=== PATIENT | female | born 1965 | race Caucasian/White ===

== ENCOUNTER 2019-03-18 17:24 | Emergency (ER) | payer MEDICAID, OTHER ==
[~2019-03-18] VITALS: Ht 165.1 cm; Wt 89.5 kg
[~2019-03-18 17:24] MED LIST: NO HOME MEDS
[2019-03-18] MEDS ORDERED: TRAZ-218 PO (18:26)
[2019-03-18] MEDS ORDERED: FLUO20CA39 PO (18:26)
[2019-03-18] MEDS ORDERED: ARIP10TA15 PO (18:26)
[2019-03-18] MEDS ORDERED: CLON0.5T23 PO (18:27)
[2019-03-18] MEDS: haloperidol 5mg tablet PO PRN (18:31)
[2019-03-18] MEDS: diphenhydrAMINE 25mg capsule PO PRN (18:31)
[2019-03-18] MEDS ORDERED: LORazepam 1 MG tablet PO ONE (18:55)
--- NOTE | 2019-03-18 19:27 | NUR ---
One to one with the patient to assess severity of thought disorder and self harm risk. The patient is cooeprative but clearly agitated by internal stimuli. She denies that she is actively suicidal but makes comments to "blow my brains out" 2nd to frustration. She reports that she is hearing voices telling her "to kill myself and commit crimes and they hate me and I'm a terrible piece of shit of a person" She is very paranoid about her stepgrandmother and her children following her around [place] and making her life miserable. "they always seen to find people connected with me. They follow me" The patient was constantly laughing or talking angrilly to herself" She was requested to give a urine sample which she did. Per Tawnya Blanton at the [facility] office the patient had been out of her klonopin for the past 48 hours.
[2019-03-18 19:29] LABS: CLARITY,URINE CLEAR (Clear); COLOR,URINE YELLOW (Yellow); GLUCOSE, URINE NEGATIVE (Neg); KETONES,URINE NEGATIVE (Neg); LEUKOCYTE ESTERASE ,URINE NEGATIVE (Neg); NITRITES, URINE NEGATIVE (Neg); OCCULT BLOOD,URINE NEGATIVE (Neg); PH,URINE 5.5 (4.8-8.0); PROTEIN,URINE NEGATIVE (Neg); UROBILINOGEN,URINE 0.2 E.U/dL (0.2-1.0)
[2019-03-18 19:32] LABS: BASOPHILS # (AUTO) 0.1 X10'3 (0-0.2); EOSINOPHILS # (AUTO) 0.4 X10'3 (0-0.9); EOSINOPHILS % (AUTO) 4.4 % (0-6); HEMATOCRIT 36.9 % (35.0-45.0); HEMOGLOBIN 12.6 g/dl (12.0-16.0); LYMPHOCYTES % (AUTO) 21.9 % (21-51); MEAN CORPUSCULAR HEMOGLOBIN 28.7 PG (27.0-31.0); MEAN CORPUSCULAR HGB CONC 34.2 g/dL (33.0-36.5); MEAN CORPUSCULAR VOLUME 83.9 FL (78-98); MEAN PLATELET VOLUME 8.5 FL (7.4-10.4); MONOCYTES % (AUTO) 10.5 % (2-12); NEUTROPHILS # (AUTO) 5.7 X10'3 (1.8-7.7); NEUTROPHILS % (AUTO) 62.2 % (42-75); PLATELET COUNT 282 X10'3 (140-440); RED CELL DISTRIBUTION WIDTH 14.1 % (11.5-14.5); WHITE BLOOD COUNT 9.1 X10'3 (4.5-11.0)
[2019-03-18 19:33] LABS: URINE HCG NEGATIVE (NEG)
[2019-03-18 19:34] LABS: UA COLLECTION TYPE CLN CATCH MIDSTREAM
[2019-03-18 19:36] LABS: ALANINE AMINOTRANSFERASE 29 U/L (12-78); ALBUMIN 3.3 G/DL (3.4-5.0); ALBUMIN/GLOBULIN RATIO 0.9 (1.1-1.5); ALKALINE PHOSPHATASE 122 IU/L (46-116); ANION GAP 9 (8-16); ASPARTATE AMINO TRANSFERASE 18 U/L (10-37); BILIRUBIN,TOTAL 0.3 MG/DL (0.1-1.0); BLOOD UREA NITROGEN 13 MG/DL (7-18); BUN/CREATININE RATIO 13.3 (6.6-38.0); CALCIUM 8.5 MG/DL (8.5-10.1); CHLORIDE 106 MMOL/L (99-107); CREATININE 0.98 MG/DL (0.40-0.90); GLUCOSE 104 MG/DL (70-104); POTASSIUM 3.3 MMOL/L (3.5-5.1); SODIUM 141 MMOL/L (135-145); TOTAL CARBON DIOXIDE 26.4 MMOL/L (24-32); TOTAL PROTEIN 7.1 G/DL (6.4-8.2); eGFR 59 ML/MIN
[2019-03-18 19:45] LABS: ETHANOL < 0.010 GM/DL (0.0-0.010)
[2019-03-18] MEDS: clonazePAM 0.5mg tablet PO SCH ×2 (20:08→21:00)
[2019-03-18 20:20] LABS: URINE AMPHETAMINE SCREEN NEGATIVE (Neg); URINE BARBITUATE SCREEN NEGATIVE (Neg); URINE BENZODIAZEPINES SCREEN NEGATIVE (Neg); URINE CANNABINOID SCREEN NEGATIVE (Neg); URINE COCAINE SCREEN NEGATIVE (Neg); URINE METHADONE SCREEN NEGATIVE (Neg); URINE OPIATE SCREEN NEGATIVE (Neg); URINE PHENCYCLIDINE SCREEN NEGATIVE (Neg)
[2019-03-18] MEDS ORDERED: traZODone 50mg tablet PO SCH (21:00)
--- NOTE | 2019-03-18 21:30 | NUR ---
Packet faxed to [facility]. Spoke to Gene @ [facility] office to confirm receipt of packet.
--- NOTE | 2019-03-18 21:54 | NUR ---
The patient appears to be asleep at this time
--- NOTE | 2019-03-18 23:10 | NUR ---
Report given to MIKEY Link at [facility], [place] for possible admisssion
--- NOTE | 2019-03-18 23:55 | NUR ---
The patient appears to be asleep at this time.
[2019-03-19] MEDS ORDERED: clonazePAM 0.5mg tablet PO SCH
--- NOTE | 2019-03-19 01:45 | NUR ---
The patient appears to be asleep
[2019-03-19] MEDS: haloperidol 5mg tablet PO PRN (04:48)
[2019-03-19] MEDS: diphenhydrAMINE 25mg capsule PO PRN (04:49)
[2019-03-19] MEDS ORDERED: LORazepam 1 MG tablet PO PRN (04:50)
--- NOTE | 2019-03-19 05:01 | NUR ---
The patient awakened and had been incontinent of urine which upset her. She was assisted in getting her bed cleaned up and changed. She has been very anxious and actively responding to internal stimuli and talking about "rat demons" and hearing things come out of the vents. She was given haldol and ativan. PRN for ativan ordered.
--- NOTE | 2019-03-19 06:30 | NUR ---
Pt up using the bathroom, asking for clean scrubs and clean sheets.
--- NOTE | 2019-03-19 06:46 | NUR ---
Note aleah in EDM - 03/19/19 at 0651 by ARLEY Assisted pt with changing the sheets on her bed. Pt denies AH this am, did hear voices last night, rates her depression at a 10/10, denies SI/HI/VH, pt is paranoid, states "I think they sent an assassin to kill me." Asked who sent an assassin, pt stated "Therese and her man." Indicated that they were former family members by marriage. Pt stated rk
--- NOTE | 2019-03-19 06:46 | NUR ---
Assisted pt with changing the sheets on her bed. Pt denies AH this am, did hear voices last night, rates her depression at a 10/10, denies SI/HI/VH. Pt is paranoid, states "I think they sent an assassin to kill me." Asked who sent an assassin, pt stated "Therese and her man." Indicated that they were former family members by marriage. Pt stated that they sent a threatening text message to her cell phone. Pt states that she is fearful, states she is tired of living this way. Pt also states that she does not wish to go to [facility], she wants to go upstairs to [facility].
--- NOTE | 2019-03-19 07:30 | NUR ---
Pt's potassium level was 3.3 yesterday, potassium was not replaced, notified Dr Severino who did not wish to replace K.
[2019-03-19] MEDS ORDERED: FLUoxetine 20mg capsule PO SCH (08:00)
[2019-03-19] MEDS ORDERED: aripiprazole 5mg tablet PO SCH (08:00)
[2019-03-19] MEDS: clonazePAM 0.5mg tablet PO SCH (08:20)
--- NOTE | 2019-03-19 08:23 | NUR ---
Katina from [facility] called, pt has been accepted at [facility]. Accepting MD is Dr Ferguson, service parts driver to pick pt up at 1130.
--- NOTE | 2019-03-19 08:45 | NUR ---
Pt is in the bathroom responding to internal stimuli, talking to herself.
--- NOTE | 2019-03-19 10:45 | NUR ---
Pt lying in bed, appears to be sleeping.
--- NOTE | 2019-03-19 11:38 | NUR ---
Pt ambulated to restroom. Stopped at nurses station and asked to speak with EDMD.
--- NOTE | 2019-03-19 11:51 | NUR ---
[employer] here to transport pt to [facility].
--- NOTE | 2019-03-19 11:52 | NUR ---
Pt walked off the unit accompanied by retail delivery driver and security, all belongings sent with her, transferred to [facility].
[2019-03-19 11:54] VITALS: BP 113/74
== END 2019-03-19 11:52 ==
LOC: ER 17:26
DX: F32.9 Major depressive disorder, single episode, unspecified (principal); R45.851 Suicidal ideations; F41.9 Anxiety disorder, unspecified; Z79.899 Other long term (current) drug therapy
CPT/HCPCS: 36415; 80053; 80305; 80320; 81003; 81025; 84443; 85025; 99285; Q0163

== ENCOUNTER 2019-04-11 20:37 | Emergency (ER) | payer MEDICAID ==
[~2019-04-11] VITALS: Ht 165.1 cm; Wt 90.9 kg
[~2019-04-11 20:37] MED LIST changes: +ARIP10TA15 PO; +CLON0.5T23 PO; +FLUO20CA39 PO; -NO HOME MEDS; +TRAZ-251 PO
[2019-04-11 20:43] VITALS: BP 138/98
[2019-04-11] MEDS ORDERED: LORazepam 1 MG tablet PO ONE ×2 (22:15→23:20)
--- NOTE | 2019-04-11 23:29 | NUR ---
[facility] WAS CALLED TO [facility].
== END 2019-04-11 23:32 | disposition home or self-care (01) ==
LOC: ER 20:38
DX: F41.9 Anxiety disorder, unspecified (principal); F32.9 Major depressive disorder, single episode, unspecified; Z79.899 Other long term (current) drug therapy; Z59.0 Homelessness
CPT/HCPCS: 93005; 99283

== ENCOUNTER 2022-03-16 13:29 | Emergency (ER) | payer MEDICARE, MEDICAID ==
[~2022-03-16] VITALS: Ht 165.1 cm; Wt 99.1 kg
[2022-03-16 14:27] LABS: BASOPHILS # (AUTO) 0.1 X10'3 (0-0.2); EOSINOPHILS # (AUTO) 0.3 X10'3 (0-0.9); EOSINOPHILS % (AUTO) 3.7 % (0-6); HEMATOCRIT 39.2 % (35.0-45.0); HEMOGLOBIN 13.3 g/dl (12.0-16.0); LYMPHOCYTES # (AUTO) 1.7 X10'3 (1.1-4.8); LYMPHOCYTES % (AUTO) 24.5 % (21-51); MEAN CORPUSCULAR HEMOGLOBIN 27.6 PG (27.0-31.0); MEAN CORPUSCULAR VOLUME 81.3 FL (78-98); MEAN PLATELET VOLUME 7.8 FL (7.4-10.4); MONOCYTES # (AUTO) 0.7 X10'3 (0-0.9); MONOCYTES % (AUTO) 9.3 % (2-12); NEUTROPHILS # (AUTO) 4.3 X10'3 (1.8-7.7); NEUTROPHILS % (AUTO) 61.5 % (42-75); PLATELET COUNT 251 X10'3 (140-440); RED BLOOD COUNT 4.82 X10'6 (4.20-5.60); RED CELL DISTRIBUTION WIDTH 13.2 % (11.5-14.5); WHITE BLOOD COUNT 7.1 X10'3 (4.5-11.0)
[2022-03-16 14:41] LABS: ALANINE AMINOTRANSFERASE 30 U/L (12-78); ALBUMIN 3.5 G/DL (3.4-5.0); ALBUMIN/GLOBULIN RATIO 0.9 (1.1-1.5); ALKALINE PHOSPHATASE 120 IU/L (46-116); ANION GAP 7 (8-16); ASPARTATE AMINO TRANSFERASE 23 U/L (10-37); BILIRUBIN,TOTAL 0.4 MG/DL (0.1-1.0); BLOOD UREA NITROGEN 12 MG/DL (7-18); BUN/CREATININE RATIO 12.8 (6.6-38.0); CALCIUM 8.4 MG/DL (8.5-10.1); CHLORIDE 105 MMOL/L (99-107); CREATININE 0.94 MG/DL (0.40-0.90); GLUCOSE 104 MG/DL (70-104); SODIUM 139 MMOL/L (135-145); TOTAL CARBON DIOXIDE 27.2 MMOL/L (24-32); TOTAL PROTEIN 7.3 G/DL (6.4-8.2); eGFR 61 ML/MIN
[2022-03-16 14:52] LABS: POTASSIUM 3.8 MMOL/L (3.5-5.1)
[2022-03-16 18:08] VITALS: BP 135/73
== END 2022-03-16 18:42 | disposition home or self-care (01) ==
LOC: ER 13:29
DX: R07.89 Other chest pain (principal); R10.13 Epigastric pain; I10 Essential (primary) hypertension; F41.9 Anxiety disorder, unspecified; F32.A Depression, unspecified; F17.200 Nicotine dependence, unspecified, uncomplicated; Z79.899 Other long term (current) drug therapy
CPT/HCPCS: 36415; 71045; 80053; 83880; 84484; 85025; 93005; 99285

== ENCOUNTER 2022-10-03 20:31 | Emergency (ER) | payer MEDICARE, MEDICAID ==
[~2022-10-03] VITALS: Ht 165.1 cm; Wt 102.3 kg
[2022-10-03 21:02] VITALS: BP 123/95
[2022-10-03] MEDS ORDERED: morphine 4 MG/ML inj SYRINge IV ONE (22:05)
[2022-10-03] MEDS ORDERED: amox tr/potassium clavulanate 875/125mg TAB PO ONE (22:05)
[2022-10-03] MEDS ORDERED: HYDR-3965 PO (22:08)
[2022-10-03] MEDS ORDERED: AMOX-117 PO (22:08)
[2022-10-03] MEDS ORDERED: morphine 4 MG/ML inj SYRINge IM ONE (22:10)
== END 2022-10-03 22:20 | disposition home or self-care (01) ==
LOC: ER 20:33
DX: K08.89 Other specified disorders of teeth and supporting structures (principal); I10 Essential (primary) hypertension
CPT/HCPCS: 96372; 99283; J2270

== ENCOUNTER 2022-12-11 12:47 | Emergency (ER) | payer MEDICARE, MEDICAID ==
[~2022-12-11] VITALS: Ht 165.1 cm; Wt 90.0 kg
[2022-12-11 13:12] VITALS: BP 112/95
[2022-12-11 13:38] LABS: BASOPHILS # (AUTO) 0.1 X10'3 (0-0.2); BASOPHILS % (AUTO) 0.6 % (0-1); EOSINOPHILS # (AUTO) 0.2 X10'3 (0-0.9); EOSINOPHILS % (AUTO) 1.7 % (0-6); HEMATOCRIT 32.8 % (35.0-45.0); HEMOGLOBIN 10.3 g/dl (12.0-16.0); LYMPHOCYTES # (AUTO) 1.2 X10'3 (1.1-4.8); LYMPHOCYTES % (AUTO) 9.5 % (21-51); MEAN CORPUSCULAR HEMOGLOBIN 24.3 PG (27.0-31.0); MEAN CORPUSCULAR HGB CONC 31.4 g/dL (33.0-36.5); MEAN CORPUSCULAR VOLUME 77.3 FL (78-98); MEAN PLATELET VOLUME 7.6 FL (7.4-10.4); MONOCYTES # (AUTO) 1.3 X10'3 (0-0.9); MONOCYTES % (AUTO) 10.1 % (2-12); NEUTROPHILS % (AUTO) 78.1 % (42-75); PLATELET COUNT 588 X10'3 (140-440); RED BLOOD COUNT 4.24 X10'6 (4.20-5.60); RED CELL DISTRIBUTION WIDTH 15.7 % (11.5-14.5); WHITE BLOOD COUNT 12.8 X10'3 (4.5-11.0)
[2022-12-11 13:41] LABS: URINE HCG NEGATIVE (NEG)
[2022-12-11 13:46] LABS: CLARITY,URINE CLOUDY (Clear); COLOR,URINE YELLOW (Yellow); GLUCOSE, URINE NEGATIVE (Neg); KETONES,URINE TRACE mg/dl (Neg); LEUKOCYTE ESTERASE ,URINE NEGATIVE (Neg); NITRITES, URINE NEGATIVE (Neg); OCCULT BLOOD,URINE TRACE-INTACT (Neg); PH,URINE 6.5 (4.8-8.0); PROTEIN,URINE 30 mg/dl (Neg)
[2022-12-11 13:51] LABS: UA COLLECTION TYPE CLN CATCH MIDSTREAM
[2022-12-11 13:52] LABS: HYALINE CASTS 0-3 /LPF (NEGATIVE); MUCUS STRANDS FEW /LPF (Neg); SQUAMOUS EPITHELIAL CELL,UR MANY /LPF (FEW); TRANSITIONAL EPI CELLS,URINE MANY /HPF
[2022-12-11 13:53] LABS: ALANINE AMINOTRANSFERASE 32 U/L (12-78); ALBUMIN 2.3 G/DL (3.4-5.0); ALBUMIN/GLOBULIN RATIO 0.5 (1.1-1.5); ALKALINE PHOSPHATASE 143 IU/L (46-116); ANION GAP 6 (8-16); ASPARTATE AMINO TRANSFERASE 34 U/L (10-37); BILIRUBIN,TOTAL 0.3 MG/DL (0.1-1.0); BLOOD UREA NITROGEN 10 MG/DL (7-18); BUN/CREATININE RATIO 11.4 (6.6-38.0); CALCIUM 8.6 MG/DL (8.5-10.1); CHLORIDE 99 MMOL/L (99-107); CREATININE 0.88 MG/DL (0.40-0.90); GLUCOSE 154 MG/DL (70-104); LIPASE 310 U/L (73-393); POTASSIUM 3.2 MMOL/L (3.5-5.1); SODIUM 137 MMOL/L (135-145); TOTAL CARBON DIOXIDE 32.5 MMOL/L (24-32); TOTAL PROTEIN 7.1 G/DL (6.4-8.2); eGFR 66 ML/MIN
[2022-12-11 13:53] LABS: BACTERIA,URINE FEW /HPF (Neg); WBC,URINE 0-4 /HPF (0-4)
== END 2022-12-11 15:13 | disposition left against medical advice (07) ==
LOC: ER 12:48
DX: R30.0 Dysuria (principal); R35.0 Frequency of micturition; Z53.21 Procedure and treatment not carried out due to patient leaving prior to being seen by health care provider
CPT/HCPCS: 36415; 80053; 81001; 81025; 83690; 85025

== ENCOUNTER 2022-12-15 18:47 | Inpatient (IN) | payer MEDICARE, MEDICAID ==
[~2022-12-15] VITALS: Ht 165.1 cm; Wt 96.0 kg
[2022-12-15 19:41] LABS: BASOPHILS # (AUTO) 0.1 X10'3 (0-0.2); BASOPHILS % (AUTO) 0.7 % (0-1); EOSINOPHILS # (AUTO) 0.1 X10'3 (0-0.9); EOSINOPHILS % (AUTO) 1.1 % (0-6); HEMATOCRIT 30.7 % (35.0-45.0); HEMOGLOBIN 10.1 g/dl (12.0-16.0); LYMPHOCYTES % (AUTO) 9.5 % (21-51); MEAN CORPUSCULAR HEMOGLOBIN 25.4 PG (27.0-31.0); MEAN CORPUSCULAR HGB CONC 32.9 g/dL (33.0-36.5); MEAN CORPUSCULAR VOLUME 77.1 FL (78-98); MEAN PLATELET VOLUME 7.2 FL (7.4-10.4); MONOCYTES # (AUTO) 0.9 X10'3 (0-0.9); MONOCYTES % (AUTO) 8.9 % (2-12); NEUTROPHILS % (AUTO) 79.8 % (42-75); PLATELET COUNT 453 X10'3 (140-440); RED BLOOD COUNT 3.98 X10'6 (4.20-5.60); RED CELL DISTRIBUTION WIDTH 15.3 % (11.5-14.5)
[2022-12-15 19:57] LABS: ALANINE AMINOTRANSFERASE 23 U/L (12-78); ALBUMIN 2.3 G/DL (3.4-5.0); ALBUMIN/GLOBULIN RATIO 0.5 (1.1-1.5); ALKALINE PHOSPHATASE 131 IU/L (46-116); ANION GAP 7 (8-16); ASPARTATE AMINO TRANSFERASE 18 U/L (10-37); BILIRUBIN,TOTAL 0.3 MG/DL (0.1-1.0); BLOOD UREA NITROGEN 10 MG/DL (7-18); BUN/CREATININE RATIO 11.4 (6.6-38.0); CALCIUM 8.8 MG/DL (8.5-10.1); CHLORIDE 103 MMOL/L (99-107); CREATININE 0.88 MG/DL (0.40-0.90); GLUCOSE 125 MG/DL (70-104); POTASSIUM 3.1 MMOL/L (3.5-5.1); SODIUM 141 MMOL/L (135-145); TOTAL CARBON DIOXIDE 31.3 MMOL/L (24-32); TOTAL PROTEIN 7.2 G/DL (6.4-8.2); eGFR 66 ML/MIN
[2022-12-15 20:08] LABS: ANISOCYTOSIS FEW; ELLIPTOCYTES FEW; LARGE PLATELETS FEW; MICROCYTOSIS 1+; PLATELET ESTIMATE INCREASED; POLYCHROMASIA FEW; TEAR DROP CELLS FEW
[2022-12-15] MEDS ORDERED: HYDROcodone/acetaminophen 5mg/325mg tablet PO ONE (20:40)
--- NOTE | 2022-12-15 21:00 | NUR ---
ng tube placed right nare positive return and bowel sounds
[2022-12-15 21:36] LABS: CLARITY,URINE SLIGHTLY CLOUDY (Clear); COLOR,URINE YELLOW (Yellow); GLUCOSE, URINE NEGATIVE (Neg); KETONES,URINE TRACE mg/dl (Neg); LEUKOCYTE ESTERASE ,URINE NEGATIVE (Neg); NITRITES, URINE NEGATIVE (Neg); OCCULT BLOOD,URINE NEGATIVE (Neg); PH,URINE 6.5 (4.8-8.0); PROTEIN,URINE TRACE mg/dl (Neg)
[2022-12-15] MEDS ORDERED: morphine 4 MG/ML inj SYRINge IV ONE (21:40)
[2022-12-15] MEDS ORDERED: ondansetron/PF 4mg/2ml inj IV ONE (21:40)
[2022-12-15 21:42] LABS: MUCUS STRANDS MODERATE /LPF (Neg); SQUAMOUS EPITHELIAL CELL,UR MANY /LPF (FEW); UA COLLECTION TYPE CLN CATCH MIDSTREAM
[2022-12-15 21:43] LABS: HYALINE CASTS 0-3 /LPF (NEGATIVE)
[2022-12-15] MEDS ORDERED: magnesium Cl slow-release 64mg tablet PO PRN (21:45)
[2022-12-15] MEDS ORDERED: potassium Cl 20 mEq SR tablet PO PRN ×2 (21:45)
[2022-12-15] MEDS ORDERED: magnesium 4gm in 100ml NS 100 ML IV PRN (21:45)
[2022-12-15] MEDS ORDERED: metoclopramide 5 mg/ml inj IV PRN (21:45)
[2022-12-15] MEDS ORDERED: morphine 2 MG/ML inj. syringe IV PRN (21:45)
[2022-12-15 21:46] LABS: BACTERIA,URINE FEW /HPF (Neg); TRANSITIONAL EPI CELLS,URINE MODERATE /HPF; WBC,URINE 0-4 /HPF (0-4)
[2022-12-15] MEDS: normal saline 1000ml 1,000 ML IV SCH (22:37)
[2022-12-16] MEDS ORDERED: QUET400T54 PO (00:21)
[2022-12-16] MEDS ORDERED: GABA600T13 PO (00:21)
[2022-12-16] MEDS ORDERED: LISI5TAB22 PO (00:21)
[2022-12-16] MEDS ORDERED: ATOR20TA66 PO (00:21)
[2022-12-16] MEDS ORDERED: ESCI20TA39 PO (00:21)
[2022-12-16] MEDS ORDERED: LURA80TA2 PO (00:21)
[2022-12-16] MEDS ORDERED: BUSP5TAB3 PO (00:21)
[2022-12-16] MEDS ORDERED: HYDR50TA65 PO (00:21)
[2022-12-16] MEDS ORDERED: PANT40TA54 PO (00:21)
[2022-12-16] MEDS ORDERED: LURA40TA2 PO (00:21)
[2022-12-16] MEDS ORDERED: HYDROmorphone 1 mg/ml syringe IV ONE ×3 (02:00→17:50)
--- NOTE | 2022-12-16 02:57 | NUR ---
PATIENT IN BED SUPINE HOB 45 DEGREES COVERS ON EYES CLOSED RR EVEN UNLABORED NO OBSERVABLE S/S OF ACUTE STRESS AT THIS TIME
[2022-12-16] MEDS: potassium Cl 40MEQ/1/2NS 520ml 520 ML IV PRN (04:17)
[2022-12-16 04:42] LABS: BASOPHILS % (AUTO) 0.3 % (0-1); EOSINOPHILS % (AUTO) 0.5 % (0-6); HEMATOCRIT 28.3 % (35.0-45.0); HEMOGLOBIN 9.3 g/dl (12.0-16.0); LYMPHOCYTES # (AUTO) 0.8 X10'3 (1.1-4.8); LYMPHOCYTES % (AUTO) 8.8 % (21-51); MEAN CORPUSCULAR HEMOGLOBIN 25.3 PG (27.0-31.0); MEAN CORPUSCULAR HGB CONC 32.9 g/dL (33.0-36.5); MEAN CORPUSCULAR VOLUME 76.7 FL (78-98); MEAN PLATELET VOLUME 7.4 FL (7.4-10.4); MONOCYTES # (AUTO) 1.3 X10'3 (0-0.9); MONOCYTES % (AUTO) 13.9 % (2-12); NEUTROPHILS # (AUTO) 7.3 X10'3 (1.8-7.7); NEUTROPHILS % (AUTO) 76.5 % (42-75); PLATELET COUNT 415 X10'3 (140-440); RED BLOOD COUNT 3.68 X10'6 (4.20-5.60); RED CELL DISTRIBUTION WIDTH 15.1 % (11.5-14.5); WHITE BLOOD COUNT 9.5 X10'3 (4.5-11.0)
[2022-12-16 04:48] LABS: ALBUMIN 2.2 G/DL (3.4-5.0); ANION GAP 8 (8-16); BLOOD UREA NITROGEN 10 MG/DL (7-18); BUN/CREATININE RATIO 12.2 (6.6-38.0); CALCIUM 8.6 MG/DL (8.5-10.1); CHLORIDE 103 MMOL/L (99-107); CREATININE 0.82 MG/DL (0.40-0.90); GLUCOSE 100 MG/DL (70-104); MAGNESIUM 1.8 MG/DL (1.5-2.4); POTASSIUM 3.3 MMOL/L (3.5-5.1); SODIUM 139 MMOL/L (135-145); TOTAL CARBON DIOXIDE 28.3 MMOL/L (24-32); eGFR 71 ML/MIN
[2022-12-16] MEDS: morphine 2 MG/ML inj. syringe IV PRN ×2 (06:30→10:17)
[2022-12-16] MEDS: normal saline 1000ml 1,000 ML IV SCH ×2 (07:50→19:14)
[2022-12-16] MEDS: K and/or MAG REPLACEMENT MC SCH ×2 (08:00→20:00)
[2022-12-16] MEDS: HYDROmorphone 1 mg/ml syringe IV PRN ×2 (08:39→14:14)
[2022-12-16 10:30] VITALS: BP 144/76
--- NOTE | 2022-12-16 10:30 | NUR ---
Patient in room [facility] 360. I have received report from EDGAR PREDATORY GAME HUNTER and had the opportunity to ask questions and assume patient care.
[2022-12-16] MEDS ORDERED: FLU VACC QS2022-23(6MOS UP)/PF 60 MCG/0.5 ML SYRINGE IMVAC ONE (10:40)
--- NOTE | 2022-12-16 11:30 | NUR ---
Patient was extremely painful, Dilaudid was given for pain. Patient was found diaphoretic. Checked bs and it was 97. vitals were stable. Verbally spoke with night hospitalist. Patient was ordered Dilaudid cad for pain, PRN Toradol 15 IV and UA tox screening.
[2022-12-16] MEDS ORDERED: hydrOXYzine 25 MG tablet PO PRN (13:50)
[2022-12-16] MEDS ORDERED: gabapentin 400mg capsule PO PRN (13:50)
[2022-12-16] MEDS ORDERED: diatr meglu/diatrizoate 30ml oral sol.-(3 dose) bottle ONE (14:48)
[2022-12-16] MEDS ORDERED: HYDROmorphone 1 mg/ml syringe IV PRN (17:50)
[2022-12-16 18:00] VITALS: BP 125/83
[2022-12-16] MEDS: ESCITALOPRAM OXALATE 5 MG TABLET PO SCH (19:53)
[2022-12-16] MEDS: quetiapine fumarate ER 300mg tablet PO SCH (19:53)
[2022-12-16] MEDS: atorvastatin 20mg tablet PO SCH (19:54)
[2022-12-16] MEDS: busPIRone 5mg tablet PO SCH (19:54)
[2022-12-16] MEDS: QUETIAPINE 50 MG TAB.SR.24H PO SCH (19:54)
[2022-12-16] MEDS: lurasidone 20mg tablet PO SCH (19:55)
[2022-12-16 22:00] VITALS: BP 117/66
[2022-12-16] MEDS ORDERED: ketorolac tromethamine 15mg/ml inj. IM PRN (23:25)
[2022-12-16] MEDS ORDERED: naloxone 0.4 mg/ml inj IV PRN (23:25)
[2022-12-16] MEDS ORDERED: PCA WASTE DOCUMENTATION 1 MG ML MC PRN (23:25)
[2022-12-16] MEDS ORDERED: ketorolac tromethamine 15mg/ml inj. IV PRN (23:44)
[2022-12-16] MEDS: HYDROmorph/NS 0.2 mg/ml PCA 100 ML IV SCH (23:59)
[2022-12-17] MEDS: HYDROmorph/NS 0.2 mg/ml PCA 100 ML IV SCH ×9 (01:00→17:00)
[2022-12-17] MEDS: diatr meglu/diatrizoate 30ml oral sol.-(3 dose) bottle PO SCH ×3 (03:28→12:39)
--- NOTE | 2022-12-17 03:37 | NUR ---
Dr. Holden wants another CT today and oral contrast prep was given to patient late. Unaware patient was needing this oral prep for the 2nd Ct since it was placed when the 1st CT was ordered. For the 1st CT patient received rectal contrast. Oral contrast prep is in patient specific bin in the [employer].
--- NOTE | 2022-12-17 03:44 | NUR ---
REVIEWED LANDS RESOURCE MANAGER CHARTING AND IN AGREEMENT. PT HAS SLEPT WELL SINCE STARTING ON RN WOUND CARE WITH CONTINOUS DOSE. MINIMAL USE OF BOLUS NOTED. APPEARS COMFORTABLE AND NOT DIAPHORETIC SHE WAS EARLIER FOLLOWING LARGER DOSES OF DILAUDID. DOSE OF GASTROVIEW WAS GIVEN LATE BY LANDS RESOURCE MANAGER. HIGH SPEED OPERATOR AWARE AT WILL TAKE HER LAST CASE AROUND 11AM SO THAT SHE STILL GETS A LONG PREP.
[2022-12-17] MEDS: normal saline 1000ml 1,000 ML IV SCH ×2 (05:28→15:01)
[2022-12-17 06:00] VITALS: BP 110/48
[2022-12-17 06:02] LABS: BASOPHILS % (AUTO) 0.4 % (0-1); EOSINOPHILS % (AUTO) 0.3 % (0-6); HEMATOCRIT 26.7 % (35.0-45.0); HEMOGLOBIN 8.7 g/dl (12.0-16.0); LYMPHOCYTES # (AUTO) 0.8 X10'3 (1.1-4.8); LYMPHOCYTES % (AUTO) 9.5 % (21-51); MEAN CORPUSCULAR HEMOGLOBIN 25.5 PG (27.0-31.0); MEAN CORPUSCULAR HGB CONC 32.5 g/dL (33.0-36.5); MEAN CORPUSCULAR VOLUME 78.5 FL (78-98); MEAN PLATELET VOLUME 7.4 FL (7.4-10.4); MONOCYTES % (AUTO) 11.2 % (2-12); NEUTROPHILS # (AUTO) 6.7 X10'3 (1.8-7.7); NEUTROPHILS % (AUTO) 78.6 % (42-75); PLATELET COUNT 314 X10'3 (140-440); RED BLOOD COUNT 3.41 X10'6 (4.20-5.60); RED CELL DISTRIBUTION WIDTH 15.4 % (11.5-14.5); WHITE BLOOD COUNT 8.5 X10'3 (4.5-11.0)
--- NOTE | 2022-12-17 06:06 | NUR ---
Problems reprioritized. Patient report given, questions answered & plan of care reviewed with ramón JENSEN.
[2022-12-17 06:23] LABS: ANION GAP 7 (8-16); BLOOD UREA NITROGEN 12 MG/DL (7-18); BUN/CREATININE RATIO 16.7 (6.6-38.0); CALCIUM 7.8 MG/DL (8.5-10.1); CHLORIDE 107 MMOL/L (99-107); CREATININE 0.72 MG/DL (0.40-0.90); GLUCOSE 109 MG/DL (70-104); MAGNESIUM 1.8 MG/DL (1.5-2.4); POTASSIUM 3.3 MMOL/L (3.5-5.1); SODIUM 143 MMOL/L (135-145); TOTAL CARBON DIOXIDE 29.5 MMOL/L (24-32); eGFR 83 ML/MIN
--- NOTE | 2022-12-17 06:39 | NUR ---
Patient in room [facility] 360. I have received report from Rosa Isela and had the opportunity to ask questions and assume patient care.
--- NOTE | 2022-12-17 07:11 | NUR ---
First dose of gastroview given late at 0328. This was due prior at 2100. Per CT, next dose needs to be given at 0900 today. Spoke with pharmacy to advise of late dose.
[2022-12-17] MEDS: docusate sod 100mg capsule PO SCH ×2 (08:00→20:00)
[2022-12-17] MEDS: sennosides/docusate sodium tablet PO SCH ×2 (08:00→20:00)
[2022-12-17] MEDS: K and/or MAG REPLACEMENT MC SCH (08:00)
[2022-12-17] MEDS: lurasidone 20mg tablet PO SCH ×2 (08:37→21:00)
[2022-12-17] MEDS: pantoprazole 40mg Tablet.DR PO SCH (08:37)
[2022-12-17] MEDS: busPIRone 5mg tablet PO SCH ×2 (08:37→20:00)
[2022-12-17] MEDS: lisinopril 5mg tablet PO SCH (08:39)
[2022-12-17 10:00] VITALS: BP 125/69
[2022-12-17 13:53] LABS: URINE AMPHETAMINE SCREEN NEGATIVE (Neg); URINE BARBITUATE SCREEN NEGATIVE (Neg); URINE BENZODIAZEPINES SCREEN NEGATIVE (Neg); URINE CANNABINOID SCREEN NEGATIVE (Neg); URINE COCAINE SCREEN NEGATIVE (Neg); URINE METHADONE SCREEN NEGATIVE (Neg); URINE OPIATE SCREEN POSITIVE (Neg); URINE PHENCYCLIDINE SCREEN NEGATIVE (Neg)
--- NOTE | 2022-12-17 16:28 | NUR ---
called pharmacy, spoke with pharmacist regarding 40 meq potassium in 520 mLs 1/2 NS running at same y-site as the dilaudid SAWYER HELPER with NS running. Pharmacy confirmed solutions were compatible.
[2022-12-17] MEDS: potassium Cl 40MEQ/1/2NS 520ml 520 ML IV PRN (16:48)
--- NOTE | 2022-12-17 17:00 | NUR ---
Patient taken to OR.
[2022-12-17] MEDS ORDERED: midazolam 1 mg/ML 2ml injection ONE ×2 (17:48→23:00)
[2022-12-17] MEDS ORDERED: fentaNYL /PF 50mcg/ml 5ml ampule ONE (17:48)
[2022-12-17] MEDS ORDERED: rocuronium 10mg/ml inj IV ONE ×3 (17:53→20:21)
[2022-12-17] MEDS ORDERED: sevoflurane 250ml liquid IH ONE (17:53)
--- NOTE | 2022-12-17 18:15 | NUR ---
Problems reprioritized. Patient report given, questions answered & plan of care reviewed with Freddy.
[2022-12-17] MEDS ORDERED: propofol inj 20 ML IV ONE (18:54)
[2022-12-17] MEDS ORDERED: ceFOXitin 1000 MG inj ONE ×2 (18:54)
[2022-12-17] MEDS ORDERED: proCHLORperazine 10 MG/2 ml inj IV PRN (19:05)
[2022-12-17] MEDS ORDERED: ringers solution, lacted 1,000 ML IV SCH (19:05)
[2022-12-17] MEDS ORDERED: morphine 2 MG/ML inj. syringe IV PRN (19:05)
[2022-12-17] MEDS ORDERED: morphine 4 MG/ML inj SYRINge IV PRN (19:05)
[2022-12-17] MEDS ORDERED: meperidine/PF 25mg/ml syringe IV PRN ×3 (19:05)
[2022-12-17] MEDS ORDERED: ondansetron/PF 4mg/2ml inj IV PRN (19:05)
[2022-12-17] MEDS ORDERED: albumin (Human) 5% 250ml 500 ML IV ONE (19:06)
[2022-12-17] MEDS ORDERED: ePHEDrine 50MG/ML INJ. ONE (19:33)
[2022-12-17] MEDS ORDERED: albumin (Human) 5% 250ml 250 ML IV ONE (19:33)
--- NOTE | 2022-12-17 20:29 | NUR ---
Jeana Sister [phone] would like to be notified when Pt out of surgery. talked to her just now and gave update that patient went into surgery at 1900 and no report since then. Addendum: 12/17/22 at 2204 by Freddy Jordan RN I called the sisiter Jeana at 2030 to update patient's status.
[2022-12-17] MEDS ORDERED: fentaNYL/PF 50MCG/1 ML 2ML syringe IV PRN (20:45)
[2022-12-17] MEDS ORDERED: FENTANYL-0.9 % NACL/PF 100 ML IV PRN (20:45)
[2022-12-17] MEDS: atorvastatin 20mg tablet PO SCH (21:00)
[2022-12-17] MEDS: ESCITALOPRAM OXALATE 5 MG TABLET PO SCH (21:00)
[2022-12-17] MEDS: QUETIAPINE 50 MG TAB.SR.24H PO SCH (21:00)
[2022-12-17] MEDS: quetiapine fumarate ER 300mg tablet PO SCH (21:00)
--- NOTE | 2022-12-17 22:05 | NUR ---
Report received from MIKEY Hayes
--- NOTE | 2022-12-17 22:07 | NUR ---
report given to Gemini in CICU. pt still not out of surgery yet. non-admin medications that were due during surgery
[2022-12-17] MEDS ORDERED: fentaNYL/PF 50MCG/1 ML 2ML syringe ONE (23:00)
[2022-12-17] MEDS ORDERED: naloxone 0.4 mg/ml inj IV PRN (23:20)
--- NOTE | 2022-12-17 23:20 | NUR ---
Pt arrived to CICU room 2008, via hospital bed and 1 bag of belongings. Pt sedated and intubated upon arrival. Bedside report received from MIKEY Jackson.
[2022-12-17 23:26] VITALS: BP 129/57
[2022-12-17 23:35] VITALS: BP 129/57
[2022-12-17 23:50] VITALS: BP 159/80
[2022-12-17] MEDS: propofol 1000mg/100ml bottle 100 ML IV SCH (23:56)
[2022-12-18] VITALS (46 sets, daily range): BP systolic 89–160; BP diastolic 47–106
[2022-12-18] MEDS: K and/or MAG REPLACEMENT MC SCH ×3 (00:05→20:00)
[2022-12-18 00:39] LABS: ABG BASE EXCESS -4.9 mmol/L (-2.0-2.0); ABG HCO3 20.2 mmol/L (22.0-26.0); ABG OXYGEN SATURATION 95.6 % (94-97); ABG PCO2 (T) 40.4 mmHg (32.0-45.0); ABG PO2 (T) 94.3 mmHg (75.0-100.0); ALLEN'S TEST Modified; FCOHb 1.2 % (0.0-3.9); FMetHb 0.3 % (0.0-1.5); FO2Hb 94.2 % (94-97); PATIENT TEMPERATURE 38.8; PEEP 5 cm H2O; RESPIRATORY RATE 12 b/min; TIDAL VOLUME 500 mL
[2022-12-18 01:24] LABS: BASOPHILS % (AUTO) 0.9 % (0-1); EOSINOPHILS % (AUTO) 0.1 % (0-6); HEMATOCRIT 29.8 % (35.0-45.0); HEMOGLOBIN 9.5 g/dl (12.0-16.0); LYMPHOCYTES # (AUTO) 0.7 X10'3 (1.1-4.8); LYMPHOCYTES % (AUTO) 12.4 % (21-51); MEAN CORPUSCULAR HEMOGLOBIN 25.2 PG (27.0-31.0); MEAN CORPUSCULAR HGB CONC 31.8 g/dL (33.0-36.5); MEAN CORPUSCULAR VOLUME 79.2 FL (78-98); MEAN PLATELET VOLUME 7.6 FL (7.4-10.4); MONOCYTES # (AUTO) 0.3 X10'3 (0-0.9); MONOCYTES % (AUTO) 5.3 % (2-12); NEUTROPHILS # (AUTO) 4.3 X10'3 (1.8-7.7); NEUTROPHILS % (AUTO) 81.3 % (42-75); PLATELET COUNT 355 X10'3 (140-440); RED BLOOD COUNT 3.76 X10'6 (4.20-5.60); RED CELL DISTRIBUTION WIDTH 15.8 % (11.5-14.5); WHITE BLOOD COUNT 5.3 X10'3 (4.5-11.0)
[2022-12-18 01:35] LABS: ALBUMIN 2.1 G/DL (3.4-5.0); ANION GAP 13 (8-16); BLOOD UREA NITROGEN 12 MG/DL (7-18); BUN/CREATININE RATIO 14.5 (6.6-38.0); CALCIUM 7.8 MG/DL (8.5-10.1); CHLORIDE 107 MMOL/L (99-107); CREATININE 0.83 MG/DL (0.40-0.90); GLUCOSE 142 MG/DL (70-104); MAGNESIUM 1.5 MG/DL (1.5-2.4); POTASSIUM 3.8 MMOL/L (3.5-5.1); SODIUM 142 MMOL/L (135-145); TOTAL CARBON DIOXIDE 22.2 MMOL/L (24-32); TRIGLYCERIDES 108 MG/DL (20-135); eGFR 70 ML/MIN
[2022-12-18] MEDS: normal saline 1000ml 1,000 ML IV SCH (01:55)
[2022-12-18] MEDS: acetaminophen 325mg/10.15ml oral unit dose solution PO PRN ×3 (02:32→21:06)
[2022-12-18] MEDS: propofol 1000mg/100ml bottle 100 ML IV SCH ×2 (03:30→07:59)
[2022-12-18] MEDS: piperacillin/tazo 3.375gm/50ml 50 ML IV SCH ×3 (04:14→20:31)
[2022-12-18] MEDS ORDERED: NORMAL SALINE IV SCH (04:20)
[2022-12-18] MEDS: fentaNYL 50mcg/ml PF inj. 2,500 MCG in normal saline 250ml IV soln 200 ML IV SCH ×4 (04:20→22:17)
[2022-12-18] MEDS ORDERED: FENTANYL IV SCH (04:20)
--- NOTE | 2022-12-18 05:46 | NUR ---
Moderate amount of serosanguinous fluid draining from abdominal incision. Dressing reinforced twice with ABD pads.
--- NOTE | 2022-12-18 06:14 | NUR ---
Problems reprioritized. Patient report given, questions answered & plan of care reviewed with MIKEY Porter.
[2022-12-18] MEDS: pantoprazole 40mg Tablet.DR PO SCH (07:30)
[2022-12-18] MEDS: busPIRone 5mg tablet PO SCH ×2 (08:00→20:00)
[2022-12-18] MEDS: docusate sod 100mg capsule PO SCH ×2 (08:00→20:00)
[2022-12-18] MEDS: lisinopril 5mg tablet PO SCH (08:00)
[2022-12-18] MEDS: sennosides/docusate sodium tablet PO SCH ×2 (08:00→20:00)
[2022-12-18] MEDS: lurasidone 20mg tablet PO SCH ×2 (08:00→20:43)
[2022-12-18] MEDS ORDERED: albumin (human) 25% 100ml IV 100 ML in normal saline 500ml IV soln 400 ML IV ONE (08:10)
[2022-12-18] MEDS ORDERED: albumin (Human) 5% 250ml 500 ML IV ONE ×2 (08:13→08:20)
[2022-12-18] MEDS: NORepinephrine 8mg/ 250ml NS 250 ML IV SCH (08:49)
[2022-12-18] MEDS: pantoprazole 40MG/NS 100ML BAG 100 ML IV SCH (08:58)
[2022-12-18] MEDS: midazolam 100mg in NS 100ml 100 ML IV SCH (09:01)
[2022-12-18] MEDS ORDERED: albumin (human) 25% 100ml IV 300 ML IV ONE (10:00)
--- NOTE | 2022-12-18 11:09 | NUR ---
Initial: Pt admit for SBO. Pt remains intubated POD #1 s/p exploratory laparotomy, lysis of adhesions, small bowel resection, and drainage of pelvic abscess. Per bedside RN abdomen is closed however fascia remains open. Pt with an NGT in place for suction, with 750 mL output since OR per RN. No plans for nutrition support at this time. Will continue to follow closely and make recommendations as appropriate. Recommendations: 1) IF nutrition support and able to utilize gut, continuous Vital HP with 60 mL/hr goal rate via NGT. PN if unable to utilize gut 2) IF TF, additional 100 mL water flush Q4H; monitor serum Na 3) IF TF, prealbumin q Wednesday/; daily scaled weights 4) Bowel care per physician 5) Advance to low fiber diet as medically indicated following extubation Addendum: 12/18/22 at [address] Amended: Links added.
[2022-12-18] MEDS: albumin (Human) 5% 250ml 250 ML IV SCH ×4 (12:03→22:03)
[2022-12-18] MEDS ORDERED: diatr meglu/diatrizoate 30ml oral sol.-(3 dose) bottle PO SCH (18:00)
--- NOTE | 2022-12-18 18:13 | NUR ---
Patient in room CICU 2008. I have received report from MIKEY Porter and had the opportunity to ask questions and assume patient care.
[2022-12-18] MEDS: diatr meglu/diatrizoate 30ml oral sol.-(3 dose) bottle PO SCH (20:31)
[2022-12-18] MEDS: quetiapine fumarate ER 300mg tablet PO SCH (20:43)
[2022-12-18] MEDS: ESCITALOPRAM OXALATE 5 MG TABLET PO SCH (20:43)
[2022-12-18] MEDS: QUETIAPINE 50 MG TAB.SR.24H PO SCH (20:43)
[2022-12-18] MEDS: atorvastatin 20mg tablet PO SCH (20:43)
[2022-12-19] VITALS (35 sets, daily range): BP systolic 106–128; BP diastolic 48–67
[2022-12-19] MEDS: NORepinephrine 8mg/ 250ml NS 250 ML IV SCH ×2 (00:02→16:37)
[2022-12-19] MEDS: albumin (Human) 5% 250ml 250 ML IV SCH ×8 (01:34→23:34)
[2022-12-19] MEDS: mineral oil/petrolatum ophthal oint EACHEYE SCH ×4 (01:34→19:56)
[2022-12-19 02:32] LABS: BASOPHILS % (AUTO) 0.1 % (0-1); EOSINOPHILS % (AUTO) 0 % (0-6); HEMATOCRIT 23.1 % (35.0-45.0); HEMOGLOBIN 7.3 g/dl (12.0-16.0); LYMPHOCYTES # (AUTO) 0.6 X10'3 (1.1-4.8); LYMPHOCYTES % (AUTO) 6.4 % (21-51); MEAN CORPUSCULAR HEMOGLOBIN 24.7 PG (27.0-31.0); MEAN CORPUSCULAR HGB CONC 31.6 g/dL (33.0-36.5); MEAN CORPUSCULAR VOLUME 78.3 FL (78-98); MEAN PLATELET VOLUME 7.4 FL (7.4-10.4); MONOCYTES # (AUTO) 0.6 X10'3 (0-0.9); MONOCYTES % (AUTO) 6.6 % (2-12); NEUTROPHILS # (AUTO) 8.2 X10'3 (1.8-7.7); NEUTROPHILS % (AUTO) 86.9 % (42-75); PLATELET COUNT 288 X10'3 (140-440); RED BLOOD COUNT 2.95 X10'6 (4.20-5.60); RED CELL DISTRIBUTION WIDTH 15.8 % (11.5-14.5); WHITE BLOOD COUNT 9.5 X10'3 (4.5-11.0)
[2022-12-19 02:42] LABS: ALBUMIN 3.1 G/DL (3.4-5.0); ANION GAP 8 (8-16); BLOOD UREA NITROGEN 7 MG/DL (7-18); BUN/CREATININE RATIO 10.6 (6.6-38.0); CALCIUM 7.6 MG/DL (8.5-10.1); CHLORIDE 111 MMOL/L (99-107); CREATININE 0.66 MG/DL (0.40-0.90); GLUCOSE 135 MG/DL (70-104); MAGNESIUM 1.6 MG/DL (1.5-2.4); POTASSIUM 3.1 MMOL/L (3.5-5.1); SODIUM 146 MMOL/L (135-145); TOTAL CARBON DIOXIDE 26.9 MMOL/L (24-32); eGFR > 90 ML/MIN
[2022-12-19] MEDS: midazolam 100mg in NS 100ml 100 ML IV SCH (02:49)
[2022-12-19] MEDS: potassium Cl 20mEq/100mL bag 100 ML IV PRN ×4 (02:54→16:38)
[2022-12-19] MEDS: acetaminophen 325mg/10.15ml oral unit dose solution PO PRN (03:20)
[2022-12-19 03:42] LABS: TOTAL CELLS COUNTED 100
[2022-12-19 03:43] LABS: ANISOCYTOSIS FEW; ELLIPTOCYTES 1+; MICROCYTOSIS 1+; PLATELET ESTIMATE NORMAL
[2022-12-19 03:44] LABS: POLYCHROMASIA FEW; TEAR DROP CELLS FEW
[2022-12-19 03:45] LABS: BURR CELLS 2+
[2022-12-19 04:03] LABS: ABG BASE EXCESS -0.4 mmol/L (-2.0-2.0); ABG HCO3 25.5 mmol/L (22.0-26.0); ABG OXYGEN SATURATION 96.3 % (94-97); ABG PCO2 (T) 52.8 mmHg (32.0-45.0); ABG PO2 (T) 103.5 mmHg (75.0-100.0); ALLEN'S TEST Modified; FCOHb 1.6 % (0.0-3.9); FMetHb 0.3 % (0.0-1.5); FO2Hb 94.5 % (94-97); PATIENT TEMPERATURE 39.1; PEEP 5 cm H2O; RESPIRATORY RATE 12 b/min; TIDAL VOLUME 500 mL; TOTAL HEMOGLOBIN 7.8 G/dl (12.0-16.0)
[2022-12-19] MEDS: piperacillin/tazo 3.375gm/50ml 50 ML IV SCH ×3 (05:05→19:56)
[2022-12-19] MEDS: diatr meglu/diatrizoate 30ml oral sol.-(3 dose) bottle PO SCH ×2 (05:45→09:07)
--- NOTE | 2022-12-19 06:17 | NUR ---
Problems reprioritized. Patient report given, questions answered & plan of care reviewed with MIKEY Ardon.
--- NOTE | 2022-12-19 06:30 | NUR ---
Patient in room CICU 2008. I have received report from Gemini JENSEN and had the opportunity to ask questions and assume patient care. Safety measures in place. ET Tube patent. chest rising and falling evenly. continues with light sedation. per Gemini JENSEN, pt continues febrile at 38.9 despite cooling measures and tylenol. pt repositioned.
[2022-12-19] MEDS: docusate sod 100mg capsule PO SCH (08:00)
[2022-12-19] MEDS: K and/or MAG REPLACEMENT MC SCH ×2 (08:00→20:00)
[2022-12-19] MEDS: sennosides/docusate sodium tablet PO SCH (08:54)
[2022-12-19] MEDS: lisinopril 5mg tablet PO SCH (08:55)
[2022-12-19] MEDS: lurasidone 20mg tablet PO SCH (08:55)
[2022-12-19] MEDS: busPIRone 5mg tablet PO SCH (08:55)
[2022-12-19] MEDS: pantoprazole 40MG/NS 100ML BAG 100 ML IV SCH (08:56)
--- NOTE | 2022-12-19 09:48 | NUR ---
Pt transferred down to CT scan for assessment and returned without issue. Breath sounds + bilat upon return. Dr. Watson rounded. new orders to hold all p.o. meds, d/c ketorolac. [id number] drop in h&h. no new orders. discussed continued fever. no new orders at this time. Addendum: 12/19/22 at 1047 by Reva Vazquez RN new order from Dr. Watson for prn IV tylenol. for fever
[2022-12-19] MEDS: acetaminophen 1,000mg/100ml IV 100 ML IV PRN ×2 (12:29→21:18)
[2022-12-19] MEDS: fentaNYL 50mcg/ml PF inj. 2,500 MCG in normal saline 250ml IV soln 200 ML IV SCH ×2 (15:16→17:38)
--- NOTE | 2022-12-19 18:09 | NUR ---
Problems reprioritized. Patient report given, questions answered & plan of care reviewed with Jennie JENSEN.
[2022-12-20] VITALS (40 sets, daily range): BP systolic 95–130; BP diastolic 47–71
[2022-12-20] MEDS: NORepinephrine 8mg/ 250ml NS 250 ML IV SCH ×2 (00:26→18:38)
[2022-12-20] MEDS: albumin (Human) 5% 250ml 250 ML IV SCH ×7 (00:35→22:00)
[2022-12-20] MEDS: fentaNYL 50mcg/ml PF inj. 2,500 MCG in normal saline 250ml IV soln 200 ML IV SCH ×3 (00:38→23:43)
[2022-12-20] MEDS: midazolam 100mg in NS 100ml 100 ML IV SCH (00:41)
[2022-12-20] MEDS: mineral oil/petrolatum ophthal oint EACHEYE SCH ×4 (02:42→19:51)
[2022-12-20 03:08] LABS: ABG BASE EXCESS -2.2 mmol/L (-2.0-2.0); ABG HCO3 23.7 mmol/L (22.0-26.0); ABG OXYGEN SATURATION 96.2 % (94-97); ABG PCO2 (T) 50.3 mmHg (32.0-45.0); ABG PO2 (T) 100.4 mmHg (75.0-100.0); ALLEN'S TEST Modified; FCOHb 1.6 % (0.0-3.9); FMetHb 0.3 % (0.0-1.5); FO2Hb 94.4 % (94-97); PATIENT TEMPERATURE 38.7; PEEP 5 cm H2O; RESPIRATORY RATE 12 b/min; TIDAL VOLUME 500 mL; TOTAL HEMOGLOBIN 7.4 G/dl (12.0-16.0)
[2022-12-20 03:14] LABS: ALBUMIN 3.3 G/DL (3.4-5.0); ANION GAP 11 (8-16); BLOOD UREA NITROGEN 6 MG/DL (7-18); BUN/CREATININE RATIO 7.7 (6.6-38.0); CHLORIDE 111 MMOL/L (99-107); CREATININE 0.78 MG/DL (0.40-0.90); GLUCOSE 104 MG/DL (70-104); POTASSIUM 3.2 MMOL/L (3.5-5.1); SODIUM 148 MMOL/L (135-145); TOTAL CARBON DIOXIDE 26.4 MMOL/L (24-32); eGFR 76 ML/MIN
[2022-12-20 03:20] LABS: BASOPHILS % (AUTO) 0.2 % (0-1); EOSINOPHILS % (AUTO) 0.1 % (0-6); LYMPHOCYTES # (AUTO) 0.8 X10'3 (1.1-4.8); LYMPHOCYTES % (AUTO) 7.5 % (21-51); MEAN CORPUSCULAR HEMOGLOBIN 25.2 PG (27.0-31.0); MEAN CORPUSCULAR HGB CONC 32.2 g/dL (33.0-36.5); MEAN CORPUSCULAR VOLUME 78.4 FL (78-98); MEAN PLATELET VOLUME 7.6 FL (7.4-10.4); MONOCYTES # (AUTO) 0.5 X10'3 (0-0.9); MONOCYTES % (AUTO) 5.4 % (2-12); NEUTROPHILS # (AUTO) 8.7 X10'3 (1.8-7.7); NEUTROPHILS % (AUTO) 86.8 % (42-75); PLATELET COUNT 248 X10'3 (140-440); RED BLOOD COUNT 2.75 X10'6 (4.20-5.60)
[2022-12-20] MEDS: piperacillin/tazo 3.375gm/50ml 50 ML IV SCH ×3 (03:23→19:51)
[2022-12-20 03:27] LABS: HEMATOCRIT 21.5 % (35.0-45.0); HEMOGLOBIN 6.9 g/dl (12.0-16.0)
[2022-12-20] MEDS: potassium Cl 20mEq/100mL bag 100 ML IV PRN ×5 (04:20→21:00)
--- NOTE | 2022-12-20 06:24 | NUR ---
Problems reprioritized. Patient report given, questions answered & plan of care reviewed with RN.
[2022-12-20] MEDS: acetaminophen 1,000mg/100ml IV 100 ML IV PRN (07:58)
[2022-12-20] MEDS: pantoprazole 40MG/NS 100ML BAG 100 ML IV SCH (08:58)
[2022-12-20] MEDS: K and/or MAG REPLACEMENT MC SCH ×2 (08:59→19:51)
--- NOTE | 2022-12-20 09:53 | NUR ---
Dr. Watson called pt's sister Jeana Noe to discuss blood transfusions. Jeana Noe gave permission tot his nurse and Dr. Watson to give blood products to her sister as needed. new order for one unit of PRBC
[2022-12-20] MEDS ORDERED: furosemide 40mg/4ml inj IV ONE (11:05)
[2022-12-20] MEDS ORDERED: furosemide 20 MG/2 ML vial IV SCH (14:00)
[2022-12-20] MEDS: furosemide 20 MG/2 ML vial IV SCH ×2 (17:27→23:43)
[2022-12-20 18:01] LABS: HEMATOCRIT 22.6 % (35.0-45.0); HEMOGLOBIN 7.4 g/dl (12.0-16.0); MEAN CORPUSCULAR HEMOGLOBIN 24.3 PG (27.0-31.0); MEAN CORPUSCULAR HGB CONC 32.6 g/dL (33.0-36.5); MEAN CORPUSCULAR VOLUME 74.7 FL (78-98); MEAN PLATELET VOLUME 7.6 FL (7.4-10.4); PLATELET COUNT 199 X10'3 (140-440); RED BLOOD COUNT 3.03 X10'6 (4.20-5.60); RED CELL DISTRIBUTION WIDTH 18.8 % (11.5-14.5); WHITE BLOOD COUNT 7.7 X10'3 (4.5-11.0)
--- NOTE | 2022-12-20 18:17 | NUR ---
Patient in room CICU 2008. I have received report from Reva JENSEN and had the opportunity to ask questions and assume patient care.
--- NOTE | 2022-12-20 18:20 | NUR ---
Problems reprioritized. Patient report given, questions answered & plan of care reviewed with Pippa JENSEN. Safety measures in place.
[2022-12-21] VITALS (35 sets, daily range): BP systolic 94–121; BP diastolic 48–63
[2022-12-21] MEDS: albumin (Human) 5% 250ml 250 ML IV SCH ×7 (01:15→22:27)
[2022-12-21] MEDS: mineral oil/petrolatum ophthal oint EACHEYE SCH ×4 (01:15→20:55)
[2022-12-21 02:36] LABS: BASOPHILS % (AUTO) 0.1 % (0-1); EOSINOPHILS # (AUTO) 0.1 X10'3 (0-0.9); EOSINOPHILS % (AUTO) 1.5 % (0-6); HEMATOCRIT 22.7 % (35.0-45.0); HEMOGLOBIN 7.4 g/dl (12.0-16.0); LYMPHOCYTES # (AUTO) 0.6 X10'3 (1.1-4.8); LYMPHOCYTES % (AUTO) 8.4 % (21-51); MEAN CORPUSCULAR HGB CONC 32.4 g/dL (33.0-36.5); MEAN PLATELET VOLUME 7.6 FL (7.4-10.4); MONOCYTES # (AUTO) 0.4 X10'3 (0-0.9); MONOCYTES % (AUTO) 6.1 % (2-12); NEUTROPHILS # (AUTO) 5.5 X10'3 (1.8-7.7); NEUTROPHILS % (AUTO) 83.9 % (42-75); PLATELET COUNT 200 X10'3 (140-440); RED BLOOD COUNT 3.07 X10'6 (4.20-5.60); RED CELL DISTRIBUTION WIDTH 18.3 % (11.5-14.5); WHITE BLOOD COUNT 6.5 X10'3 (4.5-11.0)
[2022-12-21 02:41] LABS: ALANINE AMINOTRANSFERASE 12 U/L (12-78); ALBUMIN 3.2 G/DL (3.4-5.0); ALKALINE PHOSPHATASE 68 IU/L (46-116); ANION GAP 7 (8-16); ASPARTATE AMINO TRANSFERASE 10 U/L (10-37); BILIRUBIN,TOTAL 0.9 MG/DL (0.1-1.0); BLOOD UREA NITROGEN 9 MG/DL (7-18); BUN/CREATININE RATIO 11.4 (6.6-38.0); CALCIUM 8.4 MG/DL (8.5-10.1); CHLORIDE 108 MMOL/L (99-107); CREATININE 0.79 MG/DL (0.40-0.90); GLUCOSE 132 MG/DL (70-104); MAGNESIUM 1.6 MG/DL (1.5-2.4); PHOSPHORUS 1.5 MG/DL (2.3-4.5); POTASSIUM 3.1 MMOL/L (3.5-5.1); SODIUM 146 MMOL/L (135-145); TOTAL CARBON DIOXIDE 30.6 MMOL/L (24-32); TOTAL PROTEIN 6.3 G/DL (6.4-8.2); eGFR 74 ML/MIN
[2022-12-21] MEDS: midazolam 100mg in NS 100ml 100 ML IV SCH (02:41)
[2022-12-21] MEDS: NORepinephrine 8mg/ 250ml NS 250 ML IV SCH ×2 (03:00→16:17)
[2022-12-21 03:25] LABS: ABG BASE EXCESS 4.4 mmol/L (-2.0-2.0); ABG HCO3 28.6 mmol/L (22.0-26.0); ABG OXYGEN SATURATION 93.8 % (94-97); ABG PCO2 (T) 42.4 mmHg (32.0-45.0); ABG PO2 (T) 69.9 mmHg (75.0-100.0); ALLEN'S TEST POSITIVE; FCOHb 1.8 % (0.0-3.9); FMetHb 0.3 % (0.0-1.5); FO2Hb 91.8 % (94-97); PATIENT TEMPERATURE 37.9; PEEP 5 cm H2O; RESPIRATORY RATE 14 b/min; TIDAL VOLUME 500 mL; TOTAL HEMOGLOBIN 8.5 G/dl (12.0-16.0)
[2022-12-21] MEDS: potassium Cl 20mEq/100mL bag 100 ML IV PRN ×2 (03:27→04:33)
[2022-12-21] MEDS: piperacillin/tazo 3.375gm/50ml 50 ML IV SCH ×3 (03:27→20:55)
[2022-12-21] MEDS: furosemide 20 MG/2 ML vial IV SCH ×4 (06:00→23:36)
[2022-12-21 06:29] LABS: POTASSIUM 3.7 MMOL/L (3.5-5.1)
--- NOTE | 2022-12-21 06:30 | NUR ---
Patient in room CICU 2008. I have received report from and had the opportunity to ask questions and assume patient care.
--- NOTE | 2022-12-21 06:32 | NUR ---
Problems reprioritized. Patient report given, questions answered & plan of care reviewed with Gretchen JENSEN.
[2022-12-21] MEDS: K and/or MAG REPLACEMENT MC SCH ×2 (08:00→20:00)
[2022-12-21] MEDS: pantoprazole 40MG/NS 100ML BAG 100 ML IV SCH (08:15)
--- NOTE | 2022-12-21 10:00 | NUR ---
update to dr almanzar and dr montejo. abd remains distended per dr almanzar, so will hold off on return to or for now- will start reglan 12/22. when abd distention down will start weaning.
[2022-12-21 10:06] LABS: ABG BASE EXCESS 4.4 mmol/L (-2.0-2.0); ABG HCO3 28.9 mmol/L (22.0-26.0); ABG OXYGEN SATURATION 95.2 % (94-97); ABG PCO2 (T) 44.8 mmHg (32.0-45.0); ABG PO2 (T) 80.2 mmHg (75.0-100.0); ALLEN'S TEST POSITIVE; FCOHb 1.7 % (0.0-3.9); FMetHb 0.3 % (0.0-1.5); FO2Hb 93.3 % (94-97); PEEP 5 cm H2O; RESPIRATORY RATE 14 b/min; TIDAL VOLUME 350 mL; TOTAL HEMOGLOBIN 7.6 G/dl (12.0-16.0)
[2022-12-21] MEDS: fentaNYL 50mcg/ml PF inj. 2,500 MCG in normal saline 250ml IV soln 200 ML IV SCH ×2 (11:36→23:35)
--- NOTE | 2022-12-21 11:46 | NUR ---
TF Consult "trickle feeds"/Yeyo Consult: Pt remains intubated no BM yet this admit post-op w/ reglan to start tomorrow according to surgeon per RN this AM. Pt started on trickle feeds yesterday at 30ml/hr using Vital HP per EMR; mortgage closing clerk requests RD input see recs below. Yeyo 12 w/ abdomen surgical wound and BARBY otherwise skin intact per EMR. Noted Phos 1.5mg/dl this AM; mortgage closing clerk agreeable to replacement. Will monitor for TF tolerance and advancement per MD discretion. Recommendations: 1) Trickle TF per MD using Vital HP at 30ml/hr; to provide 720ml volume/day, 720 kcals, 602ml water, and 63g protein. 2) IF TF to advance; Vital HP at 60 mL/hr goal would provide 1440ml volume/day, 1440 kcals, 1204ml water, and 126g protein. 3) additional 100 mL water flush Q4H; monitor serum Na 4) PALB q Wednesday/; daily scaled weights 5) Bowel care per physician 6) Advance to low fiber diet as medically indicated following extubation Addendum: 12/21/22 at [address] Amended: Links added.
[2022-12-21] MEDS: Neutra Phos packet PO PRN (15:05)
--- NOTE | 2022-12-21 17:40 | NUR ---
family concerned pt not getting psych meds as has severe mental illness. dr almanzar through unit- said ok to give though question how much to be absorbed. will notify family
--- NOTE | 2022-12-21 18:25 | NUR ---
Patient in room CICU 2008. I have received report from Gretchen JENSEN and had the opportunity to ask questions and assume patient care.
[2022-12-21] MEDS: busPIRone 5mg tablet PO SCH (20:55)
[2022-12-21] MEDS: lurasidone 20mg tablet PO SCH (20:55)
[2022-12-21] MEDS: QUETIAPINE 50 MG TAB.SR.24H PO SCH (21:00)
[2022-12-21] MEDS: quetiapine fumarate ER 300mg tablet PO SCH (21:00)
[2022-12-21] MEDS: ESCITALOPRAM OXALATE 5 MG TABLET PO SCH (21:09)
[2022-12-22] VITALS (37 sets, daily range): BP systolic 88–139; BP diastolic 48–78
[2022-12-22] MEDS: mineral oil/petrolatum ophthal oint EACHEYE SCH ×4 (01:43→20:20)
[2022-12-22] MEDS: albumin (Human) 5% 250ml 250 ML IV SCH ×7 (01:43→21:37)
[2022-12-22 02:54] LABS: ABG BASE EXCESS 7.6 mmol/L (-2.0-2.0); ABG HCO3 32.8 mmol/L (22.0-26.0); ABG OXYGEN SATURATION 95.6 % (94-97); ABG PO2 (T) 83.5 mmHg (75.0-100.0); ALLEN'S TEST POSITIVE; FCOHb 1.7 % (0.0-3.9); FMetHb 0.3 % (0.0-1.5); FO2Hb 93.7 % (94-97); PATIENT TEMPERATURE 37.6; PEEP 5 cm H2O; RESPIRATORY RATE 14 b/min; TIDAL VOLUME 350 mL; TOTAL HEMOGLOBIN 7.6 G/dl (12.0-16.0)
[2022-12-22 02:57] LABS: BASOPHILS % (AUTO) 0.3 % (0-1); EOSINOPHILS # (AUTO) 0.2 X10'3 (0-0.9); EOSINOPHILS % (AUTO) 2.6 % (0-6); HEMATOCRIT 22.2 % (35.0-45.0); LYMPHOCYTES # (AUTO) 0.6 X10'3 (1.1-4.8); LYMPHOCYTES % (AUTO) 10.4 % (21-51); MEAN CORPUSCULAR HEMOGLOBIN 23.2 PG (27.0-31.0); MEAN CORPUSCULAR HGB CONC 31.1 g/dL (33.0-36.5); MEAN CORPUSCULAR VOLUME 74.7 FL (78-98); MEAN PLATELET VOLUME 8.1 FL (7.4-10.4); MONOCYTES # (AUTO) 0.5 X10'3 (0-0.9); NEUTROPHILS # (AUTO) 4.5 X10'3 (1.8-7.7); NEUTROPHILS % (AUTO) 77.7 % (42-75); PLATELET COUNT 176 X10'3 (140-440); RED BLOOD COUNT 2.97 X10'6 (4.20-5.60); RED CELL DISTRIBUTION WIDTH 18.1 % (11.5-14.5); WHITE BLOOD COUNT 5.8 X10'3 (4.5-11.0)
[2022-12-22 03:03] LABS: HEMOGLOBIN 6.9 g/dl (12.0-16.0)
[2022-12-22 03:11] LABS: ALANINE AMINOTRANSFERASE 12 U/L (12-78); ALBUMIN 3.5 G/DL (3.4-5.0); ALBUMIN/GLOBULIN RATIO 1.1 (1.1-1.5); ALKALINE PHOSPHATASE 63 IU/L (46-116); ANION GAP 7 (8-16); ASPARTATE AMINO TRANSFERASE 14 U/L (10-37); BILIRUBIN,TOTAL 0.7 MG/DL (0.1-1.0); BLOOD UREA NITROGEN 14 MG/DL (7-18); BUN/CREATININE RATIO 16.5 (6.6-38.0); CALCIUM 8.4 MG/DL (8.5-10.1); CHLORIDE 106 MMOL/L (99-107); CREATININE 0.85 MG/DL (0.40-0.90); GLUCOSE 114 MG/DL (70-104); MAGNESIUM 1.7 MG/DL (1.5-2.4); PHOSPHORUS 1.8 MG/DL (2.3-4.5); SODIUM 147 MMOL/L (135-145); TOTAL CARBON DIOXIDE 33.6 MMOL/L (24-32); TOTAL PROTEIN 6.7 G/DL (6.4-8.2); eGFR 68 ML/MIN
[2022-12-22] MEDS: potassium Cl 20mEq/100mL bag 100 ML IV PRN ×4 (03:34→07:11)
[2022-12-22] MEDS: piperacillin/tazo 3.375gm/50ml 50 ML IV SCH ×3 (04:28→20:19)
[2022-12-22] MEDS: midazolam 100mg in NS 100ml 100 ML IV SCH (04:29)
[2022-12-22] MEDS: NORepinephrine 8mg/ 250ml NS 250 ML IV SCH ×2 (05:34→18:51)
[2022-12-22] MEDS: furosemide 20 MG/2 ML vial IV SCH ×3 (05:58→18:13)
--- NOTE | 2022-12-22 06:15 | NUR ---
Patient in room CICU 2008. I have received report from Pippa JENSEN and had the opportunity to ask questions and assume patient care.
--- NOTE | 2022-12-22 06:24 | NUR ---
Problems reprioritized. Patient report given, questions answered & plan of care reviewed with Siri JENSEN.
[2022-12-22] MEDS: K and/or MAG REPLACEMENT MC SCH ×2 (07:25→20:00)
[2022-12-22] MEDS: lurasidone 20mg tablet PO SCH (08:00)
[2022-12-22] MEDS: busPIRone 5mg tablet PO SCH (08:05)
[2022-12-22] MEDS: pantoprazole 40MG/NS 100ML BAG 100 ML IV SCH (08:05)
[2022-12-22 08:07] LABS: HEMATOCRIT 24.9 % (35.0-45.0); MEAN CORPUSCULAR HEMOGLOBIN 24.4 PG (27.0-31.0); MEAN CORPUSCULAR HGB CONC 32.3 g/dL (33.0-36.5); MEAN CORPUSCULAR VOLUME 75.7 FL (78-98); MEAN PLATELET VOLUME 7.9 FL (7.4-10.4); PLATELET COUNT 195 X10'3 (140-440); RED BLOOD COUNT 3.29 X10'6 (4.20-5.60); RED CELL DISTRIBUTION WIDTH 17.9 % (11.5-14.5); WHITE BLOOD COUNT 6.2 X10'3 (4.5-11.0)
[2022-12-22] MEDS: fentaNYL 50mcg/ml PF inj. 2,500 MCG in normal saline 250ml IV soln 200 ML IV SCH (09:33)
[2022-12-22] MEDS: Neutra Phos packet PO PRN (10:00)
[2022-12-22] MEDS ORDERED: acetaminophen 325mg/10.15ml oral unit dose solution PO PRN (11:40)
[2022-12-22] MEDS: acetaminophen 325mg/10.15ml oral unit dose solution PO PRN (12:24)
[2022-12-22] MEDS: erythromycin ethylsuccinate 200mg/5ml 200ml bottle NG SCH (16:16)
--- NOTE | 2022-12-22 18:12 | NUR ---
Patient in room CICU 2008. I have received report from Siri JENSEN and had the opportunity to ask questions and assume patient care.
--- NOTE | 2022-12-22 18:18 | NUR ---
Problems reprioritized. Patient report given, questions answered & plan of care reviewed with Pippa JENSEN.
[2022-12-22] MEDS ORDERED: acetaminophen 325mg/10.15ml oral unit dose solution NG PRN (19:29)
[2022-12-22] MEDS ORDERED: Neutra Phos packet NG PRN (19:31)
[2022-12-22] MEDS: QUETIAPINE 50 MG TAB.SR.24H PO SCH (20:11)
[2022-12-22] MEDS: quetiapine fumarate ER 300mg tablet PO SCH (20:11)
[2022-12-22] MEDS: ESCITALOPRAM OXALATE 5 MG TABLET NG SCH (20:18)
[2022-12-22] MEDS: lurasidone 20mg tablet NG SCH (20:19)
[2022-12-22] MEDS: busPIRone 5mg tablet NG SCH (20:19)
[2022-12-22] MEDS: acetaminophen 1,000mg/100ml IV 100 ML IV PRN (22:51)
[2022-12-23] VITALS (35 sets, daily range): BP systolic 101–140; BP diastolic 58–105
[2022-12-23] MEDS: erythromycin ethylsuccinate 200mg/5ml 200ml bottle NG SCH ×4 (00:30→15:39)
[2022-12-23] MEDS: furosemide 20 MG/2 ML vial IV SCH ×4 (00:30→17:38)
[2022-12-23] MEDS: albumin (Human) 5% 250ml 250 ML IV SCH ×7 (00:53→20:53)
[2022-12-23] MEDS: mineral oil/petrolatum ophthal oint EACHEYE SCH ×4 (02:53→19:40)
[2022-12-23 02:56] LABS: BASOPHILS % (AUTO) 0.4 % (0-1); EOSINOPHILS # (AUTO) 0.1 X10'3 (0-0.9); EOSINOPHILS % (AUTO) 2.1 % (0-6); HEMATOCRIT 24.4 % (35.0-45.0); HEMOGLOBIN 7.9 g/dl (12.0-16.0); LYMPHOCYTES # (AUTO) 0.5 X10'3 (1.1-4.8); LYMPHOCYTES % (AUTO) 9.5 % (21-51); MEAN CORPUSCULAR HEMOGLOBIN 24.6 PG (27.0-31.0); MEAN CORPUSCULAR HGB CONC 32.5 g/dL (33.0-36.5); MEAN CORPUSCULAR VOLUME 75.7 FL (78-98); MEAN PLATELET VOLUME 7.9 FL (7.4-10.4); MONOCYTES # (AUTO) 0.6 X10'3 (0-0.9); MONOCYTES % (AUTO) 10.3 % (2-12); NEUTROPHILS # (AUTO) 4.3 X10'3 (1.8-7.7); NEUTROPHILS % (AUTO) 77.7 % (42-75); PLATELET COUNT 146 X10'3 (140-440); RED BLOOD COUNT 3.23 X10'6 (4.20-5.60); RED CELL DISTRIBUTION WIDTH 17.9 % (11.5-14.5); WHITE BLOOD COUNT 5.5 X10'3 (4.5-11.0)
[2022-12-23 03:10] LABS: ALANINE AMINOTRANSFERASE 17 U/L (12-78); ALBUMIN 3.6 G/DL (3.4-5.0); ALBUMIN/GLOBULIN RATIO 1.1 (1.1-1.5); ALKALINE PHOSPHATASE 63 IU/L (46-116); ANION GAP 9 (8-16); ASPARTATE AMINO TRANSFERASE 26 U/L (10-37); BILIRUBIN,TOTAL 0.9 MG/DL (0.1-1.0); BLOOD UREA NITROGEN 18 MG/DL (7-18); BUN/CREATININE RATIO 17.6 (6.6-38.0); CALCIUM 8.5 MG/DL (8.5-10.1); CHLORIDE 105 MMOL/L (99-107); CREATININE 1.02 MG/DL (0.40-0.90); GLUCOSE 135 MG/DL (70-104); MAGNESIUM 1.5 MG/DL (1.5-2.4); SODIUM 148 MMOL/L (135-145); TOTAL PROTEIN 6.8 G/DL (6.4-8.2); eGFR 55 ML/MIN
[2022-12-23 03:12] LABS: POTASSIUM 2.7 MMOL/L (3.5-5.1)
[2022-12-23] MEDS: potassium Cl 20mEq/100mL bag 100 ML IV PRN ×5 (03:22→11:23)
[2022-12-23 03:39] LABS: ABG BASE EXCESS 9.3 mmol/L (-2.0-2.0); ABG HCO3 34.6 mmol/L (22.0-26.0); ABG OXYGEN SATURATION 95.8 % (94-97); ABG PCO2 (T) 54.2 mmHg (32.0-45.0); ABG PO2 (T) 85.7 mmHg (75.0-100.0); ALLEN'S TEST Modified; FCOHb 1.9 % (0.0-3.9); FMetHb 0.3 % (0.0-1.5); FO2Hb 93.7 % (94-97); PATIENT TEMPERATURE 37.9; PEEP 5 cm H2O; RESPIRATORY RATE 14 b/min; TIDAL VOLUME 350 mL; TOTAL HEMOGLOBIN 8.6 G/dl (12.0-16.0)
[2022-12-23] MEDS: piperacillin/tazo 3.375gm/50ml 50 ML IV SCH ×3 (04:14→19:40)
--- NOTE | 2022-12-23 06:15 | NUR ---
Problems reprioritized. Patient report given, questions answered & plan of care reviewed with Tra RN.
[2022-12-23] MEDS: K and/or MAG REPLACEMENT MC SCH ×2 (06:53→20:00)
[2022-12-23] MEDS: NORepinephrine 8mg/ 250ml NS 250 ML IV SCH ×2 (06:54→21:25)
[2022-12-23] MEDS: pantoprazole 40MG/NS 100ML BAG 100 ML IV SCH (07:37)
[2022-12-23] MEDS: busPIRone 5mg tablet NG SCH ×2 (07:52→19:40)
[2022-12-23] MEDS: lurasidone 20mg tablet NG SCH ×2 (07:52→20:45)
[2022-12-23] MEDS: acetaminophen 1,000mg/100ml IV 100 ML IV PRN ×2 (08:29→17:38)
[2022-12-23] MEDS: fentaNYL 50mcg/ml PF inj. 2,500 MCG in normal saline 250ml IV soln 200 ML IV SCH ×2 (09:25→20:37)
[2022-12-23 10:22] LABS: PHOSPHORUS 2.3 MG/DL (2.3-4.5); POTASSIUM 3.2 MMOL/L (3.5-5.1)
--- NOTE | 2022-12-23 14:33 | NUR ---
TPN consult: Per EMR pt with a GRV of 550 mL early this morning so TF was held. F/u GRV 400 mL. Per RN pt with very slow bowel sounds. MD requests TPN until gut motility improves. Pt started on routine Erythromycin 12/22 and possibly to begin Reglan 12/24 per MD. NGT remains in place on LIS, with 50 mL output this morning per RN. Will continue to follow closely. Recommendations: 1) Continuous TPN per MD using 2:1 Clinimix-E 03/29 with 95 mL/hr goal rate and additional 100 mL 20% ILE to run at 8.33 mL/hr for 12 hrs daily. To provide 2280 mL volume/day, 1819 kcal, 114 g protein, and 342 g dext (2.30 mg/kg/min dext load) 2) Once okay to transition to EN, continuous Vital HP with 60 mL/hr goal to provide 1440 ml volume/day, 1440 kcal, 1204 ml water, and 126 g protein. 3) Once TF, additional 100 mL water flush Q4H; monitor serum Na 4) PALB and TG q Wednesday/; daily scaled weights 5) Bowel care per physician 6) Advance to low fiber diet as medically indicated following extubation Addendum: 12/23/22 at [address] Amended: Links added.
[2022-12-23] MEDS ORDERED: ZINC/COPPER/MANGANESE/SELENIUM 0.5 ML, chromic chloride inj. 5 MCG in AA 5%/D15W/ELECTR... IV SCH (18:00)
[2022-12-23] MEDS: fat emulsion 20% inj. 100 ML IV SCH (18:06)
--- NOTE | 2022-12-23 18:30 | NUR ---
Patient in room CICU 2008. I have received report from MIKEY Valadez and had the opportunity to ask questions and assume patient care.
[2022-12-23 19:22] LABS: PREALBUMIN 11.5 MG/DL (19-36)
[2022-12-23] MEDS: QUETIAPINE 50 MG TAB.SR.24H PO SCH (20:38)
[2022-12-23] MEDS: quetiapine fumarate ER 300mg tablet PO SCH (20:38)
[2022-12-23] MEDS: ESCITALOPRAM OXALATE 5 MG TABLET NG SCH (20:45)
[2022-12-24] VITALS (35 sets, daily range): BP systolic 108–157; BP diastolic 59–87
[2022-12-24] MEDS: albumin (Human) 5% 250ml 250 ML IV SCH ×4 (00:01→09:57)
[2022-12-24] MEDS: erythromycin ethylsuccinate 200mg/5ml 200ml bottle NG SCH ×4 (00:03→23:24)
[2022-12-24] MEDS: furosemide 20 MG/2 ML vial IV SCH ×5 (00:03→23:24)
[2022-12-24] MEDS: mineral oil/petrolatum ophthal oint EACHEYE SCH ×4 (02:05→20:31)
[2022-12-24 02:51] LABS: BASOPHILS % (AUTO) 0.3 % (0-1); EOSINOPHILS # (AUTO) 0.2 X10'3 (0-0.9); EOSINOPHILS % (AUTO) 2.9 % (0-6); HEMATOCRIT 23.9 % (35.0-45.0); HEMOGLOBIN 7.7 g/dl (12.0-16.0); LYMPHOCYTES # (AUTO) 0.6 X10'3 (1.1-4.8); LYMPHOCYTES % (AUTO) 9.4 % (21-51); MEAN CORPUSCULAR HEMOGLOBIN 24.4 PG (27.0-31.0); MEAN CORPUSCULAR HGB CONC 32.2 g/dL (33.0-36.5); MEAN PLATELET VOLUME 8.5 FL (7.4-10.4); MONOCYTES # (AUTO) 0.6 X10'3 (0-0.9); MONOCYTES % (AUTO) 10.5 % (2-12); NEUTROPHILS # (AUTO) 4.5 X10'3 (1.8-7.7); NEUTROPHILS % (AUTO) 76.9 % (42-75); PLATELET COUNT 143 X10'3 (140-440); RED BLOOD COUNT 3.15 X10'6 (4.20-5.60); RED CELL DISTRIBUTION WIDTH 17.5 % (11.5-14.5); WHITE BLOOD COUNT 5.9 X10'3 (4.5-11.0)
[2022-12-24 02:56] LABS: ABG BASE EXCESS 9.3 mmol/L (-2.0-2.0); ABG HCO3 34.6 mmol/L (22.0-26.0); ABG OXYGEN SATURATION 95.7 % (94-97); ABG PCO2 (T) 54.6 mmHg (32.0-45.0); ABG PO2 (T) 87.3 mmHg (75.0-100.0); ALLEN'S TEST POSITIVE; FCOHb 1.7 % (0.0-3.9); FMetHb 0.3 % (0.0-1.5); FO2Hb 93.8 % (94-97); PATIENT TEMPERATURE 37.7; PEEP 5 cm H2O; RESPIRATORY RATE 14 b/min; TIDAL VOLUME 350 mL; TOTAL HEMOGLOBIN 8.3 G/dl (12.0-16.0)
[2022-12-24 03:10] LABS: ALANINE AMINOTRANSFERASE 13 U/L (12-78); ALBUMIN 3.8 G/DL (3.4-5.0); ALBUMIN/GLOBULIN RATIO 1.2 (1.1-1.5); ALKALINE PHOSPHATASE 62 IU/L (46-116); ANION GAP 7 (8-16); ASPARTATE AMINO TRANSFERASE 19 U/L (10-37); BILIRUBIN,TOTAL 0.8 MG/DL (0.1-1.0); BLOOD UREA NITROGEN 19 MG/DL (7-18); BUN/CREATININE RATIO 22.4 (6.6-38.0); CALCIUM 8.5 MG/DL (8.5-10.1); CHLORIDE 102 MMOL/L (99-107); CREATININE 0.85 MG/DL (0.40-0.90); GLUCOSE 131 MG/DL (70-104); MAGNESIUM 1.5 MG/DL (1.5-2.4); PHOSPHORUS 3.4 MG/DL (2.3-4.5); SODIUM 146 MMOL/L (135-145); TOTAL CARBON DIOXIDE 36.9 MMOL/L (24-32); eGFR 68 ML/MIN
[2022-12-24 03:12] LABS: POTASSIUM 2.7 MMOL/L (3.5-5.1)
[2022-12-24] MEDS: potassium Cl 20mEq/100mL bag 100 ML IV PRN ×9 (03:21→23:35)
[2022-12-24] MEDS: piperacillin/tazo 3.375gm/50ml 50 ML IV SCH ×3 (03:21→20:30)
[2022-12-24] MEDS: acetaminophen 325mg/10.15ml oral unit dose solution NG PRN (05:37)
--- NOTE | 2022-12-24 06:12 | NUR ---
Problems reprioritized. Patient report given, questions answered & plan of care reviewed with MIKEY Porter.
[2022-12-24] MEDS: fentaNYL 50mcg/ml PF inj. 2,500 MCG in normal saline 250ml IV soln 200 ML IV SCH (07:11)
[2022-12-24] MEDS: pantoprazole 40MG/NS 100ML BAG 100 ML IV SCH (07:49)
[2022-12-24] MEDS: lurasidone 20mg tablet NG SCH ×2 (07:49→20:31)
[2022-12-24] MEDS: busPIRone 5mg tablet NG SCH ×2 (07:50→20:30)
[2022-12-24] MEDS: K and/or MAG REPLACEMENT MC SCH ×2 (08:00→20:00)
[2022-12-24] MEDS ORDERED: dextrose 50%-water 50ml dispensing syringe IV PRN ×2 (08:00)
[2022-12-24] MEDS: NORepinephrine 8mg/ 250ml NS 250 ML IV SCH ×2 (10:42→23:59)
[2022-12-24] MEDS ORDERED: DEXMEDETOMIDINE IN 0.9 % NACL 50 ML IV SCH (11:40)
[2022-12-24] MEDS: dexmedetomidine inj. 400 MCG in normal saline 100ml IV soln 96 ML IV SCH ×4 (12:12→23:21)
[2022-12-24] MEDS: ZINC/COPPER/MANGANESE/SELENIUM 0.5 ML, chromic chloride inj. 5 MCG in AA 5%/D15W/ELECTR... IV SCH ×2 (13:00→23:24)
[2022-12-24] MEDS: insulin regular, human U-100 3ml vial - multi-dose SQ SCH ×2 (14:12→20:43)
[2022-12-24] MEDS: fat emulsion 20% inj. 100 ML IV SCH (16:46)
--- NOTE | 2022-12-24 18:19 | NUR ---
Patient in room CICU 2008. I have received report from MIKEY Porter and had the opportunity to ask questions and assume patient care.
[2022-12-24] MEDS: ESCITALOPRAM OXALATE 5 MG TABLET NG SCH (20:30)
[2022-12-24] MEDS: QUETIAPINE 50 MG TAB.SR.24H PO SCH (20:31)
[2022-12-24] MEDS: quetiapine fumarate ER 300mg tablet PO SCH (20:31)
[2022-12-24] MEDS: acetaminophen 1,000mg/100ml IV 100 ML IV PRN (20:37)
[2022-12-24] MEDS: insulin glargine (Lantus) pen - multi-dose SQ SCH (21:11)
[2022-12-25] VITALS (35 sets, daily range): BP systolic 111–152; BP diastolic 48–79
[2022-12-25] MEDS: potassium Cl 20mEq/100mL bag 100 ML IV PRN ×5 (00:40→19:27)
[2022-12-25] MEDS: mineral oil/petrolatum ophthal oint EACHEYE SCH ×4 (02:02→20:37)
[2022-12-25] MEDS: insulin regular, human U-100 3ml vial - multi-dose SQ SCH ×4 (02:05→20:35)
[2022-12-25 02:30] LABS: BASOPHILS % (AUTO) 0.3 % (0-1); EOSINOPHILS # (AUTO) 0.2 X10'3 (0-0.9); EOSINOPHILS % (AUTO) 3.4 % (0-6); HEMATOCRIT 24.6 % (35.0-45.0); HEMOGLOBIN 7.9 g/dl (12.0-16.0); LYMPHOCYTES # (AUTO) 0.7 X10'3 (1.1-4.8); LYMPHOCYTES % (AUTO) 11.5 % (21-51); MEAN CORPUSCULAR HEMOGLOBIN 24.2 PG (27.0-31.0); MEAN CORPUSCULAR HGB CONC 31.9 g/dL (33.0-36.5); MEAN CORPUSCULAR VOLUME 75.7 FL (78-98); MEAN PLATELET VOLUME 8.8 FL (7.4-10.4); MONOCYTES # (AUTO) 0.7 X10'3 (0-0.9); MONOCYTES % (AUTO) 11.7 % (2-12); NEUTROPHILS # (AUTO) 4.2 X10'3 (1.8-7.7); NEUTROPHILS % (AUTO) 73.1 % (42-75); PLATELET COUNT 206 X10'3 (140-440); RED BLOOD COUNT 3.25 X10'6 (4.20-5.60); RED CELL DISTRIBUTION WIDTH 17.8 % (11.5-14.5); WHITE BLOOD COUNT 5.7 X10'3 (4.5-11.0)
[2022-12-25 02:39] LABS: ALANINE AMINOTRANSFERASE 12 U/L (12-78); ALBUMIN 3.5 G/DL (3.4-5.0); ALBUMIN/GLOBULIN RATIO 0.9 (1.1-1.5); ALKALINE PHOSPHATASE 65 IU/L (46-116); ANION GAP 7 (8-16); ASPARTATE AMINO TRANSFERASE 14 U/L (10-37); BILIRUBIN,TOTAL 0.6 MG/DL (0.1-1.0); BLOOD UREA NITROGEN 23 MG/DL (7-18); BUN/CREATININE RATIO 24.2 (6.6-38.0); CALCIUM 9.2 MG/DL (8.5-10.1); CHLORIDE 102 MMOL/L (99-107); CREATININE 0.95 MG/DL (0.40-0.90); GLUCOSE 169 MG/DL (70-104); MAGNESIUM 1.7 MG/DL (1.5-2.4); PHOSPHORUS 2.5 MG/DL (2.3-4.5); POTASSIUM 3.5 MMOL/L (3.5-5.1); SODIUM 145 MMOL/L (135-145); TOTAL CARBON DIOXIDE 35.6 MMOL/L (24-32); TOTAL PROTEIN 7.2 G/DL (6.4-8.2); TRIGLYCERIDES 235 MG/DL (20-135); eGFR 60 ML/MIN
[2022-12-25] MEDS: dexmedetomidine inj. 400 MCG in normal saline 100ml IV soln 96 ML IV SCH ×7 (03:10→22:11)
[2022-12-25] MEDS: piperacillin/tazo 3.375gm/50ml 50 ML IV SCH ×3 (03:49→20:26)
[2022-12-25 04:53] LABS: ABG BASE EXCESS 7.5 mmol/L (-2.0-2.0); ABG HCO3 32.2 mmol/L (22.0-26.0); ABG OXYGEN SATURATION 96.1 % (94-97); ABG PCO2 (T) 47.6 mmHg (32.0-45.0); ABG PO2 (T) 88.1 mmHg (75.0-100.0); ALLEN'S TEST POSITIVE; FCOHb 0.9 % (0.0-3.9); FMetHb 0.3 % (0.0-1.5); FO2Hb 94.9 % (94-97); PATIENT TEMPERATURE 37.7; PEEP 5 cm H2O; RESPIRATORY RATE 14 b/min; TIDAL VOLUME 350 mL; TOTAL HEMOGLOBIN 10.4 G/dl (12.0-16.0)
[2022-12-25] MEDS: furosemide 20 MG/2 ML vial IV SCH ×3 (05:33→17:30)
--- NOTE | 2022-12-25 06:02 | NUR ---
Problems reprioritized. Patient report given, questions answered & plan of care reviewed with MIKEY Porter.
[2022-12-25] MEDS: K and/or MAG REPLACEMENT MC SCH ×2 (08:00→20:00)
[2022-12-25] MEDS: busPIRone 5mg tablet NG SCH ×2 (08:12→20:37)
[2022-12-25] MEDS: lurasidone 20mg tablet NG SCH ×2 (08:12→20:26)
[2022-12-25] MEDS: pantoprazole 40MG/NS 100ML BAG 100 ML IV SCH (08:13)
[2022-12-25] MEDS: MVI, adult No.4 with vit. K 10 ML in dextrose 5% water 500ml 500 ML IV SCH ×2 (08:13)
[2022-12-25] MEDS: erythromycin ethylsuccinate 200mg/5ml 200ml bottle NG SCH ×2 (08:13→16:53)
[2022-12-25] MEDS ORDERED: FLU VACC QS2022-23(6MOS UP)/PF 60 MCG/0.5 ML SYRINGE IMVAC ONE (09:00)
[2022-12-25] MEDS: ZINC/COPPER/MANGANESE/SELENIUM 0.5 ML, chromic chloride inj. 5 MCG in AA 5%/D15W/ELECTR... IV SCH ×2 (09:28→19:31)
[2022-12-25] MEDS: HYDROmorphone 1 mg/ml syringe IV PRN ×5 (11:15→21:13)
[2022-12-25] MEDS: fat emulsion 20% inj. 100 ML IV SCH (16:53)
[2022-12-25] MEDS: fentaNYL 50mcg/ml PF inj. 2,500 MCG in normal saline 250ml IV soln 200 ML IV SCH (17:31)
--- NOTE | 2022-12-25 18:24 | NUR ---
Patient in room CICU 2008. I have received report from MIKEY Porter and had the opportunity to ask questions and assume patient care.
[2022-12-25] MEDS: acetaminophen 1,000mg/100ml IV 100 ML IV PRN (19:31)
[2022-12-25] MEDS: ESCITALOPRAM OXALATE 5 MG TABLET NG SCH (20:26)
[2022-12-25] MEDS: diatr meglu/diatrizoate 30ml oral sol.-(3 dose) bottle PO SCH (20:26)
[2022-12-25] MEDS: insulin glargine (Lantus) pen - multi-dose SQ SCH (20:36)
[2022-12-25] MEDS: quetiapine fumarate ER 300mg tablet PO SCH (20:36)
[2022-12-25] MEDS: QUETIAPINE 50 MG TAB.SR.24H PO SCH (20:36)
[2022-12-26] VITALS (30 sets, daily range): BP systolic 107–137; BP diastolic 47–80
[2022-12-26] MEDS: furosemide 20 MG/2 ML vial IV SCH ×4 (00:39→18:37)
[2022-12-26] MEDS: erythromycin ethylsuccinate 200mg/5ml 200ml bottle NG SCH ×3 (00:40→16:59)
[2022-12-26] MEDS: HYDROmorphone 1 mg/ml syringe IV PRN ×4 (01:13→22:16)
[2022-12-26] MEDS: dexmedetomidine inj. 400 MCG in normal saline 100ml IV soln 96 ML IV SCH ×5 (01:19→14:42)
[2022-12-26] MEDS: mineral oil/petrolatum ophthal oint EACHEYE SCH ×4 (02:04→20:19)
[2022-12-26] MEDS: insulin regular, human U-100 3ml vial - multi-dose SQ SCH ×4 (02:13→20:51)
[2022-12-26] MEDS: potassium Cl 20mEq/100mL bag 100 ML IV SCH ×4 (02:14→20:19)
[2022-12-26 02:40] LABS: BASOPHILS % (AUTO) 0.3 % (0-1); EOSINOPHILS # (AUTO) 0.4 X10'3 (0-0.9); EOSINOPHILS % (AUTO) 6.7 % (0-6); HEMATOCRIT 24.4 % (35.0-45.0); HEMOGLOBIN 7.9 g/dl (12.0-16.0); LYMPHOCYTES # (AUTO) 0.7 X10'3 (1.1-4.8); LYMPHOCYTES % (AUTO) 11.4 % (21-51); MEAN CORPUSCULAR HEMOGLOBIN 24.3 PG (27.0-31.0); MEAN CORPUSCULAR HGB CONC 32.3 g/dL (33.0-36.5); MEAN CORPUSCULAR VOLUME 75.2 FL (78-98); MEAN PLATELET VOLUME 8.9 FL (7.4-10.4); MONOCYTES # (AUTO) 0.8 X10'3 (0-0.9); MONOCYTES % (AUTO) 12.3 % (2-12); NEUTROPHILS # (AUTO) 4.4 X10'3 (1.8-7.7); NEUTROPHILS % (AUTO) 69.3 % (42-75); PLATELET COUNT 257 X10'3 (140-440); RED BLOOD COUNT 3.24 X10'6 (4.20-5.60); RED CELL DISTRIBUTION WIDTH 17.3 % (11.5-14.5); WHITE BLOOD COUNT 6.4 X10'3 (4.5-11.0)
[2022-12-26 02:45] LABS: ALANINE AMINOTRANSFERASE 15 U/L (12-78); ALBUMIN 3.2 G/DL (3.4-5.0); ALBUMIN/GLOBULIN RATIO 0.8 (1.1-1.5); ALKALINE PHOSPHATASE 72 IU/L (46-116); ANION GAP 3 (8-16); ASPARTATE AMINO TRANSFERASE 15 U/L (10-37); BILIRUBIN,TOTAL 0.5 MG/DL (0.1-1.0); BLOOD UREA NITROGEN 29 MG/DL (7-18); BUN/CREATININE RATIO 34.1 (6.6-38.0); CALCIUM 9.2 MG/DL (8.5-10.1); CHLORIDE 97 MMOL/L (99-107); CREATININE 0.85 MG/DL (0.40-0.90); GLUCOSE 117 MG/DL (70-104); MAGNESIUM 1.9 MG/DL (1.5-2.4); PHOSPHORUS 4.1 MG/DL (2.3-4.5); SODIUM 138 MMOL/L (135-145); TOTAL CARBON DIOXIDE 38.5 MMOL/L (24-32); TOTAL PROTEIN 7.3 G/DL (6.4-8.2); eGFR 68 ML/MIN
[2022-12-26 03:50] LABS: ABG BASE EXCESS 9.8 mmol/L (-2.0-2.0); ABG HCO3 34.7 mmol/L (22.0-26.0); ABG OXYGEN SATURATION 94.9 % (94-97); ABG PCO2 (T) 52.3 mmHg (32.0-45.0); ABG PO2 (T) 83.4 mmHg (75.0-100.0); ALLEN'S TEST POSITIVE; FCOHb 1.1 % (0.0-3.9); FMetHb 0.3 % (0.0-1.5); FO2Hb 93.6 % (94-97); PATIENT TEMPERATURE 38.1; PEEP 5 cm H2O; RESPIRATORY RATE 14 b/min; TIDAL VOLUME 350 mL; TOTAL HEMOGLOBIN 8.7 G/dl (12.0-16.0)
[2022-12-26] MEDS: piperacillin/tazo 3.375gm/50ml 50 ML IV SCH ×3 (04:02→20:29)
[2022-12-26] MEDS: ZINC/COPPER/MANGANESE/SELENIUM 0.5 ML, chromic chloride inj. 5 MCG in AA 5%/D15W/ELECTR... IV SCH ×2 (05:48→16:59)
[2022-12-26] MEDS: acetaminophen 1,000mg/100ml IV 100 ML IV PRN (05:48)
--- NOTE | 2022-12-26 06:36 | NUR ---
Problems reprioritized. Patient report given, questions answered & plan of care reviewed with MIKEY Pierre.
[2022-12-26] MEDS: sennosides/docusate sodium tablet PO SCH ×2 (07:45→20:18)
[2022-12-26] MEDS: docusate sod 100mg capsule PO SCH ×2 (07:45→20:18)
[2022-12-26] MEDS: K and/or MAG REPLACEMENT MC SCH ×2 (07:46→20:19)
[2022-12-26] MEDS: lisinopril 5mg tablet PO SCH (08:00)
[2022-12-26] MEDS: pantoprazole 40MG/NS 100ML BAG 100 ML IV SCH (08:09)
[2022-12-26] MEDS: diatr meglu/diatrizoate 30ml oral sol.-(3 dose) bottle PO SCH ×3 (08:10→20:20)
[2022-12-26] MEDS: busPIRone 5mg tablet NG SCH ×2 (08:12→20:18)
[2022-12-26] MEDS: lurasidone 20mg tablet NG SCH ×2 (08:12→21:11)
--- NOTE | 2022-12-26 09:20 | NUR ---
Reassessment: Pt remains intubated and receiving TPN for sole source of nutrition. Pt now with a rectal tube in place, documented with 200 mL stool output 12/24 however visualized at bedside to be roughly 500 mL of stool. Recommend transitioning to EN via NGT as medically indicated. TF recs below remain in place. Will continue to follow closely. Recommendations: 1) Continuous TPN per MD using 2:1 Clinimix-E 5/15 with 95 mL/hr goal rate and additional 100 mL 20% ILE to run at 8.33 mL/hr for 12 hrs daily. To provide 2280 mL volume/day, 1819 kcal, 114 g protein, and 342 g dext (2.38 mg/kg/min dext load) 2) Once okay to transition to EN, continuous Vital HP with 60 mL/hr goal to provide 1440 ml volume/day, 1440 kcal, 1204 ml water, and 126 g protein. 3) Once TF, additional 100 mL water flush Q4H; monitor serum Na 4) PALB and TG q Wednesday/; daily scaled weights 5) Bowel care per physician 6) Advance to low fiber diet as medically indicated following extubation; keep NGT in place with extubation until PO diet is advanced and adequate PO intake is ensured Addendum: 12/26/22 at [address] Amended: Links added.
[2022-12-26] MEDS ORDERED: iohexol 300mg/ml 100ml inj. ONE (09:54)
[2022-12-26] MEDS ORDERED: racepinephrine 11.25mg/0.5ml nebule IH ONE (11:10)
[2022-12-26] MEDS ORDERED: dexamethasone inj 6 MG in dextrose 5%-water 100 ML IV ONE (11:15)
[2022-12-26] MEDS ORDERED: quetiapine 100mg tablet NG ONE (11:50)
--- NOTE | 2022-12-26 11:52 | NUR ---
Patient extubated at 1053 to 2 L NC. O2 saturation 98%, patient is however breathing 40 to 50 breaths per minute and has some strider. MD ordered racemic epinephrine and Decadron, and also patient's home medication: Seroquel. Patient is visibly anxious, states "help me." She is oriented to self and place and following commands appropriately.
[2022-12-26] MEDS ORDERED: dexamethasone inj 6 MG in normal saline 100ml IV soln 100 ML IV ONE (12:05)
[2022-12-26] MEDS ORDERED: albuterol 2.5 MG/3 ML nebule NEB PRN (12:10)
[2022-12-26] MEDS ORDERED: quetiapine 100mg tablet NG SCH (14:00)
[2022-12-26] MEDS ORDERED: dexamethasone inj 6 MG in normal saline 100ml IV soln 100 ML IV SCH (14:00)
[2022-12-26] MEDS: ipratropium/albuterol 3ml nebule NEB SCH ×3 (15:43→22:21)
[2022-12-26] MEDS: fat emulsion 20% inj. 100 ML IV SCH (17:00)
[2022-12-26] MEDS: ESCITALOPRAM OXALATE 5 MG TABLET NG SCH (20:18)
[2022-12-26] MEDS: atorvastatin 20mg tablet PO SCH (20:18)
[2022-12-26] MEDS: quetiapine 100mg tablet NG SCH (20:29)
[2022-12-26] MEDS: insulin glargine (Lantus) pen - multi-dose SQ SCH (20:52)
[2022-12-26] MEDS: dexamethasone inj 6 MG in normal saline 50ml IV soln 50 ML IV SCH (21:37)
[2022-12-26 22:18] LABS: ABG BASE EXCESS 8.5 mmol/L (-2.0-2.0); ABG HCO3 33.3 mmol/L (22.0-26.0); ABG OXYGEN SATURATION 93.1 % (94-97); ABG PCO2 (T) 48.1 mmHg (32.0-45.0); ABG PO2 (T) 66.4 mmHg (75.0-100.0); ALLEN'S TEST POSITIVE; FCOHb 1.4 % (0.0-3.9); FLOW 2 L/min; FMetHb 0.3 % (0.0-1.5); FO2Hb 91.5 % (94-97); PATIENT TEMPERATURE 36.9; TOTAL HEMOGLOBIN 9.2 G/dl (12.0-16.0)
[2022-12-27] VITALS (24 sets, daily range): BP systolic 88–136; BP diastolic 31–70
[2022-12-27] MEDS: erythromycin ethylsuccinate 200mg/5ml 200ml bottle NG SCH ×4 (00:50→23:58)
[2022-12-27] MEDS: furosemide 20 MG/2 ML vial IV SCH ×5 (00:50→23:58)
[2022-12-27] MEDS: potassium Cl 20mEq/100mL bag 100 ML IV SCH ×4 (01:56→19:56)
[2022-12-27] MEDS: quetiapine 100mg tablet NG SCH ×4 (01:56→20:57)
[2022-12-27] MEDS: dexamethasone inj 6 MG in normal saline 50ml IV soln 50 ML IV SCH ×4 (01:56→20:55)
[2022-12-27] MEDS: insulin regular, human U-100 3ml vial - multi-dose SQ SCH ×4 (02:04→20:41)
[2022-12-27] MEDS: mineral oil/petrolatum ophthal oint EACHEYE SCH ×4 (02:45→20:15)
[2022-12-27 02:52] LABS: BASOPHILS % (AUTO) 0.3 % (0-1); EOSINOPHILS % (AUTO) 0.1 % (0-6); HEMATOCRIT 26.7 % (35.0-45.0); HEMOGLOBIN 8.7 g/dl (12.0-16.0); LYMPHOCYTES # (AUTO) 0.4 X10'3 (1.1-4.8); LYMPHOCYTES % (AUTO) 5.2 % (21-51); MEAN CORPUSCULAR HEMOGLOBIN 24.6 PG (27.0-31.0); MEAN CORPUSCULAR HGB CONC 32.7 g/dL (33.0-36.5); MEAN CORPUSCULAR VOLUME 75.1 FL (78-98); MEAN PLATELET VOLUME 9.4 FL (7.4-10.4); MONOCYTES # (AUTO) 0.4 X10'3 (0-0.9); MONOCYTES % (AUTO) 5.5 % (2-12); NEUTROPHILS % (AUTO) 88.9 % (42-75); PLATELET COUNT 337 X10'3 (140-440); RED BLOOD COUNT 3.55 X10'6 (4.20-5.60); RED CELL DISTRIBUTION WIDTH 17.6 % (11.5-14.5); WHITE BLOOD COUNT 7.9 X10'3 (4.5-11.0)
[2022-12-27] MEDS: ipratropium/albuterol 3ml nebule NEB SCH ×6 (03:03→23:03)
[2022-12-27 03:15] LABS: ALANINE AMINOTRANSFERASE 22 U/L (12-78); ALBUMIN 3.2 G/DL (3.4-5.0); ALBUMIN/GLOBULIN RATIO 0.7 (1.1-1.5); ALKALINE PHOSPHATASE 100 IU/L (46-116); ANION GAP 7 (8-16); ASPARTATE AMINO TRANSFERASE 34 U/L (10-37); BILIRUBIN,TOTAL 0.6 MG/DL (0.1-1.0); BLOOD UREA NITROGEN 34 MG/DL (7-18); BUN/CREATININE RATIO 37.8 (6.6-38.0); CALCIUM 9.4 MG/DL (8.5-10.1); CHLORIDE 94 MMOL/L (99-107); GLUCOSE 261 MG/DL (70-104); MAGNESIUM 2.1 MG/DL (1.5-2.4); PHOSPHORUS 4.8 MG/DL (2.3-4.5); POTASSIUM 3.8 MMOL/L (3.5-5.1); SODIUM 136 MMOL/L (135-145); TOTAL CARBON DIOXIDE 35.3 MMOL/L (24-32); TOTAL PROTEIN 7.8 G/DL (6.4-8.2); eGFR 64 ML/MIN
[2022-12-27] MEDS: ZINC/COPPER/MANGANESE/SELENIUM 0.5 ML, chromic chloride inj. 5 MCG in AA 5%/D15W/ELECTR... IV SCH ×3 (03:49→23:59)
[2022-12-27] MEDS: piperacillin/tazo 3.375gm/50ml 50 ML IV SCH ×3 (04:17→20:04)
[2022-12-27] MEDS: dexmedetomidine inj. 400 MCG in normal saline 100ml IV soln 96 ML IV SCH ×6 (04:29→22:38)
--- NOTE | 2022-12-27 06:00 | NUR ---
Patient in room CICU 2008. I have received report from Marnie JENSEN and had the opportunity to ask questions and assume patient care.
--- NOTE | 2022-12-27 06:16 | NUR ---
Problems reprioritized. Patient report given, questions answered & plan of care reviewed with Siri JENSEN.
[2022-12-27] MEDS: pantoprazole 40MG/NS 100ML BAG 100 ML IV SCH (07:25)
[2022-12-27] MEDS: K and/or MAG REPLACEMENT MC SCH ×2 (07:30→20:15)
[2022-12-27] MEDS: docusate sod 100mg capsule PO SCH (07:31)
[2022-12-27] MEDS: sennosides/docusate sodium tablet PO SCH (07:31)
[2022-12-27] MEDS: lisinopril 5mg tablet PO SCH (08:00)
[2022-12-27] MEDS: busPIRone 5mg tablet NG SCH ×2 (08:08→19:58)
[2022-12-27] MEDS: lurasidone 20mg tablet NG SCH ×2 (08:08→19:57)
[2022-12-27] MEDS: HYDROmorphone 1 mg/ml syringe IV PRN ×5 (08:10→23:59)
--- NOTE | 2022-12-27 10:16 | NUR ---
TF Consult: Pt extubated yesterday w/ trickle NGTF to start per surgeon initially using Jevity 1.2 at 20ml/hr. Winder Hand agreeable to RD adjustment of EN formula; recs below. Pt remains on TPN and tolerating at goal. Rectal tube w/ continuous output per RN this AM; continues to receive erythromycin Q8H per EMR. Per RN latest GRV 470ml; will see how pt tolerates formula change at trickle rate. Will monitor for further PALB results and nutrition support adjustment needs as medically indicated. Recommendations: 1) Continuous TPN per MD using 2:1 Clinimix-E 03/29 with 95 mL/hr goal rate and additional 100 mL 20% ILE to run at 8.33 mL/hr for 12 hrs daily. To provide 2280 mL volume/day, 1819 kcal, 114 g protein, and 342 g dext (2.38 mg/kg/min dext load) 2) Trickle TF per surgeon at 20ml/hr using Vital HP; to provide 480ml volume/day, 480 kcals, 401ml water, and 42g protein. 3) IF TF to advance; Vital HP with 60 mL/hr goal would provide 1440 ml volume/day, 1440 kcal, 1204 ml water, and 126 g protein. 3) additional water flush per MD w/ trickle feeds; monitor serum Na 4) PALB and TG q Wednesday/; daily scaled weights 5) routine bowel regimen per maintenance technician 6) Advance to low fiber diet as medically indicated following extubation; keep NGT in place with extubation until PO diet is advanced and adequate PO intake is ensured Addendum: 12/27/22 at [address] Amended: Links added.
--- NOTE | 2022-12-27 13:10 | NUR ---
Informed Dr. Holden of high residuals of 470 and 770--tube feed on hold. stated to keep pt NPO, PT eval and ST eval tomorrow after CT is done.
[2022-12-27] MEDS ORDERED: gabapentin 400mg capsule NG PRN (13:28)
[2022-12-27] MEDS ORDERED: hydrOXYzine 25 MG tablet NG PRN (13:29)
[2022-12-27] MEDS: heparin, porcine 5000 units/ml vial SQ SCH ×2 (15:39→23:58)
[2022-12-27] MEDS: fat emulsion 20% inj. 100 ML IV SCH (18:22)
--- NOTE | 2022-12-27 18:32 | NUR ---
Problems reprioritized. Patient report given, questions answered & plan of care reviewed with Magdiel JENSEN.
[2022-12-27] MEDS: ESCITALOPRAM OXALATE 5 MG TABLET NG SCH (19:57)
[2022-12-27] MEDS: docusate sodium 100mg/10ml UD cup NG SCH (19:57)
[2022-12-27] MEDS: sennosides/docusate sodium tablet NG SCH (19:58)
[2022-12-27] MEDS: atorvastatin 20mg tablet NG SCH (19:58)
[2022-12-27] MEDS: insulin glargine (Lantus) pen - multi-dose SQ SCH (20:43)
[2022-12-27] MEDS: diatr meglu/diatrizoate 30ml oral sol.-(3 dose) bottle PO SCH (20:55)
[2022-12-28] VITALS (24 sets, daily range): BP systolic 107–160; BP diastolic 45–82
[2022-12-28] MEDS: dexamethasone inj 6 MG in normal saline 50ml IV soln 50 ML IV SCH ×4 (02:13→19:11)
[2022-12-28] MEDS: dexmedetomidine inj. 400 MCG in normal saline 100ml IV soln 96 ML IV SCH (02:14)
[2022-12-28] MEDS: potassium Cl 20mEq/100mL bag 100 ML IV SCH ×4 (02:14→19:52)
[2022-12-28] MEDS: mineral oil/petrolatum ophthal oint EACHEYE SCH ×4 (02:15→19:57)
[2022-12-28] MEDS: quetiapine 100mg tablet NG SCH ×4 (02:15→20:00)
[2022-12-28 02:41] LABS: BASOPHILS % (AUTO) 0.2 % (0-1); EOSINOPHILS % (AUTO) 0 % (0-6); HEMATOCRIT 25.8 % (35.0-45.0); HEMOGLOBIN 8.4 g/dl (12.0-16.0); LYMPHOCYTES # (AUTO) 0.5 X10'3 (1.1-4.8); LYMPHOCYTES % (AUTO) 4.6 % (21-51); MEAN CORPUSCULAR HEMOGLOBIN 24.1 PG (27.0-31.0); MEAN CORPUSCULAR HGB CONC 32.5 g/dL (33.0-36.5); MEAN CORPUSCULAR VOLUME 74.4 FL (78-98); MEAN PLATELET VOLUME 9.6 FL (7.4-10.4); MONOCYTES % (AUTO) 9.1 % (2-12); NEUTROPHILS # (AUTO) 9.7 X10'3 (1.8-7.7); NEUTROPHILS % (AUTO) 86.1 % (42-75); PLATELET COUNT 521 X10'3 (140-440); RED BLOOD COUNT 3.47 X10'6 (4.20-5.60); WHITE BLOOD COUNT 11.3 X10'3 (4.5-11.0)
[2022-12-28 02:59] LABS: ALANINE AMINOTRANSFERASE 35 U/L (12-78); ALBUMIN 3.1 G/DL (3.4-5.0); ALBUMIN/GLOBULIN RATIO 0.7 (1.1-1.5); ALKALINE PHOSPHATASE 115 IU/L (46-116); ANION GAP 8 (8-16); ASPARTATE AMINO TRANSFERASE 36 U/L (10-37); BILIRUBIN,TOTAL 0.6 MG/DL (0.1-1.0); BLOOD UREA NITROGEN 45 MG/DL (7-18); CALCIUM 9.7 MG/DL (8.5-10.1); CHLORIDE 97 MMOL/L (99-107); GLUCOSE 157 MG/DL (70-104); MAGNESIUM 2.3 MG/DL (1.5-2.4); PHOSPHORUS 4.8 MG/DL (2.3-4.5); POTASSIUM 3.7 MMOL/L (3.5-5.1); PREALBUMIN 21.3 MG/DL (19-36); SODIUM 141 MMOL/L (135-145); TOTAL PROTEIN 7.5 G/DL (6.4-8.2); TRIGLYCERIDES 341 MG/DL (20-135); eGFR 57 ML/MIN
[2022-12-28] MEDS: ipratropium/albuterol 3ml nebule NEB SCH ×6 (03:35→23:05)
[2022-12-28] MEDS: piperacillin/tazo 3.375gm/50ml 50 ML IV SCH ×3 (04:01→19:29)
[2022-12-28] MEDS: HYDROmorphone 1 mg/ml syringe IV PRN ×7 (04:01→23:57)
[2022-12-28] MEDS: furosemide 20 MG/2 ML vial IV SCH (05:07)
--- NOTE | 2022-12-28 07:01 | NUR ---
Patient in room CICU 2008. I have received report from Mike JENSEN and had the opportunity to ask questions and assume patient care.
[2022-12-28] MEDS: diatr meglu/diatrizoate 30ml oral sol.-(3 dose) bottle PO SCH ×2 (07:21→21:00)
[2022-12-28] MEDS: erythromycin ethylsuccinate 200mg/5ml 200ml bottle NG SCH ×2 (08:00→15:21)
[2022-12-28] MEDS: lurasidone 20mg tablet NG SCH ×2 (08:00→21:00)
[2022-12-28] MEDS: lisinopril 5mg tablet NG SCH (08:00)
[2022-12-28] MEDS: K and/or MAG REPLACEMENT MC SCH ×2 (08:00→20:00)
[2022-12-28] MEDS: docusate sodium 100mg/10ml UD cup NG SCH ×2 (08:00→20:00)
[2022-12-28] MEDS: sennosides/docusate sodium tablet NG SCH ×2 (08:00→20:00)
[2022-12-28] MEDS: busPIRone 5mg tablet NG SCH ×2 (08:00→20:00)
[2022-12-28] MEDS: heparin, porcine 5000 units/ml vial SQ SCH ×3 (08:51→23:56)
[2022-12-28] MEDS: pantoprazole 40MG/NS 100ML BAG 100 ML IV SCH (08:51)
[2022-12-28] MEDS: ZINC/COPPER/MANGANESE/SELENIUM 0.5 ML, chromic chloride inj. 5 MCG in AA 5%/D15W/ELECTR... IV SCH ×2 (08:52→19:03)
[2022-12-28] MEDS ORDERED: iohexol 300mg/ml 100ml inj. ONE (09:17)
--- NOTE | 2022-12-28 11:08 | NUR ---
F/u 12/28: Pt GRV's 600-770ml since yesterday w/ TF held and NG remains to suction. Pt remains tolerating TPN at goal okay to advance to clear liquids per WIRELESS MANAGER recs this AM pending surgeon review of CT this AM. Rectal tube scant stool during rounds this AM continues to receive routine erythromycin. Will continue to follow. Recommendations: 1) Continuous TPN per MD using 2:1 Clinimix-E 03/29 with 95 mL/hr goal rate and additional 100 mL 20% ILE to run at 8.33 mL/hr for 12 hrs daily. To provide 2280 mL volume/day, 1819 kcal, 114 g protein, and 342 g dext (2.38 mg/kg/min dext load) 2) Advance to low fiber diet as medically indicated; continue nutrition support until adequate enteral intake assured 3) IF TF; Vital HP with 60 mL/hr goal would provide 1440 ml volume/day, 1440 kcal, 1204 ml water, and 126 g protein. 4) PALB and TG q Wednesday/; daily scaled weights 5) routine bowel regimen per supervisor slitting and shipping Addendum: 12/28/22 at [address] Amended: Links added.
[2022-12-28] MEDS ORDERED: FLU VACC QS2022-23(6MOS UP)/PF 60 MCG/0.5 ML SYRINGE IMVAC ONE (12:05)
[2022-12-28] MEDS: insulin regular, human U-100 3ml vial - multi-dose SQ SCH ×2 (14:42→20:11)
[2022-12-28] MEDS: fat emulsion 20% inj. 100 ML IV SCH (17:49)
[2022-12-28] MEDS: vancomycin/NS 1 GM ADD-VANTAGE 250 ML IV SCH (20:09)
[2022-12-28] MEDS: insulin glargine (Lantus) pen - multi-dose SQ SCH (20:13)
[2022-12-28] MEDS: ESCITALOPRAM OXALATE 5 MG TABLET NG SCH (21:00)
[2022-12-28] MEDS: atorvastatin 20mg tablet NG SCH (21:00)
[2022-12-28] MEDS: dexmedetomidin/NS 400mcg/100ml 100 ML IV SCH (23:20)
[2022-12-29] VITALS (33 sets, daily range): BP systolic 85–205; BP diastolic 43–93
[2022-12-29] MEDS: potassium Cl 20mEq/100mL bag 100 ML IV SCH ×4 (01:59→21:05)
[2022-12-29] MEDS: mineral oil/petrolatum ophthal oint EACHEYE SCH ×4 (02:00→20:38)
[2022-12-29] MEDS: quetiapine 100mg tablet NG SCH ×4 (02:00→21:08)
[2022-12-29] MEDS: insulin regular, human U-100 3ml vial - multi-dose SQ SCH ×3 (02:17→21:17)
[2022-12-29] MEDS: dexmedetomidin/NS 400mcg/100ml 100 ML IV SCH ×4 (02:18→19:37)
[2022-12-29 02:23] LABS: BASOPHILS % (AUTO) 0.1 % (0-1); EOSINOPHILS % (AUTO) 0 % (0-6); HEMATOCRIT 26.4 % (35.0-45.0); HEMOGLOBIN 8.7 g/dl (12.0-16.0); LYMPHOCYTES # (AUTO) 0.3 X10'3 (1.1-4.8); LYMPHOCYTES % (AUTO) 3.3 % (21-51); MEAN CORPUSCULAR HEMOGLOBIN 24.5 PG (27.0-31.0); MEAN CORPUSCULAR HGB CONC 32.8 g/dL (33.0-36.5); MEAN CORPUSCULAR VOLUME 74.8 FL (78-98); MEAN PLATELET VOLUME 8.9 FL (7.4-10.4); MONOCYTES # (AUTO) 1.9 X10'3 (0-0.9); MONOCYTES % (AUTO) 17.5 % (2-12); NEUTROPHILS # (AUTO) 8.4 X10'3 (1.8-7.7); NEUTROPHILS % (AUTO) 79.1 % (42-75); PLATELET COUNT 633 X10'3 (140-440); RED BLOOD COUNT 3.53 X10'6 (4.20-5.60); WHITE BLOOD COUNT 10.6 X10'3 (4.5-11.0)
[2022-12-29 02:30] LABS: ALANINE AMINOTRANSFERASE 36 U/L (12-78); ALKALINE PHOSPHATASE 126 IU/L (46-116); APTT 24 SECONDS (22-32); ASPARTATE AMINO TRANSFERASE 35 U/L (10-37); BILIRUBIN,TOTAL 0.6 MG/DL (0.1-1.0); BLOOD UREA NITROGEN 51 MG/DL (7-18); MAGNESIUM 2.7 MG/DL (1.5-2.4); PHOSPHORUS 4.7 MG/DL (2.3-4.5); TOTAL PROTEIN 7.2 G/DL (6.4-8.2)
[2022-12-29] MEDS: ipratropium/albuterol 3ml nebule NEB SCH ×5 (03:00→23:14)
[2022-12-29] MEDS: piperacillin/tazo 3.375gm/50ml 50 ML IV SCH ×3 (03:55→22:38)
[2022-12-29] MEDS: ZINC/COPPER/MANGANESE/SELENIUM 0.5 ML, chromic chloride inj. 5 MCG in AA 5%/D15W/ELECTR... IV SCH ×2 (05:14→15:53)
[2022-12-29] MEDS: HYDROmorphone 1 mg/ml syringe IV PRN ×2 (05:26→07:52)
--- NOTE | 2022-12-29 06:54 | NUR ---
Patient in room CICU 2008. I have received report from Autumn JENSEN and had the opportunity to ask questions and assume patient care.
[2022-12-29] MEDS: vancomycin/NS 1 GM ADD-VANTAGE 250 ML IV SCH ×2 (07:50→20:49)
[2022-12-29] MEDS: pantoprazole 40MG/NS 100ML BAG 100 ML IV SCH ×2 (07:50→20:39)
[2022-12-29] MEDS: lisinopril 5mg tablet NG SCH (08:00)
[2022-12-29] MEDS: sennosides/docusate sodium tablet NG SCH ×2 (08:00→20:00)
[2022-12-29] MEDS: busPIRone 5mg tablet NG SCH ×2 (08:00→21:07)
[2022-12-29] MEDS: lurasidone 20mg tablet NG SCH ×2 (08:00→21:08)
[2022-12-29] MEDS: K and/or MAG REPLACEMENT MC SCH ×2 (08:00→20:00)
[2022-12-29] MEDS: docusate sodium 100mg/10ml UD cup NG SCH ×2 (08:00→20:00)
[2022-12-29] MEDS: MVI, adult No.4 with vit. K 10 ML in dextrose 5% water 500ml 500 ML IV SCH ×2 (08:47)
[2022-12-29 09:37] LABS: BASOPHILS % (AUTO) 0.1 % (0-1); EOSINOPHILS % (AUTO) 0.1 % (0-6); HEMATOCRIT 24.6 % (35.0-45.0); HEMOGLOBIN 7.8 g/dl (12.0-16.0); LYMPHOCYTES # (AUTO) 0.5 X10'3 (1.1-4.8); MEAN CORPUSCULAR HEMOGLOBIN 23.9 PG (27.0-31.0); MEAN CORPUSCULAR HGB CONC 31.6 g/dL (33.0-36.5); MEAN CORPUSCULAR VOLUME 75.8 FL (78-98); MEAN PLATELET VOLUME 8.8 FL (7.4-10.4); MONOCYTES # (AUTO) 1.4 X10'3 (0-0.9); MONOCYTES % (AUTO) 21.1 % (2-12); NEUTROPHILS # (AUTO) 4.6 X10'3 (1.8-7.7); NEUTROPHILS % (AUTO) 70.7 % (42-75); PLATELET COUNT 514 X10'3 (140-440); RED BLOOD COUNT 3.24 X10'6 (4.20-5.60); RED CELL DISTRIBUTION WIDTH 17.1 % (11.5-14.5); WHITE BLOOD COUNT 6.6 X10'3 (4.5-11.0)
[2022-12-29 10:48] LABS: GLUCOSE 139 MG/DL (70-104)
[2022-12-29 10:50] LABS: ANISOCYTOSIS 1+; ELLIPTOCYTES 1+; HYPOCHROMASIA 1+; MICROCYTOSIS 1+; PLATELET ESTIMATE INCREASED
[2022-12-29 10:51] LABS: GIANT PLATELET FEW; LARGE PLATELETS FEW
[2022-12-29 10:51] LABS: SODIUM 142 MMOL/L (135-145)
[2022-12-29 10:52] LABS: POTASSIUM 4.3 MMOL/L (3.5-5.1)
[2022-12-29 10:54] LABS: ANION GAP 7 (8-16); CHLORIDE 102 MMOL/L (99-107); TOTAL CARBON DIOXIDE 32.6 MMOL/L (24-32)
[2022-12-29 10:55] LABS: CREATININE 0.96 MG/DL (0.40-0.90)
[2022-12-29 10:56] LABS: BUN/CREATININE RATIO 53.1 (6.6-38.0); eGFR 59 ML/MIN
[2022-12-29 11:00] LABS: ALBUMIN 3.1 G/DL (3.4-5.0); CALCIUM 9.5 MG/DL (8.5-10.1)
[2022-12-29 11:01] LABS: ALBUMIN/GLOBULIN RATIO 0.8 (1.1-1.5)
[2022-12-29 11:20] LABS: APTT 25 SECONDS (22-32)
[2022-12-29 11:21] LABS: ALANINE AMINOTRANSFERASE 35 U/L (12-78); ALBUMIN 2.9 G/DL (3.4-5.0); ALBUMIN/GLOBULIN RATIO 0.7 (1.1-1.5); ALKALINE PHOSPHATASE 123 IU/L (46-116); ANION GAP 6 (8-16); ASPARTATE AMINO TRANSFERASE 36 U/L (10-37); BILIRUBIN,TOTAL 0.7 MG/DL (0.1-1.0); BLOOD UREA NITROGEN 50 MG/DL (7-18); CALCIUM 9.3 MG/DL (8.5-10.1); CHLORIDE 103 MMOL/L (99-107); GLUCOSE 139 MG/DL (70-104); MAGNESIUM 2.6 MG/DL (1.5-2.4); SODIUM 142 MMOL/L (135-145); TOTAL CARBON DIOXIDE 33.4 MMOL/L (24-32); TOTAL PROTEIN 6.8 G/DL (6.4-8.2); eGFR 62 ML/MIN
[2022-12-29] MEDS ORDERED: ondansetron/PF 4mg/2ml inj IV PRN (11:25)
[2022-12-29] MEDS ORDERED: ringers solution, lacted 1,000 ML IV SCH (11:25)
[2022-12-29 11:38] LABS: BUN/CREATININE RATIO 54.3 (6.6-38.0); CREATININE 0.92 MG/DL (0.40-0.90)
[2022-12-29] MEDS ORDERED: LORazepam 2 mg/ml vial IV ONE (11:40)
[2022-12-29] MEDS ORDERED: gentamicin 40 MG/1 ML inj ONE (11:49)
[2022-12-29] MEDS ORDERED: fentaNYL /PF 50mcg/ml 5ml ampule ONE (11:49)
[2022-12-29] MEDS ORDERED: MIDAZolam 1mg/ml 10ml vial ONE (11:49)
[2022-12-29] MEDS ORDERED: CLINDAMYCIN IV ONE (11:50)
[2022-12-29] MEDS ORDERED: [UNRECOGNIZED DRUG - OTHER] IV ONE (11:50)
--- NOTE | 2022-12-29 12:15 | NUR ---
Patient to OR accompanied by two OR nurses and ekg monitor tech
[2022-12-29] MEDS ORDERED: LIDOcaine 2% (20mg/ml) 5ml vial ONE (12:25)
[2022-12-29] MEDS ORDERED: rocuronium 10mg/ml inj IV ONE ×2 (12:25→12:46)
[2022-12-29] MEDS ORDERED: sevoflurane 250ml liquid IH ONE (12:25)
[2022-12-29] MEDS ORDERED: albumin (Human) 5% 250ml 250 ML IV ONE ×3 (12:46→16:00)
[2022-12-29] MEDS ORDERED: propofol inj 20 ML IV ONE (12:46)
--- NOTE | 2022-12-29 13:33 | NUR ---
Reassessment: Pt remains extubated and NPO, receiving TPN for sole source of nutrition. NGT remains in place, with roughly 2200 mL out 12/28 per RN. Per abdomen/pelvis CT report 12/28 there are areas of bowel anastomosis with distended small bowel and colon loops with an appearance of irregularity of the jejunal loop with concern for anastomotic dehiscence and extra enteric fluid collections which cannot exclude developing abscess or peritonitis. Pt to go back to OR today per bedside RN. An ostomy was placed over abdomen d/t stool output and pt with about 200 mL stool output today per RN. Will continue to follow closely. Recommendations: 1) Continuous TPN per MD using 2:1 Clinimix-E 03/29 with 95 mL/hr goal rate and additional 100 mL 20% ILE to run at 8.33 mL/hr for 12 hrs daily. To provide 2280 mL volume/day, 1819 kcal, 114 g protein, and 342 g dext (2.31 mg/kg/min dext load) 2) Advance to low fiber diet as medically indicated; continue nutrition support until adequate PO intake assured 3) IF TF; Vital HP with 60 mL/hr goal would provide 1440 ml volume/day, 1440 kcal, 1204 ml water, and 126 g protein. 4) PALB and TG q Wednesday/; daily scaled weights 5) Bowel care per physician Addendum: 12/29/22 at [address] Amended: Links added.
--- NOTE | 2022-12-29 13:40 | NUR ---
Received from OR via , accompanied by Anesthesiologist OLIVA OR NURSE and report given by Anesthesiolgist. PT IS BEING RECOVERED BY PACU STAFF IN THE ICU PT CAME OUT OF SURGERY INTUBATED. PT IS NOT RESPONSIVE DUE TO SEDATION. MIDLINE INCISION WITH STITCHES; CI. RECTAL TUBE STILL IN PLACE; NO OUTPUT. ABEL STILL IN PLACEWITH NO INCREASED OUTPUT. ART LINE TO RT WRIST; ZEROED. PICC LINE TO LT UPPER ARM; INFUSING. ET TUBE-23 AT THE TEETH. NG TUBE IN PLACED PREVIOUSLY; NEW ORDERS TO LOW INTERMITTENT SUCTION. VERSED AND FENTANYL NEW ORDERS; INFUSING. Addendum: 12/29/22 at 1424 by Dyana Sampson RN Amended: Links added.
[2022-12-29 14:19] LABS: ABG BASE EXCESS 2.4 mmol/L (-2.0-2.0); ABG HCO3 29.7 mmol/L (22.0-26.0); ABG OXYGEN SATURATION 98.4 % (94-97); ABG PCO2 (T) 60.7 mmHg (32.0-45.0); ABG PO2 (T) 165.5 mmHg (75.0-100.0); FCOHb 0.7 % (0.0-3.9); FMetHb 0.3 % (0.0-1.5); FO2Hb 97.4 % (94-97); PEEP 5 cm H2O; RESPIRATORY RATE 14 b/min; TIDAL VOLUME 350 mL
[2022-12-29] MEDS: midazolam 100mg in NS 100ml 100 ML IV SCH ×2 (14:25→23:41)
[2022-12-29] MEDS: FENTANYL-0.9 % NACL/PF 100 ML IV SCH ×2 (14:26→18:47)
--- NOTE | 2022-12-29 15:00 | NUR ---
patient back from OR
[2022-12-29] MEDS ORDERED: albumin (Human) 5% 250ml 500 ML IV ONE (15:59)
[2022-12-29] MEDS ORDERED: gabapentin 300mg capsule NG PRN (16:15)
[2022-12-29] MEDS: fat emulsion 20% inj. 100 ML IV SCH (18:01)
--- NOTE | 2022-12-29 18:30 | NUR ---
Patient in room CICU 2008. I have received report from Ewa JENSEN and had the opportunity to ask questions and assume patient care.
--- NOTE | 2022-12-29 18:33 | NUR ---
Patient in room [facility] 2008. I have received report from Ciarra JENSEN and had the opportunity to ask questions and assume patient care. Addendum: 12/30/22 at 0453 by Ciarra Alba RN Ewa gave report to Ciarra
[2022-12-29] MEDS: ESCITALOPRAM OXALATE 5 MG TABLET NG SCH (21:07)
[2022-12-29] MEDS: atorvastatin 20mg tablet NG SCH (21:07)
[2022-12-29] MEDS: insulin glargine (Lantus) pen - multi-dose SQ SCH (21:19)
[2022-12-30] VITALS (28 sets, daily range): BP systolic 81–118; BP diastolic 36–79
[2022-12-30] MEDS: FENTANYL-0.9 % NACL/PF 100 ML IV SCH ×2 (00:48→06:44)
[2022-12-30] MEDS: dexmedetomidin/NS 400mcg/100ml 100 ML IV SCH ×2 (00:49→09:08)
[2022-12-30] MEDS: acetaminophen 325mg/10.15ml oral unit dose solution NG PRN (01:10)
[2022-12-30] MEDS: quetiapine 100mg tablet NG SCH ×4 (02:23→20:28)
[2022-12-30] MEDS: mineral oil/petrolatum ophthal oint EACHEYE SCH ×4 (02:23→20:00)
[2022-12-30] MEDS: insulin regular, human U-100 3ml vial - multi-dose SQ SCH ×4 (02:37→20:41)
[2022-12-30 02:47] LABS: BASOPHILS % (AUTO) 0 % (0-1); EOSINOPHILS # (AUTO) 0.1 X10'3 (0-0.9); EOSINOPHILS % (AUTO) 1.1 % (0-6); HEMATOCRIT 22.9 % (35.0-45.0); HEMOGLOBIN 7.1 g/dl (12.0-16.0); LYMPHOCYTES # (AUTO) 0.9 X10'3 (1.1-4.8); LYMPHOCYTES % (AUTO) 14.3 % (21-51); MEAN CORPUSCULAR HEMOGLOBIN 23.6 PG (27.0-31.0); MEAN CORPUSCULAR HGB CONC 31.1 g/dL (33.0-36.5); MEAN CORPUSCULAR VOLUME 75.9 FL (78-98); MEAN PLATELET VOLUME 8.9 FL (7.4-10.4); MONOCYTES % (AUTO) 15.8 % (2-12); NEUTROPHILS # (AUTO) 4.4 X10'3 (1.8-7.7); NEUTROPHILS % (AUTO) 68.8 % (42-75); PLATELET COUNT 533 X10'3 (140-440); RED BLOOD COUNT 3.01 X10'6 (4.20-5.60); RED CELL DISTRIBUTION WIDTH 17.3 % (11.5-14.5); WHITE BLOOD COUNT 6.5 X10'3 (4.5-11.0)
[2022-12-30] MEDS: ZINC/COPPER/MANGANESE/SELENIUM 0.5 ML, chromic chloride inj. 5 MCG in AA 5%/D15W/ELECTR... IV SCH ×2 (02:47→13:14)
[2022-12-30 03:00] LABS: ALANINE AMINOTRANSFERASE 34 U/L (12-78); ALBUMIN 2.9 G/DL (3.4-5.0); ALBUMIN/GLOBULIN RATIO 0.9 (1.1-1.5); ALKALINE PHOSPHATASE 110 IU/L (46-116); ANION GAP 8 (8-16); ASPARTATE AMINO TRANSFERASE 29 U/L (10-37); BILIRUBIN,TOTAL 0.8 MG/DL (0.1-1.0); BLOOD UREA NITROGEN 39 MG/DL (7-18); BUN/CREATININE RATIO 43.3 (6.6-38.0); CALCIUM 8.5 MG/DL (8.5-10.1); CHLORIDE 104 MMOL/L (99-107); GLUCOSE 97 MG/DL (70-104); MAGNESIUM 2.3 MG/DL (1.5-2.4); PHOSPHORUS 3.5 MG/DL (2.3-4.5); POTASSIUM 3.7 MMOL/L (3.5-5.1); SODIUM 142 MMOL/L (135-145); TOTAL CARBON DIOXIDE 30.5 MMOL/L (24-32); TOTAL PROTEIN 6.3 G/DL (6.4-8.2); eGFR 64 ML/MIN
[2022-12-30] MEDS: ipratropium/albuterol 3ml nebule NEB SCH ×2 (03:12→07:58)
[2022-12-30] MEDS: potassium Cl 20mEq/100mL bag 100 ML IV SCH ×4 (03:13→20:00)
[2022-12-30 03:22] LABS: ABG BASE EXCESS 2.3 mmol/L (-2.0-2.0); ABG HCO3 26.6 mmol/L (22.0-26.0); ABG OXYGEN SATURATION 95.7 % (94-97); ABG PCO2 (T) 42.6 mmHg (32.0-45.0); ABG PO2 (T) 92.2 mmHg (75.0-100.0); FCOHb 1.1 % (0.0-3.9); FMetHb 0.3 % (0.0-1.5); FO2Hb 94.4 % (94-97); PATIENT TEMPERATURE 38.5; PEEP 5 cm H2O; RESPIRATORY RATE 20 b/min; TIDAL VOLUME 350 mL; TOTAL HEMOGLOBIN 7.6 G/dl (12.0-16.0)
[2022-12-30] MEDS: piperacillin/tazo 3.375gm/50ml 50 ML IV SCH ×3 (04:16→20:51)
--- NOTE | 2022-12-30 06:24 | NUR ---
Problems reprioritized. Patient report given, questions answered & plan of care reviewed with German JENSEN.
[2022-12-30] MEDS ORDERED: VANCOMYCIN LEVEL IV ONE (07:30)
[2022-12-30] MEDS: K and/or MAG REPLACEMENT MC SCH ×2 (07:50→20:00)
[2022-12-30] MEDS: lisinopril 5mg tablet NG SCH (07:51)
[2022-12-30] MEDS: lurasidone 20mg tablet NG SCH ×2 (07:54→20:28)
[2022-12-30] MEDS: vancomycin/NS 1 GM ADD-VANTAGE 250 ML IV SCH ×2 (07:55→20:51)
[2022-12-30] MEDS: pantoprazole 40MG/NS 100ML BAG 100 ML IV SCH ×2 (07:55→20:27)
[2022-12-30] MEDS: busPIRone 5mg tablet NG SCH ×2 (07:55→20:27)
[2022-12-30] MEDS: docusate sodium 100mg/10ml UD cup NG SCH ×2 (08:00→20:00)
[2022-12-30] MEDS: sennosides/docusate sodium tablet NG SCH ×2 (08:24→20:00)
[2022-12-30] MEDS ORDERED: ipratropium/albuterol 3ml nebule NEB PRN (09:50)
[2022-12-30] MEDS: HYDROmorphone 1 mg/ml syringe IV PRN ×4 (10:41→22:48)
[2022-12-30] MEDS: fat emulsion 20% inj. 100 ML IV SCH (17:11)
[2022-12-30] MEDS: heparin, porcine 5000 units/ml vial SQ SCH (17:11)
--- NOTE | 2022-12-30 18:20 | NUR ---
Patient in room CICU 2008. I have received report from MIKEY Porter and had the opportunity to ask questions and assume patient care.
[2022-12-30] MEDS: ESCITALOPRAM OXALATE 5 MG TABLET NG SCH (20:28)
[2022-12-30] MEDS: atorvastatin 20mg tablet NG SCH (20:28)
[2022-12-30] MEDS: insulin glargine (Lantus) pen - multi-dose SQ SCH (20:43)
[2022-12-31] VITALS (15 sets, daily range): BP systolic 110–158; BP diastolic 36–84
[2022-12-31] MEDS: ZINC/COPPER/MANGANESE/SELENIUM 0.5 ML, chromic chloride inj. 5 MCG in AA 5%/D15W/ELECTR... IV SCH ×3 (00:04→22:21)
[2022-12-31] MEDS: heparin, porcine 5000 units/ml vial SQ SCH ×3 (00:04→15:20)
[2022-12-31] MEDS: potassium Cl 20mEq/100mL bag 100 ML IV SCH ×3 (02:00→14:00)
[2022-12-31] MEDS: mineral oil/petrolatum ophthal oint EACHEYE SCH ×3 (02:00→14:00)
[2022-12-31] MEDS: quetiapine 100mg tablet NG SCH ×4 (02:37→21:11)
[2022-12-31] MEDS: HYDROmorphone 1 mg/ml syringe IV PRN ×7 (02:38→22:20)
[2022-12-31] MEDS: insulin regular, human U-100 3ml vial - multi-dose SQ SCH ×4 (03:12→20:53)
[2022-12-31 03:15] LABS: BASOPHILS % (AUTO) 0.1 % (0-1); EOSINOPHILS # (AUTO) 0.4 X10'3 (0-0.9); EOSINOPHILS % (AUTO) 5.1 % (0-6); HEMATOCRIT 23.9 % (35.0-45.0); HEMOGLOBIN 7.9 g/dl (12.0-16.0); LYMPHOCYTES # (AUTO) 1.3 X10'3 (1.1-4.8); LYMPHOCYTES % (AUTO) 14.4 % (21-51); MEAN CORPUSCULAR HEMOGLOBIN 25.1 PG (27.0-31.0); MEAN CORPUSCULAR HGB CONC 33.2 g/dL (33.0-36.5); MEAN CORPUSCULAR VOLUME 75.7 FL (78-98); MEAN PLATELET VOLUME 8.6 FL (7.4-10.4); MONOCYTES # (AUTO) 1.2 X10'3 (0-0.9); MONOCYTES % (AUTO) 13.4 % (2-12); NEUTROPHILS # (AUTO) 5.9 X10'3 (1.8-7.7); PLATELET COUNT 584 X10'3 (140-440); RED BLOOD COUNT 3.16 X10'6 (4.20-5.60); RED CELL DISTRIBUTION WIDTH 17.3 % (11.5-14.5); WHITE BLOOD COUNT 8.7 X10'3 (4.5-11.0)
[2022-12-31 03:34] LABS: ALANINE AMINOTRANSFERASE 24 U/L (12-78); ALBUMIN 2.7 G/DL (3.4-5.0); ALBUMIN/GLOBULIN RATIO 0.7 (1.1-1.5); ALKALINE PHOSPHATASE 104 IU/L (46-116); ANION GAP 8 (8-16); ASPARTATE AMINO TRANSFERASE 22 U/L (10-37); BILIRUBIN,TOTAL 0.6 MG/DL (0.1-1.0); BLOOD UREA NITROGEN 29 MG/DL (7-18); BUN/CREATININE RATIO 34.1 (6.6-38.0); CALCIUM 8.6 MG/DL (8.5-10.1); CHLORIDE 102 MMOL/L (99-107); CREATININE 0.85 MG/DL (0.40-0.90); GLUCOSE 112 MG/DL (70-104); POTASSIUM 3.7 MMOL/L (3.5-5.1); PREALBUMIN 18.9 MG/DL (19-36); SODIUM 138 MMOL/L (135-145); TOTAL CARBON DIOXIDE 27.7 MMOL/L (24-32); TOTAL PROTEIN 6.4 G/DL (6.4-8.2); TRIGLYCERIDES 349 MG/DL (20-135); eGFR 68 ML/MIN
[2022-12-31] MEDS: piperacillin/tazo 3.375gm/50ml 50 ML IV SCH ×3 (04:45→19:44)
--- NOTE | 2022-12-31 06:15 | NUR ---
Problems reprioritized. Patient report given, questions answered & plan of care reviewed with MIKEY Porter.
[2022-12-31] MEDS: K and/or MAG REPLACEMENT MC SCH ×2 (08:00→20:00)
[2022-12-31] MEDS: lisinopril 5mg tablet NG SCH (08:00)
[2022-12-31] MEDS: docusate sodium 100mg/10ml UD cup NG SCH ×2 (08:00→21:10)
[2022-12-31] MEDS: sennosides/docusate sodium tablet NG SCH ×2 (08:00→21:11)
[2022-12-31] MEDS: pantoprazole 40MG/NS 100ML BAG 100 ML IV SCH ×2 (08:24→20:55)
[2022-12-31] MEDS: lurasidone 20mg tablet NG SCH ×2 (08:24→21:10)
[2022-12-31] MEDS: vancomycin/NS 1 GM ADD-VANTAGE 250 ML IV SCH ×2 (08:24→20:56)
[2022-12-31] MEDS: busPIRone 5mg tablet NG SCH ×2 (08:24→21:20)
--- NOTE | 2022-12-31 14:15 | NUR ---
Received patient to room 346B. Patient alert and oriented with no complaints at this time other than wanting to go home. Patient midline surgical wound with dressing cdi, abd fistula draining stool, rectal tube draining stool and frias catheter draining urine. Patient NG to low intermittent suction with no issues. Patient oriented to room and call light. Call light placed within patient's reach. Bed low and locked.
[2022-12-31 16:17] LABS: MAGNESIUM 2.3 MG/DL (1.5-2.4); PHOSPHORUS 4.1 MG/DL (2.3-4.5)
--- NOTE | 2022-12-31 18:00 | NUR ---
Patient in room [facility] 346. I have received report from MIKEY Dillon and had the opportunity to ask questions and assume patient care.
--- NOTE | 2022-12-31 18:15 | NUR ---
Problems reprioritized. Patient report given, questions answered & plan of care reviewed with MIKEY Baez.
--- NOTE | 2022-12-31 18:32 | NUR ---
1745 Lipid not available. Pharmacy messaged to send. Still not available. Receiving MIKEY knight and to hang.
[2022-12-31] MEDS: fat emulsion 20% inj. 100 ML IV SCH (19:18)
[2022-12-31] MEDS: atorvastatin 20mg tablet NG SCH (21:11)
[2022-12-31] MEDS: ESCITALOPRAM OXALATE 5 MG TABLET NG SCH (21:11)
[2022-12-31] MEDS: insulin glargine (Lantus) pen - multi-dose SQ SCH (22:48)
[2023-01-01] MEDS: heparin, porcine 5000 units/ml vial SQ SCH ×4 (00:12→23:58)
[2023-01-01] MEDS: quetiapine 100mg tablet NG SCH ×4 (02:44→21:30)
[2023-01-01] MEDS: HYDROmorphone 1 mg/ml syringe IV PRN ×7 (02:45→21:24)
[2023-01-01] MEDS: insulin regular, human U-100 3ml vial - multi-dose SQ SCH ×3 (02:49→20:04)
[2023-01-01] MEDS: piperacillin/tazo 3.375gm/50ml 50 ML IV SCH ×3 (03:53→19:52)
[2023-01-01 06:43] LABS: BASOPHILS % (AUTO) 0.3 % (0-1); EOSINOPHILS # (AUTO) 0.5 X10'3 (0-0.9); EOSINOPHILS % (AUTO) 6.3 % (0-6); HEMATOCRIT 24.4 % (35.0-45.0); HEMOGLOBIN 7.9 g/dl (12.0-16.0); LYMPHOCYTES # (AUTO) 1.1 X10'3 (1.1-4.8); LYMPHOCYTES % (AUTO) 14.2 % (21-51); MEAN CORPUSCULAR HEMOGLOBIN 24.4 PG (27.0-31.0); MEAN CORPUSCULAR HGB CONC 32.4 g/dL (33.0-36.5); MEAN CORPUSCULAR VOLUME 75.2 FL (78-98); MEAN PLATELET VOLUME 8.6 FL (7.4-10.4); MONOCYTES # (AUTO) 1.2 X10'3 (0-0.9); MONOCYTES % (AUTO) 16.3 % (2-12); NEUTROPHILS # (AUTO) 4.7 X10'3 (1.8-7.7); NEUTROPHILS % (AUTO) 62.9 % (42-75); PLATELET COUNT 565 X10'3 (140-440); RED BLOOD COUNT 3.25 X10'6 (4.20-5.60); RED CELL DISTRIBUTION WIDTH 17.1 % (11.5-14.5); WHITE BLOOD COUNT 7.4 X10'3 (4.5-11.0)
--- NOTE | 2023-01-01 06:56 | NUR ---
Patient in room [facility] 346. I have received report from MIKEY Baez and had the opportunity to ask questions and assume patient care.
[2023-01-01 06:59] VITALS: BP 142/76
[2023-01-01] MEDS: MVI, adult No.4 with vit. K 10 ML in dextrose 5% water 500ml 500 ML IV SCH ×2 (07:27)
[2023-01-01 07:29] LABS: ANISOCYTOSIS 1+; HYPOCHROMASIA 1+; MICROCYTOSIS 1+; PLATELET ESTIMATE INCREASED; TOTAL CELLS COUNTED 100
[2023-01-01 07:31] LABS: POLYCHROMASIA 1+; ROULEAUX 1+
[2023-01-01] MEDS: K and/or MAG REPLACEMENT MC SCH ×2 (08:00→19:52)
[2023-01-01] MEDS: sennosides/docusate sodium tablet NG SCH ×2 (08:00→21:29)
[2023-01-01] MEDS: docusate sodium 100mg/10ml UD cup NG SCH ×2 (08:00→21:29)
[2023-01-01 08:01] LABS: ALANINE AMINOTRANSFERASE 24 U/L (12-78); ALBUMIN 2.7 G/DL (3.4-5.0); ALBUMIN/GLOBULIN RATIO 0.6 (1.1-1.5); ALKALINE PHOSPHATASE 124 IU/L (46-116); ANION GAP 7 (8-16); ASPARTATE AMINO TRANSFERASE 21 U/L (10-37); BILIRUBIN,TOTAL 0.5 MG/DL (0.1-1.0); BLOOD UREA NITROGEN 24 MG/DL (7-18); BUN/CREATININE RATIO 28.9 (6.6-38.0); CALCIUM 8.7 MG/DL (8.5-10.1); CHLORIDE 100 MMOL/L (99-107); CREATININE 0.83 MG/DL (0.40-0.90); GLUCOSE 117 MG/DL (70-104); POTASSIUM 3.6 MMOL/L (3.5-5.1); SODIUM 137 MMOL/L (135-145); TOTAL CARBON DIOXIDE 30.5 MMOL/L (24-32); TRIGLYCERIDES 277 MG/DL (20-135); eGFR 70 ML/MIN
[2023-01-01] MEDS: ZINC/COPPER/MANGANESE/SELENIUM 0.5 ML, chromic chloride inj. 5 MCG in AA 5%/D15W/ELECTR... IV SCH ×2 (08:39→21:43)
[2023-01-01] MEDS: vancomycin/NS 1 GM ADD-VANTAGE 250 ML IV SCH ×2 (09:35→19:52)
[2023-01-01] MEDS: lurasidone 20mg tablet NG SCH ×2 (09:53→21:29)
[2023-01-01] MEDS: lisinopril 5mg tablet NG SCH (09:54)
[2023-01-01] MEDS: busPIRone 5mg tablet NG SCH ×2 (09:54→21:30)
--- NOTE | 2023-01-01 10:11 | NUR ---
Student Medication Administration: For this medication-pass time frame, all medication were reviewed, dispensed, administered and documented per hospital policy by Em Diamond student nurse with Jerman tapia RN instructor .
--- NOTE | 2023-01-01 10:17 | NUR ---
WOC note: the wound payment manager is holding in place with a good seal to incision line. No new skin concerns noted or reported. Supplies left with primary nurse. Reported off to RN
[2023-01-01] MEDS: pantoprazole 40MG/NS 100ML BAG 100 ML IV SCH ×2 (10:30→19:52)
--- NOTE | 2023-01-01 11:36 | NUR ---
Reassessment: Pt remains NPO with TPN for sole source of nutrition. Per physician pt to continue on TPN for 4-6 weeks. Noted septic shock is resolved per MD note, recommend adjusting TPN to 2:1 Clinimix-E 5/20 with 75 mL/hr goal rate to more appropriately meet patient's estimated nutrient needs, clinical pharmacist notified. LBM 12/31. Will continue to follow. Recommendations: 1) Continuous TPN per MD using 2:1 Clinimix-E 5/20 with 75 mL/hr goal rate and additional 100 mL 20% ILE to run at 8.33 mL/hr for 12 hrs daily. To provide 1800 mL volume/day, 1784 kcal, 90 g protein, and 360 g dext (2.63 mg/kg/min dext load) 2) Advance to low fiber diet as medically indicated; continue nutrition support until adequate PO intake assured 3) PALB and TG q Wednesday/ 4) Daily scaled weights 5) Bowel care per physician Addendum: 01/01/23 at [address] Amended: Links added.
--- NOTE | 2023-01-01 12:12 | NUR ---
Student Medication Administration: For this medication-pass time frame, all medication were reviewed, dispensed, administered and documented per hospital policy by Em Dillon RN.
[2023-01-01 15:14] VITALS: BP 142/76
--- NOTE | 2023-01-01 16:28 | NUR ---
Student Medication Administration: For this medication-pass time frame, all medication were reviewed, dispensed, administered and documented per hospital policy by Em Giles with NURSE MANAGER Jerman Mueller.
[2023-01-01] MEDS: fat emulsion 20% inj. 100 ML IV SCH (17:23)
[2023-01-01 18:00] VITALS: BP 108/59
--- NOTE | 2023-01-01 18:00 | NUR ---
Patient in room [facility] 346. I have received report from MIKEY Dillon and had the opportunity to ask questions and assume patient care.
--- NOTE | 2023-01-01 18:34 | NUR ---
Problems reprioritized. Patient report given, questions answered & plan of care reviewed with MIKEY Baez.
--- NOTE | 2023-01-01 19:04 | NUR ---
Student documentation: I have reviewed and agree with all interventions, assessments performed and documented by Martha Diamond student nurse, by Edi Mueller RN, instructor.
[2023-01-01] MEDS: ESCITALOPRAM OXALATE 5 MG TABLET NG SCH (21:29)
[2023-01-01] MEDS: atorvastatin 20mg tablet NG SCH (21:29)
[2023-01-01 22:00] VITALS: BP 147/74
[2023-01-01] MEDS: insulin glargine (Lantus) pen - multi-dose SQ SCH (22:11)
[2023-01-02] MEDS: HYDROmorphone 1 mg/ml syringe IV PRN ×9 (00:21→23:26)
[2023-01-02] MEDS: quetiapine 100mg tablet NG SCH ×4 (01:58→21:15)
[2023-01-02] MEDS: insulin regular, human U-100 3ml vial - multi-dose SQ SCH ×4 (02:00→19:58)
[2023-01-02] MEDS: piperacillin/tazo 3.375gm/50ml 50 ML IV SCH ×3 (03:32→21:14)
[2023-01-02 04:48] LABS: BASOPHILS # (AUTO) 0.1 X10'3 (0-0.2); BASOPHILS % (AUTO) 0.8 % (0-1); EOSINOPHILS # (AUTO) 0.5 X10'3 (0-0.9); EOSINOPHILS % (AUTO) 6.3 % (0-6); HEMATOCRIT 22.5 % (35.0-45.0); HEMOGLOBIN 7.5 g/dl (12.0-16.0); LYMPHOCYTES # (AUTO) 1.1 X10'3 (1.1-4.8); LYMPHOCYTES % (AUTO) 14.2 % (21-51); MEAN CORPUSCULAR HEMOGLOBIN 24.8 PG (27.0-31.0); MEAN CORPUSCULAR HGB CONC 33.2 g/dL (33.0-36.5); MEAN CORPUSCULAR VOLUME 74.6 FL (78-98); MEAN PLATELET VOLUME 8.1 FL (7.4-10.4); MONOCYTES # (AUTO) 1.3 X10'3 (0-0.9); MONOCYTES % (AUTO) 17.6 % (2-12); NEUTROPHILS # (AUTO) 4.5 X10'3 (1.8-7.7); NEUTROPHILS % (AUTO) 61.1 % (42-75); PLATELET COUNT 500 X10'3 (140-440); RED BLOOD COUNT 3.01 X10'6 (4.20-5.60); RED CELL DISTRIBUTION WIDTH 17.3 % (11.5-14.5); WHITE BLOOD COUNT 7.4 X10'3 (4.5-11.0)
[2023-01-02 05:07] LABS: ALANINE AMINOTRANSFERASE 18 U/L (12-78); ALBUMIN 2.5 G/DL (3.4-5.0); ALBUMIN/GLOBULIN RATIO 0.6 (1.1-1.5); ALKALINE PHOSPHATASE 142 IU/L (46-116); ANION GAP 9 (8-16); ASPARTATE AMINO TRANSFERASE 14 U/L (10-37); BILIRUBIN,TOTAL 0.5 MG/DL (0.1-1.0); BLOOD UREA NITROGEN 22 MG/DL (7-18); BUN/CREATININE RATIO 26.8 (6.6-38.0); CALCIUM 8.6 MG/DL (8.5-10.1); CHLORIDE 99 MMOL/L (99-107); CREATININE 0.82 MG/DL (0.40-0.90); GLUCOSE 95 MG/DL (70-104); POTASSIUM 3.5 MMOL/L (3.5-5.1); SODIUM 136 MMOL/L (135-145); TOTAL CARBON DIOXIDE 28.5 MMOL/L (24-32); eGFR 71 ML/MIN
[2023-01-02 06:00] VITALS: BP 125/58
[2023-01-02 06:10] LABS: ANISOCYTOSIS 1+; MICROCYTOSIS 1+; PLATELET ESTIMATE INCREASED; POIKILOCYTOSIS FEW; POLYCHROMASIA FEW; TOTAL CELLS COUNTED 100
--- NOTE | 2023-01-02 06:20 | NUR ---
Problems reprioritized. Patient report given, questions answered & plan of care reviewed with MIKEY Dillon.
--- NOTE | 2023-01-02 06:27 | NUR ---
Problems reprioritized. Patient report given, questions answered & plan of care reviewed with MIKEY MILES.
[2023-01-02] MEDS: ZINC/COPPER/MANGANESE/SELENIUM 0.5 ML, chromic chloride inj. 5 MCG in AA 5%/CALCIUM/LYT... IV SCH ×2 (06:53→19:33)
[2023-01-02] MEDS: pantoprazole 40MG/NS 100ML BAG 100 ML IV SCH ×2 (07:01→19:18)
[2023-01-02] MEDS: vancomycin/NS 1 GM ADD-VANTAGE 250 ML IV SCH ×2 (07:01→19:18)
[2023-01-02] MEDS: lurasidone 20mg tablet NG SCH ×2 (07:12→21:15)
[2023-01-02] MEDS: lisinopril 5mg tablet NG SCH (07:13)
[2023-01-02] MEDS: sennosides/docusate sodium tablet NG SCH ×2 (07:13→21:15)
[2023-01-02] MEDS: docusate sodium 100mg/10ml UD cup NG SCH ×2 (07:13→21:14)
[2023-01-02] MEDS: heparin, porcine 5000 units/ml vial SQ SCH ×3 (07:14→23:26)
[2023-01-02] MEDS: busPIRone 5mg tablet NG SCH ×2 (07:16→21:15)
[2023-01-02] MEDS: K and/or MAG REPLACEMENT MC SCH ×2 (08:00→19:44)
[2023-01-02 11:00] VITALS: BP 119/62
[2023-01-02] MEDS: fat emulsion 20% inj. 100 ML IV SCH (17:24)
[2023-01-02 18:00] VITALS: BP 122/62
--- NOTE | 2023-01-02 18:18 | NUR ---
Problems reprioritized. Patient report given, questions answered & plan of care reviewed with MIKEY Baez.
--- NOTE | 2023-01-02 18:22 | NUR ---
Patient in room [facility] 346. I have received report from MIKEY Dillon and had the opportunity to ask questions and assume patient care.
[2023-01-02] MEDS: ESCITALOPRAM OXALATE 5 MG TABLET NG SCH (21:15)
[2023-01-02] MEDS: atorvastatin 20mg tablet NG SCH (21:15)
[2023-01-02 22:00] VITALS: BP 116/68
[2023-01-03] MEDS: quetiapine 100mg tablet NG SCH ×4 (02:16→21:13)
[2023-01-03] MEDS: insulin regular, human U-100 3ml vial - multi-dose SQ SCH ×3 (02:16→21:07)
[2023-01-03] MEDS: HYDROmorphone 1 mg/ml syringe IV PRN ×7 (02:36→23:42)
[2023-01-03] MEDS: piperacillin/tazo 3.375gm/50ml 50 ML IV SCH ×3 (03:53→22:38)
[2023-01-03 06:00] VITALS: BP 131/64
--- NOTE | 2023-01-03 06:24 | NUR ---
Problems reprioritized. Patient report given, questions answered & plan of care reviewed with MIKEY Lewis.
[2023-01-03] MEDS: heparin, porcine 5000 units/ml vial SQ SCH ×3 (08:00→23:32)
[2023-01-03] MEDS: K and/or MAG REPLACEMENT MC SCH ×2 (08:00→20:00)
[2023-01-03] MEDS: docusate sodium 100mg/10ml UD cup NG SCH ×2 (08:00→21:12)
--- NOTE | 2023-01-03 08:57 | NUR ---
UNABLE TO GIVE LATUDA DUE TO NOT BEING AVAILABLE
[2023-01-03] MEDS: busPIRone 5mg tablet NG SCH ×2 (09:11→21:12)
[2023-01-03] MEDS: sennosides/docusate sodium tablet NG SCH ×2 (09:11→21:12)
[2023-01-03] MEDS: lisinopril 5mg tablet NG SCH (09:13)
[2023-01-03] MEDS: pantoprazole 40MG/NS 100ML BAG 100 ML IV SCH ×2 (09:43→20:07)
[2023-01-03] MEDS: vancomycin/NS 1 GM ADD-VANTAGE 250 ML IV SCH ×2 (09:43→20:07)
[2023-01-03] MEDS: ZINC/COPPER/MANGANESE/SELENIUM 0.5 ML, chromic chloride inj. 5 MCG in AA 5%/CALCIUM/LYT... IV SCH ×2 (09:44→23:03)
[2023-01-03 11:00] VITALS: BP 138/59
[2023-01-03] MEDS: lurasidone 20mg tablet NG SCH ×2 (13:59→21:12)
--- NOTE | 2023-01-03 17:47 | NUR ---
Patient in room [facility] 346[facility]. I have received report from MIKEY MILES and had the opportunity to ask questions and assume patient care.
[2023-01-03 18:00] VITALS: BP 130/67
--- NOTE | 2023-01-03 19:06 | NUR ---
Problems reprioritized. Patient report given, questions answered & plan of care reviewed with MIKEY anne
[2023-01-03] MEDS: fat emulsion 20% inj. 100 ML IV SCH (19:12)
[2023-01-03] MEDS: atorvastatin 20mg tablet NG SCH (21:12)
[2023-01-03] MEDS: ESCITALOPRAM OXALATE 5 MG TABLET NG SCH (21:12)
[2023-01-03 22:00] VITALS: BP 158/74
[2023-01-04] MEDS: quetiapine 100mg tablet NG SCH ×4 (01:35→21:44)
[2023-01-04] MEDS: insulin regular, human U-100 3ml vial - multi-dose SQ SCH ×4 (01:38→21:36)
--- NOTE | 2023-01-04 01:48 | NUR ---
when i checked blood sugar, pt was still asleep i got permission for blood sugar check. when i came back to give insulin pt was asleep, i had to wake her up to get permission. pt woke up and asked for pain med. i told her it will due in 15 min. and pt start saying you didn't give it to me last time. i explained to her that when i helped her to use commode, i gave it to her after lay her down in bed. pt saying, don't say i gave it when i didn't. you didn't give it to me. i told her i'll come back and ask when its due.
--- NOTE | 2023-01-04 02:04 | NUR ---
went back to her room to ask how her pain is doing. pt was asleep. ill monitor.
[2023-01-04] MEDS: HYDROmorphone 1 mg/ml syringe IV PRN ×8 (02:26→23:48)
[2023-01-04] MEDS: piperacillin/tazo 3.375gm/50ml 50 ML IV SCH ×3 (04:40→20:33)
[2023-01-04 06:00] VITALS: BP 145/77
--- NOTE | 2023-01-04 06:32 | NUR ---
Problems reprioritized. Patient report given, questions answered & plan of care reviewed with MIKEY SALEH.
[2023-01-04 07:08] LABS: PREALBUMIN 18.6 MG/DL (19-36)
--- NOTE | 2023-01-04 07:48 | NUR ---
Patient in room [facility] 346[facility]. I have received report from MIKEY YOUNG and had the opportunity to ask questions and assume patient care.
[2023-01-04] MEDS: docusate sodium 100mg/10ml UD cup NG SCH ×2 (08:59→21:43)
[2023-01-04] MEDS: sennosides/docusate sodium tablet NG SCH ×2 (08:59→21:45)
[2023-01-04] MEDS: busPIRone 5mg tablet NG SCH ×2 (09:00→21:44)
[2023-01-04] MEDS: lurasidone 20mg tablet NG SCH ×2 (09:00→21:49)
[2023-01-04] MEDS: lisinopril 5mg tablet NG SCH (09:01)
[2023-01-04] MEDS: heparin, porcine 5000 units/ml vial SQ SCH ×2 (09:01→15:15)
[2023-01-04] MEDS: vancomycin/NS 1 GM ADD-VANTAGE 250 ML IV SCH ×2 (09:21→21:41)
[2023-01-04] MEDS: K and/or MAG REPLACEMENT MC SCH ×2 (09:21→20:00)
[2023-01-04] MEDS: pantoprazole 40MG/NS 100ML BAG 100 ML IV SCH ×2 (09:21→20:33)
[2023-01-04 11:00] VITALS: BP 148/66
[2023-01-04] MEDS: ZINC/COPPER/MANGANESE/SELENIUM 0.5 ML, chromic chloride inj. 5 MCG in AA 5%/CALCIUM/LYT... IV SCH ×2 (12:39→23:51)
[2023-01-04 18:00] VITALS: BP 125/54
[2023-01-04] MEDS: fat emulsion 20% inj. 100 ML IV SCH (18:06)
--- NOTE | 2023-01-04 19:01 | NUR ---
Problems reprioritized. Patient report given, questions answered & plan of care reviewed with MIKEY URIAS. Addendum: 01/04/23 at 1902 by Debbie Brink RN GAVE TO GARRETT TUCKER RN
--- NOTE | 2023-01-04 19:05 | NUR ---
Patient in room [facility] 346. I have received report from JUANITA JENSEN and had the opportunity to ask questions and assume patient care.
[2023-01-04] MEDS: atorvastatin 20mg tablet NG SCH (21:45)
[2023-01-04] MEDS: ESCITALOPRAM OXALATE 5 MG TABLET NG SCH (21:45)
[2023-01-04 22:00] VITALS: BP 142/70
[2023-01-05] MEDS: heparin, porcine 5000 units/ml vial SQ SCH ×4 (00:02→23:43)
[2023-01-05] MEDS: HYDROmorphone 1 mg/ml syringe IV PRN ×8 (02:22→23:42)
[2023-01-05] MEDS: insulin regular, human U-100 3ml vial - multi-dose SQ SCH ×4 (03:00→20:26)
[2023-01-05] MEDS: quetiapine 100mg tablet NG SCH ×4 (03:00→20:38)
[2023-01-05] MEDS: piperacillin/tazo 3.375gm/50ml 50 ML IV SCH ×3 (04:49→20:23)
[2023-01-05 06:00] VITALS: BP 127/79
--- NOTE | 2023-01-05 06:32 | NUR ---
Problems reprioritized. Patient report given, questions answered & plan of care reviewed with JUANITA JENSEN.
[2023-01-05] MEDS ORDERED: VANCOMYCIN LEVEL IV ONE (07:30)
[2023-01-05] MEDS: K and/or MAG REPLACEMENT MC SCH ×2 (08:00→20:00)
--- NOTE | 2023-01-05 08:31 | NUR ---
Patient in room [facility] 346[facility]. I have received report from GARRETT TUCKER RN and had the opportunity to ask questions and assume patient care.
[2023-01-05] MEDS: MVI, adult No.4 with vit. K 10 ML in dextrose 5% water 500ml 500 ML IV SCH ×2 (10:04)
[2023-01-05] MEDS: pantoprazole 40MG/NS 100ML BAG 100 ML IV SCH ×2 (10:08→19:53)
[2023-01-05] MEDS: docusate sodium 100mg/10ml UD cup NG SCH ×2 (10:12→20:37)
[2023-01-05] MEDS: busPIRone 5mg tablet NG SCH ×2 (10:13→20:38)
[2023-01-05] MEDS: sennosides/docusate sodium tablet NG SCH ×2 (10:13→20:37)
[2023-01-05] MEDS: lurasidone 20mg tablet NG SCH ×2 (10:13→20:38)
[2023-01-05] MEDS: vancomycin/NS 1 GM ADD-VANTAGE 250 ML IV SCH (10:17)
[2023-01-05] MEDS: lisinopril 5mg tablet NG SCH (10:25)
[2023-01-05 10:26] LABS: ALANINE AMINOTRANSFERASE 21 U/L (12-78); ALBUMIN 2.7 G/DL (3.4-5.0); ALBUMIN/GLOBULIN RATIO 0.5 (1.1-1.5); ALKALINE PHOSPHATASE 182 IU/L (46-116); ANION GAP 8 (8-16); ASPARTATE AMINO TRANSFERASE 21 U/L (10-37); BILIRUBIN,TOTAL 0.5 MG/DL (0.1-1.0); BLOOD UREA NITROGEN 14 MG/DL (7-18); BUN/CREATININE RATIO 15.7 (6.6-38.0); CHLORIDE 98 MMOL/L (99-107); CREATININE 0.89 MG/DL (0.40-0.90); GLUCOSE 143 MG/DL (70-104); PHOSPHORUS 4.1 MG/DL (2.3-4.5); POTASSIUM 3.5 MMOL/L (3.5-5.1); SODIUM 136 MMOL/L (135-145); TOTAL CARBON DIOXIDE 29.7 MMOL/L (24-32); VANCOMYCIN,TROUGH 13.6 UG/ML (6.0-14.0); eGFR 65 ML/MIN
[2023-01-05 11:00] VITALS: BP 150/78
[2023-01-05] MEDS: ZINC/COPPER/MANGANESE/SELENIUM 0.5 ML, chromic chloride inj. 5 MCG in AA 5%/CALCIUM/LYT... IV SCH (12:47)
[2023-01-05] MEDS: normal saline 1000ml 1,000 ML IV SCH ×2 (15:27→20:30)
--- NOTE | 2023-01-05 15:53 | NUR ---
F/u 01/05: Pt tolerating TPN at goal w/ rectal tube output -300ml past 24 hours per EMR. Per surgeon note, trial NG clamping tonight to assess fistula output. Will continue to follow. Recommendations: 1) Continuous TPN per MD using 2:1 Clinimix-E 04/03 with 75 mL/hr goal rate and additional 100 mL 20% ILE to run at 8.33 mL/hr for 12 hrs daily. To provide 1800 mL volume/day, 1784 kcal, 90 g protein, and 360 g dext (2.63 mg/kg/min dext load) 2) Advance to low fiber diet as medically indicated; continue nutrition support until adequate PO intake assured 3) PALB and TG q Wednesday/ 4) Daily scaled weights 5) Bowel care per physician Addendum: 01/05/23 at [address] Amended: Links added.
[2023-01-05] MEDS: fat emulsion 20% inj. 100 ML IV SCH (17:17)
[2023-01-05 18:00] VITALS: BP 147/52
--- NOTE | 2023-01-05 18:29 | NUR ---
Problems reprioritized. Patient report given, questions answered & plan of care reviewed with GARRETT TUCKER RN.
--- NOTE | 2023-01-05 18:35 | NUR ---
Patient in room [facility] 346. I have received report from JUANITA JENSEN and had the opportunity to ask questions and assume patient care.
[2023-01-05] MEDS: atorvastatin 20mg tablet NG SCH (20:37)
[2023-01-05] MEDS: ESCITALOPRAM OXALATE 5 MG TABLET NG SCH (20:38)
[2023-01-05 22:00] VITALS: BP 152/60
[2023-01-05] MEDS: VANCOmycin 1250MG/NS 250ml Bag 250 ML IV SCH (23:05)
[2023-01-06] MEDS: HYDROmorphone 1 mg/ml syringe IV PRN ×9 (02:09→22:31)
[2023-01-06] MEDS: quetiapine 100mg tablet NG SCH ×4 (02:17→21:15)
[2023-01-06] MEDS: ZINC/COPPER/MANGANESE/SELENIUM 0.5 ML, chromic chloride inj. 5 MCG in AA 5%/CALCIUM/LYT... IV SCH ×2 (02:20→16:15)
[2023-01-06] MEDS: insulin regular, human U-100 3ml vial - multi-dose SQ SCH ×3 (02:41→21:08)
[2023-01-06] MEDS: piperacillin/tazo 3.375gm/50ml 50 ML IV SCH ×3 (04:40→20:55)
[2023-01-06 05:22] LABS: ALANINE AMINOTRANSFERASE 18 U/L (12-78); ALBUMIN 2.5 G/DL (3.4-5.0); ALBUMIN/GLOBULIN RATIO 0.4 (1.1-1.5); ALKALINE PHOSPHATASE 163 IU/L (46-116); ANION GAP 7 (8-16); ASPARTATE AMINO TRANSFERASE 17 U/L (10-37); BILIRUBIN,TOTAL 0.4 MG/DL (0.1-1.0); BLOOD UREA NITROGEN 13 MG/DL (7-18); BUN/CREATININE RATIO 16.5 (6.6-38.0); CALCIUM 8.9 MG/DL (8.5-10.1); CHLORIDE 102 MMOL/L (99-107); CREATININE 0.79 MG/DL (0.40-0.90); GLUCOSE 109 MG/DL (70-104); MAGNESIUM 2.1 MG/DL (1.5-2.4); PHOSPHORUS 4.1 MG/DL (2.3-4.5); POTASSIUM 3.2 MMOL/L (3.5-5.1); SODIUM 138 MMOL/L (135-145); TOTAL CARBON DIOXIDE 29.2 MMOL/L (24-32); TOTAL PROTEIN 8.2 G/DL (6.4-8.2); eGFR 74 ML/MIN
--- NOTE | 2023-01-06 06:00 | NUR ---
Patient in room [facility] 346. I have received report from Inez Wiley RN and had the opportunity to ask questions and assume patient care.
--- NOTE | 2023-01-06 06:45 | NUR ---
Problems reprioritized. Patient report given, questions answered & plan of care reviewed with ALBER JENSEN.
[2023-01-06] MEDS ORDERED: potassium Cl 40MEQ/270ML bag 270 ML IV PRN (07:40)
[2023-01-06] MEDS ORDERED: magnesium 4gm in 100ml NS 100 ML IV PRN (07:40)
[2023-01-06] MEDS ORDERED: magnesium 2GM in 50ml NS 50 ML IV PRN (07:40)
--- NOTE | 2023-01-06 07:44 | NUR ---
received report from night nurse. Assumed care of patient. All safety measures in place and call light in reach. Will continue to monitor.
[2023-01-06 07:45] VITALS: BP 138/66
[2023-01-06] MEDS ORDERED: Potassium Cl 40 MEQ in normal saline IV soln 270 ML IV ONE (07:45)
[2023-01-06] MEDS: K and/or MAG REPLACEMENT MC SCH ×2 (08:00→20:00)
[2023-01-06] MEDS: pantoprazole 40MG/NS 100ML BAG 100 ML IV SCH ×2 (08:18→19:48)
[2023-01-06] MEDS: VANCOmycin 1250MG/NS 250ml Bag 250 ML IV SCH (08:18)
[2023-01-06] MEDS: lurasidone 20mg tablet NG SCH ×2 (08:19→21:16)
[2023-01-06] MEDS: heparin, porcine 5000 units/ml vial SQ SCH ×2 (08:22→16:33)
[2023-01-06] MEDS: docusate sodium 100mg/10ml UD cup NG SCH ×2 (08:23→21:14)
[2023-01-06] MEDS: sennosides/docusate sodium tablet NG SCH ×2 (08:23→21:14)
[2023-01-06] MEDS: busPIRone 5mg tablet NG SCH ×2 (08:23→21:15)
[2023-01-06] MEDS: lisinopril 5mg tablet NG SCH (08:24)
--- NOTE | 2023-01-06 11:57 | NUR ---
Student documentation: I have reviewed and agree with all interventions, assessments performed and documented by Graciela student nurse.
--- NOTE | 2023-01-06 13:51 | NUR ---
PRESSURE ULCER EDUCATION: DEFINITION: A pressure ulcer is an area of skin that breaks down when you stay in one position too long. The constant pressure against the skin reduces the blood flow to that area and the affected tissue dies. CAUSES: "Being bedridden or in a wheelchair "Fragile skin "Having a chronic condition, such as diabetes or vascular disease "Inability to move certain parts of your body without assistance "Older age "Incontinence of urine or stool SYMPTOMS: "A reddened area that DOES NOT turn white when pressed on - this can be the beginning of a pressure ulcer "A blister, deep sore or a crater - these can be advanced pressure ulcers FIRST AID: "Relieve the pressure on this area "Keep the area clean and dry "Call your primary doctor if you see any of the above symptoms "DO NOT massage the area "DO NOT use a donut shaped or ring shaped pillow- these actually interfere with the blood flow and cause complications PREVENTION: "Check for pressure ulcers everyday "Change position at least every two hours to relieve pressure "Use items that help relieve pressure- pillows, sheepskin, foam padding, and powders. "Keep skin clean and dry "Eat healthy well balanced meals "Exercise daily IF YOU SEE ANY OF THESE SYMPTOMS WHILE IN THE HOSPITAL - TELL YOUR NURSE IMMEDIATELY. IF YOU SEE ANY OF THESE SYMPTOMS WHILE AT HOME OR HAVE ANY QUESTIONS OR CONCERNS ABOUT PRESSURE ULCERS - CALL YOUR PRIMARY DOCTOR IMMEDIATELY. Addendum: 01/06/23 at 1351 by Jessica Chow LVN Amended: Links added.
--- NOTE | 2023-01-06 17:19 | NUR ---
Patient resting in bed at this time. TPN going at 75ml/hr. No acute changes this shift. No c/o pain or discomfort. VSS. RR even and unlabored. 02> 92% RA. All safety measures in place and call light in reach. Will continue to monitor.
[2023-01-06] MEDS: fat emulsion 20% inj. 100 ML IV SCH (17:56)
--- NOTE | 2023-01-06 18:51 | NUR ---
Problems reprioritized. Patient report given, questions answered & plan of care reviewed with Lori JENSEN.
--- NOTE | 2023-01-06 18:52 | NUR ---
Miquel Martinez LVN. Addendum: 01/06/23 at 1852 by Morenita Amaro RN Amended: Links added.
--- NOTE | 2023-01-06 18:52 | NUR ---
End of shift report. report given to night nurse CHARLI. RN
--- NOTE | 2023-01-06 18:54 | NUR ---
Patient in room [facility] 346. I have received report from ALBER JENSEN and had the opportunity to ask questions and assume patient care.
[2023-01-06 19:00] VITALS: BP 146/73
[2023-01-06] MEDS: ESCITALOPRAM OXALATE 5 MG TABLET NG SCH (21:15)
[2023-01-06] MEDS: atorvastatin 20mg tablet NG SCH (21:15)
[2023-01-06] MEDS: diatr meglu/diatrizoate 30ml oral sol.-(3 dose) bottle PO SCH (21:16)
[2023-01-06 22:00] VITALS: BP 144/69
[2023-01-07] MEDS: heparin, porcine 5000 units/ml vial SQ SCH ×3 (01:17→15:44)
--- NOTE | 2023-01-07 03:00 | NUR ---
PATIENT'S NG TUBE PULLED OUT AND REFUSED TO HAVE IT BACK. NG OUTPUT AT THIS TIME IS 500ML
[2023-01-07] MEDS: quetiapine 100mg tablet NG SCH ×3 (03:23→13:56)
[2023-01-07] MEDS: HYDROmorphone 1 mg/ml syringe IV PRN ×7 (03:26→22:34)
[2023-01-07] MEDS: insulin regular, human U-100 3ml vial - multi-dose SQ SCH ×4 (03:37→20:31)
[2023-01-07] MEDS: ZINC/COPPER/MANGANESE/SELENIUM 0.5 ML, chromic chloride inj. 5 MCG in AA 5%/CALCIUM/LYT... IV SCH ×2 (03:42→19:12)
[2023-01-07] MEDS: piperacillin/tazo 3.375gm/50ml 50 ML IV SCH ×3 (03:55→20:24)
[2023-01-07 06:00] VITALS: BP 138/72
--- NOTE | 2023-01-07 06:45 | NUR ---
Problems reprioritized. Patient report given, questions answered & plan of care reviewed with ERIKA JENSEN.
[2023-01-07] MEDS: diatr meglu/diatrizoate 30ml oral sol.-(3 dose) bottle PO SCH ×2 (07:24→21:00)
[2023-01-07 07:31] LABS: ALANINE AMINOTRANSFERASE 25 U/L (12-78); ALBUMIN 2.7 G/DL (3.4-5.0); ALBUMIN/GLOBULIN RATIO 0.5 (1.1-1.5); ALKALINE PHOSPHATASE 210 IU/L (46-116); ANION GAP 14 (8-16); ASPARTATE AMINO TRANSFERASE 45 U/L (10-37); BILIRUBIN,TOTAL 0.5 MG/DL (0.1-1.0); BLOOD UREA NITROGEN 15 MG/DL (7-18); BUN/CREATININE RATIO 21.4 (6.6-38.0); CALCIUM 8.3 MG/DL (8.5-10.1); CHLORIDE 101 MMOL/L (99-107); GLUCOSE 108 MG/DL (70-104); PHOSPHORUS 4.5 MG/DL (2.3-4.5); POTASSIUM 4.2 MMOL/L (3.5-5.1); PREALBUMIN 20.2 MG/DL (19-36); SODIUM 138 MMOL/L (135-145); TOTAL CARBON DIOXIDE 23.3 MMOL/L (24-32); TOTAL PROTEIN 8.2 G/DL (6.4-8.2); TRIGLYCERIDES 263 MG/DL (20-135); eGFR 85 ML/MIN
[2023-01-07] MEDS: busPIRone 5mg tablet NG SCH (08:00)
[2023-01-07] MEDS: K and/or MAG REPLACEMENT MC SCH ×2 (08:00→19:09)
[2023-01-07] MEDS: lisinopril 5mg tablet NG SCH (08:00)
[2023-01-07] MEDS: lurasidone 20mg tablet NG SCH (08:00)
[2023-01-07] MEDS: sennosides/docusate sodium tablet NG SCH (08:00)
[2023-01-07] MEDS: docusate sodium 100mg/10ml UD cup NG SCH (08:00)
[2023-01-07] MEDS: pantoprazole 40MG/NS 100ML BAG 100 ML IV SCH ×2 (08:43→19:12)
[2023-01-07] MEDS ORDERED: VANCOMYCIN LEVEL IV ONE (09:30)
[2023-01-07] MEDS ORDERED: iohexol 300mg/ml 100ml inj. ONE (09:39)
[2023-01-07 10:00] VITALS: BP 146/86
--- NOTE | 2023-01-07 11:57 | NUR ---
Dr. Zheng, Emily, and myself went in and talked with the patient. She has been accepted to [facility] in [place] but the patient refuses to go stating that it is too far from her family. Dr. Zheng educated her on the benefits of accepting the transfer but the patient refuses. She also refuses the NG tube. Provided the patient with the information to appeal her discharge with Medicare. Patient is angry about the situation.
--- NOTE | 2023-01-07 13:38 | NUR ---
PAGER ID: [phone] MESSAGE: Nicole [phone] RE: Haritha Shipman room 346B - patient would like the rectal tube be removed. Is it OK to remove it?
[2023-01-07] MEDS: normal saline 1000ml 1,000 ML IV SCH (14:42)
--- NOTE | 2023-01-07 15:48 | NUR ---
Rectal tube removed as ordered by Dr. Zheng.
[2023-01-07] MEDS ORDERED: acetaminophen 325mg/10.15ml oral unit dose solution PO PRN ×2 (17:08)
[2023-01-07] MEDS ORDERED: atorvastatin 20mg tablet PO SCH (17:09)
[2023-01-07] MEDS ORDERED: busPIRone 5mg tablet PO SCH (17:09)
[2023-01-07] MEDS ORDERED: docusate sodium 100mg/10ml UD cup PO SCH (17:09)
[2023-01-07] MEDS ORDERED: ESCITALOPRAM OXALATE 5 MG TABLET PO SCH (17:10)
[2023-01-07] MEDS ORDERED: gabapentin 300mg capsule PO PRN (17:10)
[2023-01-07] MEDS ORDERED: lisinopril 5mg tablet PO SCH (17:11)
[2023-01-07] MEDS ORDERED: Neutra Phos packet PO PRN (17:15)
[2023-01-07] MEDS: fat emulsion 20% inj. 100 ML IV SCH (17:54)
[2023-01-07 18:00] VITALS: BP 124/93
--- NOTE | 2023-01-07 18:00 | NUR ---
Patient in room [facility] 346. I have received report from MIKEY Rivera and had the opportunity to ask questions and assume patient care.
--- NOTE | 2023-01-07 18:28 | NUR ---
Problems reprioritized. Patient report given, questions answered & plan of care reviewed with MIKEY Baez.
[2023-01-07] MEDS: quetiapine 100mg tablet PO SCH (20:24)
[2023-01-07] MEDS: atorvastatin 20mg tablet PO SCH (20:25)
[2023-01-07] MEDS: lurasidone 20mg tablet PO SCH (20:25)
[2023-01-07] MEDS: ESCITALOPRAM OXALATE 5 MG TABLET PO SCH (20:25)
[2023-01-07] MEDS: docusate sodium 100mg/10ml UD cup PO SCH (20:26)
[2023-01-07] MEDS: busPIRone 5mg tablet PO SCH (20:26)
[2023-01-07] MEDS: sennosides/docusate sodium tablet PO SCH (20:26)
[2023-01-07 22:00] VITALS: BP 139/72
[2023-01-07] MEDS: ondansetron/PF 4mg/2ml inj IV PRN (22:40)
[2023-01-08] VITALS (8 sets, daily range): BP systolic 122–151; BP diastolic 49–81
[2023-01-08] MEDS: heparin, porcine 5000 units/ml vial SQ SCH ×5 (00:22→23:30)
[2023-01-08] MEDS: quetiapine 100mg tablet PO SCH ×5 (02:14→20:42)
[2023-01-08] MEDS: HYDROmorphone 1 mg/ml syringe IV PRN ×8 (02:16→22:48)
[2023-01-08] MEDS: insulin regular, human U-100 3ml vial - multi-dose SQ SCH ×4 (02:24→20:07)
[2023-01-08] MEDS: piperacillin/tazo 3.375gm/50ml 50 ML IV SCH ×3 (04:13→19:55)
--- NOTE | 2023-01-08 06:39 | NUR ---
Problems reprioritized. Patient report given, questions answered & plan of care reviewed with MIKEY Lofton.
--- NOTE | 2023-01-08 06:45 | NUR ---
Patient in room [facility] 346. I have received report from Malaika and had the opportunity to ask questions and assume patient care.
--- NOTE | 2023-01-08 07:14 | NUR ---
Problems reprioritized. Patient report given to buck, questions answered & plan of care reviewed with .
[2023-01-08 07:55] LABS: ALANINE AMINOTRANSFERASE 24 U/L (12-78); ALBUMIN 2.7 G/DL (3.4-5.0); ALBUMIN/GLOBULIN RATIO 0.5 (1.1-1.5); ALKALINE PHOSPHATASE 209 IU/L (46-116); ANION GAP 7 (8-16); ASPARTATE AMINO TRANSFERASE 27 U/L (10-37); BILIRUBIN,TOTAL 0.4 MG/DL (0.1-1.0); BLOOD UREA NITROGEN 16 MG/DL (7-18); BUN/CREATININE RATIO 19.8 (6.6-38.0); CALCIUM 9.1 MG/DL (8.5-10.1); CHLORIDE 100 MMOL/L (99-107); CREATININE 0.81 MG/DL (0.40-0.90); GLUCOSE 102 MG/DL (70-104); MAGNESIUM 2.1 MG/DL (1.5-2.4); PHOSPHORUS 5.2 MG/DL (2.3-4.5); POTASSIUM 3.8 MMOL/L (3.5-5.1); SODIUM 136 MMOL/L (135-145); TOTAL CARBON DIOXIDE 28.6 MMOL/L (24-32); TOTAL PROTEIN 8.3 G/DL (6.4-8.2); TRIGLYCERIDES 248 MG/DL (20-135); eGFR 72 ML/MIN
[2023-01-08] MEDS: K and/or MAG REPLACEMENT MC SCH ×2 (08:00→19:14)
[2023-01-08] MEDS: busPIRone 5mg tablet PO SCH ×2 (08:18→20:41)
[2023-01-08] MEDS: sennosides/docusate sodium tablet PO SCH ×2 (08:18→20:41)
[2023-01-08] MEDS: docusate sodium 100mg/10ml UD cup PO SCH (08:20)
[2023-01-08] MEDS: lisinopril 5mg tablet PO SCH (08:22)
[2023-01-08] MEDS: ZINC/COPPER/MANGANESE/SELENIUM 0.5 ML, chromic chloride inj. 5 MCG in AA 5%/CALCIUM/LYT... IV SCH ×2 (08:52→22:42)
[2023-01-08] MEDS: pantoprazole 40MG/NS 100ML BAG 100 ML IV SCH ×2 (09:01→19:22)
[2023-01-08] MEDS: MVI, adult No.4 with vit. K 10 ML in dextrose 5% water 500ml 500 ML IV SCH ×2 (09:07)
--- NOTE | 2023-01-08 09:35 | NUR ---
ATTEMPTED TO CALL [facility] TO CANCEL 1000 PICK FOR THIS PATIENT, WAS UNABLE TO CONTACT THEM AT THIS TIME. 4 CALLS WERE MADE AND NO ANSWER ON ANY OF THEM.
[2023-01-08] MEDS: lurasidone 20mg tablet PO SCH ×2 (09:49→20:41)
[2023-01-08] MEDS ORDERED: LIDOcaine 1% (10mg/ml) 2ml vial ONE (10:21)
[2023-01-08] MEDS ORDERED: fentaNYL/PF 50MCG/1 ML 2ML syringe ONE (10:22)
[2023-01-08] MEDS: fat emulsion 20% inj. 100 ML IV SCH (17:21)
--- NOTE | 2023-01-08 18:05 | NUR ---
Problems reprioritized. Patient report given, questions answered & plan of care reviewed with GINGER JENSEN.
--- NOTE | 2023-01-08 18:30 | NUR ---
Patient in room [facility] 346. I have received report from KirstyRN and AnyRN and had the opportunity to ask questions and assume patient care.
[2023-01-08] MEDS: atorvastatin 20mg tablet PO SCH (20:41)
[2023-01-08] MEDS: ESCITALOPRAM OXALATE 5 MG TABLET PO SCH (20:42)
[2023-01-08] MEDS: docusate sod 100mg capsule PO SCH (20:42)
--- NOTE | 2023-01-08 21:25 | NUR ---
Problems reprioritized. Patient report given, questions answered & plan of care reviewed with MIKEY Forbes.
--- NOTE | 2023-01-08 21:35 | NUR ---
Patient in room [facility] 346. I have received report from GINGER JENSEN and had the opportunity to ask questions and assume patient care.
[2023-01-08] MEDS: normal saline 1000ml 1,000 ML IV SCH (23:17)
[2023-01-09] MEDS: insulin regular, human U-100 3ml vial - multi-dose SQ SCH ×4 (02:29→20:40)
[2023-01-09] MEDS: quetiapine 100mg tablet PO SCH ×4 (02:31→20:31)
[2023-01-09] MEDS: HYDROmorphone 1 mg/ml syringe IV PRN ×8 (02:43→22:08)
--- NOTE | 2023-01-09 02:45 | NUR ---
Dilauded given for pain. Addendum: 01/09/23 at 0246 by Leonard Presley RN Amended: Links added.
[2023-01-09] MEDS ORDERED: tPA-cathflo 2 MG/2 ml IV flush IVF PRN (02:50)
[2023-01-09] MEDS ORDERED: tPA-cathflo 2 MG/2 ml IV flush IVF ONE (02:50)
[2023-01-09] MEDS: piperacillin/tazo 3.375gm/50ml 50 ML IV SCH ×3 (04:40→20:36)
[2023-01-09 06:25] LABS: ALANINE AMINOTRANSFERASE 18 U/L (12-78); ALBUMIN 2.7 G/DL (3.4-5.0); ALBUMIN/GLOBULIN RATIO 0.5 (1.1-1.5); ALKALINE PHOSPHATASE 182 IU/L (46-116); ANION GAP 8 (8-16); ASPARTATE AMINO TRANSFERASE 19 U/L (10-37); BILIRUBIN,TOTAL 0.4 MG/DL (0.1-1.0); BLOOD UREA NITROGEN 18 MG/DL (7-18); BUN/CREATININE RATIO 21.7 (6.6-38.0); CALCIUM 9.3 MG/DL (8.5-10.1); CHLORIDE 97 MMOL/L (99-107); CREATININE 0.83 MG/DL (0.40-0.90); GLUCOSE 101 MG/DL (70-104); MAGNESIUM 2.1 MG/DL (1.5-2.4); PHOSPHORUS 4.2 MG/DL (2.3-4.5); POTASSIUM 3.4 MMOL/L (3.5-5.1); SODIUM 134 MMOL/L (135-145); TOTAL PROTEIN 8.1 G/DL (6.4-8.2); eGFR 70 ML/MIN
[2023-01-09 07:04] VITALS: BP 121/74
[2023-01-09] MEDS: K and/or MAG REPLACEMENT MC SCH ×2 (08:00→20:00)
[2023-01-09] MEDS: pantoprazole 40MG/NS 100ML BAG 100 ML IV SCH ×2 (08:00→20:36)
[2023-01-09] MEDS: busPIRone 5mg tablet PO SCH ×2 (08:28→20:20)
[2023-01-09] MEDS: docusate sod 100mg capsule PO SCH ×2 (08:29→20:20)
[2023-01-09] MEDS: sennosides/docusate sodium tablet PO SCH ×2 (08:32→20:21)
[2023-01-09] MEDS: lurasidone 20mg tablet PO SCH ×2 (08:33→21:00)
[2023-01-09] MEDS: lisinopril 5mg tablet PO SCH (08:37)
[2023-01-09] MEDS: ondansetron/PF 4mg/2ml inj IV PRN ×2 (08:39→19:08)
[2023-01-09] MEDS: heparin, porcine 5000 units/ml vial SQ SCH ×2 (09:05→16:06)
[2023-01-09 11:05] VITALS: BP 101/41
[2023-01-09] MEDS: ZINC/COPPER/MANGANESE/SELENIUM 0.5 ML, chromic chloride inj. 5 MCG in AA 5%/CALCIUM/LYT... IV SCH (13:33)
--- NOTE | 2023-01-09 15:39 | NUR ---
Reassessment: Patient's diet has been advanced to clear liquids per surgeon, pt documented with 0-25% PO intake. Per RN pt with poor tolerance to PO intake with emesis following intake of water and other liquids. Noted pt documented with 1300 mL of emesis 01/08. Pt seen at bedside, denies any N/V today. Pt states she is "starving" and reports drinking the juice and eating the gelatin with occasional intake of the [place] ice. RD educated pt on the process of diet advancement (clears, fulls, low fiber) and why she is only on a clear liquid diet. Pt assured that she is receiving adequate nutrition with TPN at this time. Pt verbalized understanding to information provided and agrees to continue with clear liquid diet. Pt provided with RD contact information and encouraged to reach out if needed. All information obtained from pt was d/w bedside RN. Pt no longer with a rectal tube, LBM 01/08. Per RN pt no longer having output from fistula. Will continue to follow closely. Recommendations: 1) Continuous TPN per MD using 2:1 Clinimix-E 04/03 with 75 mL/hr goal rate and additional 100 mL 20% ILE to run at 8.33 mL/hr for 12 hrs daily. To provide 1800 mL volume/day, 1784 kcal, 90 g protein, and 360 g dext (2.63 mg/kg/min dext load) 2) Advance to low fiber diet as medically indicated; continue nutrition support until adequate PO intake assured 3) PALB and TG q Wednesday/ 4) Daily scaled weights 5) Bowel care per physician Addendum: 01/09/23 at [address] Amended: Links added.
[2023-01-09] MEDS: fat emulsion 20% inj. 100 ML IV SCH (17:51)
[2023-01-09 18:55] VITALS: BP 91/50
--- NOTE | 2023-01-09 18:56 | NUR ---
Problems reprioritized. Patient report given, questions answered & plan of care reviewed with Maryse RN.
[2023-01-09] MEDS: hydrOXYzine 25 MG tablet PO PRN (20:18)
[2023-01-09] MEDS: ESCITALOPRAM OXALATE 5 MG TABLET PO SCH (20:19)
[2023-01-09] MEDS: atorvastatin 20mg tablet PO SCH (20:19)
[2023-01-10] MEDS: HYDROmorphone 1 mg/ml syringe IV PRN ×7 (00:28→22:46)
[2023-01-10] MEDS: heparin, porcine 5000 units/ml vial SQ SCH ×4 (00:34→23:57)
[2023-01-10] MEDS: ondansetron/PF 4mg/2ml inj IV PRN (00:42)
[2023-01-10] MEDS: ZINC/COPPER/MANGANESE/SELENIUM 0.5 ML, chromic chloride inj. 5 MCG in AA 5%/CALCIUM/LYT... IV SCH ×2 (00:45→13:01)
[2023-01-10] MEDS: quetiapine 100mg tablet PO SCH ×5 (02:00→19:58)
[2023-01-10] MEDS: insulin regular, human U-100 3ml vial - multi-dose SQ SCH ×3 (03:29→20:29)
[2023-01-10] MEDS: piperacillin/tazo 3.375gm/50ml 50 ML IV SCH ×3 (03:35→20:39)
--- NOTE | 2023-01-10 05:30 | NUR ---
Pt. is awake alert oriented c/o abd pain all night medicated for pain every 2 hours per request. States relief is short acting and is awaiting the next procedure. Pt. has a TL PICC line TPN and intralipids infusing. Pt. has an abd incision dry and intact. Distal portion to ostomy drain. 70 ml drained this am. Abd large soft distended visible veins. Pt. able to up to BSC had brown soft bm.
--- NOTE | 2023-01-10 06:20 | NUR ---
Patient in room [facility] 346. I have received report from MIKEY Serra and had the opportunity to ask questions and assume patient care.
[2023-01-10] MEDS ORDERED: potassium Cl 20 mEq SR tablet PO PRN (07:55)
[2023-01-10] MEDS ORDERED: magnesium Cl slow-release 64mg tablet PO PRN (07:55)
[2023-01-10] MEDS: busPIRone 5mg tablet PO SCH ×2 (08:00→19:58)
[2023-01-10] MEDS: lurasidone 20mg tablet PO SCH ×2 (08:00→21:00)
[2023-01-10] MEDS: K and/or MAG REPLACEMENT MC SCH ×2 (08:00→19:50)
[2023-01-10] MEDS: lisinopril 5mg tablet PO SCH (08:00)
[2023-01-10 10:00] VITALS: BP 109/51
[2023-01-10 10:10] LABS: ALANINE AMINOTRANSFERASE 14 U/L (12-78); ALBUMIN 2.4 G/DL (3.4-5.0); ALBUMIN/GLOBULIN RATIO 0.5 (1.1-1.5); ALKALINE PHOSPHATASE 163 IU/L (46-116); ANION GAP 7 (8-16); ASPARTATE AMINO TRANSFERASE 17 U/L (10-37); BILIRUBIN,TOTAL 0.4 MG/DL (0.1-1.0); BLOOD UREA NITROGEN 32 MG/DL (7-18); BUN/CREATININE RATIO 25.6 (6.6-38.0); CALCIUM 8.7 MG/DL (8.5-10.1); CHLORIDE 97 MMOL/L (99-107); CREATININE 1.25 MG/DL (0.40-0.90); GLUCOSE 132 MG/DL (70-104); MAGNESIUM 2.1 MG/DL (1.5-2.4); POTASSIUM 3.9 MMOL/L (3.5-5.1); SODIUM 130 MMOL/L (135-145); TOTAL CARBON DIOXIDE 25.6 MMOL/L (24-32); TOTAL PROTEIN 7.4 G/DL (6.4-8.2); eGFR 44 ML/MIN
[2023-01-10] MEDS: sennosides/docusate sodium tablet PO SCH ×2 (10:51→20:00)
[2023-01-10] MEDS: docusate sod 100mg capsule PO SCH ×2 (10:52→19:58)
[2023-01-10 10:58] LABS: BASOPHILS # (AUTO) 0.1 X10'3 (0-0.2); BASOPHILS % (AUTO) 0.5 % (0-1); EOSINOPHILS # (AUTO) 0.4 X10'3 (0-0.9); HEMATOCRIT 24.4 % (35.0-45.0); HEMOGLOBIN 7.8 g/dl (12.0-16.0); LYMPHOCYTES # (AUTO) 1.2 X10'3 (1.1-4.8); LYMPHOCYTES % (AUTO) 11.2 % (21-51); MEAN CORPUSCULAR HEMOGLOBIN 24.1 PG (27.0-31.0); MEAN CORPUSCULAR VOLUME 75.3 FL (78-98); MEAN PLATELET VOLUME 8.7 FL (7.4-10.4); MONOCYTES # (AUTO) 0.9 X10'3 (0-0.9); MONOCYTES % (AUTO) 8.7 % (2-12); NEUTROPHILS # (AUTO) 8.1 X10'3 (1.8-7.7); NEUTROPHILS % (AUTO) 75.6 % (42-75); PLATELET COUNT 185 X10'3 (140-440); RED BLOOD COUNT 3.24 X10'6 (4.20-5.60); RED CELL DISTRIBUTION WIDTH 17.4 % (11.5-14.5); WHITE BLOOD COUNT 10.7 X10'3 (4.5-11.0)
[2023-01-10] MEDS: pantoprazole 40MG/NS 100ML BAG 100 ML IV SCH ×2 (11:16→20:01)
[2023-01-10] MEDS: fat emulsion 20% inj. 100 ML IV SCH (17:46)
--- NOTE | 2023-01-10 17:49 | NUR ---
No acute changes this shift. VSS RR even and unlabored. Patient remains < 92% RA. No c/o pain or discomfort at this time. All patient care provided and needs met by staff. Assessment and nursing interventions completed. All safety measures in place and call light in reach. Will report to night nurse.
[2023-01-10 18:30] VITALS: BP_SYST 100; BP_SYST 107; BP_DIAS 50; BP_DIAS 58
[2023-01-10] MEDS: ESCITALOPRAM OXALATE 5 MG TABLET PO SCH (21:41)
[2023-01-10] MEDS: atorvastatin 20mg tablet PO SCH (21:41)
[2023-01-10 22:00] VITALS: BP 107/58
[2023-01-11] MEDS: HYDROmorphone 1 mg/ml syringe IV PRN ×4 (01:20→10:40)
[2023-01-11] MEDS: ZINC/COPPER/MANGANESE/SELENIUM 0.5 ML, chromic chloride inj. 5 MCG in AA 5%/CALCIUM/LYT... IV SCH ×3 (02:04→19:17)
[2023-01-11] MEDS: quetiapine 100mg tablet PO SCH ×4 (02:12→20:39)
[2023-01-11] MEDS: insulin regular, human U-100 3ml vial - multi-dose SQ SCH ×3 (02:13→20:58)
[2023-01-11] MEDS: piperacillin/tazo 3.375gm/50ml 50 ML IV SCH ×3 (04:10→20:38)
[2023-01-11 06:00] VITALS: BP 111/62
--- NOTE | 2023-01-11 06:30 | NUR ---
Patient in room [facility] 346. I have received report from [MIKEY Oreilly] and had the opportunity to ask questions and assume patient care.
--- NOTE | 2023-01-11 06:30 | NUR ---
Problems reprioritized. Patient report given, questions answered & plan of care reviewed with CHEYENNE. Addendum: 01/11/23 at 0646 by Kyrie Tirado RN Amended: Links added.
[2023-01-11 06:44] LABS: ALANINE AMINOTRANSFERASE 15 U/L (12-78); ALBUMIN 2.4 G/DL (3.4-5.0); ALBUMIN/GLOBULIN RATIO 0.5 (1.1-1.5); ALKALINE PHOSPHATASE 153 IU/L (46-116); ANION GAP 5 (8-16); ASPARTATE AMINO TRANSFERASE 14 U/L (10-37); BILIRUBIN,TOTAL 0.3 MG/DL (0.1-1.0); BLOOD UREA NITROGEN 27 MG/DL (7-18); BUN/CREATININE RATIO 28.7 (6.6-38.0); CALCIUM 8.9 MG/DL (8.5-10.1); CHLORIDE 100 MMOL/L (99-107); CREATININE 0.94 MG/DL (0.40-0.90); GLUCOSE 108 MG/DL (70-104); MAGNESIUM 2.1 MG/DL (1.5-2.4); PHOSPHORUS 3.2 MG/DL (2.3-4.5); POTASSIUM 3.7 MMOL/L (3.5-5.1); PREALBUMIN 21.3 MG/DL (19-36); SODIUM 132 MMOL/L (135-145); TOTAL CARBON DIOXIDE 27.4 MMOL/L (24-32); TOTAL PROTEIN 7.6 G/DL (6.4-8.2); TRIGLYCERIDES 243 MG/DL (20-135); eGFR 61 ML/MIN
[2023-01-11] MEDS: busPIRone 5mg tablet PO SCH ×2 (08:06→20:20)
[2023-01-11] MEDS: K and/or MAG REPLACEMENT MC SCH ×2 (08:06→20:00)
[2023-01-11] MEDS: docusate sod 100mg capsule PO SCH ×2 (08:07→20:20)
[2023-01-11] MEDS: sennosides/docusate sodium tablet PO SCH ×2 (08:07→20:00)
[2023-01-11] MEDS: lisinopril 5mg tablet PO SCH (08:08)
[2023-01-11] MEDS: heparin, porcine 5000 units/ml vial SQ SCH ×3 (08:20→23:40)
[2023-01-11] MEDS: lurasidone 20mg tablet PO SCH ×2 (08:25→22:21)
[2023-01-11] MEDS: pantoprazole 40MG/NS 100ML BAG 100 ML IV SCH ×2 (08:44→20:19)
--- NOTE | 2023-01-11 09:55 | NUR ---
Page sent to regarding pain control PAGER ID: [phone] MESSAGE: Nacho Shipman Room 346B: Can we get PO pain meds on board? PT only has ken Beckman ordered. Thanks! Lanette [phone] Addendum: 01/11/23 at 1111 by Lanette Medina LVN Spoke with , no new orders at this time
[2023-01-11 10:00] VITALS: BP 112/58
--- NOTE | 2023-01-11 11:54 | NUR ---
I have reviewed and agree with all interventions, assessments performed and documented by TOMAS HERNANDEZ.
--- NOTE | 2023-01-11 12:58 | NUR ---
DR. HERNANDEZ IS AWARE PATIENT PATIENT IS REFUSING OUT OF TOWN REHAB AND APPEALED DISCHARGE.
--- NOTE | 2023-01-11 13:05 | NUR ---
Page sent to MD regarding pharmacy phone call about patients sodium. PAGER ID: [phone] MESSAGE: Emma Shipman Room 346B. Pharmacy called regarding her sodium (132), wanted to know if you wanted sodium added to the TPN. Thanks! Lanette [phone]
[2023-01-11] MEDS: HYDROcodone/acetaminophen 5mg/325mg tablet PO PRN ×3 (13:34→22:20)
--- NOTE | 2023-01-11 13:39 | NUR ---
Got MD order for Lincoln 5/325 for pain management instead of 1mg Dilaudid. Educated patient on Lincoln and let her know that this was going to be available to her Q4 prn instead of Q2 prn like the Dilaudid was. Told her it would take longer for the medication to be effective but it should last longer for her. Patient demonstrated understanding.
[2023-01-11] MEDS: normal saline 1000ml 1,000 ML IV SCH ×2 (13:50→20:55)
--- NOTE | 2023-01-11 16:39 | NUR ---
PAGER ID: [phone] MESSAGE: Nacho Shipman Room 346B. Pharmacy says there is 63 mEq of sodium per day in the TPN. Would you like this increased? Thanks! Lanette [phone]
--- NOTE | 2023-01-11 16:40 | NUR ---
Patient requested to speak with me regarding pain medication. I went in and asked how I could help. Patient requested pain medication, and I let her know it wasn't due yet. She said "You gave it to me at 12, its been 4 hours!" I let her know the [place] was last given at 1334 and that it was not time yet. The patient stated "That is not true, you're lying." I let her know that the computer timing doesn't lie and I have no way of altering it. She said "I am so sick of fighting with you! The computer makes mistakes all the time, last week they let me go all day without pain medication." I let her know that there was not anything that I could do at this point to change the pain medication timing and would bring it to her when it is available. Previous education was given to patient as this was her first time having the [place] after the DC of the dilaudid. I reminded her of that timing and medication change and she said she was aware but was still adamant that the medication was given at 12.
[2023-01-11] MEDS ORDERED: ZINC IV SCH ×4 (17:18)
[2023-01-11] MEDS ORDERED: CHROMIC CHLORIDE IV SCH ×4 (17:18)
[2023-01-11] MEDS ORDERED: MANGANESE IV SCH ×4 (17:18)
[2023-01-11] MEDS ORDERED: [UNRECOGNIZED DRUG - OTHER] IV SCH ×4 (17:18)
[2023-01-11] MEDS ORDERED: SELENIUM IV SCH ×4 (17:18)
[2023-01-11] MEDS ORDERED: COPPER IV SCH ×4 (17:18)
[2023-01-11] MEDS: fat emulsion 20% inj. 100 ML IV SCH (17:54)
[2023-01-11] MEDS: Dextrose 10%-water IV solution 1,000 ML IV PRN (18:05)
[2023-01-11 18:30] VITALS: BP 116/56
--- NOTE | 2023-01-11 18:39 | NUR ---
Problems reprioritized. Patient report given, questions answered & plan of care reviewed with MIKEY Oreilly.
[2023-01-11] MEDS: COPPER IV SCH ×4 (20:05)
[2023-01-11] MEDS: [UNRECOGNIZED DRUG - OTHER] IV SCH ×4 (20:05)
[2023-01-11] MEDS: SELENIUM IV SCH ×4 (20:05)
[2023-01-11] MEDS: CHROMIC CHLORIDE IV SCH ×4 (20:05)
[2023-01-11] MEDS: MANGANESE IV SCH ×4 (20:05)
[2023-01-11] MEDS: ZINC IV SCH ×4 (20:05)
[2023-01-11] MEDS: ESCITALOPRAM OXALATE 5 MG TABLET PO SCH (20:20)
[2023-01-11] MEDS: atorvastatin 20mg tablet PO SCH (20:56)
[2023-01-11 22:00] VITALS: BP 112/60
[2023-01-12] MEDS: quetiapine 100mg tablet PO SCH ×4 (02:32→20:00)
[2023-01-12] MEDS: HYDROcodone/acetaminophen 5mg/325mg tablet PO PRN ×4 (02:34→19:17)
[2023-01-12] MEDS: insulin regular, human U-100 3ml vial - multi-dose SQ SCH ×4 (03:14→20:44)
[2023-01-12] MEDS: piperacillin/tazo 3.375gm/50ml 50 ML IV SCH ×3 (03:43→21:35)
[2023-01-12 05:00] VITALS: BP 114/72
[2023-01-12 05:47] LABS: ALANINE AMINOTRANSFERASE 13 U/L (12-78); ALBUMIN 2.5 G/DL (3.4-5.0); ALBUMIN/GLOBULIN RATIO 0.4 (1.1-1.5); ALKALINE PHOSPHATASE 152 IU/L (46-116); ANION GAP 9 (8-16); ASPARTATE AMINO TRANSFERASE 14 U/L (10-37); BILIRUBIN,TOTAL 0.4 MG/DL (0.1-1.0); BLOOD UREA NITROGEN 17 MG/DL (7-18); BUN/CREATININE RATIO 20.2 (6.6-38.0); CALCIUM 9.1 MG/DL (8.5-10.1); CHLORIDE 99 MMOL/L (99-107); CREATININE 0.84 MG/DL (0.40-0.90); GLUCOSE 108 MG/DL (70-104); PHOSPHORUS 3.4 MG/DL (2.3-4.5); POTASSIUM 3.5 MMOL/L (3.5-5.1); SODIUM 135 MMOL/L (135-145); TOTAL CARBON DIOXIDE 27.2 MMOL/L (24-32); TOTAL PROTEIN 8.1 G/DL (6.4-8.2); eGFR 69 ML/MIN
--- NOTE | 2023-01-12 06:00 | NUR ---
Problems reprioritized. Patient report given, questions answered & plan of care reviewed with GABRIELA. Addendum: 01/12/23 at 0656 by Kyrie Tirado RN Amended: Links added.
--- NOTE | 2023-01-12 06:49 | NUR ---
Patient in room [facility] 346. I have received report from Denilson JENSEN and had the opportunity to ask questions and assume patient care.
[2023-01-12] MEDS: K and/or MAG REPLACEMENT MC SCH ×2 (08:00→20:00)
[2023-01-12] MEDS: sennosides/docusate sodium tablet PO SCH ×2 (09:00→20:00)
[2023-01-12] MEDS: docusate sod 100mg capsule PO SCH ×2 (09:01→20:00)
[2023-01-12] MEDS: busPIRone 5mg tablet PO SCH ×2 (09:05→20:00)
[2023-01-12] MEDS: lisinopril 5mg tablet PO SCH (09:05)
[2023-01-12] MEDS: MVI, adult No.4 with vit. K 10 ML in dextrose 5% water 500ml 500 ML IV SCH ×2 (09:07)
[2023-01-12] MEDS: heparin, porcine 5000 units/ml vial SQ SCH ×2 (09:07→15:59)
[2023-01-12] MEDS: SELENIUM IV SCH ×8 (09:08→22:19)
[2023-01-12] MEDS: pantoprazole 40MG/NS 100ML BAG 100 ML IV SCH ×2 (09:08→20:28)
[2023-01-12] MEDS: CHROMIC CHLORIDE IV SCH ×8 (09:08→22:19)
[2023-01-12] MEDS: [UNRECOGNIZED DRUG - OTHER] IV SCH ×8 (09:08→22:19)
[2023-01-12] MEDS: MANGANESE IV SCH ×8 (09:08→22:19)
[2023-01-12] MEDS: ZINC IV SCH ×8 (09:08→22:19)
[2023-01-12] MEDS: COPPER IV SCH ×8 (09:08→22:19)
[2023-01-12 09:30] VITALS: BP 130/80
[2023-01-12] MEDS: metoclopramide 5 mg/ml inj IV SCH ×3 (09:41→21:07)
[2023-01-12] MEDS: lurasidone 20mg tablet PO SCH ×2 (10:29→21:00)
--- NOTE | 2023-01-12 11:35 | NUR ---
Reassessment: Patient's diet has been advanced to clear liquids per surgeon, pt documented with 0-25% PO intake. Per RN pt with poor tolerance to PO intake with emesis following intake of water and other liquids. Noted pt documented with 1300 mL of emesis 01/08. Pt seen at bedside, denies any N/V today. Pt states she is "starving" and reports drinking the juice and eating the gelatin with occasional intake of the [place] ice. RD educated pt on the process of diet advancement (clears, fulls, low fiber) and why she is only on a clear liquid diet. Pt assured that she is receiving adequate nutrition with TPN at this time. Pt verbalized understanding to information provided and agrees to continue with clear liquid diet. Pt provided with RD contact information and encouraged to reach out if needed. All information obtained from pt was d/w bedside RN. Pt no longer with a rectal tube, LBM 01/08. Per RN pt no longer having output from fistula. Will continue to follow closely. Recommendations: 1) Continuous TPN per MD using 2:1 Clinimix-E 04/03 with 75 mL/hr goal rate and additional 100 mL 20% ILE to run at 8.33 mL/hr for 12 hrs daily. To provide 1800 mL volume/day, 1784 kcal, 90 g protein, and 360 g dext (2.60 mg/kg/min dext load) 2) Advance to low fiber diet as medically indicated; continue nutrition support until adequate PO intake assured 3) PALB and TG q Wednesday/ 4) Daily scaled weights 5) Bowel care/promotility agent per physician Addendum: 01/12/23 at [address] Amended: Links added.
--- NOTE | 2023-01-12 12:41 | NUR ---
patient vomited 400mls greenish emesis had previously early shift vomited 800mls greenish fluid. Dr almanzar and dr nur made aware. patient currently refusing NG. will continue to monitor
[2023-01-12] MEDS: fat emulsion 20% inj. 100 ML IV SCH (16:33)
[2023-01-12] MEDS: ondansetron/PF 4mg/2ml inj IV PRN (16:43)
--- NOTE | 2023-01-12 17:00 | NUR ---
Drainage bag to fistula changed, wound appears reddened, new wound consult placed.
--- NOTE | 2023-01-12 17:56 | NUR ---
family requesting Ct abdomen and CBC DR nur made aware. No emesis since zosyn will continue to monitor
--- NOTE | 2023-01-12 18:46 | NUR ---
Problems reprioritized. Patient report given, questions answered & plan of care reviewed with Dona JENSEN.
[2023-01-12 19:04] VITALS: BP 141/67
[2023-01-12] MEDS: ESCITALOPRAM OXALATE 5 MG TABLET PO SCH (21:00)
[2023-01-12] MEDS: lurasidone 60mg tablet PO SCH (21:00)
[2023-01-12] MEDS: atorvastatin 20mg tablet PO SCH (21:00)
--- NOTE | 2023-01-12 21:32 | NUR ---
Medications were opened and not given because patient had a 1000ml emesis. Medications disposed.
[2023-01-12 22:28] VITALS: BP 145/66
--- NOTE | 2023-01-12 23:19 | NUR ---
Student Medication Administration: For this medication-pass time frame, all medication were reviewed, dispensed, administered and documented per hospital policy by Korina LANDRY [facility].
--- NOTE | 2023-01-12 23:22 | NUR ---
Student documentation: I have reviewed interventions, assessments performed and documented by Korina LANDRY [facility].
[2023-01-13] MEDS: heparin, porcine 5000 units/ml vial SQ SCH ×4 (00:30→23:48)
[2023-01-13] MEDS: HYDROcodone/acetaminophen 5mg/325mg tablet PO PRN ×2 (01:39→09:06)
[2023-01-13] MEDS: ondansetron/PF 4mg/2ml inj IV PRN ×2 (01:41→07:52)
[2023-01-13] MEDS: quetiapine 100mg tablet PO SCH ×4 (02:00→20:28)
[2023-01-13] MEDS: insulin regular, human U-100 3ml vial - multi-dose SQ SCH ×4 (02:36→20:46)
[2023-01-13] MEDS: metoclopramide 5 mg/ml inj IV SCH ×4 (02:37→22:14)
[2023-01-13] MEDS: piperacillin/tazo 3.375gm/50ml 50 ML IV SCH ×3 (04:05→20:34)
[2023-01-13 05:37] LABS: BASOPHILS # (AUTO) 0.1 X10'3 (0-0.2); BASOPHILS % (AUTO) 0.7 % (0-1); EOSINOPHILS # (AUTO) 0.3 X10'3 (0-0.9); EOSINOPHILS % (AUTO) 4.3 % (0-6); HEMATOCRIT 24.5 % (35.0-45.0); HEMOGLOBIN 8.1 g/dl (12.0-16.0); LYMPHOCYTES # (AUTO) 1.3 X10'3 (1.1-4.8); MEAN CORPUSCULAR HEMOGLOBIN 24.6 PG (27.0-31.0); MEAN CORPUSCULAR HGB CONC 33.1 g/dL (33.0-36.5); MEAN CORPUSCULAR VOLUME 74.1 FL (78-98); MEAN PLATELET VOLUME 8.5 FL (7.4-10.4); MONOCYTES # (AUTO) 0.7 X10'3 (0-0.9); MONOCYTES % (AUTO) 8.7 % (2-12); NEUTROPHILS # (AUTO) 5.5 X10'3 (1.8-7.7); NEUTROPHILS % (AUTO) 70.3 % (42-75); PLATELET COUNT 214 X10'3 (140-440); RED CELL DISTRIBUTION WIDTH 18.2 % (11.5-14.5); WHITE BLOOD COUNT 7.9 X10'3 (4.5-11.0)
[2023-01-13 05:53] LABS: ALANINE AMINOTRANSFERASE 17 U/L (12-78); ALBUMIN 2.7 G/DL (3.4-5.0); ALBUMIN/GLOBULIN RATIO 0.5 (1.1-1.5); ALKALINE PHOSPHATASE 158 IU/L (46-116); ANION GAP 8 (8-16); ASPARTATE AMINO TRANSFERASE 18 U/L (10-37); BILIRUBIN,TOTAL 0.3 MG/DL (0.1-1.0); BLOOD UREA NITROGEN 16 MG/DL (7-18); BUN/CREATININE RATIO 18.2 (6.6-38.0); CALCIUM 9.6 MG/DL (8.5-10.1); CHLORIDE 98 MMOL/L (99-107); CREATININE 0.88 MG/DL (0.40-0.90); GLUCOSE 105 MG/DL (70-104); MAGNESIUM 1.9 MG/DL (1.5-2.4); PHOSPHORUS 3.6 MG/DL (2.3-4.5); POTASSIUM 3.4 MMOL/L (3.5-5.1); SODIUM 132 MMOL/L (135-145); TOTAL PROTEIN 8.6 G/DL (6.4-8.2); eGFR 66 ML/MIN
[2023-01-13 06:00] VITALS: BP 129/69
--- NOTE | 2023-01-13 06:50 | NUR ---
Problems reprioritized. Patient report given, questions answered & plan of care reviewed with MIKEY DILLARD.
[2023-01-13] MEDS ORDERED: potassium Cl 40MEQ/270ML bag 270 ML IV ONE (07:00)
--- NOTE | 2023-01-13 07:14 | NUR ---
Patient in room [facility] 346. I have received report from Dona JENSEN and had the opportunity to ask questions and assume patient care.
[2023-01-13] MEDS: K and/or MAG REPLACEMENT MC SCH ×2 (08:00→20:00)
[2023-01-13] MEDS: sennosides/docusate sodium tablet PO SCH ×2 (08:00→20:26)
[2023-01-13] MEDS: lisinopril 5mg tablet PO SCH (08:00)
[2023-01-13] MEDS: pantoprazole 40MG/NS 100ML BAG 100 ML IV SCH ×2 (08:52→20:15)
[2023-01-13] MEDS: busPIRone 5mg tablet PO SCH ×2 (08:52→20:24)
[2023-01-13] MEDS: docusate sod 100mg capsule PO SCH ×2 (08:53→20:25)
[2023-01-13] MEDS: lurasidone 20mg tablet PO SCH ×2 (08:55→20:29)
[2023-01-13 10:00] VITALS: BP 111/63
[2023-01-13] MEDS: SELENIUM IV SCH ×12 (10:15→22:32)
[2023-01-13] MEDS: MANGANESE IV SCH ×12 (10:15→22:32)
[2023-01-13] MEDS: COPPER IV SCH ×12 (10:15→22:32)
[2023-01-13] MEDS: ZINC IV SCH ×12 (10:15→22:32)
[2023-01-13] MEDS: CHROMIC CHLORIDE IV SCH ×12 (10:15→22:32)
[2023-01-13] MEDS: [UNRECOGNIZED DRUG - OTHER] IV SCH ×12 (10:15→22:32)
[2023-01-13] MEDS ORDERED: oxyCODONE/APAP 5-325mg tablet PO PRN (12:05)
[2023-01-13] MEDS ORDERED: morphine 4 MG/ML inj SYRINge IV PRN (12:05)
[2023-01-13] MEDS ORDERED: morphine 2 MG/ML inj. syringe IV PRN (12:05)
[2023-01-13] MEDS: oxyCODONE/APAP 10/325mg tablet PO PRN ×2 (13:20→20:40)
--- NOTE | 2023-01-13 13:30 | NUR ---
PRESSURE ULCER EDUCATION: DEFINITION: A pressure ulcer is an area of skin that breaks down when you stay in one position too long. The constant pressure against the skin reduces the blood flow to that area and the affected tissue dies. CAUSES: "Being bedridden or in a wheelchair "Fragile skin "Having a chronic condition, such as diabetes or vascular disease "Inability to move certain parts of your body without assistance "Older age "Incontinence of urine or stool SYMPTOMS: "A reddened area that DOES NOT turn white when pressed on - this can be the beginning of a pressure ulcer "A blister, deep sore or a crater - these can be advanced pressure ulcers FIRST AID: "Relieve the pressure on this area "Keep the area clean and dry "Call your primary doctor if you see any of the above symptoms "DO NOT massage the area "DO NOT use a donut shaped or ring shaped pillow- these actually interfere with the blood flow and cause complications PREVENTION: "Check for pressure ulcers everyday "Change position at least every two hours to relieve pressure "Use items that help relieve pressure- pillows, sheepskin, foam padding, and powders. "Keep skin clean and dry "Eat healthy well balanced meals "Exercise daily IF YOU SEE ANY OF THESE SYMPTOMS WHILE IN THE HOSPITAL - TELL YOUR NURSE IMMEDIATELY. IF YOU SEE ANY OF THESE SYMPTOMS WHILE AT HOME OR HAVE ANY QUESTIONS OR CONCERNS ABOUT PRESSURE ULCERS - CALL YOUR PRIMARY DOCTOR IMMEDIATELY. Addendum: 01/13/23 at 1332 by Jessi Santana RN Amended: Links added.
--- NOTE | 2023-01-13 14:30 | NUR ---
Patient c/o nausea and vomit several times despite PRN administration. Received NG tube order- placed by Morenita RN, patient tolerated well. Immediate green output noted and continues to collect
[2023-01-13] MEDS: normal saline 1000ml 1,000 ML IV SCH (15:04)
[2023-01-13] MEDS: fat emulsion 20% inj. 100 ML IV SCH (17:01)
--- NOTE | 2023-01-13 17:45 | NUR ---
I have reviewed and agree with all interventions, assessments performed and documented by TOMAS Taylor.
[2023-01-13 18:00] VITALS: BP 131/69
--- NOTE | 2023-01-13 18:37 | NUR ---
Problems reprioritized. Patient report given, questions answered & plan of care reviewed with Dona JENSEN.
[2023-01-13] MEDS: lurasidone 60mg tablet PO SCH (20:28)
[2023-01-13] MEDS: ESCITALOPRAM OXALATE 5 MG TABLET PO SCH (20:30)
[2023-01-13] MEDS: atorvastatin 20mg tablet PO SCH (20:31)
[2023-01-13 22:00] VITALS: BP 141/80
--- NOTE | 2023-01-13 22:56 | NUR ---
Student documentation: I have reviewed interventions, assessments performed and documented by Bonny Cote [facility].
--- NOTE | 2023-01-13 22:57 | NUR ---
Student Medication Administration: For this medication-pass time frame, all medication were reviewed, dispensed, administered and documented per hospital policy by Amanda Norton [facility].
[2023-01-13] MEDS: hydrOXYzine 25 MG tablet PO PRN (23:48)
[2023-01-14] MEDS: quetiapine 100mg tablet PO SCH ×4 (02:49→19:55)
[2023-01-14] MEDS: insulin regular, human U-100 3ml vial - multi-dose SQ SCH ×4 (02:55→20:06)
[2023-01-14] MEDS: metoclopramide 5 mg/ml inj IV SCH ×4 (03:55→19:54)
[2023-01-14] MEDS: piperacillin/tazo 3.375gm/50ml 50 ML IV SCH (04:05)
[2023-01-14 04:49] LABS: BASOPHILS % (AUTO) 0.6 % (0-1); EOSINOPHILS # (AUTO) 0.3 X10'3 (0-0.9); EOSINOPHILS % (AUTO) 4.6 % (0-6); HEMATOCRIT 26.1 % (35.0-45.0); HEMOGLOBIN 8.6 g/dl (12.0-16.0); LYMPHOCYTES # (AUTO) 1.2 X10'3 (1.1-4.8); MEAN CORPUSCULAR HEMOGLOBIN 24.6 PG (27.0-31.0); MEAN CORPUSCULAR HGB CONC 32.9 g/dL (33.0-36.5); MEAN CORPUSCULAR VOLUME 74.7 FL (78-98); MEAN PLATELET VOLUME 8.5 FL (7.4-10.4); MONOCYTES # (AUTO) 0.7 X10'3 (0-0.9); MONOCYTES % (AUTO) 10.9 % (2-12); NEUTROPHILS # (AUTO) 4.2 X10'3 (1.8-7.7); NEUTROPHILS % (AUTO) 65.9 % (42-75); PLATELET COUNT 199 X10'3 (140-440); RED CELL DISTRIBUTION WIDTH 17.8 % (11.5-14.5); WHITE BLOOD COUNT 6.4 X10'3 (4.5-11.0)
[2023-01-14 05:02] LABS: ALANINE AMINOTRANSFERASE 20 U/L (12-78); ALBUMIN 2.7 G/DL (3.4-5.0); ALBUMIN/GLOBULIN RATIO 0.5 (1.1-1.5); ALKALINE PHOSPHATASE 143 IU/L (46-116); ANION GAP 9 (8-16); ASPARTATE AMINO TRANSFERASE 18 U/L (10-37); BILIRUBIN,TOTAL 0.3 MG/DL (0.1-1.0); BLOOD UREA NITROGEN 19 MG/DL (7-18); BUN/CREATININE RATIO 22.9 (6.6-38.0); CALCIUM 9.6 MG/DL (8.5-10.1); CHLORIDE 101 MMOL/L (99-107); CREATININE 0.83 MG/DL (0.40-0.90); GLUCOSE 104 MG/DL (70-104); MAGNESIUM 1.9 MG/DL (1.5-2.4); PHOSPHORUS 4.5 MG/DL (2.3-4.5); POTASSIUM 3.4 MMOL/L (3.5-5.1); PREALBUMIN 30.6 MG/DL (19-36); SODIUM 136 MMOL/L (135-145); TOTAL CARBON DIOXIDE 26.4 MMOL/L (24-32); TOTAL PROTEIN 8.4 G/DL (6.4-8.2); TRIGLYCERIDES 235 MG/DL (20-135); eGFR 70 ML/MIN
[2023-01-14 06:00] VITALS: BP 130/66
--- NOTE | 2023-01-14 06:06 | NUR ---
Problems reprioritized. Patient report given, questions answered & plan of care reviewed with MIKEY CAMPO.
--- NOTE | 2023-01-14 06:53 | NUR ---
Patient in room [facility] 346. I have received report from Dona JNESEN and had the opportunity to ask questions and assume patient care.
[2023-01-14] MEDS: K and/or MAG REPLACEMENT MC SCH ×2 (08:00→20:00)
[2023-01-14] MEDS: potassium Cl 20 mEq SR tablet PO PRN ×3 (08:48→20:21)
[2023-01-14] MEDS: busPIRone 5mg tablet PO SCH ×2 (08:49→19:56)
[2023-01-14] MEDS: sennosides/docusate sodium tablet PO SCH ×2 (08:50→19:55)
[2023-01-14] MEDS: docusate sod 100mg capsule PO SCH ×2 (08:51→19:55)
[2023-01-14] MEDS: lurasidone 20mg tablet PO SCH ×2 (08:51→21:22)
[2023-01-14] MEDS: lisinopril 5mg tablet PO SCH (08:53)
[2023-01-14] MEDS: heparin, porcine 5000 units/ml vial SQ SCH ×2 (08:54→16:44)
[2023-01-14] MEDS: oxyCODONE/APAP 10/325mg tablet PO PRN ×3 (08:56→21:21)
[2023-01-14] MEDS: pantoprazole 40MG/NS 100ML BAG 100 ML IV SCH ×2 (08:58→20:19)
[2023-01-14 10:00] VITALS: BP 138/68
--- NOTE | 2023-01-14 10:15 | NUR ---
pt is spoke with Dr. Sevilla, states she wants to go, Dr Sevilla explained a plan to be NPO - po meds only. pt wants to go to [facility] and is agreeable to be NPO and get NG DC so she can go home from [facility]. NPO order in place.
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
[2023-01-14] MEDS: ZINC IV SCH ×4 (12:13)
[2023-01-14] MEDS: SELENIUM IV SCH ×4 (12:13)
[2023-01-14] MEDS: [UNRECOGNIZED DRUG - OTHER] IV SCH ×4 (12:13)
[2023-01-14] MEDS: CHROMIC CHLORIDE IV SCH ×4 (12:13)
[2023-01-14] MEDS: MANGANESE IV SCH ×4 (12:13)
[2023-01-14] MEDS: COPPER IV SCH ×4 (12:13)
[2023-01-14] MEDS: fat emulsion 20% inj. 100 ML IV SCH (17:48)
[2023-01-14 18:00] VITALS: BP 143/78
--- NOTE | 2023-01-14 18:23 | NUR ---
Problems reprioritized. Patient report given, questions answered & plan of care reviewed with Kendra JENSEN traveler.
--- NOTE | 2023-01-14 18:30 | NUR ---
Patient in room SHAMIAK 346. I have received report from MIKEY Xavier and had the opportunity to ask questions and assume patient care. Addendum: 01/14/23 at 1920 by Kendra Leonard RN Amended: Links added.
[2023-01-14] MEDS: ESCITALOPRAM OXALATE 5 MG TABLET PO SCH (20:10)
[2023-01-14] MEDS: atorvastatin 20mg tablet PO SCH (20:11)
[2023-01-14] MEDS: hydrOXYzine 25 MG tablet PO PRN (20:11)
[2023-01-14] MEDS: lurasidone 60mg tablet PO SCH (21:22)
[2023-01-14 22:00] VITALS: BP 135/70
[2023-01-15] MEDS: heparin, porcine 5000 units/ml vial SQ SCH ×2 (00:02→07:54)
[2023-01-15] MEDS: SELENIUM IV SCH ×4 (01:12)
[2023-01-15] MEDS: [UNRECOGNIZED DRUG - OTHER] IV SCH ×4 (01:12)
[2023-01-15] MEDS: MANGANESE IV SCH ×4 (01:12)
[2023-01-15] MEDS: CHROMIC CHLORIDE IV SCH ×4 (01:12)
[2023-01-15] MEDS: ZINC IV SCH ×4 (01:12)
[2023-01-15] MEDS: COPPER IV SCH ×4 (01:12)
[2023-01-15] MEDS: metoclopramide 5 mg/ml inj IV SCH ×3 (01:58→14:00)
[2023-01-15] MEDS: quetiapine 100mg tablet PO SCH ×3 (01:59→14:00)
[2023-01-15] MEDS: insulin regular, human U-100 3ml vial - multi-dose SQ SCH ×2 (02:02→09:47)
[2023-01-15 03:27] LABS: BASOPHILS # (AUTO) 0.1 X10'3 (0-0.2); EOSINOPHILS # (AUTO) 0.4 X10'3 (0-0.9); EOSINOPHILS % (AUTO) 5.8 % (0-6); LYMPHOCYTES # (AUTO) 1.3 X10'3 (1.1-4.8); LYMPHOCYTES % (AUTO) 18.3 % (21-51); MEAN CORPUSCULAR HEMOGLOBIN 23.8 PG (27.0-31.0); MEAN CORPUSCULAR HGB CONC 32.1 g/dL (33.0-36.5); MEAN PLATELET VOLUME 8.4 FL (7.4-10.4); MONOCYTES # (AUTO) 0.8 X10'3 (0-0.9); MONOCYTES % (AUTO) 10.4 % (2-12); NEUTROPHILS # (AUTO) 4.7 X10'3 (1.8-7.7); NEUTROPHILS % (AUTO) 64.5 % (42-75); PLATELET COUNT 221 X10'3 (140-440); RED BLOOD COUNT 2.96 X10'6 (4.20-5.60); RED CELL DISTRIBUTION WIDTH 18.5 % (11.5-14.5); WHITE BLOOD COUNT 7.3 X10'3 (4.5-11.0)
[2023-01-15 03:34] LABS: ALANINE AMINOTRANSFERASE 29 U/L (12-78); ALBUMIN 2.6 G/DL (3.4-5.0); ALBUMIN/GLOBULIN RATIO 0.5 (1.1-1.5); ALKALINE PHOSPHATASE 155 IU/L (46-116); ANION GAP 7 (8-16); ASPARTATE AMINO TRANSFERASE 27 U/L (10-37); BILIRUBIN,TOTAL 0.3 MG/DL (0.1-1.0); BLOOD UREA NITROGEN 20 MG/DL (7-18); BUN/CREATININE RATIO 25.3 (6.6-38.0); CALCIUM 9.1 MG/DL (8.5-10.1); CHLORIDE 103 MMOL/L (99-107); CREATININE 0.79 MG/DL (0.40-0.90); GLUCOSE 101 MG/DL (70-104); POTASSIUM 3.8 MMOL/L (3.5-5.1); SODIUM 135 MMOL/L (135-145); TOTAL CARBON DIOXIDE 25.4 MMOL/L (24-32); TOTAL PROTEIN 8.3 G/DL (6.4-8.2); TRIGLYCERIDES 254 MG/DL (20-135); eGFR 74 ML/MIN
[2023-01-15 03:37] LABS: HEMATOCRIT 21.9 % (35.0-45.0)
--- NOTE | 2023-01-15 03:44 | NUR ---
paged Hospitalist critical hgb 7.0.
--- NOTE | 2023-01-15 06:47 | NUR ---
Patient in room SHAMIKA 346. I have received report from Kendra JENSEN and had the opportunity to ask questions and assume patient care.
[2023-01-15 06:51] VITALS: BP 149/80
[2023-01-15] MEDS: oxyCODONE/APAP 10/325mg tablet PO PRN (07:46)
[2023-01-15] MEDS: docusate sod 100mg capsule PO SCH (07:46)
[2023-01-15] MEDS: busPIRone 5mg tablet PO SCH (07:47)
[2023-01-15] MEDS: sennosides/docusate sodium tablet PO SCH (07:47)
[2023-01-15] MEDS: lisinopril 5mg tablet PO SCH (07:47)
[2023-01-15] MEDS: lurasidone 20mg tablet PO SCH (07:51)
[2023-01-15] MEDS: pantoprazole 40MG/NS 100ML BAG 100 ML IV SCH (07:51)
[2023-01-15] MEDS: MVI, adult No.4 with vit. K 10 ML in dextrose 5% water 500ml 500 ML IV SCH ×2 (07:59)
[2023-01-15] MEDS: K and/or MAG REPLACEMENT MC SCH (08:00)
[2023-01-15 10:56] VITALS: BP 119/67
[2023-01-15] MEDS: normal saline 1000ml 1,000 ML IV SCH (13:50)
[2023-01-15] MEDS: Dextrose 10%-water IV solution 1,000 ML IV PRN (14:14)
[2023-01-15] MEDS ORDERED: MANGANESE IV SCH ×4 (15:00)
[2023-01-15] MEDS ORDERED: CHROMIC CHLORIDE IV SCH ×4 (15:00)
[2023-01-15] MEDS ORDERED: [UNRECOGNIZED DRUG - OTHER] IV SCH ×4 (15:00)
[2023-01-15] MEDS ORDERED: COPPER IV SCH ×4 (15:00)
[2023-01-15] MEDS ORDERED: SELENIUM IV SCH ×4 (15:00)
[2023-01-15] MEDS ORDERED: ZINC IV SCH ×4 (15:00)
--- NOTE | 2023-01-15 15:30 | NUR ---
Patient discharge to LTAC, patient went with [facility] and left with PICC in place, NG in place with D10 to gravity at time of discharge. Patient left with all of her belongings at this time.
--- NOTE | 2023-01-15 17:54 | NUR ---
Problems reprioritized. Patient report given, questions answered & plan of care reviewed with LTAC nurse.
== END 2023-01-15 15:37 | DRG 329 ==
LOC: ER 18:48 → ED HOLD 21:49 → EDBEDREQ 12-16 09:36 → SUR 3N 12-16 10:33 → CICU 2S 12-17 20:45 → SUR 3N 12-31 13:17
PROVIDERS: ADMIT Internal Medicine; ATTEND Internal Medicine
PROC: 0D9670Z Drainage of Stomach with Drainage Device, Via Natural or Artificial Opening (ICD-10-PCS; 2022-12-15)
PROC: 0DNW0ZZ Release Peritoneum, Open Approach (ICD-10-PCS; 2022-12-17)
PROC: 0W9J0ZZ Drainage of Pelvic Cavity, Open Approach (ICD-10-PCS; 2022-12-17)
PROC: 5A1955Z Respiratory Ventilation, Greater than 96 Consecutive Hours (ICD-10-PCS; 2022-12-17)
PROC: 0BH17EZ Insertion of Endotracheal Airway into Trachea, Via Natural or Artificial Opening (ICD-10-PCS; 2022-12-17)
PROC: 0DT80ZZ Resection of Small Intestine, Open Approach (ICD-10-PCS; principal; 2022-12-17 17:53)
PROC: 30233N1 Transfusion of Nonautologous Red Blood Cells into Peripheral Vein, Percutaneous Approach (ICD-10-PCS; 2022-12-20)
PROC: 05HY33Z Insertion of Infusion Device into Upper Vein, Percutaneous Approach (ICD-10-PCS; 2022-12-22)
PROC: BW211ZZ Computerized Tomography (CT Scan) of Abdomen and Pelvis using Low Osmolar Contrast (ICD-10-PCS; 2022-12-28)
PROC: 0W9J00Z Drainage of Pelvic Cavity with Drainage Device, Open Approach (ICD-10-PCS; 2022-12-29)
PROC: 5A1935Z Respiratory Ventilation, Less than 24 Consecutive Hours (ICD-10-PCS; 2022-12-29)
PROC: 0BH17EZ Insertion of Endotracheal Airway into Trachea, Via Natural or Artificial Opening (ICD-10-PCS; 2022-12-29)
PROC: BW211ZZ Computerized Tomography (CT Scan) of Abdomen and Pelvis using Low Osmolar Contrast (ICD-10-PCS; 2023-01-07)
PROC: 0W9F3ZZ Drainage of Abdominal Wall, Percutaneous Approach (ICD-10-PCS; 2023-01-08)
DX: K56.51 Intestinal adhesions [bands], with partial obstruction (principal); A41.9 Sepsis, unspecified organism; J96.00 Acute respiratory failure, unspecified whether with hypoxia or hypercapnia; K65.1 Peritoneal abscess; R65.21 Severe sepsis with septic shock; K63.1 Perforation of intestine (nontraumatic); K63.2 Fistula of intestine; T81.32XA Disruption of internal operation (surgical) wound, not elsewhere classified, initial encounter; K91.89 Other postprocedural complications and disorders of digestive system; Z66 Do not resuscitate; I10 Essential (primary) hypertension; Z60.2 Problems related to living alone; B95.4 Other streptococcus as the cause of diseases classified elsewhere; B96.20 Unspecified Escherichia coli [E. coli] as the cause of diseases classified elsewhere; E78.5 Hyperlipidemia, unspecified; D50.9 Iron deficiency anemia, unspecified; E87.6 Hypokalemia; F32.A Depression, unspecified; E66.9 Obesity, unspecified; F41.9 Anxiety disorder, unspecified; R63.0 Anorexia; Z68.35 Body mass index [BMI] 35.0-35.9, adult; Z28.21 Immunization not carried out because of patient refusal; Z79.899 Other long term (current) drug therapy; Z90.49 Acquired absence of other specified parts of digestive tract; Y83.8 Other surgical procedures as the cause of abnormal reaction of the patient, or of later complication, without mention of misadventure at the time of the procedure; Y92.230 Patient room in hospital as the place of occurrence of the external cause
CPT/HCPCS: 20950; 36415; 36430; 36569; 36600; 49406; 71045; 74176; 74177; 80048; 80053; 80202; 80305; 81001; 82803; 82948; 83605; 83735; 84100; 84132; 84134; 84145; 84478; 85007; 85008; 85018; 85025; 85027; 85384; 85610; 85730; 86885; 86900; 86901; 86920; 87040; 87070; 87075; 87077; 87081; 87102; 87186; 88307; 90686; 92508; 92616; 93005; 93306; 94002; 94003; 94640; 94760; 94799; 97110; 97116; 97161; 97530; 97535; 99152; 99153; 99285; A4421; A4615; A4618; A4649; A6196; A6213; A6223; A6253; A6258; A6402; A6407; A6449; A7000; A7015; A9900; C1751; C1758; C9113; G0378; J0131; J0694; J1100; J1170; J1580; J1644; J1815; J1885; J1940; J2060; J2250; J2270; J2405; J2543; J2704; J2765; J2997; J3010; J3370; J3480; J3490; J7030; J7040; J7050; J7060; J7120; P9016; P9045; P9047; Q0177; Q9963; Q9967

== ENCOUNTER 2023-01-28 10:40 | Outpatient (CLI) | payer OTHER, MEDICAID ==
[~2023-01-28 10:40] MED LIST changes: -ARIP10TA15 PO; +ATOR20TA66 PO; +BUSP5TAB3 PO; -CLON0.5T23 PO; +ESCI20TA39 PO; -FLUO20CA39 PO; +GABA600T13 PO; +HYDR50TA65 PO; +LISI5TAB22 PO; +LURA40TA2 PO; +LURA80TA2 PO; +PANT40TA54 PO; +QUET400T54 PO; -TRAZ-251 PO
[2023-01-28] MEDS ORDERED: iohexol 300mg/ml 100ml inj. ONE (10:47)
== END 2023-01-28 23:59 | disposition home or self-care (01) ==
LOC: RAD 10:40
PROVIDERS: ATTEND Internal Medicine
DX: R16.0 Hepatomegaly, not elsewhere classified (principal); R10.9 Unspecified abdominal pain; R14.0 Abdominal distension (gaseous); K86.89 Other specified diseases of pancreas; I70.0 Atherosclerosis of aorta; K46.9 Unspecified abdominal hernia without obstruction or gangrene; Z90.49 Acquired absence of other specified parts of digestive tract
CPT/HCPCS: 74178; J3490; Q9967

== ENCOUNTER 2023-04-13 10:39 | Outpatient (CLI) | payer MEDICARE, MEDICAID ==
[~2023-04-13 10:39] MED LIST changes: +BUSP5TAB26 PO; -BUSP5TAB3 PO; -LISI5TAB22 PO; +MULT-1085 PO; -PANT40TA54 PO; +SIME80TA15 PO
[2023-04-13] MEDS ORDERED: iohexol 300mg/ml 100ml inj. ONE (10:43)
== END 2023-04-13 23:59 | disposition home or self-care (01) ==
LOC: RAD 10:39
PROVIDERS: ATTEND Internal Medicine
DX: L02.211 Cutaneous abscess of abdominal wall (principal); Z90.49 Acquired absence of other specified parts of digestive tract; Z90.6 Acquired absence of other parts of urinary tract; R10.9 Unspecified abdominal pain
CPT/HCPCS: 74178; J3490; Q9967

== ENCOUNTER 2023-07-20 17:14 | Inpatient (IN) | payer MEDICARE, MEDICAID ==
[~2023-07-20] VITALS: Ht 165.1 cm; Wt 96.3 kg
[~2023-07-20 17:14] MED LIST changes: +ASCO250T22 PO; -BUSP5TAB26 PO; +BUSP5TAB3 PO; +DOCU100C40 PO; -GABA600T13 PO; -HYDR50TA65 PO; +OXYC-658 PO; +PANT-47 PO; +QUET-1 PO; -QUET400T54 PO; -SIME80TA15 PO
[2023-07-20 18:09] LABS: BASOPHILS # (AUTO) 0.1 X10'3 (0-0.2); BASOPHILS % (AUTO) 0.8 % (0-1); EOSINOPHILS # (AUTO) 0.2 X10'3 (0-0.9); EOSINOPHILS % (AUTO) 2.7 % (0-6); HEMATOCRIT 34.8 % (35.0-45.0); HEMOGLOBIN 11.3 g/dl (12.0-16.0); LYMPHOCYTES # (AUTO) 1.4 X10'3 (1.1-4.8); LYMPHOCYTES % (AUTO) 17.6 % (21-51); MEAN CORPUSCULAR HEMOGLOBIN 25.5 PG (27.0-31.0); MEAN CORPUSCULAR HGB CONC 32.6 g/dL (33.0-36.5); MEAN CORPUSCULAR VOLUME 78.3 FL (78-98); MEAN PLATELET VOLUME 8.7 FL (7.4-10.4); MONOCYTES # (AUTO) 0.6 X10'3 (0-0.9); MONOCYTES % (AUTO) 7.9 % (2-12); NEUTROPHILS # (AUTO) 5.5 X10'3 (1.8-7.7); PLATELET COUNT 240 X10'3 (140-440); RED BLOOD COUNT 4.44 X10'6 (4.20-5.60); RED CELL DISTRIBUTION WIDTH 17.5 % (11.5-14.5); WHITE BLOOD COUNT 7.7 X10'3 (4.5-11.0)
[2023-07-20 18:16] LABS: ALANINE AMINOTRANSFERASE 67 U/L (12-78); ALBUMIN 3.2 G/DL (3.4-5.0); ALBUMIN/GLOBULIN RATIO 0.8 (1.1-1.5); ALKALINE PHOSPHATASE 150 IU/L (46-116); ANION GAP 5 (8-16); ASPARTATE AMINO TRANSFERASE 35 U/L (10-37); BILIRUBIN,TOTAL 0.2 MG/DL (0.1-1.0); BLOOD UREA NITROGEN 10 MG/DL (7-18); BUN/CREATININE RATIO 10.2 (10.0-20.0); CALCIUM 8.4 MG/DL (8.5-10.1); CHLORIDE 104 MMOL/L (99-107); CREATININE 0.98 MG/DL (0.40-0.90); GLUCOSE 123 MG/DL (70-104); LIPASE 98 U/L (73-393); POTASSIUM 3.7 MMOL/L (3.5-5.1); SODIUM 138 MMOL/L (135-145); TOTAL CARBON DIOXIDE 28.9 MMOL/L (24-32); TOTAL PROTEIN 7.2 G/DL (6.4-8.2); eCRCL 55 ML/MIN; eGFR 58 ML/MIN
[2023-07-20 18:35] LABS: BILIRUBIN,URINE NEGATIVE (Neg); CLARITY,URINE CLEAR (Clear); COLOR,URINE YELLOW (Yellow); GLUCOSE, URINE NEGATIVE (Neg); KETONES,URINE NEGATIVE (Neg); LEUKOCYTE ESTERASE ,URINE NEGATIVE (Neg); NITRITES, URINE NEGATIVE (Neg); OCCULT BLOOD,URINE NEGATIVE (Neg); PH,URINE 5.5 (4.8-8.0); PROTEIN,URINE NEGATIVE (Neg); UROBILINOGEN,URINE 0.2 E.U/dL (0.2-1.0)
[2023-07-20 18:38] LABS: URINE HCG NEGATIVE (NEG)
[2023-07-20 18:41] LABS: UA COLLECTION TYPE CLN CATCH MIDSTREAM
[2023-07-20] MEDS ORDERED: HYDROmorphone 1 mg/ml syringe IV ONE ×3 (20:30→22:20)
[2023-07-20] MEDS ORDERED: iohexol 300mg/ml 100ml inj. ONE (20:35)
[2023-07-21] MEDS ORDERED: piperacillin/tazo 4.5gm/100ml 100 ML IV SCH
[2023-07-21] MEDS ORDERED: potassium Cl 20 mEq SR tablet PO PRN ×2 (00:05)
[2023-07-21] MEDS ORDERED: acetaminophen 325mg tablet PO PRN (00:05)
[2023-07-21] MEDS ORDERED: naloxone 0.4 mg/ml inj IV PRN (00:05)
[2023-07-21] MEDS ORDERED: ondansetron/PF 4mg/2ml inj IV PRN (00:05)
[2023-07-21] MEDS ORDERED: magnesium 4gm in 100ml NS 100 ML IV PRN (00:05)
[2023-07-21] MEDS ORDERED: magnesium 2GM in 50ml NS 50 ML IV PRN (00:05)
[2023-07-21] MEDS ORDERED: magnesium Cl slow-release 64mg tablet PO PRN (00:05)
[2023-07-21] MEDS ORDERED: HYDROmorph/NS 0.2 mg/ml PCA 100 ML IV SCH (00:05)
[2023-07-21] MEDS ORDERED: potassium Cl 40MEQ/1/2NS 520ml 520 ML IV PRN (00:05)
[2023-07-21] MEDS: diatr meglu/diatrizoate 30ml oral sol.-(3 dose) bottle PO SCH ×2 (00:18→21:00)
[2023-07-21] MEDS: piperacillin/tazo 3.375gm/50ml 50 ML IV SCH ×4 (00:37→23:39)
[2023-07-21] MEDS: normal saline 1000ml 1,000 ML IV SCH ×3 (00:37→20:07)
[2023-07-21] MEDS: HYDROmorphone 1 mg/ml syringe IV PRN ×8 (01:29→23:15)
[2023-07-21 02:00] VITALS: BP 151/77; PULSE 83; RESP 14; TEMP 97.9; O2SAT 95
--- NOTE | 2023-07-21 02:00 | NUR ---
Patient in room ORTHO 4011. I have received report from MIKEY Ambriz from ER and had the opportunity to ask questions and assume patient care.
[2023-07-21 06:00] VITALS: BP 141/79; PULSE 85; RESP 18; TEMP 98.1; O2SAT 96
--- NOTE | 2023-07-21 06:56 | NUR ---
Problems reprioritized. Patient report given, questions answered & plan of care reviewed with MIKEY PITT.
--- NOTE | 2023-07-21 07:00 | NUR ---
Patient in room ORTHO 4011. I have received report from Lori Solano and had the opportunity to ask questions and assume patient care.
[2023-07-21] MEDS: K and/or MAG REPLACEMENT MC SCH ×2 (07:02→20:00)
[2023-07-21 10:00] VITALS: BP 127/74; PULSE 82; RESP 18; TEMP 98.2; O2SAT 97
--- NOTE | 2023-07-21 10:05 | NUR ---
MUSA Wilcox from CT. She is going to contact Dr. Holden regarding unclear oral contrast orders.
[2023-07-21] MEDS ORDERED: diatr meglu/diatrizoate 30ml oral sol.-(3 dose) bottle ONE (14:12)
[2023-07-21 18:00] VITALS: BP 129/77; PULSE 79; RESP 14; TEMP 98.9; O2SAT 93
--- NOTE | 2023-07-21 18:00 | NUR ---
Patient in room ORTHO 4011. I have received report from MIKEY Ritchie and had the opportunity to ask questions and assume patient care.
--- NOTE | 2023-07-21 18:39 | NUR ---
Problems reprioritized. Patient report given, questions answered & plan of care reviewed with Tamica.
[2023-07-21 22:00] VITALS: BP 135/75; PULSE 88; RESP 18; TEMP 98.3; O2SAT 93
[2023-07-22] VITALS (17 sets, daily range): BP systolic 91–157; BP diastolic 52–100; PULSE 78–129; RESP 13–32; TEMP 97.8–98.3; O2SAT 94–97
[2023-07-22] MEDS: HYDROmorphone 1 mg/ml syringe IV PRN ×4 (01:49→11:20)
[2023-07-22] MEDS: normal saline 1000ml 1,000 ML IV SCH ×2 (04:50→16:05)
--- NOTE | 2023-07-22 06:18 | NUR ---
Problems reprioritized. Patient report given, questions answered & plan of care reviewed with MIKEY Agarwal.
--- NOTE | 2023-07-22 06:30 | NUR ---
Patient in room ORTHO 4011. I have received report from Tamica and had the opportunity to ask questions and assume patient care.
[2023-07-22 06:31] LABS: BASOPHILS % (AUTO) 0.5 % (0-1); EOSINOPHILS # (AUTO) 0.2 X10'3 (0-0.9); EOSINOPHILS % (AUTO) 2.8 % (0-6); HEMATOCRIT 35.7 % (35.0-45.0); HEMOGLOBIN 11.8 g/dl (12.0-16.0); LYMPHOCYTES # (AUTO) 0.7 X10'3 (1.1-4.8); LYMPHOCYTES % (AUTO) 10.5 % (21-51); MEAN CORPUSCULAR HEMOGLOBIN 25.9 PG (27.0-31.0); MEAN CORPUSCULAR HGB CONC 33.1 g/dL (33.0-36.5); MEAN CORPUSCULAR VOLUME 78.2 FL (78-98); MEAN PLATELET VOLUME 8.3 FL (7.4-10.4); MONOCYTES # (AUTO) 0.5 X10'3 (0-0.9); MONOCYTES % (AUTO) 8.1 % (2-12); NEUTROPHILS # (AUTO) 4.9 X10'3 (1.8-7.7); NEUTROPHILS % (AUTO) 78.1 % (42-75); PLATELET COUNT 227 X10'3 (140-440); RED BLOOD COUNT 4.56 X10'6 (4.20-5.60); RED CELL DISTRIBUTION WIDTH 17.3 % (11.5-14.5); WHITE BLOOD COUNT 6.2 X10'3 (4.5-11.0)
[2023-07-22 06:39] LABS: APTT 30 SECONDS (22-32); INR 1.1 INR; PROTHROMBIN TIME 11.3 SECONDS (9.0-12.0)
[2023-07-22 06:40] LABS: ALBUMIN 3.2 G/DL (3.4-5.0); ANION GAP 9 (8-16); BLOOD UREA NITROGEN 9 MG/DL (7-18); BUN/CREATININE RATIO 11.5 (10.0-20.0); CALCIUM 8.7 MG/DL (8.5-10.1); CHLORIDE 104 MMOL/L (99-107); CREATININE 0.78 MG/DL (0.40-0.90); GLUCOSE 111 MG/DL (70-104); MAGNESIUM 1.9 MG/DL (1.5-2.4); POTASSIUM 3.6 MMOL/L (3.5-5.1); SODIUM 139 MMOL/L (135-145); TOTAL CARBON DIOXIDE 26.3 MMOL/L (24-32); eCRCL 69 ML/MIN; eGFR 75 ML/MIN
[2023-07-22] MEDS: K and/or MAG REPLACEMENT MC SCH ×2 (07:42→20:00)
[2023-07-22] MEDS: piperacillin/tazo 3.375gm/50ml 50 ML IV SCH ×2 (07:47→16:00)
[2023-07-22] MEDS ORDERED: BUPIVAcaine/PF 2.5 mg/ml (0.25%) 30ml vial ONE (13:36)
[2023-07-22] MEDS ORDERED: BUPIVAcaine/PF 2.5mg/ml (0.25%) 10ml vial ONE (13:36)
[2023-07-22] MEDS ORDERED: BUPIVACAINE liposomal/PF 13.3 MG/ML vial IM ONE (13:37)
[2023-07-22] MEDS ORDERED: fentaNYL /PF 50mcg/ml 5ml ampule ONE ×2 (13:39→17:26)
[2023-07-22] MEDS ORDERED: propofol inj 20 ML IV ONE (13:39)
[2023-07-22] MEDS ORDERED: sevoflurane 250ml liquid IH ONE (13:40)
[2023-07-22] MEDS ORDERED: dexamethasone sod phosphate 10mg/ml inj ONE (13:40)
[2023-07-22] MEDS ORDERED: rocuronium 10mg/ml inj IV ONE ×2 (13:40→14:34)
[2023-07-22] MEDS ORDERED: ondansetron/PF 4mg/2ml inj ONE (13:40)
[2023-07-22] MEDS ORDERED: LIDOcaine 2% (20mg/ml) 5ml vial ONE (13:40)
[2023-07-22] MEDS ORDERED: ePHEDrine 50MG/ML INJ. ONE (14:03)
[2023-07-22] MEDS ORDERED: hydrALAZINE 20mg/ml inj. IV PRN (14:20)
[2023-07-22] MEDS ORDERED: morphine 4 MG/ML inj SYRINge IV PRN (14:20)
[2023-07-22] MEDS ORDERED: ringers solution, lacted 1,000 ML IV SCH (14:20)
[2023-07-22] MEDS ORDERED: enalaprilat dihydrate 2.5mg/2ml vial IV PRN (14:20)
[2023-07-22] MEDS ORDERED: ondansetron/PF 4mg/2ml inj IV PRN (14:20)
[2023-07-22] MEDS ORDERED: fentaNYL/PF 50MCG/1 ML 2ML syringe IV PRN (14:20)
[2023-07-22] MEDS ORDERED: morphine 2 MG/ML inj. syringe IV PRN (14:20)
[2023-07-22] MEDS ORDERED: sugammadex 200mg/2ml injection IV ONE (14:34)
[2023-07-22] MEDS ORDERED: albumin (Human) 5% 250ml 250 ML IV ONE ×2 (17:44→18:03)
--- NOTE | 2023-07-22 18:38 | NUR ---
Problems reprioritized. Patient report given, questions answered & plan of care reviewed with
[2023-07-22] MEDS ORDERED: naloxone 0.4 mg/ml inj IV PRN (19:40)
--- NOTE | 2023-07-22 19:45 | NUR ---
Received from OR via ICU BED, accompanied by Anesthesiologist DR MOONEY and report given by Anesthesiologist. PT IS GROGGY, MOANING OUT BUT NOT ANSWERING QUESTIONS. PT PLACED ON BEDSIDE MONITOR, VSS. PT IS ST WITH RATE IN 100'S. PT IS RECEIVING 8L O2 TO MASK AND TOLERATING WELL WITH 02 SAT >96%. WILL TITRATE DOWN AT PT TOLERATES. PT HAS 20G PIV TO RT UPPER ARM ABD TRIPLE LUMEN CVL TO RT IJ. PT HAS LARGE DRSG TO ABD THAT IS CDI, ABD BINDER IS IN PLACE. PT IS MOANING AND NOT STATING NUMERICAL VALUE OF PAIN, NON-VERBAL PAIN SCALE USED AT THIS TIME, WILL TREAT PAIN ORDERED AND CONTINUE TO ASSESS
[2023-07-22] MEDS: fentaNYL/PF 50MCG/1 ML 2ML syringe IV PRN ×2 (19:48→20:04)
[2023-07-22] MEDS: busPIRone 5mg tablet PO SCH (20:00)
[2023-07-22] MEDS ORDERED: ketorolac trometh. 30mg/ml inj. IM ONE (20:30)
[2023-07-22] MEDS: HYDROmorph/NS 0.2 mg/ml PCA 100 ML IV SCH ×3 (20:34→23:00)
[2023-07-22] MEDS: acetaminophen 1,000mg/100ml IV 100 ML IV SCH (20:36)
[2023-07-22] MEDS ORDERED: ketorolac tromethamine 15mg/ml inj. IV ONE (20:40)
[2023-07-22] MEDS: lurasidone 20mg tablet PO SCH (21:00)
--- NOTE | 2023-07-22 21:00 | NUR ---
PATIENT HAS MET ALL CRITERIA FOR TRANSFER TO THE ICU FLOOR. VSS. DRESSINGS INTACT. BED LOW, CALL LIGHT PRESENT AND 2 RAILS UP. RN PRESENT TO ACCEPT CARE OF PATIENT AND REPORT HAS BEEN CALLED TO JASS RN. ALL QUESTIONS ANSWERED TO ACCEPTING RN.
[2023-07-22] MEDS: ESCITALOPRAM OXALATE 5 MG TABLET PO SCH (21:20)
[2023-07-22] MEDS: quetiapine 100mg tablet PO SCH (21:20)
--- NOTE | 2023-07-22 21:50 | NUR ---
CALL PLACED TO ORTHO/NEURO FLOOR TO INFORM THEM PT IS NOW IN ICU RM 2014. SPOKE TO ANTONI MARIN AND SOMEONEIS AVAILABLE THEY WILL BRING PT'S BELONGINGS TO HER NEW ROOM.
[2023-07-23] VITALS (24 sets, daily range): BP systolic 82–148; BP diastolic 40–122; PULSE 102–118; RESP 12–26; O2SAT 92–98
[2023-07-23] MEDS: piperacillin/tazo 3.375gm/50ml 50 ML IV SCH ×3 (00:49→16:32)
[2023-07-23] MEDS: HYDROmorph/NS 0.2 mg/ml PCA 100 ML IV SCH ×12 (01:00→23:00)
[2023-07-23] MEDS: normal saline 1000ml 1,000 ML IV SCH ×3 (02:05→22:05)
[2023-07-23 02:35] LABS: BASOPHILS % (AUTO) 0.2 % (0-1); EOSINOPHILS % (AUTO) 0.1 % (0-6); HEMATOCRIT 34.1 % (35.0-45.0); LYMPHOCYTES # (AUTO) 0.4 X10'3 (1.1-4.8); LYMPHOCYTES % (AUTO) 5.8 % (21-51); MEAN CORPUSCULAR HEMOGLOBIN 25.3 PG (27.0-31.0); MEAN CORPUSCULAR HGB CONC 32.2 g/dL (33.0-36.5); MEAN CORPUSCULAR VOLUME 78.6 FL (78-98); MEAN PLATELET VOLUME 8.5 FL (7.4-10.4); MONOCYTES # (AUTO) 0.5 X10'3 (0-0.9); MONOCYTES % (AUTO) 7.8 % (2-12); NEUTROPHILS # (AUTO) 5.4 X10'3 (1.8-7.7); NEUTROPHILS % (AUTO) 86.1 % (42-75); PLATELET COUNT 243 X10'3 (140-440); RED BLOOD COUNT 4.34 X10'6 (4.20-5.60); WHITE BLOOD COUNT 6.3 X10'3 (4.5-11.0)
[2023-07-23 02:43] LABS: ALBUMIN 2.7 G/DL (3.4-5.0); ANION GAP 9 (8-16); BLOOD UREA NITROGEN 15 MG/DL (7-18); BUN/CREATININE RATIO 12.7 (10.0-20.0); CALCIUM 7.8 MG/DL (8.5-10.1); CHLORIDE 108 MMOL/L (99-107); CREATININE 1.18 MG/DL (0.40-0.90); GLUCOSE 165 MG/DL (70-104); MAGNESIUM 1.3 MG/DL (1.5-2.4); POTASSIUM 3.7 MMOL/L (3.5-5.1); SODIUM 143 MMOL/L (135-145); TOTAL CARBON DIOXIDE 25.6 MMOL/L (24-32); eCRCL 46 ML/MIN; eGFR 47 ML/MIN
[2023-07-23] MEDS: acetaminophen 1,000mg/100ml IV 100 ML IV SCH ×3 (03:39→14:06)
[2023-07-23] MEDS: K and/or MAG REPLACEMENT MC SCH ×2 (08:00→20:00)
[2023-07-23] MEDS ORDERED: albumin (Human) 5% 250ml 250 ML IV ONE ×4 (08:25→13:30)
--- NOTE | 2023-07-23 08:25 | NUR ---
Patient's HR 100-110s, CVP 5-8, U/O down to 20-30ml/h and SBP in the 80s. Also, patient continues to complain of pain, and is noted to be confused at times requiring frequent reorientation; temp 38.2 with shallow breathing secondary to pain; poor IS ability at this time. Dr. Holden called with orders for 500ml of 5% Albumin and to place the patient on a continuous Basal rate for the Dilaudid. Addendum: 07/23/23 at 1054 by Justino Dill RN Unable to place patient on MD ordered 0.1mg/h basal rate under Naive setting of LOSS PREVENTION/SAFETY DISTRICT MANAGER; settings thus changed to opioid tolerant. Settings reset; add 6.2mg to total infused Dilaudid.
[2023-07-23] MEDS: pantoprazole 40mg Tablet.DR PO SCH (08:39)
[2023-07-23] MEDS: multivitamins, therapeutics tablet PO SCH (08:40)
[2023-07-23] MEDS: busPIRone 5mg tablet PO SCH ×2 (08:40→20:37)
[2023-07-23] MEDS: ascorbic acid 500mg tablet PO SCH (08:40)
[2023-07-23] MEDS: lurasidone 20mg tablet PO SCH ×2 (08:40→20:38)
--- NOTE | 2023-07-23 14:04 | NUR ---
Urine output remains low (10-15ml/hour). Dr. Holden notified. Orders for another 500ml of 5% Albumin. Hold on PT for now.
--- NOTE | 2023-07-23 18:16 | NUR ---
Problems reprioritized. Patient report given, questions answered & plan of care reviewed with Jennie JENSEN.
[2023-07-23] MEDS: ESCITALOPRAM OXALATE 5 MG TABLET PO SCH (20:37)
[2023-07-23] MEDS: quetiapine 100mg tablet PO SCH (20:38)
[2023-07-23] MEDS: acetaminophen 1,000mg/100ml IV 100 ML IV PRN (21:54)
[2023-07-24] VITALS (24 sets, daily range): BP systolic 101–127; BP diastolic 47–74; PULSE 106–121; RESP 15–23; TEMP 98.3; O2SAT 94–97
[2023-07-24] MEDS: piperacillin/tazo 3.375gm/50ml 50 ML IV SCH ×2 (00:52→07:31)
[2023-07-24] MEDS: HYDROmorph/NS 0.2 mg/ml PCA 100 ML IV SCH ×12 (01:00→23:00)
[2023-07-24 02:37] LABS: BASOPHILS % (AUTO) 0.2 % (0-1); EOSINOPHILS % (AUTO) 0.2 % (0-6); HEMATOCRIT 27.8 % (35.0-45.0); HEMOGLOBIN 9.1 g/dl (12.0-16.0); LYMPHOCYTES # (AUTO) 0.4 X10'3 (1.1-4.8); LYMPHOCYTES % (AUTO) 6.3 % (21-51); MEAN CORPUSCULAR HEMOGLOBIN 25.8 PG (27.0-31.0); MEAN CORPUSCULAR HGB CONC 32.6 g/dL (33.0-36.5); MEAN CORPUSCULAR VOLUME 79.1 FL (78-98); MEAN PLATELET VOLUME 8.4 FL (7.4-10.4); MONOCYTES # (AUTO) 0.6 X10'3 (0-0.9); MONOCYTES % (AUTO) 10.2 % (2-12); NEUTROPHILS # (AUTO) 4.9 X10'3 (1.8-7.7); NEUTROPHILS % (AUTO) 83.1 % (42-75); PLATELET COUNT 228 X10'3 (140-440); RED BLOOD COUNT 3.52 X10'6 (4.20-5.60); RED CELL DISTRIBUTION WIDTH 18.1 % (11.5-14.5); WHITE BLOOD COUNT 5.9 X10'3 (4.5-11.0)
[2023-07-24 02:41] LABS: ALBUMIN 2.7 G/DL (3.4-5.0); ANION GAP 14 (8-16); BLOOD UREA NITROGEN 41 MG/DL (7-18); BUN/CREATININE RATIO 16.8 (10.0-20.0); CALCIUM 7.6 MG/DL (8.5-10.1); CHLORIDE 107 MMOL/L (99-107); CREATININE 2.44 MG/DL (0.40-0.90); GLUCOSE 143 MG/DL (70-104); MAGNESIUM 2.2 MG/DL (1.5-2.4); POTASSIUM 3.8 MMOL/L (3.5-5.1); SODIUM 143 MMOL/L (135-145); TOTAL CARBON DIOXIDE 21.8 MMOL/L (24-32); eCRCL 22 ML/MIN; eGFR 20 ML/MIN
[2023-07-24] MEDS: normal saline 1000ml 1,000 ML IV SCH ×3 (03:49→21:53)
--- NOTE | 2023-07-24 06:23 | NUR ---
Problems reprioritized. Patient report given, questions answered & plan of care reviewed with EVER JENSEN.
[2023-07-24] MEDS: lurasidone 20mg tablet PO SCH (07:30)
[2023-07-24] MEDS: ascorbic acid 500mg tablet PO SCH (07:30)
[2023-07-24] MEDS: busPIRone 5mg tablet PO SCH ×2 (07:30→19:25)
[2023-07-24] MEDS: multivitamins, therapeutics tablet PO SCH (07:30)
[2023-07-24] MEDS: pantoprazole 40mg Tablet.DR PO SCH (07:30)
[2023-07-24] MEDS: K and/or MAG REPLACEMENT MC SCH ×2 (07:43→18:36)
--- NOTE | 2023-07-24 11:30 | NUR ---
Kaleigh cadmeghann pump rate/dose verified by commercial lines underwriter with Justino JENSEN.
--- NOTE | 2023-07-24 11:30 | NUR ---
Dilaudid IV infusion for DISABILITY INSURANCE CLAIM EXAMINER pump scanned but unable to save on [employer]. Lakisha Lucas RN and Gretchen Jon RN at bedside.
[2023-07-24] MEDS: PCA WASTE DOCUMENTATION 1 MG ML MC SCH (14:18)
[2023-07-24] MEDS: acetaminophen 1,000mg/100ml IV 100 ML IV PRN (16:07)
--- NOTE | 2023-07-24 18:18 | NUR ---
Problems reprioritized. Patient report given, questions answered & plan of care reviewed with Moo JENSEN.
--- NOTE | 2023-07-24 18:19 | NUR ---
Patient in room CICU 2013. I have received report from COUNSELING CASE MANAGER Justino and had the opportunity to ask questions and assume patient care.
[2023-07-24] MEDS: ciprofloxacin lact 400MG/200ML 200 ML IV SCH (19:25)
[2023-07-24] MEDS: metroNIDAZOLE-Flagyl 500mg/NS 100 ML IV SCH (19:35)
[2023-07-24] MEDS: quetiapine 100mg tablet PO SCH (20:13)
[2023-07-24] MEDS: ESCITALOPRAM OXALATE 5 MG TABLET PO SCH (20:13)
--- NOTE | 2023-07-24 21:40 | NUR ---
Pt transferred to room 3023C in PCU. Am still primary RN for pt. Pt resting comfortably in bed.
--- NOTE | 2023-07-24 23:56 | NUR ---
Pt had episode of agitation, trying to pull at lines, get out of bed. Pt claimed she was sitting in a chair and was not in bed. I reoriented and calmed pt and then moved pt to room 3026A which is closer to [facility]es Station. Pt did calm down once she was moved to new room.
[2023-07-25] MEDS: HYDROmorph/NS 0.2 mg/ml PCA 100 ML IV SCH ×9 (01:00→17:00)
[2023-07-25 02:30] VITALS: BP 143/72; PULSE 111; RESP 20; TEMP 98.7; O2SAT 97
[2023-07-25] MEDS: normal saline 1000ml 1,000 ML IV SCH ×3 (05:41→21:41)
[2023-07-25 06:12] LABS: BASOPHILS % (AUTO) 0.1 % (0-1); EOSINOPHILS % (AUTO) 0.3 % (0-6); HEMATOCRIT 23.7 % (35.0-45.0); HEMOGLOBIN 7.8 g/dl (12.0-16.0); LYMPHOCYTES # (AUTO) 0.3 X10'3 (1.1-4.8); LYMPHOCYTES % (AUTO) 8.9 % (21-51); MEAN CORPUSCULAR HEMOGLOBIN 25.8 PG (27.0-31.0); MEAN CORPUSCULAR HGB CONC 32.8 g/dL (33.0-36.5); MEAN CORPUSCULAR VOLUME 78.6 FL (78-98); MEAN PLATELET VOLUME 8.6 FL (7.4-10.4); MONOCYTES # (AUTO) 0.5 X10'3 (0-0.9); MONOCYTES % (AUTO) 14.1 % (2-12); NEUTROPHILS # (AUTO) 2.6 X10'3 (1.8-7.7); NEUTROPHILS % (AUTO) 76.6 % (42-75); PLATELET COUNT 199 X10'3 (140-440); RED BLOOD COUNT 3.01 X10'6 (4.20-5.60); RED CELL DISTRIBUTION WIDTH 18.3 % (11.5-14.5); WHITE BLOOD COUNT 3.4 X10'3 (4.5-11.0)
--- NOTE | 2023-07-25 06:24 | NUR ---
Problems reprioritized. Patient report given, questions answered & plan of care reviewed with Linh (MIKEY).
[2023-07-25 06:31] LABS: ALBUMIN 2.4 G/DL (3.4-5.0); ANION GAP 9 (8-16); BLOOD UREA NITROGEN 28 MG/DL (7-18); BUN/CREATININE RATIO 28.3 (10.0-20.0); CALCIUM 8.2 MG/DL (8.5-10.1); CHLORIDE 113 MMOL/L (99-107); CREATININE 0.99 MG/DL (0.40-0.90); GLUCOSE 127 MG/DL (70-104); MAGNESIUM 2.3 MG/DL (1.5-2.4); SODIUM 146 MMOL/L (135-145); TOTAL CARBON DIOXIDE 24.1 MMOL/L (24-32); eCRCL 54 ML/MIN; eGFR 57 ML/MIN
--- NOTE | 2023-07-25 06:45 | NUR ---
Patient in room PCU 3023N. I have received report from MIKEY PATTERSON and had the opportunity to ask questions and assume patient care.
[2023-07-25 07:00] VITALS: BP 140/71; PULSE 114; RESP 33; TEMP 99.4; O2SAT 96
[2023-07-25] MEDS ORDERED: magnesium 2GM in 50ml NS 50 ML IV PRN (07:10)
[2023-07-25] MEDS ORDERED: potassium Cl 20 mEq SR tablet PO PRN ×2 (07:10)
[2023-07-25] MEDS ORDERED: magnesium 4gm in 100ml NS 100 ML IV PRN (07:10)
[2023-07-25] MEDS ORDERED: magnesium Cl slow-release 64mg tablet PO PRN (07:10)
[2023-07-25] MEDS: ondansetron/PF 4mg/2ml inj IV PRN (07:14)
[2023-07-25] MEDS: ciprofloxacin lact 400MG/200ML 200 ML IV SCH ×2 (08:39→20:16)
[2023-07-25] MEDS: metroNIDAZOLE-Flagyl 500mg/NS 100 ML IV SCH ×2 (08:54→21:41)
[2023-07-25] MEDS: busPIRone 5mg tablet PO SCH ×2 (09:10→20:17)
[2023-07-25] MEDS: lurasidone 20mg tablet PO SCH (09:10)
[2023-07-25] MEDS: ascorbic acid 500mg tablet PO SCH (09:19)
[2023-07-25] MEDS: K and/or MAG REPLACEMENT MC SCH ×2 (09:20→20:00)
[2023-07-25 10:00] VITALS: BP 132/77; PULSE 105; RESP 22; TEMP 98.5; O2SAT 95
[2023-07-25] MEDS: potassium Cl 40MEQ/1/2NS 520ml 520 ML IV PRN ×2 (13:26→19:06)
[2023-07-25 15:00] VITALS: BP 148/66; PULSE 107; RESP 21; TEMP 98.1; O2SAT 90
[2023-07-25] MEDS: PCA WASTE DOCUMENTATION 1 MG ML MC SCH (17:38)
--- NOTE | 2023-07-25 18:17 | NUR ---
Problems reprioritized. Patient report given, questions answered & plan of care reviewed with MIKEY CONLEY.
--- NOTE | 2023-07-25 18:30 | NUR ---
Patient in room PCU 3026. I have received report from JUANITA and had the opportunity to ask questions and assume patient care.
[2023-07-25 19:00] VITALS: BP 151/75; PULSE 107; RESP 22; TEMP 98.7; O2SAT 92
[2023-07-25] MEDS: HYDROmorphone inj. 0.5 MG/0.5 ML DISP.SYRIN IV PRN (19:01)
[2023-07-25] MEDS: ESCITALOPRAM OXALATE 5 MG TABLET PO SCH (20:17)
[2023-07-25] MEDS: quetiapine 100mg tablet PO SCH (20:17)
[2023-07-25] MEDS: HYDROmorphone 1 mg/ml syringe IV PRN (21:41)
[2023-07-25 22:00] VITALS: BP 126/66; PULSE 100; RESP 18; TEMP 98.3; O2SAT 97
[2023-07-26 02:00] VITALS: BP 139/76; PULSE 101; RESP 18; TEMP 97.7; O2SAT 98
[2023-07-26] MEDS: HYDROmorphone 1 mg/ml syringe IV PRN ×5 (02:14→21:07)
[2023-07-26] MEDS: normal saline 1000ml 1,000 ML IV SCH (04:59)
[2023-07-26 05:41] LABS: BASOPHILS % (AUTO) 1.1 % (0-1); EOSINOPHILS # (AUTO) 0.1 X10'3 (0-0.9); EOSINOPHILS % (AUTO) 2.2 % (0-6); HEMOGLOBIN 7.2 g/dl (12.0-16.0); LYMPHOCYTES # (AUTO) 0.5 X10'3 (1.1-4.8); LYMPHOCYTES % (AUTO) 12.3 % (21-51); MEAN CORPUSCULAR HEMOGLOBIN 25.9 PG (27.0-31.0); MEAN CORPUSCULAR HGB CONC 32.8 g/dL (33.0-36.5); MEAN CORPUSCULAR VOLUME 78.9 FL (78-98); MEAN PLATELET VOLUME 7.8 FL (7.4-10.4); MONOCYTES # (AUTO) 0.5 X10'3 (0-0.9); MONOCYTES % (AUTO) 11.1 % (2-12); NEUTROPHILS # (AUTO) 3.1 X10'3 (1.8-7.7); NEUTROPHILS % (AUTO) 73.3 % (42-75); PLATELET COUNT 184 X10'3 (140-440); RED BLOOD COUNT 2.76 X10'6 (4.20-5.60); RED CELL DISTRIBUTION WIDTH 18.5 % (11.5-14.5); WHITE BLOOD COUNT 4.2 X10'3 (4.5-11.0)
[2023-07-26 05:46] LABS: HEMATOCRIT 21.8 % (35.0-45.0)
[2023-07-26 05:50] LABS: ALANINE AMINOTRANSFERASE 26 U/L (12-78); ALBUMIN/GLOBULIN RATIO 0.6 (1.1-1.5); ALKALINE PHOSPHATASE 84 IU/L (46-116); ANION GAP 9 (8-16); ASPARTATE AMINO TRANSFERASE 16 U/L (10-37); BILIRUBIN,TOTAL 0.5 MG/DL (0.1-1.0); BLOOD UREA NITROGEN 16 MG/DL (7-18); BUN/CREATININE RATIO 21.1 (10.0-20.0); CHLORIDE 115 MMOL/L (99-107); CREATININE 0.76 MG/DL (0.40-0.90); GLUCOSE 106 MG/DL (70-104); POTASSIUM 3.2 MMOL/L (3.5-5.1); SODIUM 148 MMOL/L (135-145); TOTAL CARBON DIOXIDE 23.8 MMOL/L (24-32); TOTAL PROTEIN 5.6 G/DL (6.4-8.2); eCRCL 71 ML/MIN; eGFR 78 ML/MIN
--- NOTE | 2023-07-26 06:30 | NUR ---
Patient in room PCU 3020G. I have received report from MIKEY CONLEY and had the opportunity to ask questions and assume patient care.
--- NOTE | 2023-07-26 06:33 | NUR ---
Problems reprioritized. Patient report given, questions answered & plan of care reviewed with JUANITA.
[2023-07-26 07:00] VITALS: BP 142/81; PULSE 97; RESP 18; TEMP 99.6; O2SAT 97
[2023-07-26] MEDS: busPIRone 5mg tablet PO SCH ×2 (08:40→20:00)
[2023-07-26] MEDS: lurasidone 20mg tablet PO SCH (08:40)
[2023-07-26] MEDS: ascorbic acid 500mg tablet PO SCH (08:40)
[2023-07-26] MEDS: ciprofloxacin lact 400MG/200ML 200 ML IV SCH (08:41)
[2023-07-26] MEDS: metroNIDAZOLE-Flagyl 500mg/NS 100 ML IV SCH (08:54)
[2023-07-26] MEDS: K and/or MAG REPLACEMENT MC SCH ×2 (09:03→20:00)
--- NOTE | 2023-07-26 10:14 | NUR ---
CRITICAL FINDING: VRE IN PERITONEAL FLUID, DR LANDA AWAITING CALL BACK Message: MARIBEL [id number]: VRE FOUND IN PERITONEAL FLUID. THANK YOU JUANITA Segundo Transaction number: [id number]
[2023-07-26 11:00] VITALS: BP 136/66; PULSE 88; RESP 18; TEMP 98.2; O2SAT 98
[2023-07-26] MEDS ORDERED: normal saline 1000ml 1,000 ML IV SCH (11:50)
[2023-07-26] MEDS ORDERED: potassium Cl 40MEQ/1/2NS 520ml 520 ML IV ONE (12:45)
[2023-07-26] MEDS: sodium chloride 0.45% 1,000 ML IV SCH (13:01)
[2023-07-26 15:00] VITALS: BP 114/58; PULSE 91; RESP 20; TEMP 96.1; O2SAT 98
--- NOTE | 2023-07-26 16:35 | NUR ---
Initial: Pt admit for small bowel obstruction and pneumatosis coli POD #3 s/p adhesiolysis and colectomy followed by end to end anastomosis, abdominal wall cellulitis, fatty liver and splenic varices, and acute kidney injury per EMR. Pt prior NPO 07/21-07/25 though advanced to clear liquids today; pending PO intake. RN documented confused AOx2 thus not appropriate for interview at this time. LBM on 07/26 with documented 5 BM in one day suspected via colostomy though unclear per RN documented. Will continue to monitor and make recommendations as appropriate. Recommendations: 1.advanced diet as medically appropriate to low fiber 2.monitor PO intake and need for ONS 3.consider MVM with iron due to hx of GI surgeries 4.bowel care per physician 5.scaled wt this admit; subsequent weekly scaled wt Addendum: 07/26/23 at [address] Amended: Links added.
--- NOTE | 2023-07-26 18:20 | NUR ---
Patient in room PCU 3026. I have received report from MIKEY Lewis and had the opportunity to ask questions and assume patient care.
--- NOTE | 2023-07-26 18:44 | NUR ---
Problems reprioritized. Patient report given, questions answered & plan of care reviewed with MIKEY ROQUE.
[2023-07-26 19:00] VITALS: BP 132/70; PULSE 93; RESP 16; TEMP 97.7; O2SAT 94
[2023-07-26] MEDS: magnesium hydroxide 30ml (MOM) UD suspension PO SCH (20:00)
[2023-07-26] MEDS: linezolid 600mg/300ml PREMIX 300 ML IV SCH (20:00)
[2023-07-26] MEDS: ESCITALOPRAM OXALATE 5 MG TABLET PO SCH (21:05)
[2023-07-26] MEDS: quetiapine 100mg tablet PO SCH (21:06)
[2023-07-26 22:00] VITALS: BP 138/75; PULSE 82; RESP 16; TEMP 98; O2SAT 100
[2023-07-27] MEDS: sodium chloride 0.45% 1,000 ML IV SCH ×3 (01:41→12:48)
[2023-07-27 02:00] VITALS: BP 147/74; PULSE 79; RESP 28; TEMP 97.7; O2SAT 100
[2023-07-27] MEDS: HYDROmorphone 1 mg/ml syringe IV PRN ×7 (02:12→20:34)
[2023-07-27 04:17] LABS: RED BLOOD COUNT 2.73 X10'6 (4.20-5.60); RETICULOCYTE % (AUTO) 0.3 % (0.5-1.5)
[2023-07-27 04:26] LABS: LACTATE DEHYDROGENASE 145 U/L (81-234)
--- NOTE | 2023-07-27 05:30 | NUR ---
Pt's abdominal dressing saturated with serosanginous drainage and what appeared to be fecal matter on the abdominal pad and pt's gown. Pt has a small fistula leaking brown malodorous drainage from opening in midline surgical site between the bindu. Pt's gown, bedding and bandages changed. Pt c/o 05/24 pain and PRN Dilaudid was administered for dressing change with good effect. Pt cooperative with dressing and linen change.
[2023-07-27 06:00] VITALS: BP 129/59; PULSE 78; RESP 18; TEMP 97; O2SAT 100
--- NOTE | 2023-07-27 06:40 | NUR ---
Problems reprioritized. Patient report given, questions answered & plan of care reviewed with MIKEY Alvarado.
--- NOTE | 2023-07-27 06:40 | NUR ---
Patient in room PCU 3028Q. I have received report from MIKEY ROQUE and had the opportunity to ask questions and assume patient care.
[2023-07-27] MEDS: ascorbic acid 500mg tablet PO SCH (08:00)
[2023-07-27] MEDS: K and/or MAG REPLACEMENT MC SCH ×2 (08:00→20:58)
[2023-07-27] MEDS: magnesium hydroxide 30ml (MOM) UD suspension PO SCH ×2 (08:00→20:00)
[2023-07-27 09:36] LABS: LYMPHOCYTES # (AUTO) 0.5 X10'3 (1.1-4.8); MEAN PLATELET VOLUME 8.3 FL (7.4-10.4)
[2023-07-27] MEDS: lurasidone 20mg tablet PO SCH (09:37)
[2023-07-27] MEDS: ciprofloxacin lact 400MG/200ML 200 ML IV SCH ×2 (09:37→20:40)
[2023-07-27 09:38] LABS: BASOPHILS % (AUTO) 0.5 % (0-1); EOSINOPHILS # (AUTO) 0.2 X10'3 (0-0.9); EOSINOPHILS % (AUTO) 5.5 % (0-6); LYMPHOCYTES % (AUTO) 10.9 % (21-51); MEAN CORPUSCULAR HEMOGLOBIN 25.3 PG (27.0-31.0); MEAN CORPUSCULAR HGB CONC 31.4 g/dL (33.0-36.5); MEAN CORPUSCULAR VOLUME 80.8 FL (78-98); MONOCYTES # (AUTO) 0.5 X10'3 (0-0.9); MONOCYTES % (AUTO) 11.5 % (2-12); NEUTROPHILS # (AUTO) 3.1 X10'3 (1.8-7.7); NEUTROPHILS % (AUTO) 71.6 % (42-75); PLATELET COUNT 190 X10'3 (140-440); RED BLOOD COUNT 2.73 X10'6 (4.20-5.60); RED CELL DISTRIBUTION WIDTH 18.3 % (11.5-14.5); WHITE BLOOD COUNT 4.3 X10'3 (4.5-11.0)
[2023-07-27] MEDS: linezolid 600mg/300ml PREMIX 300 ML IV SCH ×2 (09:40→20:43)
[2023-07-27] MEDS: busPIRone 5mg tablet PO SCH ×2 (09:40→20:39)
[2023-07-27 09:47] LABS: HEMOGLOBIN 6.9 g/dl (12.0-16.0)
[2023-07-27 09:57] LABS: ALANINE AMINOTRANSFERASE 21 U/L (12-78); ALBUMIN 1.9 G/DL (3.4-5.0); ALBUMIN/GLOBULIN RATIO 0.5 (1.1-1.5); ALKALINE PHOSPHATASE 74 IU/L (46-116); ANION GAP 7 (8-16); ASPARTATE AMINO TRANSFERASE 16 U/L (10-37); BILIRUBIN,TOTAL 0.4 MG/DL (0.1-1.0); BLOOD UREA NITROGEN 8 MG/DL (7-18); BUN/CREATININE RATIO 14.8 (10.0-20.0); CALCIUM 8.2 MG/DL (8.5-10.1); CHLORIDE 112 MMOL/L (99-107); CREATININE 0.54 MG/DL (0.40-0.90); GLUCOSE 101 MG/DL (70-104); SODIUM 142 MMOL/L (135-145); TOTAL CARBON DIOXIDE 22.9 MMOL/L (24-32); TOTAL PROTEIN 5.4 G/DL (6.4-8.2); eCRCL 100 ML/MIN; eGFR > 90 ML/MIN
[2023-07-27] MEDS ORDERED: diatr meglu/diatrizoate 30ml oral sol.-(3 dose) bottle ONE (12:31)
[2023-07-27] MEDS: metroNIDAZOLE-Flagyl 500mg/NS 100 ML IV SCH ×3 (12:44→17:09)
[2023-07-27] MEDS: potassium Cl 40MEQ/1/2NS 520ml 520 ML IV PRN ×2 (12:48→20:54)
--- NOTE | 2023-07-27 14:31 | NUR ---
Zyvox and TPN consult: Per EMR pt started defecating through her suture lines, plan is to initiate TPN today given PICC line in place. See TPN recs below. Low tyramine diet education deferred due to plan on starting pt on TPN and not documented confused AOx2 per EMR. Noted low serum K being replaced with PRN KCL per EMR. Will continue to monitor and make recommendations as appropriate. Recommendations: 1.Initiate continuous TPN via central line per MD 2:1 Clinimix-E 04/03 with 70ml/hr goal rate and additional 100ml 20%ILE to run at 8.33ml/hr for 12 hrs/day. To provide 1680mL volume/day, 84g of AA, 336g of dext (2.7mg/kg/min GIR), and 1679kcals. 2.Discontinue NaCL with TPN initiation per physician discretion 3.Prealb/TG qMon/thurs;daily wts 4.bowel care per physician 5.scaled wt this admit; subsequent daily scaled wt Addendum: 07/27/23 at [address] Amended: Links added.
[2023-07-27] MEDS ORDERED: Dextrose 10%-water IV solution 1,000 ML IV PRN (15:20)
[2023-07-27] MEDS ORDERED: magnesium Cl slow-release 64mg tablet PO PRN (15:20)
[2023-07-27] MEDS ORDERED: magnesium 2GM in 50ml NS 50 ML IV PRN (15:20)
[2023-07-27] MEDS ORDERED: magnesium 4gm in 100ml NS 100 ML IV PRN (15:20)
[2023-07-27 16:00] VITALS: BP 150/76; PULSE 78; RESP 18; TEMP 97.7; O2SAT 100
[2023-07-27] MEDS: fat emulsion 20% inj. 100 ML IV SCH (17:09)
[2023-07-27] MEDS: chromic chloride inj. 10 MCG, ZINC/COPPER/MANGANESE/SELENIUM 1 ML in AA 5%/CALCIUM/LYTE... IV SCH (17:10)
[2023-07-27] MEDS: MVI, adult No.4 with vit. K 10 ML in dextrose 5% water 500ml 500 ML IV SCH ×2 (17:11)
[2023-07-27 18:00] VITALS: BP 140/75; PULSE 87; RESP 22; TEMP 97.6; O2SAT 98
[2023-07-27 18:17] LABS: ALANINE AMINOTRANSFERASE 24 U/L (12-78); ALBUMIN 1.9 G/DL (3.4-5.0); ALBUMIN/GLOBULIN RATIO 0.6 (1.1-1.5); ALKALINE PHOSPHATASE 73 IU/L (46-116); ANION GAP 5 (8-16); ASPARTATE AMINO TRANSFERASE 15 U/L (10-37); BILIRUBIN,TOTAL 0.4 MG/DL (0.1-1.0); BLOOD UREA NITROGEN 6 MG/DL (7-18); CALCIUM 7.8 MG/DL (8.5-10.1); CHLORIDE 111 MMOL/L (99-107); GLUCOSE 97 MG/DL (70-104); MAGNESIUM 1.7 MG/DL (1.5-2.4); PHOSPHORUS 1.9 MG/DL (2.3-4.5); POTASSIUM 3.1 MMOL/L (3.5-5.1); PREALBUMIN 9.4 MG/DL (19-36); SODIUM 142 MMOL/L (135-145); TOTAL CARBON DIOXIDE 25.9 MMOL/L (24-32); TOTAL PROTEIN 5.3 G/DL (6.4-8.2); TRIGLYCERIDES 132 MG/DL (20-135); eCRCL 108 ML/MIN; eGFR > 90 ML/MIN
--- NOTE | 2023-07-27 18:45 | NUR ---
Patient in room PCU 3026. I have received report from Debbie JENSEN and had the opportunity to ask questions and assume patient care.
--- NOTE | 2023-07-27 19:33 | NUR ---
Problems reprioritized. Patient report given, questions answered & plan of care reviewed with MIKEY RAYGOZA.
[2023-07-27] MEDS: quetiapine 100mg tablet PO SCH (20:39)
[2023-07-27] MEDS: ESCITALOPRAM OXALATE 5 MG TABLET PO SCH (20:39)
[2023-07-27] MEDS: enoxaparin 40mg/0.4ml syringe SUBCUT SCH (20:40)
[2023-07-27] MEDS: diatr meglu/diatrizoate 30ml oral sol.-(3 dose) bottle PO SCH (21:00)
[2023-07-27 22:00] VITALS: BP 138/71; PULSE 83; RESP 18; TEMP 97.8; O2SAT 98
[2023-07-28] MEDS: HYDROmorphone 1 mg/ml syringe IV PRN ×8 (00:59→19:14)
[2023-07-28] MEDS: metroNIDAZOLE-Flagyl 500mg/NS 100 ML IV SCH ×3 (00:59→16:49)
[2023-07-28 02:00] VITALS: BP 126/78; PULSE 70; RESP 16; TEMP 97.6; O2SAT 98
[2023-07-28] MEDS: sodium chloride 0.45% 1,000 ML IV SCH ×2 (04:00→17:20)
[2023-07-28] MEDS: HYDROmorphone inj. 0.5 MG/0.5 ML DISP.SYRIN IV PRN ×2 (04:43→08:26)
[2023-07-28 06:00] VITALS: BP 144/85; PULSE 84; RESP 17; TEMP 98.3; O2SAT 99
--- NOTE | 2023-07-28 06:45 | NUR ---
Problems reprioritized. Patient report given, questions answered & plan of care reviewed with Saray JENSEN.
[2023-07-28 07:00] VITALS: RESP 17; O2SAT 99
[2023-07-28] MEDS: magnesium hydroxide 30ml (MOM) UD suspension PO SCH ×2 (08:00→20:00)
[2023-07-28] MEDS: K and/or MAG REPLACEMENT MC SCH ×2 (08:00→20:00)
[2023-07-28 08:21] LABS: ALANINE AMINOTRANSFERASE 21 U/L (12-78); ALBUMIN 1.8 G/DL (3.4-5.0); ALBUMIN/GLOBULIN RATIO 0.5 (1.1-1.5); ALKALINE PHOSPHATASE 75 IU/L (46-116); ANION GAP 7 (8-16); ASPARTATE AMINO TRANSFERASE 10 U/L (10-37); BILIRUBIN,TOTAL 0.3 MG/DL (0.1-1.0); BLOOD UREA NITROGEN 5 MG/DL (7-18); BUN/CREATININE RATIO 8.3 (10.0-20.0); CHLORIDE 110 MMOL/L (99-107); GLUCOSE 115 MG/DL (70-104); MAGNESIUM 1.7 MG/DL (1.5-2.4); PHOSPHORUS 1.9 MG/DL (2.3-4.5); POTASSIUM 3.1 MMOL/L (3.5-5.1); SODIUM 144 MMOL/L (135-145); TOTAL CARBON DIOXIDE 27.1 MMOL/L (24-32); TOTAL PROTEIN 5.3 G/DL (6.4-8.2); eCRCL 90 ML/MIN; eGFR > 90 ML/MIN
[2023-07-28] MEDS: diatr meglu/diatrizoate 30ml oral sol.-(3 dose) bottle PO SCH (08:25)
[2023-07-28] MEDS: busPIRone 5mg tablet PO SCH ×2 (08:25→20:14)
[2023-07-28] MEDS: ciprofloxacin lact 400MG/200ML 200 ML IV SCH (08:25)
[2023-07-28] MEDS: ascorbic acid 500mg tablet PO SCH (08:25)
[2023-07-28] MEDS: lurasidone 20mg tablet PO SCH (08:25)
[2023-07-28] MEDS: linezolid 600mg/300ml PREMIX 300 ML IV SCH ×2 (10:22→20:31)
--- NOTE | 2023-07-28 13:29 | NUR ---
Pt to OR this afternoon. Will see her as wound consult tomorrow. Addendum: 07/28/23 at 1329 by Corinne Youssef RN Amended: Links added.
[2023-07-28] MEDS ORDERED: potassium Cl 20 mEq SR tablet PO PRN (13:35)
[2023-07-28] MEDS ORDERED: potassium Cl 40MEQ/1/2NS 520ml 520 ML IV PRN (13:40)
[2023-07-28 15:00] VITALS: BP 153/84; PULSE 90; RESP 22; TEMP 97.7; O2SAT 96
--- NOTE | 2023-07-28 15:44 | NUR ---
WOUND INFECTION EDUCATION PROVIDED BY WOUND CARE 1. Patient instructed to call their primary doctor, or go the ED immediately if any of the following symptoms occur: * Increased pain in wound * Increase in drainage from the wound * Redness in the skin surrounding the wound * Warmth in the skin surrounding the wound * Bleeding from the wound * Temperature of 101 or greater 2. If any of these occur while in the hospital tell a nurse immediately. Addendum: 07/28/23 at 1550 by Corinne Youssef RN Amended: Links added.
[2023-07-28] MEDS: fat emulsion 20% inj. 100 ML IV SCH (16:48)
--- NOTE | 2023-07-28 18:50 | NUR ---
Problems reprioritized. Patient report given, questions answered & plan of care reviewed with Inez Wiley RN.
--- NOTE | 2023-07-28 18:55 | NUR ---
Patient in room PCU 3026. I have received report from RAYMOND JENSEN and had the opportunity to ask questions and assume patient care.
[2023-07-28 19:52] LABS: BASOPHILS % (AUTO) 0.6 % (0-1); EOSINOPHILS # (AUTO) 0.3 X10'3 (0-0.9); EOSINOPHILS % (AUTO) 4.9 % (0-6); HEMOGLOBIN 7.7 g/dl (12.0-16.0); LYMPHOCYTES # (AUTO) 0.7 X10'3 (1.1-4.8); LYMPHOCYTES % (AUTO) 12.3 % (21-51); MEAN CORPUSCULAR HEMOGLOBIN 25.3 PG (27.0-31.0); MEAN CORPUSCULAR HGB CONC 32.1 g/dL (33.0-36.5); MEAN PLATELET VOLUME 8.4 FL (7.4-10.4); MONOCYTES # (AUTO) 0.9 X10'3 (0-0.9); MONOCYTES % (AUTO) 15.1 % (2-12); NEUTROPHILS # (AUTO) 3.8 X10'3 (1.8-7.7); NEUTROPHILS % (AUTO) 67.1 % (42-75); PLATELET COUNT 248 X10'3 (140-440); RED BLOOD COUNT 3.04 X10'6 (4.20-5.60); RED CELL DISTRIBUTION WIDTH 17.5 % (11.5-14.5); WHITE BLOOD COUNT 5.7 X10'3 (4.5-11.0)
[2023-07-28 20:00] VITALS: RESP 16; O2SAT 95
[2023-07-28] MEDS: quetiapine 100mg tablet PO SCH (20:12)
[2023-07-28] MEDS: ESCITALOPRAM OXALATE 5 MG TABLET PO SCH (20:13)
[2023-07-28] MEDS: ciprofloxacin 250mg tablet PO SCH (20:14)
[2023-07-28] MEDS: enoxaparin 40mg/0.4ml syringe SUBCUT SCH (20:35)
[2023-07-28 20:48] LABS: ANISOCYTOSIS 1+; MICROCYTOSIS 1+; PLATELET ESTIMATE NORMAL; TOTAL CELLS COUNTED 100
[2023-07-28 20:49] LABS: ELLIPTOCYTES FEW; GIANT PLATELET FEW; LARGE PLATELETS FEW; POIKILOCYTOSIS FEW
[2023-07-28 23:50] VITALS: BP 156/83; PULSE 77; RESP 16; TEMP 97.7; O2SAT 95
[2023-07-29] VITALS (22 sets, daily range): BP systolic 122–150; BP diastolic 47–89; PULSE 82–102; RESP 12–22; TEMP 97.9–98.4; O2SAT 94–100
[2023-07-29] MEDS: HYDROmorphone 1 mg/ml syringe IV PRN ×6 (00:21→23:43)
[2023-07-29] MEDS: chromic chloride inj. 10 MCG, ZINC/COPPER/MANGANESE/SELENIUM 1 ML in AA 5%/CALCIUM/LYTE... IV SCH ×2 (00:28→20:06)
[2023-07-29] MEDS: metroNIDAZOLE-Flagyl 500mg/NS 100 ML IV SCH ×5 (00:28→23:43)
[2023-07-29] MEDS: sodium chloride 0.45% 1,000 ML IV SCH ×2 (03:55→20:00)
[2023-07-29 06:41] LABS: BASOPHILS % (AUTO) 0.4 % (0-1); EOSINOPHILS # (AUTO) 0.2 X10'3 (0-0.9); EOSINOPHILS % (AUTO) 4.2 % (0-6); HEMATOCRIT 22.3 % (35.0-45.0); HEMOGLOBIN 7.2 g/dl (12.0-16.0); LYMPHOCYTES # (AUTO) 0.7 X10'3 (1.1-4.8); LYMPHOCYTES % (AUTO) 12.1 % (21-51); MEAN CORPUSCULAR HEMOGLOBIN 25.4 PG (27.0-31.0); MEAN CORPUSCULAR HGB CONC 32.4 g/dL (33.0-36.5); MEAN CORPUSCULAR VOLUME 78.4 FL (78-98); MEAN PLATELET VOLUME 8.4 FL (7.4-10.4); MONOCYTES # (AUTO) 0.7 X10'3 (0-0.9); MONOCYTES % (AUTO) 13.5 % (2-12); NEUTROPHILS # (AUTO) 3.8 X10'3 (1.8-7.7); NEUTROPHILS % (AUTO) 69.8 % (42-75); PLATELET COUNT 235 X10'3 (140-440); RED BLOOD COUNT 2.84 X10'6 (4.20-5.60); RED CELL DISTRIBUTION WIDTH 16.9 % (11.5-14.5); WHITE BLOOD COUNT 5.4 X10'3 (4.5-11.0)
--- NOTE | 2023-07-29 06:47 | NUR ---
Problems reprioritized. Patient report given, questions answered & plan of care reviewed with KILO JENSEN.
[2023-07-29 07:02] LABS: ALANINE AMINOTRANSFERASE 18 U/L (12-78); ALBUMIN 1.8 G/DL (3.4-5.0); ALBUMIN/GLOBULIN RATIO 0.5 (1.1-1.5); ALKALINE PHOSPHATASE 67 IU/L (46-116); ANION GAP 4 (8-16); ASPARTATE AMINO TRANSFERASE 12 U/L (10-37); BILIRUBIN,TOTAL 0.2 MG/DL (0.1-1.0); BLOOD UREA NITROGEN 7 MG/DL (7-18); BUN/CREATININE RATIO 12.7 (10.0-20.0); CALCIUM 7.9 MG/DL (8.5-10.1); CHLORIDE 107 MMOL/L (99-107); CREATININE 0.55 MG/DL (0.40-0.90); GLUCOSE 144 MG/DL (70-104); MAGNESIUM 1.6 MG/DL (1.5-2.4); PHOSPHORUS 2.8 MG/DL (2.3-4.5); PREALBUMIN 12.1 MG/DL (19-36); SODIUM 142 MMOL/L (135-145); TOTAL CARBON DIOXIDE 30.8 MMOL/L (24-32); TOTAL PROTEIN 5.2 G/DL (6.4-8.2); TRIGLYCERIDES 145 MG/DL (20-135); eCRCL 98 ML/MIN; eGFR > 90 ML/MIN
[2023-07-29 07:10] LABS: POTASSIUM 2.7 MMOL/L (3.5-5.1)
--- NOTE | 2023-07-29 07:11 | NUR ---
REPORTED CRITICAL VALUE TO PRIMARY RN
--- NOTE | 2023-07-29 07:25 | NUR ---
Message: [id number] Maryann Shipman AM lab critical K+ of 2.7 Nursing has notified. OR / surgery scheduled for today this morning. Nursing is replacing K+ now.
[2023-07-29] MEDS ORDERED: Potassium Cl 40 MEQ in sodium chloride 0.45% 500 ML IV ONE ×2 (07:35→11:35)
[2023-07-29] MEDS: K and/or MAG REPLACEMENT MC SCH ×2 (08:00→20:00)
[2023-07-29] MEDS: magnesium hydroxide 30ml (MOM) UD suspension PO SCH ×2 (08:00→20:00)
[2023-07-29] MEDS: lurasidone 20mg tablet PO SCH (08:00)
[2023-07-29] MEDS: ciprofloxacin 250mg tablet PO SCH ×2 (08:00→20:12)
[2023-07-29] MEDS: ascorbic acid 500mg tablet PO SCH (08:00)
[2023-07-29] MEDS: busPIRone 5mg tablet PO SCH ×2 (08:00→20:13)
[2023-07-29] MEDS ORDERED: fentaNYL /PF 50mcg/ml 5ml ampule ONE (08:18)
[2023-07-29] MEDS ORDERED: morphine 2 MG/ML inj. syringe IV PRN (08:45)
[2023-07-29] MEDS ORDERED: proCHLORperazine 10 MG/2 ml inj IV PRN (08:45)
[2023-07-29] MEDS ORDERED: ondansetron/PF 4mg/2ml inj IV PRN (08:45)
[2023-07-29] MEDS ORDERED: ringers solution, lacted 1,000 ML IV SCH (08:45)
[2023-07-29] MEDS ORDERED: morphine 4 MG/ML inj SYRINge IV PRN (08:45)
[2023-07-29] MEDS ORDERED: meperidine/PF 25mg/ml syringe IV PRN ×3 (08:45)
[2023-07-29] MEDS ORDERED: midazolam 1 mg/ML 2ml injection ONE (08:48)
[2023-07-29] MEDS ORDERED: ePHEDrine 50MG/ML INJ. ONE (08:50)
[2023-07-29] MEDS ORDERED: sevoflurane 250ml liquid IH ONE (08:50)
[2023-07-29] MEDS ORDERED: propofol inj 20 ML IV ONE (09:36)
[2023-07-29] MEDS ORDERED: ondansetron/PF 4mg/2ml inj ONE (09:36)
[2023-07-29] MEDS ORDERED: dexamethasone sod phosphate 4mg/ml inj. ONE (09:36)
[2023-07-29] MEDS ORDERED: rocuronium 10mg/ml inj IV ONE (09:36)
[2023-07-29] MEDS ORDERED: LIDOcaine 2% (20mg/ml) 5ml vial ONE (09:36)
[2023-07-29] MEDS: linezolid 600mg/300ml PREMIX 300 ML IV SCH ×2 (09:45→19:55)
--- NOTE | 2023-07-29 09:59 | NUR ---
Reassessment: Pt remains NPO and with TPN for sole source of nutrition. Serum K remains low since 07/25, pt receiving PRN replacement. Per EMR pt in OR at this time for exploratory laparotomy as CT showed anastomotic leakage. LBM 07/27 per EMR. Pt with routine bowel care available which is being held. No changes to nutrition interventions at this time. Will continue to follow closely and make recommendations as appropriate. Recommendations: 1. Continuous TPN per MD 2:1 Clinimix-E 04/03 with 70 mL/hr goal rate and additional 100 mL 20% ILE to run at 8.33 mL/hr for 12 hrs/day. To provide 1680 mL volume/day, 84 g AA, 336 g dext (2.13 mg/kg/min GIR), and 1678 kcal 2. Monitor need to increase TPN goal rate to 75 mL/hr; monitor serum TG and need to discontinue 20% ILE 3. Prealbumin and TG q Wednesday/ 4. Daily scaled wts 5. Bowel care per physician Addendum: 07/29/23 at [address] Amended: Links added.
--- NOTE | 2023-07-29 10:18 | NUR ---
Problems reprioritized. Patient report given, questions answered & plan of care reviewed with Ike JENSEN.
[2023-07-29] MEDS ORDERED: sugammadex 200mg/2ml injection IV ONE (10:45)
[2023-07-29] MEDS ORDERED: meperidine/PF 25mg/ml syringe ONE (10:48)
--- NOTE | 2023-07-29 10:49 | NUR ---
Received from OR via HOSPITAL BED, accompanied by Anesthesiologist and report given by FAMILIA Anesthesiologist. PATIENT WAKING UP, NO S/S OF PAIN, V/S WNL, SCD ON , RADHA PICC, RIGHT IJ-TLC, ABDOMEN DRESSING C/D/I. ABEL CATHETER DRAINING CLEAR YELLOW URINE. Addendum: 07/29/23 at 1120 by Justyn Bo RN Amended: Links added.
[2023-07-29] MEDS: ciprofloxacin lact 400MG/200ML 200 ML IV SCH (11:30)
[2023-07-29] MEDS ORDERED: acetaminophen 1,000mg/100ml IV 100 ML IV ONE (11:50)
--- NOTE | 2023-07-29 12:29 | NUR ---
PATIENT HAS MET ALL CRITERIA FOR TRANSFER TO PCU FLOOR. VSS. DRESSINGS INTACT. BED LOW, CALL LIGHT PRESENT AND 2 RAILS UP. RN PRESENT TO ACCEPT CARE OF PATIENT AND REPORT HAS BEEN CALLED. ALL QUESTIONS ANSWERED TO ACCEPTING RN. Addendum: 07/29/23 at 1243 by Justyn Bo RN Amended: Links added.
[2023-07-29] MEDS: HYDROmorph/NS 0.2 mg/ml PCA 100 ML IV SCH ×3 (12:39→15:00)
[2023-07-29] MEDS: normal saline 1000ml 1,000 ML IV SCH ×2 (13:00→19:30)
--- NOTE | 2023-07-29 13:00 | NUR ---
Discharged with Discharge medications in hand. Pt. is instructed to take Plavix once daily. All instructions are well understood and belonging are with Pt. Addendum: 07/29/23 at 1600 by Bebe Paez RN Wrong Pt.
[2023-07-29] MEDS: fat emulsion 20% inj. 100 ML IV SCH (16:47)
[2023-07-29] MEDS ORDERED: HYDROmorphone 1 mg/ml syringe IV PRN (17:50)
--- NOTE | 2023-07-29 17:50 | NUR ---
DR. HERNANDEZ GAVE ME ORDERS TO DC ANIMAL ASSISTED THERAPIST OF DILAUDID AND TO ORDER 1 MG IV DILAUDID Q4 HR FOR PAIN.
--- NOTE | 2023-07-29 18:00 | NUR ---
Dilaudid FINANCE MGR taken down / DC. 3.4mg total given, 17/124 attempts, 83/100 ml residual and waisted. With Winnie JENSENcombination machine tender Nurse.
[2023-07-29] MEDS ORDERED: potassium Cl 40MEQ/1/2NS 520ml 520 ML IV ONE (18:55)
[2023-07-29] MEDS: PCA WASTE DOCUMENTATION 1 MG ML MC SCH ×2 (19:11→19:24)
[2023-07-29] MEDS: enoxaparin 40mg/0.4ml syringe SUBCUT SCH (20:12)
[2023-07-29] MEDS: quetiapine 100mg tablet PO SCH (20:20)
[2023-07-29] MEDS: ESCITALOPRAM OXALATE 5 MG TABLET PO SCH (20:22)
[2023-07-29] MEDS: ondansetron/PF 4mg/2ml inj IV PRN (23:43)
[2023-07-30] VITALS (8 sets, daily range): BP systolic 132–153; BP diastolic 56–89; PULSE 91–108; RESP 12–27; TEMP 97.3–98.3; O2SAT 94–99
[2023-07-30] MEDS: ciprofloxacin lact 400MG/200ML 200 ML IV SCH ×3 (00:07→23:27)
[2023-07-30] MEDS: metroNIDAZOLE-Flagyl 500mg/NS 100 ML IV SCH ×4 (00:08→23:51)
[2023-07-30] MEDS: HYDROmorphone 1 mg/ml syringe IV PRN ×7 (02:51→23:13)
[2023-07-30] MEDS: normal saline 1000ml 1,000 ML IV SCH ×2 (02:55→10:55)
--- NOTE | 2023-07-30 06:34 | NUR ---
Problems reprioritized. Patient report given, questions answered & plan of care reviewed with JERRI JENSEN.
--- NOTE | 2023-07-30 07:11 | NUR ---
Patient in room PCU 3020. I have received report from Leena JENSEN and had the opportunity to ask questions and assume patient care. Leena drawing patient labs at this time
[2023-07-30 07:25] LABS: BASOPHILS % (AUTO) 0.2 % (0-1); EOSINOPHILS % (AUTO) 0.3 % (0-6); HEMATOCRIT 23.5 % (35.0-45.0); HEMOGLOBIN 7.5 g/dl (12.0-16.0); LYMPHOCYTES # (AUTO) 0.7 X10'3 (1.1-4.8); LYMPHOCYTES % (AUTO) 4.9 % (21-51); MEAN CORPUSCULAR VOLUME 78.2 FL (78-98); MEAN PLATELET VOLUME 8.8 FL (7.4-10.4); MONOCYTES # (AUTO) 1.8 X10'3 (0-0.9); MONOCYTES % (AUTO) 12.9 % (2-12); NEUTROPHILS # (AUTO) 11.3 X10'3 (1.8-7.7); NEUTROPHILS % (AUTO) 81.7 % (42-75); PLATELET COUNT 331 X10'3 (140-440); RED BLOOD COUNT 3.01 X10'6 (4.20-5.60); RED CELL DISTRIBUTION WIDTH 16.9 % (11.5-14.5); WHITE BLOOD COUNT 13.9 X10'3 (4.5-11.0)
[2023-07-30] MEDS: K and/or MAG REPLACEMENT MC SCH ×2 (08:00→20:00)
[2023-07-30 08:19] LABS: ALBUMIN 1.7 G/DL (3.4-5.0); ANION GAP 6 (8-16); BLOOD UREA NITROGEN 7 MG/DL (7-18); BUN/CREATININE RATIO 12.1 (10.0-20.0); CALCIUM 7.7 MG/DL (8.5-10.1); CHLORIDE 107 MMOL/L (99-107); CREATININE 0.58 MG/DL (0.40-0.90); GLUCOSE 129 MG/DL (70-104); MAGNESIUM 1.6 MG/DL (1.5-2.4); POTASSIUM 3.2 MMOL/L (3.5-5.1); SODIUM 142 MMOL/L (135-145); TOTAL CARBON DIOXIDE 28.7 MMOL/L (24-32); eCRCL 93 ML/MIN; eGFR > 90 ML/MIN
[2023-07-30] MEDS: lurasidone 20mg tablet PO SCH (08:58)
[2023-07-30] MEDS: MVI, adult No.4 with vit. K 10 ML in dextrose 5% water 500ml 500 ML IV SCH ×2 (08:58)
[2023-07-30] MEDS: linezolid 600mg/300ml PREMIX 300 ML IV SCH ×2 (08:58→20:55)
[2023-07-30] MEDS: busPIRone 5mg tablet PO SCH ×2 (08:59→19:44)
[2023-07-30] MEDS: ciprofloxacin 250mg tablet PO SCH (08:59)
[2023-07-30] MEDS: magnesium hydroxide 30ml (MOM) UD suspension PO SCH (08:59)
[2023-07-30] MEDS: ascorbic acid 500mg tablet PO SCH (08:59)
[2023-07-30] MEDS: sodium chloride 0.45% 1,000 ML IV SCH (09:20)
[2023-07-30] MEDS ORDERED: potassium Cl 40MEQ/1/2NS 520ml 520 ML IV ONE (15:05)
--- NOTE | 2023-07-30 16:06 | NUR ---
WOUND INFECTION EDUCATION PROVIDED BY WOUND CARE 1. Patient instructed to call their primary doctor, or go the ED immediately if any of the following symptoms occur: * Increased pain in wound * Increase in drainage from the wound * Redness in the skin surrounding the wound * Warmth in the skin surrounding the wound * Bleeding from the wound * Temperature of 101 or greater 2. If any of these occur while in the hospital tell a nurse immediately. Addendum: 07/30/23 at 1606 by Corinne Youssef RN Amended: Links added.
--- NOTE | 2023-07-30 17:44 | NUR ---
Advised Dr Villanueva that Dr Holden requests patient IV fluids not to be over 125ml's / hr. Since I had spoke to Dr Villanueva about patients edema this morning and discussed patients IV fluid intake, and received orders from the Resident Dr Carbajal at that time to make primary fluids 20ml's /hr and TPN is at 70ml's/hr. Dr Villanueva state he would be ok if we wanted to stop the NS @20 but I asked if we could keep those for running Antibiotics, Dr Villanueva was ok with that and at this time not to worry about changing fluid amounts at this time.
--- NOTE | 2023-07-30 18:49 | NUR ---
Patient in room PCU 3020. I have received report from JERRI JENSEN and had the opportunity to ask questions and assume patient care.
--- NOTE | 2023-07-30 19:19 | NUR ---
Problems reprioritized. Patient report given, questions answered & plan of care reviewed with Prudence RN.
[2023-07-30] MEDS: enoxaparin 40mg/0.4ml syringe SUBCUT SCH (19:40)
[2023-07-30] MEDS: ESCITALOPRAM OXALATE 5 MG TABLET PO SCH (20:53)
[2023-07-30] MEDS: fat emulsion 20% inj. 100 ML IV SCH (20:54)
[2023-07-30] MEDS: quetiapine 100mg tablet PO SCH (23:10)
[2023-07-30] MEDS: chromic chloride inj. 10 MCG, ZINC/COPPER/MANGANESE/SELENIUM 1 ML in AA 5%/CALCIUM/LYTE... IV SCH (23:12)
[2023-07-31] VITALS (12 sets, daily range): BP systolic 104–160; BP diastolic 46–76; PULSE 89–104; RESP 14–19; TEMP 97.4–99; O2SAT 94–97
[2023-07-31] MEDS: HYDROmorphone 1 mg/ml syringe IV PRN ×7 (02:21→22:24)
--- NOTE | 2023-07-31 06:39 | NUR ---
Problems reprioritized. Patient report given, questions answered & plan of care reviewed with JERRI JENSEN.
--- NOTE | 2023-07-31 07:06 | NUR ---
Patient in room PCU 3020. I have received report from Leena JENSEN and had the opportunity to ask questions and assume patient care.
[2023-07-31 07:27] LABS: BASOPHILS % (AUTO) 0.2 % (0-1); EOSINOPHILS # (AUTO) 0.3 X10'3 (0-0.9); EOSINOPHILS % (AUTO) 1.6 % (0-6); LYMPHOCYTES % (AUTO) 5.6 % (21-51); MEAN CORPUSCULAR HEMOGLOBIN 25.1 PG (27.0-31.0); MEAN CORPUSCULAR HGB CONC 32.1 g/dL (33.0-36.5); MEAN CORPUSCULAR VOLUME 78.4 FL (78-98); MEAN PLATELET VOLUME 8.7 FL (7.4-10.4); MONOCYTES # (AUTO) 1.7 X10'3 (0-0.9); MONOCYTES % (AUTO) 9.9 % (2-12); NEUTROPHILS # (AUTO) 14.2 X10'3 (1.8-7.7); NEUTROPHILS % (AUTO) 82.7 % (42-75); PLATELET COUNT 329 X10'3 (140-440); RED BLOOD COUNT 2.71 X10'6 (4.20-5.60); RED CELL DISTRIBUTION WIDTH 16.7 % (11.5-14.5); WHITE BLOOD COUNT 17.1 X10'3 (4.5-11.0)
[2023-07-31 07:33] LABS: HEMATOCRIT 21.2 % (35.0-45.0); HEMOGLOBIN 6.8 g/dl (12.0-16.0)
[2023-07-31 07:52] LABS: ALBUMIN 1.6 G/DL (3.4-5.0); ANION GAP 5 (8-16); BLOOD UREA NITROGEN 6 MG/DL (7-18); BUN/CREATININE RATIO 10.3 (10.0-20.0); CALCIUM 7.8 MG/DL (8.5-10.1); CHLORIDE 102 MMOL/L (99-107); CREATININE 0.58 MG/DL (0.40-0.90); GLUCOSE 147 MG/DL (70-104); MAGNESIUM 1.7 MG/DL (1.5-2.4); SODIUM 139 MMOL/L (135-145); TOTAL CARBON DIOXIDE 32.2 MMOL/L (24-32); eCRCL 93 ML/MIN; eGFR > 90 ML/MIN
[2023-07-31] MEDS: K and/or MAG REPLACEMENT MC SCH ×2 (08:00→20:00)
--- NOTE | 2023-07-31 08:10 | NUR ---
Message: Graciela FIGUEROA [id number] Re: 4020 Ramonita Critical labs of H&H 6.8/21.2 and Potassium of 3.0 Please call Custom Responses: promotional table spacer Transaction number: [id number]
--- NOTE | 2023-07-31 08:14 | NUR ---
Per hospitalist office Dr Changed to Dr Guillen today Paged: PAGER ID: [phone] MESSAGE: Graciela [facility] [phone] Re: 3020 Ramonita patients critical H&H 6.8/21.2 potassium of 3.0 please jeramie
[2023-07-31] MEDS: metroNIDAZOLE-Flagyl 500mg/NS 100 ML IV SCH ×2 (09:43→15:26)
[2023-07-31] MEDS: pantoprazole 40MG/NS 100ML BAG 100 ML IV SCH (09:43)
[2023-07-31] MEDS: ascorbic acid 500mg tablet PO SCH (09:44)
[2023-07-31] MEDS: busPIRone 5mg tablet PO SCH ×2 (09:44→19:20)
[2023-07-31] MEDS: lurasidone 20mg tablet PO SCH (09:44)
[2023-07-31] MEDS: linezolid 600mg/300ml PREMIX 300 ML IV SCH ×2 (11:30→19:22)
[2023-07-31] MEDS: ciprofloxacin lact 400MG/200ML 200 ML IV SCH ×2 (11:36→23:19)
--- NOTE | 2023-07-31 13:02 | NUR ---
Dr Smith rounded on patient stated they would do a wash out of abdomen on Wednesday. Per Dr Smith patient can have ice chips and [address] Smith aware patient has alot of antibiotics and will receive K+ replacement IV which is 1000 ml's of fluid, per Dr Smith ok to replace patient K+ PO. Dr Smith also aware patient to receive 1 unit PRBC's
[2023-07-31] MEDS: potassium Cl 20 mEq SR tablet PO PRN ×2 (15:26→21:01)
--- NOTE | 2023-07-31 18:32 | NUR ---
Problems reprioritized. Patient report given, questions answered & plan of care reviewed with Prudence RN.
--- NOTE | 2023-07-31 18:34 | NUR ---
Patient in room PCU 3020. I have received report from JERRI JENSEN and had the opportunity to ask questions and assume patient care.
[2023-07-31] MEDS: enoxaparin 40mg/0.4ml syringe SUBCUT SCH (19:20)
[2023-07-31] MEDS: quetiapine 100mg tablet PO SCH (20:49)
[2023-07-31] MEDS: ESCITALOPRAM OXALATE 5 MG TABLET PO SCH (20:50)
[2023-07-31] MEDS: fat emulsion 20% inj. 100 ML IV SCH (20:52)
[2023-08-01] VITALS (7 sets, daily range): BP systolic 132–181; BP diastolic 60–92; PULSE 90–100; RESP 16–20; TEMP 97.9–99.4; O2SAT 95–97
[2023-08-01] MEDS: metroNIDAZOLE-Flagyl 500mg/NS 100 ML IV SCH ×3 (00:51→15:10)
[2023-08-01] MEDS: potassium Cl 20 mEq SR tablet PO PRN ×3 (01:25→17:54)
[2023-08-01] MEDS: HYDROmorphone 1 mg/ml syringe IV PRN ×3 (01:26→08:32)
[2023-08-01] MEDS: chromic chloride inj. 10 MCG, ZINC/COPPER/MANGANESE/SELENIUM 1 ML in AA 5%/CALCIUM/LYTE... IV SCH ×2 (03:27→21:46)
[2023-08-01 06:28] LABS: BASOPHILS # (AUTO) 0.1 X10'3 (0-0.2); BASOPHILS % (AUTO) 0.3 % (0-1); EOSINOPHILS # (AUTO) 0.3 X10'3 (0-0.9); EOSINOPHILS % (AUTO) 2.1 % (0-6); HEMOGLOBIN 7.2 g/dl (12.0-16.0); LYMPHOCYTES # (AUTO) 0.8 X10'3 (1.1-4.8); LYMPHOCYTES % (AUTO) 4.7 % (21-51); MEAN CORPUSCULAR HEMOGLOBIN 25.5 PG (27.0-31.0); MEAN CORPUSCULAR HGB CONC 32.8 g/dL (33.0-36.5); MEAN CORPUSCULAR VOLUME 77.6 FL (78-98); MEAN PLATELET VOLUME 8.7 FL (7.4-10.4); MONOCYTES # (AUTO) 1.2 X10'3 (0-0.9); MONOCYTES % (AUTO) 7.5 % (2-12); NEUTROPHILS # (AUTO) 14.2 X10'3 (1.8-7.7); NEUTROPHILS % (AUTO) 85.4 % (42-75); PLATELET COUNT 291 X10'3 (140-440); RED BLOOD COUNT 2.82 X10'6 (4.20-5.60); RED CELL DISTRIBUTION WIDTH 16.4 % (11.5-14.5); WHITE BLOOD COUNT 16.6 X10'3 (4.5-11.0)
[2023-08-01 06:49] LABS: HEMATOCRIT 21.8 % (35.0-45.0)
[2023-08-01 06:59] LABS: ALBUMIN 1.5 G/DL (3.4-5.0); ANION GAP 5 (8-16); BLOOD UREA NITROGEN 5 MG/DL (7-18); BUN/CREATININE RATIO 8.3 (10.0-20.0); CALCIUM 7.9 MG/DL (8.5-10.1); CHLORIDE 105 MMOL/L (99-107); GLUCOSE 121 MG/DL (70-104); MAGNESIUM 1.8 MG/DL (1.5-2.4); SODIUM 143 MMOL/L (135-145); TOTAL CARBON DIOXIDE 33.4 MMOL/L (24-32); eCRCL 90 ML/MIN; eGFR > 90 ML/MIN
--- NOTE | 2023-08-01 07:01 | NUR ---
Patient in room PCU 3020. I have received report from MIKEY SCHNEIDER and had the opportunity to ask questions and assume patient care.
[2023-08-01 07:11] LABS: POTASSIUM 2.9 MMOL/L (3.5-5.1)
[2023-08-01] MEDS: K and/or MAG REPLACEMENT MC SCH ×2 (08:00→20:00)
[2023-08-01] MEDS: ascorbic acid 500mg tablet PO SCH (08:00)
[2023-08-01] MEDS: pantoprazole 40MG/NS 100ML BAG 100 ML IV SCH (08:41)
[2023-08-01] MEDS: linezolid 600mg/300ml PREMIX 300 ML IV SCH ×2 (09:09→21:32)
[2023-08-01] MEDS: busPIRone 5mg tablet PO SCH ×2 (09:10→21:33)
[2023-08-01] MEDS: lurasidone 20mg tablet PO SCH (09:11)
[2023-08-01] MEDS: HYDROmorphone 1 mg/ml syringe IV SCH ×4 (12:38→21:19)
[2023-08-01] MEDS: ciprofloxacin lact 400MG/200ML 200 ML IV SCH ×2 (12:53→23:57)
[2023-08-01] MEDS: normal saline 1000ml 1,000 ML IV SCH (17:50)
--- NOTE | 2023-08-01 18:51 | NUR ---
Problems reprioritized. Patient report given, questions answered & plan of care reviewed with MIKEY ONTIVEROS.
[2023-08-01] MEDS: quetiapine 100mg tablet PO SCH (21:33)
[2023-08-01] MEDS: ESCITALOPRAM OXALATE 5 MG TABLET PO SCH (21:34)
[2023-08-01] MEDS: enoxaparin 40mg/0.4ml syringe SUBCUT SCH (21:34)
[2023-08-01] MEDS: fat emulsion 20% inj. 100 ML IV SCH (21:39)
[2023-08-02] VITALS (15 sets, daily range): BP systolic 87–204; BP diastolic 44–102; PULSE 69–92; RESP 14–26; TEMP 97.7–98.8; O2SAT 97–100
[2023-08-02] MEDS: potassium Cl 20 mEq SR tablet PO PRN (00:31)
[2023-08-02] MEDS: HYDROmorphone 1 mg/ml syringe IV SCH ×3 (00:31→06:38)
[2023-08-02] MEDS: metroNIDAZOLE-Flagyl 500mg/NS 100 ML IV SCH ×3 (01:55→16:00)
[2023-08-02 04:58] LABS: ALANINE AMINOTRANSFERASE 13 U/L (12-78); ALBUMIN 1.5 G/DL (3.4-5.0); ALBUMIN/GLOBULIN RATIO 0.4 (1.1-1.5); ALKALINE PHOSPHATASE 81 IU/L (46-116); ANION GAP 6 (8-16); ASPARTATE AMINO TRANSFERASE 15 U/L (10-37); BILIRUBIN,TOTAL 0.2 MG/DL (0.1-1.0); BLOOD UREA NITROGEN 7 MG/DL (7-18); BUN/CREATININE RATIO 12.3 (10.0-20.0); CALCIUM 7.9 MG/DL (8.5-10.1); CHLORIDE 104 MMOL/L (99-107); CREATININE 0.57 MG/DL (0.40-0.90); GLUCOSE 123 MG/DL (70-104); MAGNESIUM 1.9 MG/DL (1.5-2.4); PHOSPHORUS 3.3 MG/DL (2.3-4.5); POTASSIUM 3.6 MMOL/L (3.5-5.1); PREALBUMIN 14.4 MG/DL (19-36); SODIUM 141 MMOL/L (135-145); TOTAL CARBON DIOXIDE 31.1 MMOL/L (24-32); TOTAL PROTEIN 5.7 G/DL (6.4-8.2); TRIGLYCERIDES 207 MG/DL (20-135); eCRCL 94 ML/MIN; eGFR > 90 ML/MIN
[2023-08-02 05:00] LABS: BASOPHILS % (AUTO) 0.3 % (0-1); EOSINOPHILS # (AUTO) 0.4 X10'3 (0-0.9); EOSINOPHILS % (AUTO) 3.2 % (0-6); HEMATOCRIT 22.5 % (35.0-45.0); HEMOGLOBIN 7.2 g/dl (12.0-16.0); LYMPHOCYTES % (AUTO) 7.8 % (21-51); MEAN CORPUSCULAR VOLUME 78.1 FL (78-98); MEAN PLATELET VOLUME 8.7 FL (7.4-10.4); MONOCYTES % (AUTO) 8.3 % (2-12); NEUTROPHILS # (AUTO) 9.9 X10'3 (1.8-7.7); NEUTROPHILS % (AUTO) 80.4 % (42-75); PLATELET COUNT 316 X10'3 (140-440); RED BLOOD COUNT 2.88 X10'6 (4.20-5.60); RED CELL DISTRIBUTION WIDTH 16.8 % (11.5-14.5); WHITE BLOOD COUNT 12.3 X10'3 (4.5-11.0)
--- NOTE | 2023-08-02 06:45 | NUR ---
Problems reprioritized. Patient report given, questions answered & plan of care reviewed with MIKEY GRANT.
--- NOTE | 2023-08-02 06:54 | NUR ---
Patient in room PCU 3020. I have received report from MIKEY ONTIVEROS and had the opportunity to ask questions and assume patient care.
[2023-08-02 07:16] LABS: UREA NITROGEN 24HR,URINE 6.8 GM/24HR (7-20)
[2023-08-02] MEDS: K and/or MAG REPLACEMENT MC SCH ×2 (08:00→20:00)
[2023-08-02] MEDS: ascorbic acid 500mg tablet PO SCH (08:00)
[2023-08-02 08:05] LABS: ISTAT ANION GAP 16 (8-12); ISTAT CL 100 mmol/L (99-107); ISTAT K 3.3 mmol/L (3.5-5.1); ISTAT NA 140 mmol/L (135-145); ISTAT TOTAL CO2 24 mmol/L (24-32)
[2023-08-02 08:06] LABS: ISTAT BUN 5 mg/dL (7-18); ISTAT CREATININE 0.5 mg/dL (0.6-1.1); ISTAT GLUCOSE 247 mg/dL (70-104); ISTAT HGB 7.8 g/dl (12.0-16.0); ISTAT Hct 23 %PCV (35-45); ISTAT IONIZED CALCIUM 1.11 mmol/L (1.03-1.32); ISTAT eGFR > 90 ML/MIN
[2023-08-02] MEDS: HYDROmorphone 1 mg/ml syringe IV PRN ×3 (09:00→14:53)
[2023-08-02] MEDS: lurasidone 20mg tablet PO SCH (09:00)
[2023-08-02] MEDS: pantoprazole 40MG/NS 100ML BAG 100 ML IV SCH (09:00)
[2023-08-02] MEDS: linezolid 600mg/300ml PREMIX 300 ML IV SCH ×2 (09:00→22:20)
[2023-08-02] MEDS: busPIRone 5mg tablet PO SCH ×2 (09:00→20:00)
[2023-08-02] MEDS: ciprofloxacin lact 400MG/200ML 200 ML IV SCH ×2 (11:36→23:03)
[2023-08-02] MEDS: diatr meglu/diatrizoate 30ml oral sol.-(3 dose) bottle PO SCH ×3 (11:36→18:00)
--- NOTE | 2023-08-02 16:52 | NUR ---
TPN 08/05 Zyvdef Reassessment: Pt advanced to clear liquid diet 08/01 WL with TPN for sole source of nutrition. Serum K remains low since 07/25, pt receiving PRN replacement. Per EMR pt shows significant serosanguineous drainage from her midline wound, potentially going back to surgery soon. LBM 08/01 per EMR. No changes to nutrition interventions at this time. Will continue to follow closely and make recommendations as appropriate. Recommendations: 1. Continuous TPN per MD 2:1 Clinimix-E 04/03 with 70 mL/hr goal rate and additional 100 mL 20% ILE to run at 8.33 mL/hr for 12 hrs/day. To provide 1680 mL volume/day, 84 g AA, 336 g dext (2.13 mg/kg/min GIR), and 1678 kcal 2. Monitor need to increase TPN goal rate to 75 mL/hr; monitor serum TG and need to discontinue 20% ILE 3. Prealbumin and TG q Wednesday/ 4. Daily scaled wts 5. Bowel care per physician 6. Low tyramine nutrition therapy education as appropriate Addendum: 08/02/23 at [address]att Intern RD Amended: Links added. Addendum: 08/02/23 at [address] ERICA has reviewed and approves of above spring internship note.
[2023-08-02] MEDS ORDERED: ringers solution, lacted 1,000 ML IV SCH (18:05)
[2023-08-02] MEDS ORDERED: morphine 2 MG/ML inj. syringe IV PRN (18:05)
[2023-08-02] MEDS ORDERED: HYDROmorphone/PF 0.2 MG/ML SYRINGE IV PRN ×2 (18:05)
[2023-08-02] MEDS ORDERED: acetaminophen 1,000mg/100ml IV 100 ML IV PRN (18:05)
[2023-08-02] MEDS ORDERED: ondansetron/PF 4mg/2ml inj IV PRN (18:05)
[2023-08-02] MEDS ORDERED: morphine 4 MG/ML inj SYRINge IV PRN (18:05)
[2023-08-02] MEDS ORDERED: hydrALAZINE 20mg/ml inj. IV PRN (18:05)
[2023-08-02] MEDS ORDERED: labetalol 20mg/4ml (5mg/ml) syringe IV PRN (18:05)
[2023-08-02] MEDS ORDERED: proCHLORperazine 10 MG/2 ml inj IV PRN (18:05)
[2023-08-02] MEDS ORDERED: midazolam 1 mg/ML 2ml injection ONE (18:11)
[2023-08-02] MEDS ORDERED: fentaNYL /PF 50mcg/ml 5ml ampule ONE (18:12)
[2023-08-02] MEDS ORDERED: LIDOcaine 2% (20mg/ml) 5ml vial ONE (18:25)
[2023-08-02] MEDS ORDERED: sevoflurane 250ml liquid IH ONE (18:25)
--- NOTE | 2023-08-02 18:45 | NUR ---
Problems reprioritized. Patient report given, questions answered & plan of care reviewed with MIKEY ONTIVEROS.
[2023-08-02] MEDS ORDERED: metroNIDAZOLE-Flagyl 500mg/NS 100ml IVPB IV ONE (19:05)
[2023-08-02] MEDS ORDERED: rocuronium 10mg/ml inj IV ONE ×2 (19:56→19:57)
[2023-08-02] MEDS ORDERED: propofol inj 20 ML IV ONE (19:56)
[2023-08-02] MEDS ORDERED: morphine 4 MG/ML inj SYRINge IV ONE (19:59)
[2023-08-02] MEDS: enoxaparin 40mg/0.4ml syringe SUBCUT SCH (20:00)
--- NOTE | 2023-08-02 20:12 | NUR ---
Received from OR via ICU BED, accompanied by Anesthesiologist DR. BROWN and report given by Anesthesiolgist. INTUBATED, PLACED ON ORDERED SETTINGS. HYPERTENSIVE. ORDERED SEDATION STARTED. RADHA PICC LINE. RESTRAINTS APPLIED PER ORDER. OPEN ABDOMEN, WOUHND VAC IN PLACE 125MMHG CONTINUOUS. LEFT NARE NG TUBE TO SUCTION, RLQ TUBE TO SUCTION PER DR. BROWN. F/C IN PLACE. PLAN TO KEEP SEDATED.
[2023-08-02] MEDS: FENTANYL-0.9 % NACL/PF 100 ML IV PRN (20:23)
[2023-08-02] MEDS: propofol 1000mg/100ml bottle 100 ML IV SCH (20:24)
--- NOTE | 2023-08-02 20:42 | NUR ---
REPORT GIVEN TO WAN. CARE TRANSFERRED. PATIENT CONTINUES THE SAME PRIOR NOTE.
[2023-08-02] MEDS: quetiapine 100mg tablet PO SCH (21:00)
[2023-08-02] MEDS: ESCITALOPRAM OXALATE 5 MG TABLET PO SCH (21:00)
[2023-08-02] MEDS: fat emulsion 20% inj. 100 ML IV SCH (22:20)
[2023-08-03] VITALS (36 sets, daily range): BP systolic 61–150; BP diastolic 42–78; PULSE 55–90; RESP 13–16; O2SAT 83–100
[2023-08-03] MEDS: propofol 1000mg/100ml bottle 100 ML IV SCH ×7 (01:32→22:06)
[2023-08-03] MEDS: metroNIDAZOLE-Flagyl 500mg/NS 100 ML IV SCH ×3 (01:42→17:05)
[2023-08-03 02:25] LABS: BASOPHILS % (AUTO) 0.2 % (0-1); EOSINOPHILS # (AUTO) 0.3 X10'3 (0-0.9); EOSINOPHILS % (AUTO) 2.2 % (0-6); HEMOGLOBIN 8.3 g/dl (12.0-16.0); LYMPHOCYTES # (AUTO) 0.7 X10'3 (1.1-4.8); LYMPHOCYTES % (AUTO) 5.3 % (21-51); MEAN CORPUSCULAR HEMOGLOBIN 25.4 PG (27.0-31.0); MEAN CORPUSCULAR VOLUME 79.4 FL (78-98); MEAN PLATELET VOLUME 8.9 FL (7.4-10.4); MONOCYTES # (AUTO) 1.1 X10'3 (0-0.9); MONOCYTES % (AUTO) 8.8 % (2-12); NEUTROPHILS # (AUTO) 10.8 X10'3 (1.8-7.7); NEUTROPHILS % (AUTO) 83.5 % (42-75); PLATELET COUNT 383 X10'3 (140-440); RED BLOOD COUNT 3.28 X10'6 (4.20-5.60); RED CELL DISTRIBUTION WIDTH 16.6 % (11.5-14.5)
[2023-08-03 02:32] LABS: ALBUMIN 1.3 G/DL (3.4-5.0); ANION GAP 3 (8-16); BLOOD UREA NITROGEN 7 MG/DL (7-18); BUN/CREATININE RATIO 12.7 (10.0-20.0); CALCIUM 7.6 MG/DL (8.5-10.1); CHLORIDE 103 MMOL/L (99-107); CREATININE 0.55 MG/DL (0.40-0.90); GLUCOSE 178 MG/DL (70-104); MAGNESIUM 1.6 MG/DL (1.5-2.4); POTASSIUM 3.5 MMOL/L (3.5-5.1); SODIUM 138 MMOL/L (135-145); TOTAL CARBON DIOXIDE 31.8 MMOL/L (24-32); eCRCL 98 ML/MIN; eGFR > 90 ML/MIN
[2023-08-03] MEDS: FENTANYL-0.9 % NACL/PF 100 ML IV PRN ×3 (03:00→10:25)
[2023-08-03 03:28] LABS: ABG BASE EXCESS 6.2 mmol/L (-2.0-2.0); ABG HCO3 30.3 mmol/L (22.0-26.0); ABG OXYGEN SATURATION 97.8 % (94-97); ABG PCO2 (T) 42.4 mmHg (32.0-45.0); ABG PH (T) 7.473 (7.350-7.450); ABG PO2 (T) 99.4 mmHg (75.0-100.0); ALLEN'S TEST Modified; FCOHb 0.1 % (0.0-3.9); FHHb 2.2 % (0.0-5.0); FMetHb 0.3 % (0.0-1.5); FO2Hb 97.4 % (94-97); MODE PRVC; PATIENT TEMPERATURE 37.4; PEEP 5 cm H2O; RESPIRATORY RATE 14 b/min; TIDAL VOLUME 500 mL; TOTAL HEMOGLOBIN 8.9 G/dl (12.0-16.0)
[2023-08-03] MEDS ORDERED: ringers solution, lacted 1,000 ML IV ONE (04:45)
[2023-08-03] MEDS ORDERED: NORepinephrine 8mg/ 250ml NS 250 ML IV ONE (05:55)
--- NOTE | 2023-08-03 06:38 | NUR ---
Patient in room CICU 2013. I have received report from Mary JENSEN and had the opportunity to ask questions and assume patient care.
[2023-08-03] MEDS: NORepinephrine 8mg/ 250ml NS 250 ML IV SCH ×3 (06:40→20:06)
[2023-08-03] MEDS: lurasidone 20mg tablet PO SCH (07:29)
[2023-08-03] MEDS: busPIRone 5mg tablet PO SCH ×2 (07:29→20:00)
[2023-08-03] MEDS: ascorbic acid 500mg tablet PO SCH (07:29)
[2023-08-03] MEDS: K and/or MAG REPLACEMENT MC SCH ×2 (08:00→20:00)
[2023-08-03] MEDS: pantoprazole 40MG/NS 100ML BAG 100 ML IV SCH (08:12)
[2023-08-03] MEDS: normal saline 1000ml 1,000 ML IV SCH (08:32)
[2023-08-03] MEDS: linezolid 600mg/300ml PREMIX 300 ML IV SCH ×2 (09:38→20:03)
--- NOTE | 2023-08-03 11:05 | NUR ---
Reassessment: Pt remains intubated POD #1 s/p exploratory laparotomy, abdominal washout, wound VAC placement, and drain placement. Per RN at [facility] patient's abdomen remains open and pt strictly NPO. An NGT is in place on LIS. Pt receiving Propofol at 45 mcg/kg/min (29.619 mL/hr) providing 782 kcal/day. D/w MD recommendation to discontinue 20% ILE given Propofol rate, MD agreed, clinical pharmacist to update order. Further adjustments to TPN goal rate have been updated and d/w clinical pharmacist as to prevent overfeeding on the vent, see below. LBM 07/31 per EMR. Will continue to follow closely. Recommendations: 1. Given Propofol at 29.619 mL/hr (782 kcal/day), continuous TPN using 2:1 Clinimix-E 04/03 with 65 mL/hr goal rate to provide 1560 mL volume/day, 78 g AA, 312 g dext (2.16 mg/kg/min GIR), and 1373 kcal. No additional 20% ILE given Propofol 2. Monitor Propofol rate and need to adjust TPN goal rate versus change to custom TPN; monitor need to resume 20% ILE 3. Prealbumin and TG q Wednesday/ 4. Daily scaled wts 5. Bowel care per physician 6. Low tyramine nutrition therapy education as appropriate Addendum: 08/03/23 at [address] Amended: Links added.
[2023-08-03] MEDS: ciprofloxacin lact 400MG/200ML 200 ML IV SCH ×2 (11:43→23:00)
[2023-08-03 12:38] LABS: HEMATOCRIT 25.3 % (35.0-45.0); HEMOGLOBIN 8.1 g/dl (12.0-16.0); MEAN CORPUSCULAR HEMOGLOBIN 26.7 PG (27.0-31.0); MEAN CORPUSCULAR VOLUME 83.4 FL (78-98); MEAN PLATELET VOLUME 9.5 FL (7.4-10.4); PLATELET COUNT 393 X10'3 (140-440); RED BLOOD COUNT 3.03 X10'6 (4.20-5.60); RED CELL DISTRIBUTION WIDTH 17.4 % (11.5-14.5)
[2023-08-03] MEDS: chromic chloride inj. 10 MCG, ZINC/COPPER/MANGANESE/SELENIUM 1 ML in AA 5%/CALCIUM/LYTE... IV SCH (12:54)
[2023-08-03] MEDS: MVI, adult No.4 with vit. K 10 ML in dextrose 5% water 500ml 500 ML IV SCH ×2 (12:56)
[2023-08-03] MEDS: fentaNYL 50mcg/ml PF inj. 2,500 MCG in normal saline 250ml IV soln 200 ML IV PRN (14:18)
--- NOTE | 2023-08-03 18:19 | NUR ---
Problems reprioritized. Patient report given, questions answered & plan of care reviewed with Ciarra JENSEN.
--- NOTE | 2023-08-03 18:30 | NUR ---
Patient in room CICU 2013. I have received report from iSri JENSEN and had the opportunity to ask questions and assume patient care.
[2023-08-03] MEDS: ESCITALOPRAM OXALATE 5 MG TABLET PO SCH (20:05)
[2023-08-03] MEDS: enoxaparin 40mg/0.4ml syringe SUBCUT SCH (20:05)
[2023-08-03] MEDS: quetiapine 100mg tablet PO SCH (20:05)
[2023-08-03] MEDS ORDERED: chromic chloride inj. 10 MCG, ZINC/COPPER/MANGANESE/SELENIUM 1 ML in AA 5%/CALCIUM/LYTE... IV SCH (21:00)
[2023-08-04] VITALS (34 sets, daily range): BP systolic 90–149; BP diastolic 36–82; PULSE 58–80; RESP 14–17; O2SAT 96–100
[2023-08-04] MEDS: metroNIDAZOLE-Flagyl 500mg/NS 100 ML IV SCH ×3 (00:16→15:22)
[2023-08-04] MEDS: fentaNYL 50mcg/ml PF inj. 2,500 MCG in normal saline 250ml IV soln 200 ML IV PRN ×2 (00:16→17:54)
[2023-08-04] MEDS: propofol 1000mg/100ml bottle 100 ML IV SCH ×7 (00:35→21:04)
[2023-08-04 02:11] LABS: BASOPHILS # (AUTO) 0.1 X10'3 (0-0.2); BASOPHILS % (AUTO) 0.4 % (0-1); EOSINOPHILS # (AUTO) 0.5 X10'3 (0-0.9); EOSINOPHILS % (AUTO) 3.3 % (0-6); HEMATOCRIT 25.5 % (35.0-45.0); HEMOGLOBIN 8.2 g/dl (12.0-16.0); LYMPHOCYTES # (AUTO) 1.1 X10'3 (1.1-4.8); LYMPHOCYTES % (AUTO) 7.1 % (21-51); MEAN CORPUSCULAR HEMOGLOBIN 25.5 PG (27.0-31.0); MEAN CORPUSCULAR HGB CONC 32.2 g/dL (33.0-36.5); MEAN CORPUSCULAR VOLUME 79.1 FL (78-98); MEAN PLATELET VOLUME 8.2 FL (7.4-10.4); MONOCYTES # (AUTO) 1.5 X10'3 (0-0.9); MONOCYTES % (AUTO) 10.1 % (2-12); NEUTROPHILS % (AUTO) 79.1 % (42-75); PLATELET COUNT 478 X10'3 (140-440); RED BLOOD COUNT 3.22 X10'6 (4.20-5.60); RED CELL DISTRIBUTION WIDTH 16.7 % (11.5-14.5); WHITE BLOOD COUNT 15.2 X10'3 (4.5-11.0)
[2023-08-04 02:23] LABS: ALBUMIN 1.2 G/DL (3.4-5.0); ANION GAP 3 (8-16); BLOOD UREA NITROGEN 7 MG/DL (7-18); BUN/CREATININE RATIO 13.5 (10.0-20.0); CALCIUM 7.6 MG/DL (8.5-10.1); CHLORIDE 107 MMOL/L (99-107); CREATININE 0.52 MG/DL (0.40-0.90); GLUCOSE 136 MG/DL (70-104); MAGNESIUM 1.8 MG/DL (1.5-2.4); POTASSIUM 3.3 MMOL/L (3.5-5.1); SODIUM 142 MMOL/L (135-145); TOTAL CARBON DIOXIDE 31.8 MMOL/L (24-32); eCRCL 104 ML/MIN; eGFR > 90 ML/MIN
[2023-08-04] MEDS: potassium Cl 40MEQ/270ML bag 270 ML IV PRN (03:20)
[2023-08-04 03:22] LABS: ABG BASE EXCESS 5.9 mmol/L (-2.0-2.0); ABG HCO3 30.2 mmol/L (22.0-26.0); ABG OXYGEN SATURATION 97.1 % (94-97); ABG PCO2 (T) 43.5 mmHg (32.0-45.0); ABG PO2 (T) 90.3 mmHg (75.0-100.0); ALLEN'S TEST Modified; FCOHb 0.3 % (0.0-3.9); FHHb 2.9 % (0.0-5.0); FMetHb 0.3 % (0.0-1.5); FO2Hb 96.5 % (94-97); MODE prvc; PATIENT TEMPERATURE 37.3; PEEP 5 cm H2O; RESPIRATORY RATE 14 b/min; TIDAL VOLUME 500 mL; TOTAL HEMOGLOBIN 9.5 G/dl (12.0-16.0)
--- NOTE | 2023-08-04 06:29 | NUR ---
Problems reprioritized. Patient report given, questions answered & plan of care reviewed with Ewa JENSEN.
--- NOTE | 2023-08-04 06:52 | NUR ---
Patient in room CICU 2013. I have received report from MIKEY Lafleur and had the opportunity to ask questions and assume patient care.
[2023-08-04] MEDS: pantoprazole 40MG/NS 100ML BAG 100 ML IV SCH (07:57)
[2023-08-04] MEDS: ascorbic acid 500mg tablet PO SCH (08:00)
[2023-08-04] MEDS: busPIRone 5mg tablet PO SCH ×2 (08:00→18:57)
[2023-08-04] MEDS: K and/or MAG REPLACEMENT MC SCH ×2 (08:00→18:56)
[2023-08-04] MEDS: lurasidone 20mg tablet PO SCH (08:00)
[2023-08-04] MEDS: linezolid 600mg/300ml PREMIX 300 ML IV SCH ×2 (08:53→19:45)
[2023-08-04] MEDS: ciprofloxacin lact 400MG/200ML 200 ML IV SCH ×2 (12:24→22:45)
[2023-08-04] MEDS: NORepinephrine 8mg/ 250ml NS 250 ML IV SCH (12:25)
--- NOTE | 2023-08-04 15:52 | NUR ---
PRESSURE ULCER EDUCATION: DEFINITION: A pressure ulcer is an area of skin that breaks down when you stay in one position too long. The constant pressure against the skin reduces the blood flow to that area and the affected tissue dies. CAUSES: "Being bedridden or in a wheelchair "Fragile skin "Having a chronic condition, such as diabetes or vascular disease "Inability to move certain parts of your body without assistance "Older age "Incontinence of urine or stool SYMPTOMS: "A reddened area that DOES NOT turn white when pressed on - this can be the beginning of a pressure ulcer "A blister, deep sore or a crater - these can be advanced pressure ulcers FIRST AID: "Relieve the pressure on this area "Keep the area clean and dry "Call your primary doctor if you see any of the above symptoms "DO NOT massage the area "DO NOT use a donut shaped or ring shaped pillow- these actually interfere with the blood flow and cause complications PREVENTION: "Check for pressure ulcers everyday "Change position at least every two hours to relieve pressure "Use items that help relieve pressure- pillows, sheepskin, foam padding, and powders. "Keep skin clean and dry "Eat healthy well balanced meals "Exercise daily IF YOU SEE ANY OF THESE SYMPTOMS WHILE IN THE HOSPITAL - TELL YOUR NURSE IMMEDIATELY. IF YOU SEE ANY OF THESE SYMPTOMS WHILE AT HOME OR HAVE ANY QUESTIONS OR CONCERNS ABOUT PRESSURE ULCERS - CALL YOUR PRIMARY DOCTOR IMMEDIATELY. Addendum: 08/04/23 at 1553 by Corinne Youssef RN Amended: Links added.
--- NOTE | 2023-08-04 18:30 | NUR ---
Patient in room CICU 2013. I have received report from Ewa JENSEN and had the opportunity to ask questions and assume patient care.
[2023-08-04] MEDS: ESCITALOPRAM OXALATE 5 MG TABLET PO SCH (18:57)
[2023-08-04] MEDS: quetiapine 100mg tablet PO SCH (18:57)
[2023-08-04] MEDS: enoxaparin 40mg/0.4ml syringe SUBCUT SCH (19:45)
[2023-08-05] VITALS (36 sets, daily range): BP systolic 84–128; BP diastolic 42–76; PULSE 61–87; RESP 14–15; O2SAT 96–100
[2023-08-05] MEDS: propofol 1000mg/100ml bottle 100 ML IV SCH ×4 (00:01→08:20)
[2023-08-05] MEDS: metroNIDAZOLE-Flagyl 500mg/NS 100 ML IV SCH ×3 (00:02→16:27)
[2023-08-05 02:28] LABS: BASOPHILS % (AUTO) 0.2 % (0-1); EOSINOPHILS # (AUTO) 0.5 X10'3 (0-0.9); EOSINOPHILS % (AUTO) 4.6 % (0-6); HEMATOCRIT 24.9 % (35.0-45.0); HEMOGLOBIN 7.9 g/dl (12.0-16.0); LYMPHOCYTES % (AUTO) 8.8 % (21-51); MEAN CORPUSCULAR HEMOGLOBIN 25.3 PG (27.0-31.0); MEAN CORPUSCULAR HGB CONC 31.9 g/dL (33.0-36.5); MEAN CORPUSCULAR VOLUME 79.2 FL (78-98); MEAN PLATELET VOLUME 8.3 FL (7.4-10.4); MONOCYTES # (AUTO) 1.2 X10'3 (0-0.9); MONOCYTES % (AUTO) 10.6 % (2-12); NEUTROPHILS # (AUTO) 8.8 X10'3 (1.8-7.7); NEUTROPHILS % (AUTO) 75.8 % (42-75); PLATELET COUNT 457 X10'3 (140-440); RED BLOOD COUNT 3.15 X10'6 (4.20-5.60); RED CELL DISTRIBUTION WIDTH 16.4 % (11.5-14.5); WHITE BLOOD COUNT 11.6 X10'3 (4.5-11.0)
[2023-08-05 02:35] LABS: ALANINE AMINOTRANSFERASE 9 U/L (12-78); ALBUMIN 1.2 G/DL (3.4-5.0); ALBUMIN/GLOBULIN RATIO 0.3 (1.1-1.5); ALKALINE PHOSPHATASE 88 IU/L (46-116); ANION GAP 5 (8-16); ASPARTATE AMINO TRANSFERASE 13 U/L (10-37); BILIRUBIN,TOTAL 0.2 MG/DL (0.1-1.0); BLOOD UREA NITROGEN 7 MG/DL (7-18); BUN/CREATININE RATIO 12.3 (10.0-20.0); CALCIUM 7.9 MG/DL (8.5-10.1); CHLORIDE 106 MMOL/L (99-107); CREATININE 0.57 MG/DL (0.40-0.90); GLUCOSE 132 MG/DL (70-104); MAGNESIUM 1.8 MG/DL (1.5-2.4); PHOSPHORUS 4.3 MG/DL (2.3-4.5); POTASSIUM 3.3 MMOL/L (3.5-5.1); PREALBUMIN 13.5 MG/DL (19-36); SODIUM 142 MMOL/L (135-145); TOTAL CARBON DIOXIDE 31.3 MMOL/L (24-32); TOTAL PROTEIN 5.4 G/DL (6.4-8.2); TRIGLYCERIDES 341 MG/DL (20-135); eCRCL 94 ML/MIN; eGFR > 90 ML/MIN
[2023-08-05 03:27] LABS: ABG OXYGEN SATURATION 95.9 % (94-97); ABG PCO2 (T) 45.6 mmHg (32.0-45.0); ABG PH (T) 7.408 (7.350-7.450); ABG PO2 (T) 79.4 mmHg (75.0-100.0); FCOHb 0.1 % (0.0-3.9); FHHb 4.1 % (0.0-5.0); FMetHb 0.3 % (0.0-1.5); FO2Hb 95.5 % (94-97); MODE prvc; PATIENT TEMPERATURE 37.5; PEEP 5 cm H2O; RESPIRATORY RATE 14 b/min; TIDAL VOLUME 500 mL; TOTAL HEMOGLOBIN 9.2 G/dl (12.0-16.0)
[2023-08-05] MEDS: potassium Cl 40MEQ/270ML bag 270 ML IV PRN (04:35)
[2023-08-05] MEDS: fentaNYL 50mcg/ml PF inj. 2,500 MCG in normal saline 250ml IV soln 200 ML IV PRN ×2 (05:03→22:14)
[2023-08-05] MEDS: chromic chloride inj. 10 MCG, ZINC/COPPER/MANGANESE/SELENIUM 1 ML in AA 5%/CALCIUM/LYTE... IV SCH (05:06)
[2023-08-05] MEDS: NORepinephrine 8mg/ 250ml NS 250 ML IV SCH ×2 (05:06→20:54)
--- NOTE | 2023-08-05 06:19 | NUR ---
Problems reprioritized. Patient report given, questions answered & plan of care reviewed with Gregorio JENSEN.
--- NOTE | 2023-08-05 06:20 | NUR ---
Patient in room CICU 2013. I have received report from Ciarra JENSEN and had the opportunity to ask questions and assume patient care.
[2023-08-05] MEDS: ascorbic acid 500mg tablet PO SCH (08:00)
[2023-08-05] MEDS: busPIRone 5mg tablet PO SCH ×2 (08:00→20:00)
[2023-08-05] MEDS: K and/or MAG REPLACEMENT MC SCH ×2 (08:00→20:00)
[2023-08-05] MEDS: lurasidone 20mg tablet PO SCH (08:00)
[2023-08-05] MEDS: pantoprazole 40MG/NS 100ML BAG 100 ML IV SCH (08:18)
[2023-08-05] MEDS: linezolid 600mg/300ml PREMIX 300 ML IV SCH ×2 (08:21→20:51)
--- NOTE | 2023-08-05 08:30 | NUR ---
Called / Kalia regarding abdominal surgery,MD states no scheduled surgery at this time but will speak to Dr. Holden since he is the main Surgeon for the patient.Rosas and Dr. Watson made aware.
[2023-08-05] MEDS: normal saline 1000ml 1,000 ML IV SCH (08:32)
--- NOTE | 2023-08-05 10:15 | NUR ---
Team rounding update: RN addressed hemoglobin of 7.9 today, calcium 7.9, albumin 1.[address] Watson ordered to DC propofol and to start patient on Versed drip.No other orders noted.
[2023-08-05] MEDS ORDERED: MIDAZolam inj 50 MG in normal saline 50ml IV soln 40 ML IV SCH (11:30)
[2023-08-05] MEDS: midazolam 100mg in NS 100 ML INFUSION IV PRN (11:38)
[2023-08-05] MEDS: ciprofloxacin lact 400MG/200ML 200 ML IV SCH (13:23)
--- NOTE | 2023-08-05 14:16 | NUR ---
Reassessment: Pt remains intubated with TPN for sole source of nutrition. Serum TG with upward trend, currently at 341 mg/dL today. Subsequently Propofol was discontinued. Recommend increasing TPN goal rate to 100 mL/hr to meet 100% estimated energy needs and 95% estimated protein needs, d/w clinical pharmacist and RN. ELIEZERM 08/01 per I&O, currently not receiving any bowel care. Will continue to follow closely and make recommendations as appropriate. Recommendations: 1. Given elevated serum TG and NO Propofol, continuous TPN using 2:1 Clinimix-E 04/03 with 100 mL/hr goal rate to provide 2400 mL volume/day, 120 g AA, 480 g dext (3.53 mg/kg/min GIR), and 2112 kcal. No additional 20% ILE given elevated serum TG 2. Monitor serum TG and need to resume 20% ILE 3. Prealbumin and TG q Wednesday/ 4. Daily scaled wts 5. Bowel care per physician 6. Low tyramine nutrition therapy education as appropriate following extubation Addendum: 08/05/23 at [address] Amended: Links added.
--- NOTE | 2023-08-05 18:15 | NUR ---
Problems reprioritized. Patient report given, questions answered & plan of care reviewed with Blessing JENSEN.
[2023-08-05] MEDS: enoxaparin 40mg/0.4ml syringe SUBCUT SCH (20:51)
[2023-08-05] MEDS: ESCITALOPRAM OXALATE 5 MG TABLET PO SCH (20:52)
[2023-08-05] MEDS: quetiapine 100mg tablet PO SCH (20:52)
[2023-08-06] VITALS (36 sets, daily range): BP systolic 89–180; BP diastolic 47–99; PULSE 69–104; RESP 14–19; O2SAT 97–99
[2023-08-06] MEDS: ciprofloxacin lact 400MG/200ML 200 ML IV SCH ×3 (00:06→23:20)
[2023-08-06] MEDS: midazolam 100mg in NS 100 ML INFUSION IV PRN ×2 (00:09→12:47)
[2023-08-06] MEDS: metroNIDAZOLE-Flagyl 500mg/NS 100 ML IV SCH ×3 (00:55→16:00)
[2023-08-06 03:22] LABS: ABG BASE EXCESS 1.2 mmol/L (-2.0-2.0); ABG HCO3 25.6 mmol/L (22.0-26.0); ABG OXYGEN SATURATION 96.8 % (94-97); ABG PCO2 (T) 41.1 mmHg (32.0-45.0); ABG PH (T) 7.415 (7.350-7.450); ABG PO2 (T) 90.1 mmHg (75.0-100.0); ALLEN'S TEST Modified; FCOHb 0.4 % (0.0-3.9); FHHb 3.2 % (0.0-5.0); FMetHb 0.3 % (0.0-1.5); FO2Hb 96.1 % (94-97); MODE VENT - PRVC; PATIENT TEMPERATURE 37.8; PEEP 5 cm H2O; RESPIRATORY RATE 14 b/min; TIDAL VOLUME 500 mL
[2023-08-06 04:26] LABS: ALANINE AMINOTRANSFERASE 8 U/L (12-78); ALBUMIN 1.1 G/DL (3.4-5.0); ALBUMIN/GLOBULIN RATIO 0.3 (1.1-1.5); ALKALINE PHOSPHATASE 85 IU/L (46-116); ANION GAP 6 (8-16); ASPARTATE AMINO TRANSFERASE 9 U/L (10-37); BILIRUBIN,TOTAL 0.3 MG/DL (0.1-1.0); BLOOD UREA NITROGEN 9 MG/DL (7-18); BUN/CREATININE RATIO 15.5 (10.0-20.0); CALCIUM 7.8 MG/DL (8.5-10.1); CHLORIDE 104 MMOL/L (99-107); CREATININE 0.58 MG/DL (0.40-0.90); GLUCOSE 155 MG/DL (70-104); MAGNESIUM 1.8 MG/DL (1.5-2.4); PHOSPHORUS 4.1 MG/DL (2.3-4.5); POTASSIUM 3.4 MMOL/L (3.5-5.1); SODIUM 139 MMOL/L (135-145); TOTAL CARBON DIOXIDE 28.6 MMOL/L (24-32); TOTAL PROTEIN 5.5 G/DL (6.4-8.2); eCRCL 93 ML/MIN; eGFR > 90 ML/MIN
[2023-08-06 04:28] LABS: BASOPHILS % (AUTO) 0.5 % (0-1); EOSINOPHILS # (AUTO) 0.4 X10'3 (0-0.9); HEMATOCRIT 23.4 % (35.0-45.0); HEMOGLOBIN 7.5 g/dl (12.0-16.0); LYMPHOCYTES % (AUTO) 11.1 % (21-51); MEAN CORPUSCULAR HEMOGLOBIN 25.3 PG (27.0-31.0); MEAN CORPUSCULAR VOLUME 79.2 FL (78-98); MEAN PLATELET VOLUME 8.3 FL (7.4-10.4); MONOCYTES # (AUTO) 0.9 X10'3 (0-0.9); MONOCYTES % (AUTO) 10.3 % (2-12); NEUTROPHILS # (AUTO) 6.6 X10'3 (1.8-7.7); NEUTROPHILS % (AUTO) 73.1 % (42-75); PLATELET COUNT 414 X10'3 (140-440); RED BLOOD COUNT 2.95 X10'6 (4.20-5.60); RED CELL DISTRIBUTION WIDTH 16.2 % (11.5-14.5)
[2023-08-06] MEDS: chromic chloride inj. 10 MCG, ZINC/COPPER/MANGANESE/SELENIUM 1 ML in AA 5%/CALCIUM/LYTE... IV SCH (04:47)
--- NOTE | 2023-08-06 06:41 | NUR ---
Problems reprioritized. Patient report given, questions answered & plan of care reviewed with Gregor JENSEN.
[2023-08-06] MEDS: K and/or MAG REPLACEMENT MC SCH ×2 (06:46→20:00)
[2023-08-06] MEDS: potassium Cl 40MEQ/270ML bag 270 ML IV PRN (07:58)
[2023-08-06] MEDS: fentaNYL 50mcg/ml PF inj. 2,500 MCG in normal saline 250ml IV soln 200 ML IV PRN ×2 (07:58→19:09)
[2023-08-06] MEDS: busPIRone 5mg tablet PO SCH ×2 (08:00→20:33)
[2023-08-06] MEDS: lurasidone 20mg tablet PO SCH (08:00)
[2023-08-06] MEDS: ascorbic acid 500mg tablet PO SCH (08:00)
[2023-08-06] MEDS: NORepinephrine 8mg/ 250ml NS 250 ML IV SCH ×2 (08:33→19:10)
[2023-08-06] MEDS: linezolid 600mg/300ml PREMIX 300 ML IV SCH ×2 (09:12→20:32)
[2023-08-06] MEDS: MVI, adult No.4 with vit. K 10 ML in dextrose 5% water 500ml 500 ML IV SCH ×2 (09:12)
[2023-08-06] MEDS: pantoprazole 40MG/NS 100ML BAG 100 ML IV SCH (09:12)
[2023-08-06 14:58] LABS: HEMATOCRIT 23.8 % (35.0-45.0); HEMOGLOBIN 7.1 g/dl (12.0-16.0); MEAN CORPUSCULAR HEMOGLOBIN 25.3 PG (27.0-31.0); MEAN CORPUSCULAR VOLUME 84.2 FL (78-98); MEAN PLATELET VOLUME 8.4 FL (7.4-10.4); PLATELET COUNT 389 X10'3 (140-440); RED BLOOD COUNT 2.83 X10'6 (4.20-5.60); RED CELL DISTRIBUTION WIDTH 16.6 % (11.5-14.5); WHITE BLOOD COUNT 7.5 X10'3 (4.5-11.0)
[2023-08-06] MEDS ORDERED: sevoflurane 250ml liquid IH ONE (16:46)
[2023-08-06] MEDS ORDERED: NORepinephrine 8 MG in NS 250 ML BAG (32 mcg/ml) IV ONE (16:46)
[2023-08-06] MEDS ORDERED: rocuronium 10mg/ml inj IV ONE ×2 (17:07→18:02)
[2023-08-06] MEDS ORDERED: fentaNYL /PF 50mcg/ml 5ml ampule ONE (17:16)
--- NOTE | 2023-08-06 17:24 | NUR ---
Pt in OR
--- NOTE | 2023-08-06 18:12 | NUR ---
Problems reprioritized. Patient report given, questions answered & plan of care reviewed with Blessing JENSEN.
--- NOTE | 2023-08-06 18:30 | NUR ---
Patient in room CICU 2013. I have received report from Gregor JENSEN and had the opportunity to ask questions and assume patient care.
[2023-08-06] MEDS: ESCITALOPRAM OXALATE 5 MG TABLET PO SCH (20:32)
[2023-08-06] MEDS: enoxaparin 40mg/0.4ml syringe SUBCUT SCH (20:33)
[2023-08-06] MEDS: quetiapine 100mg tablet PO SCH (20:33)
[2023-08-06] MEDS: normal saline 1000ml 1,000 ML IV SCH (23:21)
[2023-08-07] VITALS (34 sets, daily range): BP systolic 81–156; BP diastolic 43–86; PULSE 71–113; RESP 14–30; O2SAT 8–100
[2023-08-07] MEDS: metroNIDAZOLE-Flagyl 500mg/NS 100 ML IV SCH ×4 (01:00→23:13)
[2023-08-07] MEDS: NORepinephrine 8mg/ 250ml NS 250 ML IV SCH ×2 (01:49→16:45)
[2023-08-07] MEDS: chromic chloride inj. 10 MCG, ZINC/COPPER/MANGANESE/SELENIUM 1 ML in AA 5%/CALCIUM/LYTE... IV SCH ×2 (02:56→22:37)
[2023-08-07 03:46] LABS: ABG BASE EXCESS 2.6 mmol/L (-2.0-2.0); ABG HCO3 27.5 mmol/L (22.0-26.0); ABG OXYGEN SATURATION 97.7 % (94-97); ABG PCO2 (T) 45.1 mmHg (32.0-45.0); ABG PH (T) 7.406 (7.350-7.450); ABG PO2 (T) 98.2 mmHg (75.0-100.0); ALLEN'S TEST Modified; FCOHb 0.3 % (0.0-3.9); FHHb 2.3 % (0.0-5.0); FMetHb 0.3 % (0.0-1.5); FO2Hb 97.1 % (94-97); MODE VENT - PRVC; PATIENT TEMPERATURE 37.6; PEEP 5 cm H2O; RESPIRATORY RATE 14 b/min; TIDAL VOLUME 500 mL; TOTAL HEMOGLOBIN 8.9 G/dl (12.0-16.0)
[2023-08-07] MEDS: fentaNYL 50mcg/ml PF inj. 2,500 MCG in normal saline 250ml IV soln 200 ML IV PRN (04:28)
--- NOTE | 2023-08-07 06:31 | NUR ---
Problems reprioritized. Patient report given, questions answered & plan of care reviewed with Gregorio JENSEN.
--- NOTE | 2023-08-07 06:32 | NUR ---
Patient in room CICU 2013. I have received report from Blessing JENSEN and had the opportunity to ask questions and assume patient care.
[2023-08-07] MEDS: lurasidone 20mg tablet PO SCH (07:16)
[2023-08-07] MEDS: busPIRone 5mg tablet PO SCH ×2 (07:17→20:41)
[2023-08-07] MEDS: linezolid 600mg/300ml PREMIX 300 ML IV SCH ×2 (07:17→20:41)
[2023-08-07] MEDS: pantoprazole 40MG/NS 100ML BAG 100 ML IV SCH (07:17)
[2023-08-07] MEDS: K and/or MAG REPLACEMENT MC SCH ×2 (08:00→20:00)
[2023-08-07] MEDS: ascorbic acid 500mg tablet PO SCH (08:00)
[2023-08-07 08:38] LABS: ALANINE AMINOTRANSFERASE 8 U/L (12-78); ALBUMIN 1.2 G/DL (3.4-5.0); ALBUMIN/GLOBULIN RATIO 0.3 (1.1-1.5); ALKALINE PHOSPHATASE 99 IU/L (46-116); ANION GAP 5 (8-16); ASPARTATE AMINO TRANSFERASE 12 U/L (10-37); BILIRUBIN,TOTAL 0.2 MG/DL (0.1-1.0); BLOOD UREA NITROGEN 11 MG/DL (7-18); BUN/CREATININE RATIO 17.2 (10.0-20.0); CALCIUM 7.8 MG/DL (8.5-10.1); CHLORIDE 103 MMOL/L (99-107); CREATININE 0.64 MG/DL (0.40-0.90); GLUCOSE 167 MG/DL (70-104); MAGNESIUM 1.9 MG/DL (1.5-2.4); POTASSIUM 3.7 MMOL/L (3.5-5.1); SODIUM 136 MMOL/L (135-145); TOTAL CARBON DIOXIDE 27.7 MMOL/L (24-32); TOTAL PROTEIN 5.8 G/DL (6.4-8.2); eCRCL 84 ML/MIN; eGFR > 90 ML/MIN
[2023-08-07 08:40] LABS: BASOPHILS % (AUTO) 0.5 % (0-1); EOSINOPHILS # (AUTO) 0.4 X10'3 (0-0.9); HEMATOCRIT 24.5 % (35.0-45.0); HEMOGLOBIN 7.9 g/dl (12.0-16.0); MEAN CORPUSCULAR HEMOGLOBIN 25.6 PG (27.0-31.0); MEAN CORPUSCULAR HGB CONC 32.3 g/dL (33.0-36.5); MEAN CORPUSCULAR VOLUME 79.4 FL (78-98); MEAN PLATELET VOLUME 7.9 FL (7.4-10.4); MONOCYTES % (AUTO) 11.5 % (2-12); NEUTROPHILS # (AUTO) 6.5 X10'3 (1.8-7.7); PLATELET COUNT 399 X10'3 (140-440); RED BLOOD COUNT 3.09 X10'6 (4.20-5.60); RED CELL DISTRIBUTION WIDTH 16.1 % (11.5-14.5); WHITE BLOOD COUNT 8.9 X10'3 (4.5-11.0)
--- NOTE | 2023-08-07 10:58 | NUR ---
Malnutrition consult: Pt unsure of wt loss though with decreased appetite/PO intake per malnutrition risk screen with RN. Unable to obtain information from pt at this time as pt remains intubated. Patient's estimated nutrient needs have been met with nutrition support throughout most of admit. Pt with no visible fat or muscle wasting appreciated and no documented significant decrease in muscle strength. Pt currently lacks a minimum of two criteria for malnutrition though will continue to monitor s/s of malnutrition. Per EMR pt POD #1 s/p repeat laparotomy with wound VAC change. Pt continues receiving TPN at RD recommended goal rate of 100 mL/hr with PRN K replacement d/t frequent hypokalemia. An NGT remains in place for suction with 2391 mL output 08/06 per I&O. LBM 07/31 per EMR though unsure of accuracy as pt was having stool output from abdomen. Will continue to follow closely and make recommendations as appropriate. Recommendations: 1. Given elevated serum TG and NO Propofol, continuous TPN using 2:1 Clinimix-E 04/03 with 100 mL/hr goal rate to provide 2400 mL volume/day, 120 g AA, 480 g dext (3.53 mg/kg/min GIR), and 2112 kcal. No additional 20% ILE given elevated serum TG 2. Monitor serum TG and need to resume 20% ILE 3. Prealbumin and TG q Wednesday/ 4. Daily scaled wts 5. Bowel care per physician 6. Low tyramine nutrition therapy education as appropriate following extubation Addendum: 08/07/23 at [address] Amended: Links added.
[2023-08-07] MEDS: HYDROmorphone 1 mg/ml syringe IV PRN ×6 (11:24→22:38)
[2023-08-07] MEDS: ciprofloxacin lact 400MG/200ML 200 ML IV SCH ×2 (12:17→23:13)
--- NOTE | 2023-08-07 13:09 | NUR ---
Patient is following commands when asked to squeeze RN's hands, able to open and close her eyes and able to move her foot when asked.
--- NOTE | 2023-08-07 13:27 | NUR ---
Patient successfully extubated at this time. Sating 99% on 2L NC.
--- NOTE | 2023-08-07 15:22 | NUR ---
Called Dr. Watson regarding pain management, pt not due for prn yet and asking for additional pain med.No new order at this time.We will continue to monitor.
--- NOTE | 2023-08-07 18:21 | NUR ---
Problems reprioritized. Patient report given, questions answered & plan of care reviewed with Linh JENSEN.
[2023-08-07] MEDS: enoxaparin 40mg/0.4ml syringe SUBCUT SCH (20:41)
[2023-08-07] MEDS: ESCITALOPRAM OXALATE 5 MG TABLET PO SCH (20:41)
[2023-08-07] MEDS: quetiapine 100mg tablet PO SCH (20:41)
[2023-08-08] VITALS (22 sets, daily range): BP systolic 101–151; BP diastolic 45–92; PULSE 85–99; RESP 24–38; O2SAT 94–98
[2023-08-08] MEDS: HYDROmorphone 1 mg/ml syringe IV PRN ×10 (00:42→22:16)
[2023-08-08 06:18] LABS: BASOPHILS # (AUTO) 0.1 X10'3 (0-0.2); BASOPHILS % (AUTO) 0.8 % (0-1); EOSINOPHILS # (AUTO) 0.3 X10'3 (0-0.9); EOSINOPHILS % (AUTO) 4.2 % (0-6); HEMATOCRIT 25.3 % (35.0-45.0); HEMOGLOBIN 8.3 g/dl (12.0-16.0); LYMPHOCYTES # (AUTO) 1.1 X10'3 (1.1-4.8); LYMPHOCYTES % (AUTO) 14.8 % (21-51); MEAN CORPUSCULAR HEMOGLOBIN 25.8 PG (27.0-31.0); MEAN CORPUSCULAR HGB CONC 32.8 g/dL (33.0-36.5); MEAN CORPUSCULAR VOLUME 78.5 FL (78-98); MEAN PLATELET VOLUME 8.3 FL (7.4-10.4); MONOCYTES # (AUTO) 0.9 X10'3 (0-0.9); MONOCYTES % (AUTO) 11.7 % (2-12); NEUTROPHILS % (AUTO) 68.5 % (42-75); PLATELET COUNT 352 X10'3 (140-440); RED BLOOD COUNT 3.22 X10'6 (4.20-5.60); RED CELL DISTRIBUTION WIDTH 16.1 % (11.5-14.5); WHITE BLOOD COUNT 7.2 X10'3 (4.5-11.0)
[2023-08-08] MEDS: pantoprazole 40MG/NS 100ML BAG 100 ML IV SCH (06:39)
[2023-08-08] MEDS: metroNIDAZOLE-Flagyl 500mg/NS 100 ML IV SCH ×3 (07:00→23:19)
[2023-08-08 07:22] LABS: MAGNESIUM 2.3 MG/DL (1.5-2.4); POTASSIUM 3.7 MMOL/L (3.5-5.1)
[2023-08-08] MEDS: K and/or MAG REPLACEMENT MC SCH ×2 (07:27→19:32)
[2023-08-08] MEDS: busPIRone 5mg tablet PO SCH ×2 (07:32→19:30)
[2023-08-08] MEDS: linezolid 600mg/300ml PREMIX 300 ML IV SCH ×2 (07:32→19:29)
[2023-08-08] MEDS: lurasidone 20mg tablet PO SCH (07:33)
[2023-08-08] MEDS: ascorbic acid 500mg tablet PO SCH (07:33)
[2023-08-08] MEDS: NORepinephrine 8mg/ 250ml NS 250 ML IV SCH ×2 (07:40→18:21)
[2023-08-08] MEDS: ciprofloxacin lact 400MG/200ML 200 ML IV SCH ×2 (11:12→23:19)
[2023-08-08] MEDS: ESCITALOPRAM OXALATE 5 MG TABLET PO SCH (19:29)
[2023-08-08] MEDS: quetiapine 100mg tablet PO SCH (19:29)
[2023-08-08] MEDS: enoxaparin 40mg/0.4ml syringe SUBCUT SCH (19:31)
[2023-08-09] VITALS (8 sets, daily range): BP systolic 121–137; BP diastolic 53–94; PULSE 85–97; RESP 14–30; O2SAT 95–98
[2023-08-09] MEDS: HYDROmorphone 1 mg/ml syringe IV PRN ×11 (00:17→23:02)
[2023-08-09] MEDS: chromic chloride inj. 10 MCG, ZINC/COPPER/MANGANESE/SELENIUM 1 ML in AA 5%/CALCIUM/LYTE... IV SCH ×2 (04:52→15:51)
[2023-08-09 06:51] LABS: BASOPHILS % (AUTO) 0.7 % (0-1); EOSINOPHILS # (AUTO) 0.3 X10'3 (0-0.9); EOSINOPHILS % (AUTO) 4.8 % (0-6); HEMATOCRIT 25.4 % (35.0-45.0); HEMOGLOBIN 8.3 g/dl (12.0-16.0); LYMPHOCYTES # (AUTO) 0.9 X10'3 (1.1-4.8); LYMPHOCYTES % (AUTO) 13.9 % (21-51); MEAN CORPUSCULAR HEMOGLOBIN 25.4 PG (27.0-31.0); MEAN CORPUSCULAR HGB CONC 32.5 g/dL (33.0-36.5); MEAN CORPUSCULAR VOLUME 78.1 FL (78-98); MONOCYTES # (AUTO) 0.8 X10'3 (0-0.9); MONOCYTES % (AUTO) 11.9 % (2-12); NEUTROPHILS # (AUTO) 4.4 X10'3 (1.8-7.7); NEUTROPHILS % (AUTO) 68.7 % (42-75); PLATELET COUNT 336 X10'3 (140-440); RED BLOOD COUNT 3.25 X10'6 (4.20-5.60); RED CELL DISTRIBUTION WIDTH 16.2 % (11.5-14.5); WHITE BLOOD COUNT 6.4 X10'3 (4.5-11.0)
[2023-08-09] MEDS: busPIRone 5mg tablet PO SCH ×2 (07:32→20:08)
[2023-08-09] MEDS: ascorbic acid 500mg tablet PO SCH (07:32)
[2023-08-09] MEDS: pantoprazole 40MG/NS 100ML BAG 100 ML IV SCH (07:32)
[2023-08-09 07:37] LABS: ALANINE AMINOTRANSFERASE 9 U/L (12-78); ALBUMIN 1.5 G/DL (3.4-5.0); ALBUMIN/GLOBULIN RATIO 0.3 (1.1-1.5); ALKALINE PHOSPHATASE 121 IU/L (46-116); ANION GAP 5 (8-16); ASPARTATE AMINO TRANSFERASE 13 U/L (10-37); BILIRUBIN,TOTAL 0.1 MG/DL (0.1-1.0); BLOOD UREA NITROGEN 11 MG/DL (7-18); BUN/CREATININE RATIO 17.5 (10.0-20.0); CALCIUM 8.6 MG/DL (8.5-10.1); CHLORIDE 101 MMOL/L (99-107); CREATININE 0.63 MG/DL (0.40-0.90); GLUCOSE 145 MG/DL (70-104); POTASSIUM 3.5 MMOL/L (3.5-5.1); SODIUM 136 MMOL/L (135-145); TOTAL CARBON DIOXIDE 30.5 MMOL/L (24-32); TOTAL PROTEIN 6.6 G/DL (6.4-8.2); TRIGLYCERIDES 211 MG/DL (20-135); eCRCL 85 ML/MIN; eGFR > 90 ML/MIN
[2023-08-09] MEDS: lurasidone 20mg tablet PO SCH (07:38)
[2023-08-09] MEDS: linezolid 600mg/300ml PREMIX 300 ML IV SCH ×2 (07:39→20:08)
[2023-08-09] MEDS: K and/or MAG REPLACEMENT MC SCH ×2 (07:51→20:00)
[2023-08-09] MEDS: normal saline 1000ml 1,000 ML IV SCH (07:52)
[2023-08-09] MEDS: metroNIDAZOLE-Flagyl 500mg/NS 100 ML IV SCH ×2 (07:53→15:51)
--- NOTE | 2023-08-09 10:15 | NUR ---
Patient in room [facility] 2013. I have received report from Linh and had the opportunity to ask questions and assume patient care. Addendum: 08/09/23 at 1016 by Yevgeniy Hoang RN Amended: Links added.
[2023-08-09] MEDS: ciprofloxacin lact 400MG/200ML 200 ML IV SCH ×2 (11:25→23:48)
--- NOTE | 2023-08-09 14:13 | NUR ---
TPN noted to be nearly empty, no TPN on floor. Per Pharmacy a bage was sent up yesterday to be hung today at 5am. Repeated check by senior medical writer and charge found no bag, d10 hung. Per Pharmacy will restart at 5am 08/10 to get back on schedule.
[2023-08-09] MEDS ORDERED: chromic chloride inj. 10 MCG, ZINC/COPPER/MANGANESE/SELENIUM 1 ML in AA 5%/CALCIUM/LYTE... IV SCH (14:15)
--- NOTE | 2023-08-09 15:03 | NUR ---
F/u 08/09: Pt seen at bedside,ERICA visualized TPN running at 100ml/hr goal rate though not documented in EMR at this time. Pt extubated on 08/07 per EMR. Propofol remains off, New TG lab this am of 211 mg/dl down from 341mg/dl on 08/05 noted while pt receiving propofol. Per T/C discussion with DO, DO agreeable to recommendation of adding 20% ILE back; see recs below. Communicated new recs with pharmacist and RN. TPN goal rate of 90ml/hr will meet 100% of estimated kcal needs.Will continue to monitor. Recommendations: 1. Given elevated serum TG down trending and NO Propofol,Continuous TPN using 2:1 Clinimix-E 04/03 with 90 mL/hr goal rate and additional 100 mL 20% ILE to run at 8.33 mL/hr for 12 hrs/day. To provide 2160 mL volume/day, 108g AA, 432g dext ( 3.13mg/kg/min GIR), and 2101 kcal 2. Monitor serum TG and need to adjust 20% ILE 3. Prealbumin and TG q Wednesday/ 4. Daily scaled wts 5. Bowel care per physician 6. Low tyramine nutrition therapy education as appropriate following extubation Addendum: 08/09/23 at [address] Amended: Links added.
[2023-08-09] MEDS: fat emulsion 20% inj. 100 ML IV SCH (17:23)
[2023-08-09] MEDS: ESCITALOPRAM OXALATE 5 MG TABLET PO SCH (20:08)
[2023-08-09] MEDS: quetiapine 100mg tablet PO SCH (20:08)
[2023-08-09] MEDS: enoxaparin 40mg/0.4ml syringe SUBCUT SCH (20:09)
[2023-08-10] VITALS (16 sets, daily range): BP systolic 119–141; BP diastolic 55–75; PULSE 80–94; RESP 15–36; TEMP 99–99.3; O2SAT 85–98
[2023-08-10] MEDS: HYDROmorphone 1 mg/ml syringe IV PRN ×9 (03:42→23:28)
--- NOTE | 2023-08-10 06:40 | NUR ---
Patient in room CICU 2013. I have received report from MIKEY HOOVER, and had the opportunity to ask questions and assume patient care.
[2023-08-10 06:43] LABS: ALANINE AMINOTRANSFERASE 10 U/L (12-78); ALBUMIN 1.5 G/DL (3.4-5.0); ALBUMIN/GLOBULIN RATIO 0.3 (1.1-1.5); ALKALINE PHOSPHATASE 146 IU/L (46-116); ANION GAP 5 (8-16); ASPARTATE AMINO TRANSFERASE 23 U/L (10-37); BILIRUBIN,TOTAL 0.1 MG/DL (0.1-1.0); BLOOD UREA NITROGEN 13 MG/DL (7-18); BUN/CREATININE RATIO 20.6 (10.0-20.0); CALCIUM 8.6 MG/DL (8.5-10.1); CHLORIDE 100 MMOL/L (99-107); CREATININE 0.63 MG/DL (0.40-0.90); GLUCOSE 158 MG/DL (70-104); POTASSIUM 3.7 MMOL/L (3.5-5.1); SODIUM 131 MMOL/L (135-145); TOTAL CARBON DIOXIDE 26.3 MMOL/L (24-32); TOTAL PROTEIN 6.7 G/DL (6.4-8.2); eCRCL 85 ML/MIN; eGFR > 90 ML/MIN
[2023-08-10] MEDS: pantoprazole 40MG/NS 100ML BAG 100 ML IV SCH (07:06)
[2023-08-10] MEDS: linezolid 600mg/300ml PREMIX 300 ML IV SCH ×2 (07:40→21:46)
[2023-08-10] MEDS: metroNIDAZOLE-Flagyl 500mg/NS 100 ML IV SCH ×3 (07:50→16:31)
[2023-08-10] MEDS: busPIRone 5mg tablet PO SCH ×2 (07:52→21:26)
[2023-08-10] MEDS: lurasidone 20mg tablet PO SCH (07:53)
[2023-08-10] MEDS: ascorbic acid 500mg tablet PO SCH (07:53)
[2023-08-10] MEDS: K and/or MAG REPLACEMENT MC SCH ×2 (08:52→20:00)
[2023-08-10] MEDS: MVI, adult No.4 with vit. K 10 ML in dextrose 5% water 500ml 500 ML IV SCH ×2 (09:14)
[2023-08-10] MEDS: chromic chloride inj. 10 MCG, ZINC/COPPER/MANGANESE/SELENIUM 1 ML in AA 5%/CALCIUM/LYTE... IV SCH (10:38)
--- NOTE | 2023-08-10 11:15 | NUR ---
F/u 08/10: Pt seen at bedside, RD visualized TPN running at 100ml/hr even though order is for 90ml/hr-informed RN. RN to change TPN back down to goal rate. RN also states TPN bag is almost out and hasn't received a new TPN bag; RD called pharmacy and requested new TPN bag. Pt has been advanced to clear liquid diet though now NPO pending BSS. LBM 07/31 per EMR though unsure of accuracy as pt had stool output from abdomen; discussed with RN. Recommendations: 1.Monitor for BSS and RESOURCE ENGINEER recs; advanced diet as medically able to low fiber diet 2. Given elevated serum TG down trending and NO Propofol,Continuous TPN using 2:1 Clinimix-E 04/03 with 90 mL/hr goal rate and additional 100 mL 20% ILE to run at 8.33 mL/hr for 12 hrs/day. To provide 2160 mL volume/day, 108g AA, 432g dext ( 3.13mg/kg/min GIR), and 2101 kcal 3. Monitor serum TG and need to adjust 20% ILE 4. Prealbumin and TG q Wednesday/ 5. Daily scaled wts 6. Bowel care per physician 7. Low tyramine nutrition therapy education as appropriate Addendum: 08/10/23 at [address] Amended: Links added.
[2023-08-10] MEDS: ciprofloxacin lact 400MG/200ML 200 ML IV SCH ×2 (11:30→23:49)
[2023-08-10 12:09] LABS: BASOPHILS % (AUTO) 0.4 % (0-1); EOSINOPHILS # (AUTO) 0.4 X10'3 (0-0.9); HEMATOCRIT 28.1 % (35.0-45.0); LYMPHOCYTES # (AUTO) 1.2 X10'3 (1.1-4.8); LYMPHOCYTES % (AUTO) 12.1 % (21-51); MEAN CORPUSCULAR HEMOGLOBIN 25.1 PG (27.0-31.0); MEAN CORPUSCULAR VOLUME 78.4 FL (78-98); MEAN PLATELET VOLUME 7.9 FL (7.4-10.4); MONOCYTES % (AUTO) 10.7 % (2-12); NEUTROPHILS % (AUTO) 72.8 % (42-75); PLATELET COUNT 396 X10'3 (140-440); RED BLOOD COUNT 3.58 X10'6 (4.20-5.60); RED CELL DISTRIBUTION WIDTH 16.1 % (11.5-14.5); WHITE BLOOD COUNT 9.6 X10'3 (4.5-11.0)
--- NOTE | 2023-08-10 14:22 | NUR ---
WOC contacted via T/C for possible leakage wound analytics manager. WOC at the bedside. The appliance was intact but due to body position of the patient in the bed, there was leakage around both sides of the tubing. The patient was repositioned, skin cleansed and the wound analytics manager was hooked to low intermittent wall suction. Primary nurse instructed how to removed the window in the appliance and apply suction if required.
--- NOTE | 2023-08-10 16:38 | NUR ---
Problems reprioritized. Patient report given, questions answered & plan of care reviewed with MIKEY YOUNG.
[2023-08-10] MEDS: fat emulsion 20% inj. 100 ML IV SCH (16:51)
--- NOTE | 2023-08-10 18:30 | NUR ---
Patient in room [facility]TH[facility] 4006. I have received report from MIKEY Parra and had the opportunity to ask questions and assume patient care.
--- NOTE | 2023-08-10 18:30 | NUR ---
Report to Lori JENSEN
[2023-08-10] MEDS: enoxaparin 40mg/0.4ml syringe SUBCUT SCH (21:26)
[2023-08-10] MEDS: quetiapine 100mg tablet PO SCH (21:26)
[2023-08-10] MEDS: ESCITALOPRAM OXALATE 5 MG TABLET PO SCH (21:46)
[2023-08-11] MEDS: metroNIDAZOLE-Flagyl 500mg/NS 100 ML IV SCH ×2 (01:16→08:47)
[2023-08-11] MEDS: HYDROmorphone 1 mg/ml syringe IV PRN ×7 (01:30→15:17)
[2023-08-11 06:00] VITALS: BP_SYST 121; BP_SYST 143; BP_DIAS 60; BP_DIAS 77; PULSE 86; PULSE 92; RESP 15; RESP 16; TEMP 98.8; TEMP 98.9; O2SAT 97
[2023-08-11 06:21] LABS: BASOPHILS # (AUTO) 0.1 X10'3 (0-0.2); BASOPHILS % (AUTO) 0.8 % (0-1); EOSINOPHILS # (AUTO) 0.4 X10'3 (0-0.9); EOSINOPHILS % (AUTO) 5.2 % (0-6); HEMATOCRIT 25.2 % (35.0-45.0); HEMOGLOBIN 8.4 g/dl (12.0-16.0); LYMPHOCYTES % (AUTO) 13.2 % (21-51); MEAN CORPUSCULAR HEMOGLOBIN 25.7 PG (27.0-31.0); MEAN CORPUSCULAR HGB CONC 33.4 g/dL (33.0-36.5); MEAN CORPUSCULAR VOLUME 77.1 FL (78-98); MEAN PLATELET VOLUME 7.9 FL (7.4-10.4); MONOCYTES % (AUTO) 13.9 % (2-12); NEUTROPHILS # (AUTO) 4.9 X10'3 (1.8-7.7); NEUTROPHILS % (AUTO) 66.9 % (42-75); PLATELET COUNT 361 X10'3 (140-440); RED BLOOD COUNT 3.27 X10'6 (4.20-5.60); RED CELL DISTRIBUTION WIDTH 16.4 % (11.5-14.5); WHITE BLOOD COUNT 7.3 X10'3 (4.5-11.0)
--- NOTE | 2023-08-11 06:38 | NUR ---
Problems reprioritized. Patient report given, questions answered & plan of care reviewed with MIKEY Ritchie.
[2023-08-11 06:44] LABS: ALANINE AMINOTRANSFERASE 15 U/L (12-78); ALBUMIN 1.6 G/DL (3.4-5.0); ALBUMIN/GLOBULIN RATIO 0.3 (1.1-1.5); ALKALINE PHOSPHATASE 158 IU/L (46-116); ANION GAP 5 (8-16); ASPARTATE AMINO TRANSFERASE 20 U/L (10-37); BILIRUBIN,TOTAL 0.2 MG/DL (0.1-1.0); BLOOD UREA NITROGEN 12 MG/DL (7-18); BUN/CREATININE RATIO 17.9 (10.0-20.0); CALCIUM 8.8 MG/DL (8.5-10.1); CHLORIDE 100 MMOL/L (99-107); CREATININE 0.67 MG/DL (0.40-0.90); GLUCOSE 149 MG/DL (70-104); POTASSIUM 3.6 MMOL/L (3.5-5.1); SODIUM 135 MMOL/L (135-145); TOTAL CARBON DIOXIDE 30.3 MMOL/L (24-32); TOTAL PROTEIN 7.1 G/DL (6.4-8.2); eCRCL 80 ML/MIN; eGFR 90 ML/MIN
--- NOTE | 2023-08-11 06:45 | NUR ---
Patient in room [facility]TH[facility] 4006. I have received report from Lori and had the opportunity to ask questions and assume patient care.
[2023-08-11 07:45] VITALS: RESP 14
[2023-08-11] MEDS: K and/or MAG REPLACEMENT MC SCH (08:00)
[2023-08-11] MEDS: pantoprazole 40MG/NS 100ML BAG 100 ML IV SCH (08:29)
[2023-08-11] MEDS: busPIRone 5mg tablet PO SCH (08:31)
[2023-08-11] MEDS: ascorbic acid 500mg tablet PO SCH (08:31)
[2023-08-11] MEDS: lurasidone 20mg tablet PO SCH (08:31)
[2023-08-11] MEDS: chromic chloride inj. 10 MCG, ZINC/COPPER/MANGANESE/SELENIUM 1 ML in AA 5%/CALCIUM/LYTE... IV SCH (09:41)
[2023-08-11 10:00] VITALS: BP 143/77; PULSE 92; RESP 16; TEMP 98.8; O2SAT 97
[2023-08-11] MEDS: linezolid 600mg/300ml PREMIX 300 ML IV SCH (10:32)
[2023-08-11] MEDS ORDERED: levoFLOXACIN-Levaquin 750MG/D5 150 ML IV SCH (11:30)
[2023-08-11] MEDS ORDERED: ciprofloxacin 250mg tablet PO SCH (11:30)
--- NOTE | 2023-08-11 13:53 | NUR ---
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 She was BIB by EMS for c/o abdominal pain, redness and swelling. Pt has HTN, bowel obstruction, anxiety and depression and multiple abdominal surgeries. Pt admitted for pneumatosis, abdominal pain and mild anemia. Abdominal US showed Extensive postsurgical changes in the abdomen including colonic and gastric anastomoses. Extensive pneumatosis within the redundant colon in the mid abdomen. Recommend surgical consultation. Small loculated fluid in the left peritoneum measuring 5.6 cm. Pt is s/p POD #5 back to OR for intestinal leak, necrotic intestine/ intestinal leak by Dr. Smith and placement of Ab Thera like device NPWT in OR. On 08/06/23. The patient had a repeat laparotomy with Dr. Mulligan and large wound manager intranet. The patient is resting comfortably at nurse arrival, awake and in agreement with assessment and intent. ID by name and / medical band. WOC at bedside as the primary nurse felt the appliance might be leaking and she is discharging today. The wound manager clinical pharmacy presents with a good seal to bilateral gravity drainage. Surrounding skin appears pink and normal for skin tone. Instructed primary nurse at the bedside on yankauer suction for prevention of overwhelming the appliance due to increased effluent drainage, ok to hook middle port of the appliance to intermittent wall suction, low to moderate suction, depending on drainage amount. The remainder of her skin exam was deferred. Due to limited mobility, nutrition and comorbidities, patient continues to be at high risk for skin breakdown. Pt educated on importance of turning and repositioning every 1-2 hours and to call for assistance if needed. Patient was left in a position of comfort, heels floated, call light in reach, bed locked and in the lowest position. Reported off to primary nurse. Discharging today.
[2023-08-11] MEDS ORDERED: Dextrose 10%-water IV solution 1,000 ML IV SCH (14:30)
[2023-08-12] MEDS ORDERED: chromic chloride inj. 10 MCG, ZINC/COPPER/MANGANESE/SELENIUM 1 ML in AA 5%/CALCIUM/LYTE... IV SCH (07:00)
== END 2023-08-11 15:55 | DRG 329 ==
LOC: ER 17:14 → ED HOLD 07-21 00:09 → ORTHO 4S 07-21 01:50 → CICU 2S 07-22 21:00 → PCU 3S 07-24 21:34 → CICU 2S 08-02 20:19 → ORTHO 4S 08-10 16:10
PROVIDERS: ADMIT Internal Medicine; ATTEND Family Medicine
PROC: BW211ZZ Computerized Tomography (CT Scan) of Abdomen and Pelvis using Low Osmolar Contrast (ICD-10-PCS; 2023-07-20)
PROC: 0DN80ZZ Release Small Intestine, Open Approach (ICD-10-PCS; 2023-07-22)
PROC: 3E0T3BZ Introduction of Anesthetic Agent into Peripheral Nerves and Plexi, Percutaneous Approach (ICD-10-PCS; 2023-07-22)
PROC: 0DBE0ZZ Excision of Large Intestine, Open Approach (ICD-10-PCS; principal; 2023-07-22 13:40)
PROC: 02HV33Z Insertion of Infusion Device into Superior Vena Cava, Percutaneous Approach (ICD-10-PCS; 2023-07-27)
PROC: B548ZZA Ultrasonography of Superior Vena Cava, Guidance (ICD-10-PCS; 2023-07-27)
PROC: 0D1B0ZK Bypass Ileum to Ascending Colon, Open Approach (ICD-10-PCS; 2023-07-29)
PROC: 0DBE0ZZ Excision of Large Intestine, Open Approach (ICD-10-PCS; 2023-07-29)
PROC: 0DB80ZZ Excision of Small Intestine, Open Approach (ICD-10-PCS; 2023-07-29)
PROC: 3E0336Z Introduction of Nutritional Substance into Peripheral Vein, Percutaneous Approach (ICD-10-PCS; 2023-07-30)
PROC: 30233N1 Transfusion of Nonautologous Red Blood Cells into Peripheral Vein, Percutaneous Approach (ICD-10-PCS; 2023-07-31)
PROC: 0DB80ZZ Excision of Small Intestine, Open Approach (ICD-10-PCS; 2023-08-02)
PROC: 5A1955Z Respiratory Ventilation, Greater than 96 Consecutive Hours (ICD-10-PCS; 2023-08-02)
PROC: 0WJG0ZZ Inspection of Peritoneal Cavity, Open Approach (ICD-10-PCS; 2023-08-06)
DX: K63.2 Fistula of intestine (principal); A41.9 Sepsis, unspecified organism; K65.9 Peritonitis, unspecified; N17.0 Acute kidney failure with tubular necrosis; K55.029 Acute infarction of small intestine, extent unspecified; I50.32 Chronic diastolic (congestive) heart failure; L03.311 Cellulitis of abdominal wall; K56.609 Unspecified intestinal obstruction, unspecified as to partial versus complete obstruction; R57.9 Shock, unspecified; K76.6 Portal hypertension; E87.0 Hyperosmolality and hypernatremia; K91.89 Other postprocedural complications and disorders of digestive system; E87.8 Other disorders of electrolyte and fluid balance, not elsewhere classified; E87.6 Hypokalemia; K63.89 Other specified diseases of intestine; B95.7 Other staphylococcus as the cause of diseases classified elsewhere; K76.0 Fatty (change of) liver, not elsewhere classified; B95.2 Enterococcus as the cause of diseases classified elsewhere; I86.8 Varicose veins of other specified sites; I11.0 Hypertensive heart disease with heart failure; K21.9 Gastro-esophageal reflux disease without esophagitis; E78.1 Pure hyperglyceridemia; E78.5 Hyperlipidemia, unspecified; F32.A Depression, unspecified; D64.9 Anemia, unspecified; Y83.8 Other surgical procedures as the cause of abnormal reaction of the patient, or of later complication, without mention of misadventure at the time of the procedure; Y92.238 Other place in hospital as the place of occurrence of the external cause; F41.9 Anxiety disorder, unspecified; Z80.3 Family history of malignant neoplasm of breast; Z90.49 Acquired absence of other specified parts of digestive tract; Z79.899 Other long term (current) drug therapy; Z82.49 Family history of ischemic heart disease and other diseases of the circulatory system
CPT/HCPCS: 36415; 36430; 36600; 71045; 74176; 74177; 80047; 80048; 80053; 81003; 81025; 82803; 82948; 83605; 83615; 83690; 83735; 84100; 84132; 84134; 84145; 84478; 84560; 85007; 85018; 85025; 85027; 85045; 85610; 85730; 86870; 86885; 86900; 86901; 86902; 86905; 86922; 87070; 87075; 87077; 87081; 87186; 88304; 88307; 92508; 92616; 94002; 94003; 94760; 96374; 96376; 97116; 97161; 97164; 97530; 99291; A4314; A4421; A4615; A4618; A4649; A6154; A6196; A6209; A6213; A6223; A6253; A6258; A6407; A6446; A6449; A6550; A7000; A9900; C1729; C1751; C1758; C9113; C9290; G0378; J0131; J0744; J1100; J1170; J1650; J1885; J1956; J2020; J2175; J2250; J2270; J2405; J2543; J2704; J3010; J3475; J3480; J3490; J7030; J7040; J7050; J7060; J7120; P9016; P9045; Q9963; Q9967

== ENCOUNTER 2023-10-06 11:00 | Inpatient (IN) | payer MEDICARE, MEDICAID ==
[~2023-10-06] VITALS: Ht 165.1 cm; Wt 81.8 kg
[~2023-10-06 11:00] MED LIST changes: -ATOR20TA66 PO; -DOCU100C40 PO; +LIDO700A32 TOP; +MSC30T PO; +NYSPWD TP; -OXYC-658 PO; -PANT-47 PO; +PANT40VI2 IV; +SODI473S26 TP; +TRIA15OI2 TOP
[2023-10-06 16:00] VITALS: BP 122/47; PULSE 18; RESP 18; TEMP 98; O2SAT 99
[2023-10-06] MEDS ORDERED: magnesium 4gm in 100ml NS 100 ML IV PRN (16:30)
[2023-10-06] MEDS ORDERED: acetaminophen 325mg tablet PO PRN (16:30)
[2023-10-06] MEDS ORDERED: magnesium hydroxide 30ml (MOM) UD suspension PO PRN (16:30)
[2023-10-06] MEDS ORDERED: magnesium Cl slow-release 64mg tablet PO PRN (16:30)
[2023-10-06] MEDS ORDERED: potassium Cl 20 mEq SR tablet PO PRN ×2 (16:30)
[2023-10-06] MEDS ORDERED: magnesium 2GM in 50ml NS 50 ML IV PRN (16:30)
[2023-10-06] MEDS ORDERED: potassium Cl 40MEQ/1/2NS 520ml 520 ML IV PRN (16:30)
[2023-10-06] MEDS ORDERED: HYDROcodone/acetaminophen 10/325mg tab PO PRN (16:30)
[2023-10-06] MEDS ORDERED: mag hydrox/Alum hydrox/simeth 30ml oral suspension PO PRN (16:30)
[2023-10-06] MEDS ORDERED: ondansetron/PF 4mg/2ml inj IV PRN (16:30)
[2023-10-06] MEDS ORDERED: morphine 2 MG/ML inj. syringe IV PRN (16:30)
[2023-10-06] MEDS ORDERED: HYDROcodone/acetaminophen 5mg/325mg tablet PO PRN (16:30)
[2023-10-06] MEDS ORDERED: Dextrose 10%-water IV solution 1,000 ML IV PRN (16:41)
[2023-10-06] MEDS ORDERED: LIDO700A32 TOP (17:07)
[2023-10-06] MEDS ORDERED: LURA40TA2 PO (17:07)
[2023-10-06] MEDS ORDERED: ESCI20TA39 PO (17:07)
[2023-10-06] MEDS ORDERED: BUSP5TAB3 PO (17:07)
[2023-10-06] MEDS ORDERED: LURA80TA2 PO (17:07)
[2023-10-06] MEDS ORDERED: MULT-1085 PO (17:07)
[2023-10-06] MEDS ORDERED: QUET-1 PO (17:07)
[2023-10-06] MEDS ORDERED: NYSPWD TP (17:09)
[2023-10-06] MEDS ORDERED: IPRA3AMP31 NEB (17:09)
[2023-10-06] MEDS ORDERED: ENOX40SY7 SUBCUT (17:09)
[2023-10-06] MEDS ORDERED: TRIA15OI2 TOP (17:09)
[2023-10-06] MEDS ORDERED: MELA1TAB28 PO (17:09)
[2023-10-06] MEDS ORDERED: HYDROmorphone 1 mg/ml syringe IV PRN (17:10)
[2023-10-06] MEDS ORDERED: MINE50OI TOP (17:15)
[2023-10-06] MEDS ORDERED: VITC500T PO (17:15)
[2023-10-06] MEDS ORDERED: POTA10CA85 PO (17:15)
[2023-10-06] MEDS ORDERED: MAGN100T PO (17:15)
[2023-10-06] MEDS ORDERED: MORP15TA PO (17:15)
[2023-10-06] MEDS ORDERED: [UNRECOGNIZED DRUG - OTHER] IV BOLUS (17:15)
[2023-10-06] MEDS ORDERED: SODI100035 PO (17:15)
[2023-10-06] MEDS ORDERED: ZINC220C12 PO (17:15)
[2023-10-06 17:42] VITALS: RESP 18
[2023-10-06] MEDS: LORazepam 2 mg/ml vial IV PRN (17:55)
[2023-10-06 18:00] VITALS: BP 137/62; PULSE 95; RESP 22; TEMP 99; O2SAT 94
[2023-10-06] MEDS: HYDROmorphone 1 mg/ml syringe IV PRN ×2 (19:33→23:36)
[2023-10-06 20:00] VITALS: RESP 22; O2SAT 94
[2023-10-06] MEDS: K and/or MAG REPLACEMENT MC SCH (20:00)
[2023-10-06] MEDS: docusate sod 100mg capsule PO SCH (20:00)
[2023-10-06] MEDS: ZINC/COPPER/MANGANESE/SELENIUM 1 ML, chromic chloride inj. 10 MCG in AA 5 %/CALCIUM/LYT... IV SCH (20:04)
[2023-10-06] MEDS: fat emulsion 20% inj. 100 ML IV SCH (20:05)
[2023-10-06 22:32] VITALS: BP 127/70; PULSE 95; RESP 16; TEMP 99.9; O2SAT 97
[2023-10-07] MEDS: HYDROmorphone 1 mg/ml syringe IV PRN ×6 (03:38→23:56)
[2023-10-07 06:00] VITALS: BP 115/67; PULSE 97; RESP 18; TEMP 101.5; O2SAT 99
[2023-10-07 06:19] LABS: BASOPHILS # (AUTO) 0.1 X10'3 (0-0.2); HEMOGLOBIN 8.3 g/dl (12.0-16.0); MEAN PLATELET VOLUME 8.6 FL (7.4-10.4)
[2023-10-07 06:21] LABS: BASOPHILS % (AUTO) 1.2 % (0-1); EOSINOPHILS # (AUTO) 0.5 X10'3 (0-0.9); EOSINOPHILS % (AUTO) 5.1 % (0-6); HEMATOCRIT 25.1 % (35.0-45.0); LYMPHOCYTES # (AUTO) 0.7 X10'3 (1.1-4.8); MEAN CORPUSCULAR HEMOGLOBIN 24.7 PG (27.0-31.0); MEAN CORPUSCULAR HGB CONC 33.1 g/dL (33.0-36.5); MEAN CORPUSCULAR VOLUME 74.6 FL (78-98); MONOCYTES # (AUTO) 0.7 X10'3 (0-0.9); MONOCYTES % (AUTO) 7.9 % (2-12); NEUTROPHILS % (AUTO) 77.8 % (42-75); PLATELET COUNT 232 X10'3 (140-440); RED BLOOD COUNT 3.36 X10'6 (4.20-5.60); RED CELL DISTRIBUTION WIDTH 19.6 % (11.5-14.5)
[2023-10-07 06:38] LABS: ALANINE AMINOTRANSFERASE 115 U/L (12-78); ALBUMIN 2.6 G/DL (3.4-5.0); ALBUMIN/GLOBULIN RATIO 0.5 (1.1-1.5); ALKALINE PHOSPHATASE 315 IU/L (46-116); ANION GAP 5 (8-16); ASPARTATE AMINO TRANSFERASE 70 U/L (10-37); BILIRUBIN,TOTAL 0.8 MG/DL (0.1-1.0); BLOOD UREA NITROGEN 13 MG/DL (7-18); BUN/CREATININE RATIO 17.3 (10.0-20.0); CHLORIDE 96 MMOL/L (99-107); CHOL/HDL RATIO 6.1 (0.00-4.99); CHOLESTEROL 153 MG/DL (0-200); CREATININE 0.75 MG/DL (0.40-0.90); GLUCOSE 125 MG/DL (70-104); HDL CHOLESTEROL 25 MG/DL (35-60); LDL CHOLESTEROL 74 MG/DL (50-100); MAGNESIUM 1.7 MG/DL (1.5-2.4); POTASSIUM 3.9 MMOL/L (3.5-5.1); PREALBUMIN 34.6 MG/DL (19-36); SODIUM 128 MMOL/L (135-145); TOTAL CARBON DIOXIDE 26.7 MMOL/L (24-32); TRIGLYCERIDES 342 MG/DL (20-135); eCRCL 72 ML/MIN; eGFR 79 ML/MIN
[2023-10-07 06:56] LABS: LARGE PLATELETS FEW; PLATELET ESTIMATE NORMAL
[2023-10-07 06:57] LABS: ANISOCYTOSIS 2+; HYPOCHROMASIA 1+; MICROCYTOSIS 1+; POLYCHROMASIA 2+
[2023-10-07 07:07] LABS: HEMOGLOBIN A1C 5.1 % (4.5-6.2)
[2023-10-07] MEDS: K and/or MAG REPLACEMENT MC SCH ×2 (07:33→20:00)
[2023-10-07] MEDS: docusate sod 100mg capsule PO SCH ×2 (07:33→20:00)
[2023-10-07] MEDS: enoxaparin 40mg/0.4ml syringe SUBCUT SCH (07:42)
[2023-10-07 07:47] VITALS: RESP 18; O2SAT 99
[2023-10-07 10:00] VITALS: BP 142/73; PULSE 97; RESP 18; TEMP 99.5; O2SAT 99
[2023-10-07] MEDS: fluoxetine 20mg/5ml UD cup PO SCH (13:05)
[2023-10-07 18:00] VITALS: BP 128/71; PULSE 90; RESP 18; TEMP 99.3; O2SAT 96
[2023-10-07] MEDS: ZINC/COPPER/MANGANESE/SELENIUM 1 ML, chromic chloride inj. 10 MCG in AA 5 %/CALCIUM/LYT... IV SCH (19:52)
[2023-10-07] MEDS: fat emulsion 20% inj. 100 ML IV SCH (19:53)
[2023-10-07 20:00] VITALS: RESP 18; O2SAT 96
[2023-10-07 22:00] VITALS: BP 135/68; PULSE 93; RESP 16; TEMP 100; O2SAT 97
[2023-10-07] MEDS ORDERED: acetaminophen 650mg rectal suppository RC PRN (22:45)
[2023-10-08] MEDS: HYDROmorphone 1 mg/ml syringe IV PRN ×5 (04:00→20:01)
[2023-10-08 06:37] VITALS: BP 110/70; PULSE 92; RESP 18; TEMP 99; O2SAT 97
[2023-10-08] MEDS: fluoxetine 20mg/5ml UD cup PO SCH (07:59)
[2023-10-08 08:00] VITALS: RESP 18; O2SAT 97
[2023-10-08] MEDS: K and/or MAG REPLACEMENT MC SCH ×2 (08:00→20:16)
[2023-10-08] MEDS: docusate sod 100mg capsule PO SCH (08:00)
[2023-10-08] MEDS: enoxaparin 40mg/0.4ml syringe SUBCUT SCH (08:00)
[2023-10-08] MEDS: MVI, adult No.4 with vit. K 10 ML in dextrose 5% water 500ml 500 ML IV SCH ×2 (08:44)
[2023-10-08 09:23] LABS: BASOPHILS # (AUTO) 0.1 X10'3 (0-0.2); BASOPHILS % (AUTO) 0.8 % (0-1); EOSINOPHILS # (AUTO) 0.3 X10'3 (0-0.9); HEMATOCRIT 25.6 % (35.0-45.0); HEMOGLOBIN 8.6 g/dl (12.0-16.0); LYMPHOCYTES # (AUTO) 0.9 X10'3 (1.1-4.8); LYMPHOCYTES % (AUTO) 10.2 % (21-51); MEAN CORPUSCULAR HGB CONC 33.7 g/dL (33.0-36.5); MEAN CORPUSCULAR VOLUME 74.1 FL (78-98); MEAN PLATELET VOLUME 8.8 FL (7.4-10.4); MONOCYTES % (AUTO) 12.3 % (2-12); NEUTROPHILS # (AUTO) 6.1 X10'3 (1.8-7.7); NEUTROPHILS % (AUTO) 72.7 % (42-75); PLATELET COUNT 236 X10'3 (140-440); RED BLOOD COUNT 3.45 X10'6 (4.20-5.60); RED CELL DISTRIBUTION WIDTH 19.4 % (11.5-14.5); WHITE BLOOD COUNT 8.4 X10'3 (4.5-11.0)
[2023-10-08 09:34] LABS: ALANINE AMINOTRANSFERASE 120 U/L (12-78); ALBUMIN 2.8 G/DL (3.4-5.0); ALBUMIN/GLOBULIN RATIO 0.5 (1.1-1.5); ALKALINE PHOSPHATASE 322 IU/L (46-116); ANION GAP 6 (8-16); ASPARTATE AMINO TRANSFERASE 70 U/L (10-37); BLOOD UREA NITROGEN 16 MG/DL (7-18); BUN/CREATININE RATIO 22.9 (10.0-20.0); CALCIUM 9.2 MG/DL (8.5-10.1); CHLORIDE 94 MMOL/L (99-107); GLUCOSE 112 MG/DL (70-104); MAGNESIUM 1.9 MG/DL (1.5-2.4); SODIUM 128 MMOL/L (135-145); TOTAL PROTEIN 8.4 G/DL (6.4-8.2); eCRCL 77 ML/MIN; eGFR 85 ML/MIN
[2023-10-08 09:47] LABS: ANISOCYTOSIS 2+; MICROCYTOSIS 1+; PLATELET ESTIMATE NORMAL; POIKILOCYTOSIS FEW
[2023-10-08 10:39] VITALS: BP 105/56; PULSE 66; RESP 14; TEMP 97.6; O2SAT 95
[2023-10-08 18:00] VITALS: BP 118/73; PULSE 99; RESP 18; TEMP 100; O2SAT 97
[2023-10-08] MEDS: ZINC/COPPER/MANGANESE/SELENIUM 1 ML, chromic chloride inj. 10 MCG in AA 5 %/CALCIUM/LYT... IV SCH (19:31)
[2023-10-08] MEDS: fat emulsion 20% inj. 100 ML IV SCH (19:31)
[2023-10-08 20:00] VITALS: RESP 18; O2SAT 99
[2023-10-08] MEDS: LORazepam 2 mg/ml vial IV PRN (21:55)
[2023-10-08 22:00] VITALS: BP 148/78; PULSE 97; RESP 18; TEMP 100.9; O2SAT 97
[2023-10-09] MEDS: HYDROmorphone 1 mg/ml syringe IV PRN ×6 (00:02→20:08)
[2023-10-09 05:58] LABS: BASOPHILS % (AUTO) 0.5 % (0-1); EOSINOPHILS % (AUTO) 0.4 % (0-6); HEMATOCRIT 26.5 % (35.0-45.0); HEMOGLOBIN 8.8 g/dl (12.0-16.0); LYMPHOCYTES # (AUTO) 0.6 X10'3 (1.1-4.8); LYMPHOCYTES % (AUTO) 6.4 % (21-51); MEAN CORPUSCULAR HEMOGLOBIN 24.5 PG (27.0-31.0); MEAN CORPUSCULAR HGB CONC 33.2 g/dL (33.0-36.5); MEAN CORPUSCULAR VOLUME 73.6 FL (78-98); MEAN PLATELET VOLUME 9.4 FL (7.4-10.4); MONOCYTES % (AUTO) 10.7 % (2-12); NEUTROPHILS # (AUTO) 7.8 X10'3 (1.8-7.7); PLATELET COUNT 221 X10'3 (140-440); WHITE BLOOD COUNT 9.5 X10'3 (4.5-11.0)
[2023-10-09 06:14] LABS: ALANINE AMINOTRANSFERASE 125 U/L (12-78); ALBUMIN 2.6 G/DL (3.4-5.0); ALBUMIN/GLOBULIN RATIO 0.5 (1.1-1.5); ALKALINE PHOSPHATASE 334 IU/L (46-116); ANION GAP 10 (8-16); ASPARTATE AMINO TRANSFERASE 66 U/L (10-37); BLOOD UREA NITROGEN 16 MG/DL (7-18); BUN/CREATININE RATIO 21.9 (10.0-20.0); CALCIUM 9.1 MG/DL (8.5-10.1); CHLORIDE 92 MMOL/L (99-107); CREATININE 0.73 MG/DL (0.40-0.90); GLUCOSE 142 MG/DL (70-104); MAGNESIUM 1.7 MG/DL (1.5-2.4); SODIUM 126 MMOL/L (135-145); TOTAL CARBON DIOXIDE 24.3 MMOL/L (24-32); TOTAL PROTEIN 8.3 G/DL (6.4-8.2); eCRCL 74 ML/MIN; eGFR 81 ML/MIN
[2023-10-09 06:30] VITALS: BP 149/84; PULSE 102; RESP 18; TEMP 99.8
[2023-10-09] MEDS ORDERED: [UNRECOGNIZED DRUG - OTHER] IV SCH ×4 (07:35)
[2023-10-09] MEDS ORDERED: SELENIUM IV SCH ×4 (07:35)
[2023-10-09] MEDS ORDERED: ZINC IV SCH ×4 (07:35)
[2023-10-09] MEDS ORDERED: CHROMIC CHLORIDE IV SCH ×4 (07:35)
[2023-10-09] MEDS ORDERED: MANGANESE IV SCH ×4 (07:35)
[2023-10-09] MEDS ORDERED: COPPER IV SCH ×4 (07:35)
[2023-10-09] MEDS: K and/or MAG REPLACEMENT MC SCH ×2 (07:52→20:00)
[2023-10-09] MEDS: fluoxetine 20mg/5ml UD cup PO SCH ×2 (07:53→07:59)
[2023-10-09] MEDS: enoxaparin 40mg/0.4ml syringe SUBCUT SCH (07:59)
[2023-10-09 08:55] VITALS: RESP 16
[2023-10-09 09:57] VITALS: BP 138/79; PULSE 60; RESP 14; TEMP 97.1; O2SAT 95
[2023-10-09] MEDS: ZINC IV SCH ×4 (11:31)
[2023-10-09] MEDS: COPPER IV SCH ×4 (11:31)
[2023-10-09] MEDS: SELENIUM IV SCH ×4 (11:31)
[2023-10-09] MEDS: [UNRECOGNIZED DRUG - OTHER] IV SCH ×4 (11:31)
[2023-10-09] MEDS: CHROMIC CHLORIDE IV SCH ×4 (11:31)
[2023-10-09] MEDS: MANGANESE IV SCH ×4 (11:31)
[2023-10-09 18:00] VITALS: BP 116/74; PULSE 96; RESP 18; TEMP 97.8; O2SAT 100
[2023-10-09] MEDS: fat emulsion 20% inj. 100 ML IV SCH (20:38)
[2023-10-09] MEDS: nystatin 15 GM powder TP SCH (21:00)
[2023-10-09 22:00] VITALS: BP 131/79; PULSE 86; RESP 18; TEMP 99; O2SAT 96
[2023-10-10] MEDS: HYDROmorphone 1 mg/ml syringe IV PRN ×6 (00:47→20:19)
[2023-10-10 06:28] VITALS: BP 150/89; PULSE 87; RESP 20; TEMP 98.9; O2SAT 99
[2023-10-10] MEDS: K and/or MAG REPLACEMENT MC SCH ×2 (07:26→19:55)
[2023-10-10] MEDS: fluoxetine 20mg/5ml UD cup PO SCH (07:29)
[2023-10-10] MEDS: nystatin 15 GM powder TP SCH ×3 (07:29→19:56)
[2023-10-10] MEDS: enoxaparin 40mg/0.4ml syringe SUBCUT SCH (07:31)
[2023-10-10 08:55] VITALS: RESP 20
[2023-10-10 08:56] LABS: ALANINE AMINOTRANSFERASE 125 U/L (12-78); ALBUMIN 2.6 G/DL (3.4-5.0); ALBUMIN/GLOBULIN RATIO 0.4 (1.1-1.5); ALKALINE PHOSPHATASE 331 IU/L (46-116); ANION GAP 6 (8-16); ASPARTATE AMINO TRANSFERASE 70 U/L (10-37); BILIRUBIN,TOTAL 0.9 MG/DL (0.1-1.0); BLOOD UREA NITROGEN 22 MG/DL (7-18); BUN/CREATININE RATIO 30.6 (10.0-20.0); CALCIUM 9.2 MG/DL (8.5-10.1); CHLORIDE 92 MMOL/L (99-107); CREATININE 0.72 MG/DL (0.40-0.90); GLUCOSE 163 MG/DL (70-104); MAGNESIUM 1.9 MG/DL (1.5-2.4); POTASSIUM 4.1 MMOL/L (3.5-5.1); SODIUM 125 MMOL/L (135-145); TOTAL CARBON DIOXIDE 26.9 MMOL/L (24-32); TOTAL PROTEIN 8.4 G/DL (6.4-8.2); eCRCL 75 ML/MIN; eGFR 83 ML/MIN
[2023-10-10 10:30] VITALS: BP 120/72; PULSE 91; RESP 16; TEMP 98.5; O2SAT 99
[2023-10-10] MEDS: ZINC IV SCH ×4 (11:31)
[2023-10-10] MEDS: [UNRECOGNIZED DRUG - OTHER] IV SCH ×4 (11:31)
[2023-10-10] MEDS: SELENIUM IV SCH ×4 (11:31)
[2023-10-10] MEDS: MANGANESE IV SCH ×4 (11:31)
[2023-10-10] MEDS: COPPER IV SCH ×4 (11:31)
[2023-10-10] MEDS: CHROMIC CHLORIDE IV SCH ×4 (11:31)
[2023-10-10 18:00] VITALS: BP 132/76; PULSE 92; RESP 16; TEMP 99.2; O2SAT 97
[2023-10-10 20:00] VITALS: O2SAT 98
[2023-10-10] MEDS: fat emulsion 20% inj. 100 ML IV SCH (20:20)
[2023-10-10 22:00] VITALS: BP 127/77; PULSE 91; RESP 16; TEMP 99.3; O2SAT 97
[2023-10-11] VITALS (8 sets, daily range): BP systolic 117–147; BP diastolic 78–79; PULSE 92–109; RESP 14–20; TEMP 97.2–98.9; O2SAT 96–99
[2023-10-11] MEDS: HYDROmorphone 1 mg/ml syringe IV PRN ×6 (00:14→20:26)
[2023-10-11 06:51] LABS: BASOPHILS # (AUTO) 0.1 X10'3 (0-0.2); BASOPHILS % (AUTO) 0.6 % (0-1); EOSINOPHILS # (AUTO) 0.6 X10'3 (0-0.9); EOSINOPHILS % (AUTO) 4.7 % (0-6); HEMATOCRIT 27.8 % (35.0-45.0); HEMOGLOBIN 9.1 g/dl (12.0-16.0); MEAN CORPUSCULAR HEMOGLOBIN 24.1 PG (27.0-31.0); MEAN CORPUSCULAR HGB CONC 32.8 g/dL (33.0-36.5); MEAN CORPUSCULAR VOLUME 73.5 FL (78-98); MEAN PLATELET VOLUME 9.6 FL (7.4-10.4); MONOCYTES # (AUTO) 1.1 X10'3 (0-0.9); MONOCYTES % (AUTO) 8.9 % (2-12); NEUTROPHILS # (AUTO) 9.8 X10'3 (1.8-7.7); NEUTROPHILS % (AUTO) 77.8 % (42-75); PLATELET COUNT 237 X10'3 (140-440); RED BLOOD COUNT 3.78 X10'6 (4.20-5.60); RED CELL DISTRIBUTION WIDTH 20.2 % (11.5-14.5); WHITE BLOOD COUNT 12.6 X10'3 (4.5-11.0)
[2023-10-11] MEDS: enoxaparin 40mg/0.4ml syringe SUBCUT SCH ×2 (06:51→07:11)
[2023-10-11 07:02] LABS: ALANINE AMINOTRANSFERASE 146 U/L (12-78); ALBUMIN 2.6 G/DL (3.4-5.0); ALBUMIN/GLOBULIN RATIO 0.4 (1.1-1.5); ALKALINE PHOSPHATASE 377 IU/L (46-116); ANION GAP 8 (8-16); ASPARTATE AMINO TRANSFERASE 86 U/L (10-37); BLOOD UREA NITROGEN 23 MG/DL (7-18); BUN/CREATININE RATIO 29.5 (10.0-20.0); CALCIUM 9.2 MG/DL (8.5-10.1); CHLORIDE 91 MMOL/L (99-107); CREATININE 0.78 MG/DL (0.40-0.90); GLUCOSE 161 MG/DL (70-104); SODIUM 125 MMOL/L (135-145); TOTAL CARBON DIOXIDE 25.6 MMOL/L (24-32); TOTAL PROTEIN 8.7 G/DL (6.4-8.2); eCRCL 69 ML/MIN; eGFR 75 ML/MIN
[2023-10-11] MEDS: fluoxetine 20mg/5ml UD cup PO SCH (07:11)
[2023-10-11] MEDS: K and/or MAG REPLACEMENT MC SCH ×2 (08:00→20:00)
[2023-10-11] MEDS: nystatin 15 GM powder TP SCH ×3 (09:00→21:00)
[2023-10-11] MEDS: LORazepam 2 mg/ml vial IV PRN (10:40)
[2023-10-11] MEDS: MANGANESE IV SCH ×4 (11:28)
[2023-10-11] MEDS: SELENIUM IV SCH ×4 (11:28)
[2023-10-11] MEDS: COPPER IV SCH ×4 (11:28)
[2023-10-11] MEDS: [UNRECOGNIZED DRUG - OTHER] IV SCH ×4 (11:28)
[2023-10-11] MEDS: CHROMIC CHLORIDE IV SCH ×4 (11:28)
[2023-10-11] MEDS: ZINC IV SCH ×4 (11:28)
[2023-10-11] MEDS: fat emulsion 20% inj. 100 ML IV SCH (20:15)
[2023-10-12] MEDS: HYDROmorphone 1 mg/ml syringe IV PRN ×6 (00:26→21:53)
[2023-10-12 06:00] VITALS: BP 115/72; PULSE 93; RESP 20; TEMP 96.8; O2SAT 90
[2023-10-12 08:00] VITALS: RESP 16; O2SAT 99
[2023-10-12] MEDS: enoxaparin 40mg/0.4ml syringe SUBCUT SCH (08:00)
[2023-10-12] MEDS: K and/or MAG REPLACEMENT MC SCH ×2 (08:00→20:00)
[2023-10-12] MEDS: LORazepam 2 mg/ml vial IV PRN (09:03)
[2023-10-12] MEDS: MVI, adult No.4 with vit. K 10 ML in dextrose 5% water 500ml 500 ML IV SCH ×2 (09:04)
[2023-10-12] MEDS: fluoxetine 20mg/5ml UD cup PO SCH (09:04)
[2023-10-12] MEDS: ZINC IV SCH ×4 (09:09)
[2023-10-12] MEDS: SELENIUM IV SCH ×4 (09:09)
[2023-10-12] MEDS: COPPER IV SCH ×4 (09:09)
[2023-10-12] MEDS: nystatin 15 GM powder TP SCH ×3 (09:09→21:57)
[2023-10-12] MEDS: CHROMIC CHLORIDE IV SCH ×4 (09:09)
[2023-10-12] MEDS: MANGANESE IV SCH ×4 (09:09)
[2023-10-12] MEDS: [UNRECOGNIZED DRUG - OTHER] IV SCH ×4 (09:09)
[2023-10-12 10:00] VITALS: BP 116/61; PULSE 88; RESP 17; TEMP 98.7; O2SAT 98
[2023-10-12 18:00] VITALS: BP_SYST 129; BP_SYST 149; BP_DIAS 53; BP_DIAS 79; PULSE 125; PULSE 95; RESP 17; RESP 20; TEMP 101.3; TEMP 97.9; O2SAT 97; O2SAT 99
[2023-10-12 20:00] VITALS: RESP 18; O2SAT 99
[2023-10-12] MEDS: fat emulsion 20% inj. 100 ML IV SCH (20:01)
[2023-10-12 22:00] VITALS: BP 128/74; PULSE 110; RESP 18; TEMP 100.9; O2SAT 98
[2023-10-13] MEDS: HYDROmorphone 1 mg/ml syringe IV PRN ×6 (02:13→21:56)
[2023-10-13 06:00] VITALS: BP 116/62; PULSE 80; RESP 16; TEMP 98.2; O2SAT 96
[2023-10-13 07:04] LABS: BASOPHILS # (AUTO) 0.1 X10'3 (0-0.2); BASOPHILS % (AUTO) 0.8 % (0-1); EOSINOPHILS # (AUTO) 0.5 X10'3 (0-0.9); EOSINOPHILS % (AUTO) 3.5 % (0-6); HEMATOCRIT 28.3 % (35.0-45.0); HEMOGLOBIN 9.2 g/dl (12.0-16.0); LYMPHOCYTES # (AUTO) 1.1 X10'3 (1.1-4.8); LYMPHOCYTES % (AUTO) 8.5 % (21-51); MEAN CORPUSCULAR HEMOGLOBIN 23.5 PG (27.0-31.0); MEAN CORPUSCULAR HGB CONC 32.5 g/dL (33.0-36.5); MEAN CORPUSCULAR VOLUME 72.5 FL (78-98); MEAN PLATELET VOLUME 10.2 FL (7.4-10.4); MONOCYTES # (AUTO) 1.8 X10'3 (0-0.9); MONOCYTES % (AUTO) 13.9 % (2-12); NEUTROPHILS # (AUTO) 9.7 X10'3 (1.8-7.7); NEUTROPHILS % (AUTO) 73.3 % (42-75); PLATELET COUNT 252 X10'3 (140-440); RED CELL DISTRIBUTION WIDTH 20.3 % (11.5-14.5); WHITE BLOOD COUNT 13.2 X10'3 (4.5-11.0)
[2023-10-13 07:28] LABS: ALANINE AMINOTRANSFERASE 98 U/L (12-78); ALBUMIN 2.4 G/DL (3.4-5.0); ALBUMIN/GLOBULIN RATIO 0.4 (1.1-1.5); ALKALINE PHOSPHATASE 361 IU/L (46-116); ANION GAP 8 (8-16); ASPARTATE AMINO TRANSFERASE 40 U/L (10-37); BILIRUBIN,TOTAL 0.9 MG/DL (0.1-1.0); BLOOD UREA NITROGEN 26 MG/DL (7-18); BUN/CREATININE RATIO 33.3 (10.0-20.0); CALCIUM 9.2 MG/DL (8.5-10.1); CHLORIDE 90 MMOL/L (99-107); CREATININE 0.78 MG/DL (0.40-0.90); GLUCOSE 195 MG/DL (70-104); SODIUM 124 MMOL/L (135-145); TOTAL CARBON DIOXIDE 26.1 MMOL/L (24-32); eCRCL 69 ML/MIN; eGFR 75 ML/MIN
[2023-10-13] MEDS: enoxaparin 40mg/0.4ml syringe SUBCUT SCH (08:00)
[2023-10-13] MEDS: K and/or MAG REPLACEMENT MC SCH ×2 (08:00→19:37)
[2023-10-13] MEDS: fluoxetine 20mg/5ml UD cup PO SCH (09:04)
[2023-10-13] MEDS: nystatin 15 GM powder TP SCH ×3 (09:04→20:30)
[2023-10-13 10:00] VITALS: BP 115/70; PULSE 81; RESP 17; TEMP 98.2; O2SAT 98
[2023-10-13] MEDS: CHROMIC CHLORIDE IV SCH ×8 (10:05→10:07)
[2023-10-13] MEDS: ZINC IV SCH ×8 (10:05→10:07)
[2023-10-13] MEDS: [UNRECOGNIZED DRUG - OTHER] IV SCH ×8 (10:05→10:07)
[2023-10-13] MEDS: MANGANESE IV SCH ×8 (10:05→10:07)
[2023-10-13] MEDS: COPPER IV SCH ×8 (10:05→10:07)
[2023-10-13] MEDS: SELENIUM IV SCH ×8 (10:05→10:07)
[2023-10-13] MEDS: LORazepam 2 mg/ml vial IV PRN ×2 (11:17→19:36)
[2023-10-13] MEDS ORDERED: tPA-cathflo 2 MG/2 ml IV flush IVF ONE (16:35)
[2023-10-13 18:00] VITALS: BP 131/82; PULSE 96; RESP 18; TEMP 99.6; O2SAT 98
[2023-10-13] MEDS: fat emulsion 20% inj. 100 ML IV SCH (19:00)
[2023-10-13 20:00] VITALS: RESP 18; O2SAT 97
[2023-10-13 22:00] VITALS: BP 126/53; PULSE 102; RESP 18; TEMP 100.4; O2SAT 93
[2023-10-14] MEDS: HYDROmorphone 1 mg/ml syringe IV PRN ×6 (01:32→21:34)
[2023-10-14 06:00] VITALS: BP 118/58; PULSE 83; RESP 14; TEMP 96.9; O2SAT 97
[2023-10-14 06:50] LABS: ALANINE AMINOTRANSFERASE 82 U/L (12-78); ALBUMIN 2.4 G/DL (3.4-5.0); ALBUMIN/GLOBULIN RATIO 0.4 (1.1-1.5); ALKALINE PHOSPHATASE 374 IU/L (46-116); ANION GAP 9 (8-16); ASPARTATE AMINO TRANSFERASE 41 U/L (10-37); BLOOD UREA NITROGEN 47 MG/DL (7-18); BUN/CREATININE RATIO 29.7 (10.0-20.0); CALCIUM 8.9 MG/DL (8.5-10.1); CHLORIDE 88 MMOL/L (99-107); CREATININE 1.58 MG/DL (0.40-0.90); GLUCOSE 106 MG/DL (70-104); POTASSIUM 5.2 MMOL/L (3.5-5.1); SODIUM 123 MMOL/L (135-145); TOTAL CARBON DIOXIDE 26.1 MMOL/L (24-32); eCRCL 34 ML/MIN; eGFR 33 ML/MIN
[2023-10-14] MEDS: enoxaparin 40mg/0.4ml syringe SUBCUT SCH (08:00)
[2023-10-14] MEDS: K and/or MAG REPLACEMENT MC SCH ×2 (08:00→20:00)
[2023-10-14] MEDS: nystatin 15 GM powder TP SCH ×3 (08:00→21:00)
[2023-10-14] MEDS: fluoxetine 20mg/5ml UD cup PO SCH (09:40)
[2023-10-14 10:00] VITALS: BP 125/76; PULSE 85; RESP 15; TEMP 97.4; O2SAT 95
[2023-10-14 13:57] LABS: BASOPHILS # (AUTO) 0.1 X10'3 (0-0.2); LYMPHOCYTES # (AUTO) 1.5 X10'3 (1.1-4.8); NEUTROPHILS # (AUTO) 12.9 X10'3 (1.8-7.7)
[2023-10-14 13:59] LABS: BASOPHILS % (AUTO) 0.7 % (0-1); EOSINOPHILS # (AUTO) 0.4 X10'3 (0-0.9); EOSINOPHILS % (AUTO) 2.3 % (0-6); HEMATOCRIT 30.9 % (35.0-45.0); LYMPHOCYTES % (AUTO) 8.7 % (21-51); MEAN CORPUSCULAR HEMOGLOBIN 23.2 PG (27.0-31.0); MEAN CORPUSCULAR HGB CONC 32.3 g/dL (33.0-36.5); MEAN CORPUSCULAR VOLUME 71.9 FL (78-98); MEAN PLATELET VOLUME 9.8 FL (7.4-10.4); MONOCYTES # (AUTO) 2.5 X10'3 (0-0.9); MONOCYTES % (AUTO) 14.1 % (2-12); NEUTROPHILS % (AUTO) 74.2 % (42-75); RED BLOOD COUNT 4.29 X10'6 (4.20-5.60); RED CELL DISTRIBUTION WIDTH 20.1 % (11.5-14.5); WHITE BLOOD COUNT 17.4 X10'3 (4.5-11.0)
[2023-10-14 14:05] LABS: PLATELET COUNT 341 X10'3 (140-440)
[2023-10-14 14:30] LABS: PLATELET ESTIMATE NORMAL
[2023-10-14 14:31] LABS: ANISOCYTOSIS 3+; ELLIPTOCYTES FEW; MICROCYTOSIS 1+; POLYCHROMASIA FEW; TARGET CELLS FEW
[2023-10-14 18:00] VITALS: BP 115/75; PULSE 83; RESP 16; TEMP 97.3; O2SAT 97
[2023-10-14 22:00] VITALS: BP 155/81; PULSE 85; RESP 20; TEMP 97.7; O2SAT 99
[2023-10-15] MEDS: HYDROmorphone 1 mg/ml syringe IV PRN ×6 (01:46→21:56)
[2023-10-15 06:00] VITALS: BP 154/50; PULSE 83; RESP 20; TEMP 97.5; O2SAT 95
[2023-10-15] MEDS: K and/or MAG REPLACEMENT MC SCH ×2 (07:16→19:42)
[2023-10-15] MEDS: enoxaparin 40mg/0.4ml syringe SUBCUT SCH (07:17)
[2023-10-15 07:27] LABS: BASOPHILS # (AUTO) 0.1 X10'3 (0-0.2); BASOPHILS % (AUTO) 0.8 % (0-1); EOSINOPHILS # (AUTO) 0.5 X10'3 (0-0.9); EOSINOPHILS % (AUTO) 3.2 % (0-6); HEMATOCRIT 31.6 % (35.0-45.0); HEMOGLOBIN 10.4 g/dl (12.0-16.0); LYMPHOCYTES # (AUTO) 1.6 X10'3 (1.1-4.8); LYMPHOCYTES % (AUTO) 11.1 % (21-51); MEAN CORPUSCULAR HEMOGLOBIN 23.1 PG (27.0-31.0); MEAN CORPUSCULAR HGB CONC 32.7 g/dL (33.0-36.5); MEAN CORPUSCULAR VOLUME 70.7 FL (78-98); MEAN PLATELET VOLUME 9.8 FL (7.4-10.4); MONOCYTES % (AUTO) 14.1 % (2-12); NEUTROPHILS # (AUTO) 10.1 X10'3 (1.8-7.7); NEUTROPHILS % (AUTO) 70.8 % (42-75); PLATELET COUNT 396 X10'3 (140-440); RED BLOOD COUNT 4.47 X10'6 (4.20-5.60); RED CELL DISTRIBUTION WIDTH 19.8 % (11.5-14.5); WHITE BLOOD COUNT 14.2 X10'3 (4.5-11.0)
[2023-10-15 07:41] LABS: ALANINE AMINOTRANSFERASE 81 U/L (12-78); ALBUMIN 2.7 G/DL (3.4-5.0); ALBUMIN/GLOBULIN RATIO 0.4 (1.1-1.5); ALKALINE PHOSPHATASE 374 IU/L (46-116); ANION GAP 12 (8-16); ASPARTATE AMINO TRANSFERASE 41 U/L (10-37); BILIRUBIN,TOTAL 0.8 MG/DL (0.1-1.0); BLOOD UREA NITROGEN 73 MG/DL (7-18); BUN/CREATININE RATIO 36.5 (10.0-20.0); CALCIUM 9.1 MG/DL (8.5-10.1); CHLORIDE 80 MMOL/L (99-107); GLUCOSE 121 MG/DL (70-104); POTASSIUM 4.6 MMOL/L (3.5-5.1); TOTAL CARBON DIOXIDE 24.3 MMOL/L (24-32); TOTAL PROTEIN 9.8 G/DL (6.4-8.2); eCRCL 27 ML/MIN; eGFR 25 ML/MIN
[2023-10-15 07:53] LABS: SODIUM 116 MMOL/L (135-145)
[2023-10-15 08:00] VITALS: RESP 16; O2SAT 98
[2023-10-15] MEDS: nystatin 15 GM powder TP SCH ×3 (08:24→21:00)
[2023-10-15] MEDS: fluoxetine 20mg/5ml UD cup PO SCH (09:41)
[2023-10-15] MEDS: normal saline 1000ml 1,000 ML IV SCH ×2 (09:48→20:03)
[2023-10-15 10:59] VITALS: BP 144/69; PULSE 86; RESP 18; TEMP 97.5; O2SAT 95
[2023-10-15 12:30] VITALS: RESP 18; O2SAT 97
[2023-10-15] MEDS: lactose-reduced food (Ensure Enlive) - 237ml bottle PO SCH ×2 (13:27→18:04)
[2023-10-15 18:00] VITALS: BP 132/78; PULSE 87; RESP 19; TEMP 98.9; O2SAT 98
[2023-10-15 22:00] VITALS: BP 129/71; PULSE 82; RESP 20; TEMP 97.6; O2SAT 97
[2023-10-16] MEDS: HYDROmorphone 1 mg/ml syringe IV PRN ×5 (01:57→20:07)
[2023-10-16] MEDS: normal saline 1000ml 1,000 ML IV SCH ×2 (05:08→16:04)
[2023-10-16 06:43] VITALS: BP 156/93; PULSE 71; RESP 16; TEMP 97; O2SAT 99
[2023-10-16] MEDS: fluoxetine 20mg/5ml UD cup PO SCH (07:52)
[2023-10-16] MEDS: enoxaparin 30mg/0.3ml syringe SUBCUT SCH (07:57)
[2023-10-16 08:00] VITALS: RESP 16
[2023-10-16] MEDS: K and/or MAG REPLACEMENT MC SCH ×2 (08:00→20:00)
[2023-10-16] MEDS: lactose-reduced food (Ensure Enlive) - 237ml bottle PO SCH ×3 (08:02→18:00)
[2023-10-16] MEDS: nystatin 15 GM powder TP SCH ×3 (09:55→21:00)
[2023-10-16 11:53] VITALS: BP 123/70; PULSE 80; RESP 12; TEMP 98.2; O2SAT 99
[2023-10-16 18:00] VITALS: PULSE 78; RESP 16; TEMP 98; O2SAT 98
[2023-10-16 22:00] VITALS: BP 117/71; PULSE 73; RESP 14; TEMP 98; O2SAT 95
[2023-10-17] MEDS: HYDROmorphone 1 mg/ml syringe IV PRN ×6 (00:14→22:03)
[2023-10-17] MEDS: normal saline 1000ml 1,000 ML IV SCH ×3 (02:19→18:17)
[2023-10-17 06:00] VITALS: BP 125/67; PULSE 75; RESP 18; TEMP 98; O2SAT 97
[2023-10-17] MEDS: enoxaparin 30mg/0.3ml syringe SUBCUT SCH (08:00)
[2023-10-17] MEDS: fluoxetine 20mg/5ml UD cup PO SCH (08:55)
[2023-10-17] MEDS: nystatin 15 GM powder TP SCH ×3 (08:58→21:01)
[2023-10-17] MEDS: lactose-reduced food (Ensure Enlive) - 237ml bottle PO SCH (09:00)
[2023-10-17 09:21] LABS: ALANINE AMINOTRANSFERASE 112 U/L (12-78); ALBUMIN 2.4 G/DL (3.4-5.0); ALBUMIN/GLOBULIN RATIO 0.4 (1.1-1.5); ALKALINE PHOSPHATASE 396 IU/L (46-116); ANION GAP 8 (8-16); ASPARTATE AMINO TRANSFERASE 88 U/L (10-37); BILIRUBIN,TOTAL 0.7 MG/DL (0.1-1.0); BLOOD UREA NITROGEN 39 MG/DL (7-18); BUN/CREATININE RATIO 39.8 (10.0-20.0); CALCIUM 8.4 MG/DL (8.5-10.1); CHLORIDE 91 MMOL/L (99-107); CREATININE 0.98 MG/DL (0.40-0.90); GLUCOSE 100 MG/DL (70-104); MAGNESIUM 2.3 MG/DL (1.5-2.4); PHOSPHORUS 3.3 MG/DL (2.3-4.5); POTASSIUM 3.7 MMOL/L (3.5-5.1); SODIUM 126 MMOL/L (135-145); TOTAL CARBON DIOXIDE 26.6 MMOL/L (24-32); TOTAL PROTEIN 8.4 G/DL (6.4-8.2); eCRCL 55 ML/MIN; eGFR 58 ML/MIN
[2023-10-17 09:25] LABS: BASOPHILS # (AUTO) 0.1 X10'3 (0-0.2); BASOPHILS % (AUTO) 0.9 % (0-1); EOSINOPHILS # (AUTO) 0.6 X10'3 (0-0.9); EOSINOPHILS % (AUTO) 6.7 % (0-6); HEMATOCRIT 28.2 % (35.0-45.0); HEMOGLOBIN 9.2 g/dl (12.0-16.0); LYMPHOCYTES # (AUTO) 1.3 X10'3 (1.1-4.8); LYMPHOCYTES % (AUTO) 15.5 % (21-51); MEAN CORPUSCULAR HGB CONC 32.6 g/dL (33.0-36.5); MEAN CORPUSCULAR VOLUME 70.7 FL (78-98); MEAN PLATELET VOLUME 8.7 FL (7.4-10.4); MONOCYTES # (AUTO) 0.9 X10'3 (0-0.9); MONOCYTES % (AUTO) 11.2 % (2-12); NEUTROPHILS # (AUTO) 5.5 X10'3 (1.8-7.7); NEUTROPHILS % (AUTO) 65.7 % (42-75); PLATELET COUNT 392 X10'3 (140-440); RED CELL DISTRIBUTION WIDTH 19.6 % (11.5-14.5); WHITE BLOOD COUNT 8.3 X10'3 (4.5-11.0)
[2023-10-17 10:00] VITALS: BP 113/69; PULSE 75; RESP 15; TEMP 97.6; O2SAT 97
[2023-10-17 10:46] LABS: PLATELET ESTIMATE NORMAL
[2023-10-17 10:47] LABS: HYPOCHROMASIA 1+; POLYCHROMASIA 1+
[2023-10-17 10:48] LABS: ANISOCYTOSIS 2+; ELLIPTOCYTES FEW; MICROCYTOSIS 1+; ROULEAUX 2+; TEAR DROP CELLS FEW
[2023-10-17] MEDS: K and/or MAG REPLACEMENT MC SCH ×2 (17:12→20:00)
[2023-10-17 18:00] VITALS: BP 130/59; PULSE 84; RESP 18; TEMP 98.4; O2SAT 98
[2023-10-17] MEDS ORDERED: busPIRone 5mg tablet PO SCH (20:00)
[2023-10-17] MEDS ORDERED: lurasidone 20mg tablet PO SCH (21:00)
[2023-10-17] MEDS ORDERED: quetiapine 100mg tablet PO SCH (21:00)
[2023-10-17] MEDS ORDERED: ESCITALOPRAM 10 mg tablet 10 MG TABLET PO SCH (21:00)
[2023-10-17 22:00] VITALS: BP 114/67; PULSE 83; RESP 18; TEMP 98.5; O2SAT 98
[2023-10-18] MEDS: HYDROmorphone 1 mg/ml syringe IV PRN ×4 (01:57→13:38)
[2023-10-18] MEDS: normal saline 1000ml 1,000 ML IV SCH (02:13)
[2023-10-18 06:15] VITALS: BP 110/73; PULSE 77; RESP 15; TEMP 97.8; O2SAT 98
[2023-10-18 06:19] LABS: BASOPHILS # (AUTO) 0.1 X10'3 (0-0.2); BASOPHILS % (AUTO) 0.7 % (0-1); EOSINOPHILS # (AUTO) 0.6 X10'3 (0-0.9); EOSINOPHILS % (AUTO) 6.6 % (0-6); HEMATOCRIT 30.1 % (35.0-45.0); HEMOGLOBIN 9.8 g/dl (12.0-16.0); LYMPHOCYTES # (AUTO) 1.4 X10'3 (1.1-4.8); LYMPHOCYTES % (AUTO) 14.9 % (21-51); MEAN CORPUSCULAR HEMOGLOBIN 23.6 PG (27.0-31.0); MEAN CORPUSCULAR HGB CONC 32.6 g/dL (33.0-36.5); MEAN CORPUSCULAR VOLUME 72.4 FL (78-98); MEAN PLATELET VOLUME 8.3 FL (7.4-10.4); MONOCYTES # (AUTO) 0.8 X10'3 (0-0.9); MONOCYTES % (AUTO) 8.6 % (2-12); NEUTROPHILS # (AUTO) 6.3 X10'3 (1.8-7.7); NEUTROPHILS % (AUTO) 69.2 % (42-75); PLATELET COUNT 416 X10'3 (140-440); RED BLOOD COUNT 4.16 X10'6 (4.20-5.60); RED CELL DISTRIBUTION WIDTH 19.8 % (11.5-14.5); WHITE BLOOD COUNT 9.1 X10'3 (4.5-11.0)
[2023-10-18 06:20] LABS: ALANINE AMINOTRANSFERASE 152 U/L (12-78); ALBUMIN 2.6 G/DL (3.4-5.0); ALBUMIN/GLOBULIN RATIO 0.4 (1.1-1.5); ALKALINE PHOSPHATASE 441 IU/L (46-116); ANION GAP 9 (8-16); ASPARTATE AMINO TRANSFERASE 99 U/L (10-37); BILIRUBIN,TOTAL 0.7 MG/DL (0.1-1.0); BLOOD UREA NITROGEN 32 MG/DL (7-18); BUN/CREATININE RATIO 29.6 (10.0-20.0); CHLORIDE 90 MMOL/L (99-107); CREATININE 1.08 MG/DL (0.40-0.90); GLUCOSE 101 MG/DL (70-104); MAGNESIUM 2.4 MG/DL (1.5-2.4); PHOSPHORUS 4.1 MG/DL (2.3-4.5); POTASSIUM 3.5 MMOL/L (3.5-5.1); SODIUM 127 MMOL/L (135-145); TOTAL CARBON DIOXIDE 28.4 MMOL/L (24-32); TOTAL PROTEIN 8.7 G/DL (6.4-8.2); eCRCL 50 ML/MIN; eGFR 52 ML/MIN
[2023-10-18] MEDS ORDERED: lurasidone 20mg tablet PO SCH (08:00)
[2023-10-18] MEDS: nystatin 15 GM powder TP SCH (08:27)
[2023-10-18] MEDS: fluoxetine 20mg/5ml UD cup PO SCH (08:27)
[2023-10-18 10:00] VITALS: BP 119/74; PULSE 80; RESP 16; TEMP 97.9; O2SAT 98
[2023-10-18] MEDS ORDERED: LORazepam 1 MG tablet PO PRN (11:10)
[2023-10-18] MEDS ORDERED: HYDROmorphone 2mg tablet PO PRN (11:10)
[2023-10-18] MEDS ORDERED: HYDROcodone/acetaminophen 10/325mg tab PO PRN (11:10)
[2023-10-18] MEDS ORDERED: HYDROcodone/acetaminophen 5mg/325mg tablet PO PRN (11:10)
[2023-10-18] MEDS ORDERED: LORazepam 2 mg/ml vial IV PRN (11:10)
[2023-10-18] MEDS ORDERED: morphine 2 MG/ML inj. syringe IV PRN (11:10)
[2023-10-18] MEDS ORDERED: morphine 10mg/0.5ml (conc. morphine) oral syringe PO PRN (11:15)
[2023-10-18] MEDS ORDERED: scopolamine 1MG/72H patch 1 PATCH PATCH.TD.3 TD SCH (11:15)
[2023-10-18 13:38] VITALS: RESP 18
== END 2023-10-18 13:10 | disposition short-term general hospital (02) | DRG 919 ==
LOC: ORTHO 4S 11:00
PROVIDERS: ADMIT Internal Medicine; ATTEND Internal Medicine
PROC: 02HV33Z Insertion of Infusion Device into Superior Vena Cava, Percutaneous Approach (ICD-10-PCS; principal; 2023-10-17)
PROC: B548ZZA Ultrasonography of Superior Vena Cava, Guidance (ICD-10-PCS; 2023-10-17)
DX: T81.83XA Persistent postprocedural fistula, initial encounter (principal); E43 Unspecified severe protein-calorie malnutrition; E87.1 Hypo-osmolality and hyponatremia; S31.109A Unspecified open wound of abdominal wall, unspecified quadrant without penetration into peritoneal cavity, initial encounter; E87.6 Hypokalemia; I10 Essential (primary) hypertension; F41.9 Anxiety disorder, unspecified; X58.XXXA Exposure to other specified factors, initial encounter; D75.839 Thrombocytosis, unspecified; F32.A Depression, unspecified; Z51.5 Encounter for palliative care; Z79.899 Other long term (current) drug therapy; Z93.3 Colostomy status; Z90.49 Acquired absence of other specified parts of digestive tract; Y93.89 Activity, other specified; Y92.89 Other specified places as the place of occurrence of the external cause; Y99.8 Other external cause status; Z68.30 Body mass index [BMI] 30.0-30.9, adult; Z80.3 Family history of malignant neoplasm of breast; Y83.8 Other surgical procedures as the cause of abnormal reaction of the patient, or of later complication, without mention of misadventure at the time of the procedure; Y73.8 Miscellaneous gastroenterology and urology devices associated with adverse incidents, not elsewhere classified
CPT/HCPCS: 36415; 80053; 80061; 82948; 83036; 83735; 84100; 84134; 84478; 85008; 85025; 87081; 97161; A4314; A4371; A4421; A4649; A6196; A6209; A6253; A6402; A6446; A6449; G0378; J1170; J2060; J2405; J2997; J3490; J7030; J7040; J7060